=== PATIENT | female | born 1950 | race Caucasian/White ===

== ENCOUNTER 2017-01-21 12:33 | Emergency (ER) | payer MEDICARE, MEDICAID ==
[~2017-01-21] VITALS: Ht 142.2 cm; Wt 59.0 kg
[~2017-01-21 12:33] MED LIST: ALPR.5T PO; ALPR0.5T7 PO; AMLO5TAB2 PO; AMPH15TA2 PO; ASPI-816 PO; BP MED; CEPH-507 PO; CEPH500C PO; CLON2TAB22 BU; DEXT15TA PO; DOXY100C2 PO; ENAL10TA PO; FLC150T PO; FURO20TA4 PO; HCTZ12.5T PO; HYDR-2890 PO; HYDR-3720 PO; HYDR12.5 PO; LOSA100T7 PO; MULT1TAB69 PO; NAPR-243 PO; OMEP20CA12 PO; OXYC-272; OXYC-465 PO; OXYC1TAB17 PO; PANT40TA PO; SCR1T1 PO; SUCR1TAB PO; SULF-222 PO; wheelchair
[2017-01-21] MEDS ORDERED: DEXT15TA (12:48)
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
[2017-01-21] MEDS ORDERED: PRD20T PO (14:31)
[2017-01-21 14:38] VITALS: BP 174/98
== END 2017-01-21 14:37 | disposition home or self-care (01) ==
LOC: EDUNIT# 12:33 → ER 12:37
DX: M47.812 Spondylosis without myelopathy or radiculopathy, cervical region (principal); G89.29 Other chronic pain; R51 Headache; I10 Essential (primary) hypertension; J44.9 Chronic obstructive pulmonary disease, unspecified; F17.210 Nicotine dependence, cigarettes, uncomplicated; Z79.899 Other long term (current) drug therapy
CPT/HCPCS: 70450; 72125; 99281

== ENCOUNTER 2017-01-29 22:05 | Emergency (ER) | payer MEDICARE, MEDICAID ==
[~2017-01-29] VITALS: Ht 142.2 cm; Wt 56.7 kg
[~2017-01-29 22:05] MED LIST changes: +DEXT15TA; +PRD20T PO
[2017-01-29] MEDS ORDERED: ACYC800T PO (22:26)
--- NOTE | 2017-01-29 22:26 | ED General ---
General Chief Complaint: Bite-Animal/Human/Insect Stated Complaint: BITES ON NECK/FACE Source of Information: Patient Exam Limitations: No Limitations History of Present Illness Time Seen by Provider: 22:22 Initial Comments To ER with a nonspecific rash that itches and is burning to the left side of her neck for 4 days. Timing/Duration: 1-2 Days Severity: Moderate Allergies and Home Medications Allergies Coded Allergies: No Known Drug Allergies (Unverified , 05/15/09) Home Medications Clonazepam 2 Mg Tab.rapdis, 2 MG BU Q8H, (Reported) Dextroamphetamine/Amphetamine 15 Mg Tablet, #60 (Reported) Furosemide 20 Mg Tablet, 20 MG PO DAILY, (Reported) Hydrochlorothiazide 12.5 Mg Capsule, 12.5 MG PO DAILY@1700, (Reported) Multivitamin 1 Each Tablet, 1 TAB PO DAILY, (Reported) Oxycodone HCl/Acetaminophen 1 Each Tablet, 1 TAB PO Q6H PRN for PAIN, (Reported) Prednisone 20 Mg Tab, 40 MG PO DAILY, #12 Ref 0 Prescribed by: WIL WINTER on 01/21/17 1431 Constitutional: see HPI EENTM: see HPI Respiratory: no symptoms reported Cardiovascular: no symptoms reported Genitourinary: no symptoms reported Musculoskeletal: no symptoms reported Skin: no symptoms reported Psychiatric/Neurological: No Symptoms Reported Past [id number]-[id number]-[id number] Hx Patient Social History Type Used: Cigarettes Recent Foreign Travel: No Contact w/Someone Who Travel: No Recent Hopitalizations: No Immunizations Up To Date Tetanus Booster (TDap): Unknown Date of Pneumonia Vaccine: Aug 31, 2004 Seasonal Allergies Seasonal Allergies: No Surgeries HX Surgeries: Yes (RIGHT KNEE, BLADDER SUSPENSION X2, ANKLE FX) Surgeries: Bladder Surgery, Cardiac, Orthopedic Respiratory Hx Respiratory Disorders: Yes Respiratory Disorders: COPD Cardiovascular Hx Cardiac Disorders: Yes Cardiac Disorders: Hypertension Neurological Hx Neurological Disorders: No 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 System Hx 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 Disorders: No Sexually Transmitted Disease: 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 Genitourinary Hx Genitourinary Disorders: No Gastrointestinal Hx Gastrointestinal Disorders: Yes Gastrointestinal Disorders: Gastroesophageal Reflux, Hiatal Hernia, Ulcer Musculoskeletal Hx Musculoskeletal Disorders: Yes (RIGHT KNEE--TORN MENISCUS, CARPAL TUNNEL) Musculoskeletal Disorders: Osteoporosis, Arthritis, Fibromyalgia, Rheumatoid Arthritis, Chronic Back Pain, Fractures Endocrine Hx Endocrine Disorders: No HEENT HX ENT Disorders: No Cancer Hx Cancer: No Psychosocial Hx Psychiatric Problems: Yes Behavioral Health Disorders: Anxiety Integumentary HX Skin/Integumentary Disorder: No Blood Transfusions Hx Blood Disorders: No Family Medical History Significant Family History: Heart Disease Family Medial History: Cancer of mouth 20 MOTHER (CANCER OF STOMACH) GRANDMOTHER (CANCER OF STOMACH) Physical Exam Vital Signs Capillary Refill : Less Than 3 Seconds General Appearance: No Apparent Distress, WD/WN Eyes: Bilateral Eye EOMI, Bilateral Eye Normal Inspection, Bilateral Eye PERRL HEENT: PERRL/EOMI, TMs Normal Neck: Full Range of Motion, Normal Inspection Respiratory: No Accessory Muscle Use, No Respiratory Distress Gastrointestinal: Normal Bowel Sounds, Non Tender, Soft Extremity: Normal Capillary Refill, Normal Inspection Neurologic/Psychiatric: Alert, Oriented x3, No Motor/Sensory Deficits Skin: Normal Color, Warm/Dry, Other (erythematous linear rash of papules and what appears to be crusted ruptured vesicles. ) Departure Communication Progress Notes 2224- no cellulitis we will treat for a potential herpes zoster rash. Impression Impression: Primary Impression: Rash and nonspecific skin eruption Disposition: 01 HOME, SELF-CARE Condition: Stable Departure-Patient Inst. Decision time for Depature: 22:23 Referrals: PAUL HERNANDEZ MD (PCP/Family) Primary Care Physician Patient Instructions: NO INSTRUCTIONS GIVEN Add. Discharge Instructions: 1. Medication as directed 2. See your doctor tomorrow for recheck 3. Return to ER for any worsening All discharge instructions reviewed with patient and/or family. Voiced understanding. Scripts Acyclovir (Acyclovir) 800 Mg Tablet 800 MG PO 5XD, #35 TAB Prov: MESERET LANTIGUA APRN 01/29/17 MESERET LANTIGUA APRN Jan 29, 2017 22:26
[2017-01-29] MEDS ORDERED: HYDROCORTISONE 1% CREAM 30 GM TUBE ONE (22:38)
[2017-01-29] MEDS: HYDROCORTISONE 1% CREAM 30 GM TUBE TOP SCH (22:46)
[2017-01-29] MEDS: ACYCLOVIR 400 MG TABLET (ZOVIRAX) PO SCH (22:47)
[2017-01-29 22:48] VITALS: BP 140/101
== END 2017-01-29 22:48 | disposition home or self-care (01) ==
LOC: EDUNIT# 22:05 → ER 22:10
DX: R21 Rash and other nonspecific skin eruption (principal); I10 Essential (primary) hypertension; J44.9 Chronic obstructive pulmonary disease, unspecified; Z79.899 Other long term (current) drug therapy

== ENCOUNTER 2017-03-11 14:26 | Emergency (ER) | payer MEDICARE, MEDICAID ==
[~2017-03-11] VITALS: Ht 157.5 cm; Wt 51.3 kg
[~2017-03-11 14:26] MED LIST changes: +ACYC800T PO
[2017-03-11] MEDS ORDERED: NALOXONE 0.4 MG/ML 1 ML (NARCAN) VIAL ONE (14:34)
[2017-03-11] MEDS ORDERED: NALOXONE 2 MG/2 ML (NARCAN) SYR ONE (14:34)
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
[2017-03-11 14:53] LABS: BASOPHILS % (AUTO) 0 % (0-10); EOSINOPHILS # (AUTO) 0.5 10^3/uL (0.0-0.3); EOSINOPHILS % (AUTO) 5 % (0-10); LYMPHOCYTES # (AUTO) 3.2 X 10^3 (1.0-4.0); LYMPHOCYTES % (AUTO) 35 % (12-44); MEAN CORPUSCULAR HEMOGLOBIN 31 PG (25-34); MEAN CORPUSCULAR HGB CONC 33 G/DL (32-36); MEAN CORPUSCULAR VOLUME 93 FL (80-99); MEAN PLATELET VOLUME 9.5 FL (7.4-10.4); MONOCYTES # (AUTO) 0.6 X 10^3 (0.0-1.0); MONOCYTES % (AUTO) 7 % (0-12); NEUTROPHILS # (AUTO) 4.9 X 10^3 (1.8-7.8); NEUTROPHILS % (AUTO) 54 % (42-75); PLATELET COUNT 219 10^3/uL (130-400); RED BLOOD COUNT 4.31 10^6/uL (4.35-5.85); RED CELL DISTRIBUTION WIDTH 13.8 % (10.0-14.5); WHITE BLOOD COUNT 9.1 10^3/uL (4.3-11.0)
[2017-03-11] MEDS ORDERED: NALOXONE 0.4 MG/ML 1 ML (NARCAN) VIAL IV ONE (15:00)
[2017-03-11 15:09] LABS: ACETAMINOPHEN 15 UG/ML (10-30); ALANINE AMINOTRANSFERASE 10 U/L (0-55); ALBUMIN 3.6 GM/DL (3.2-4.5); ALCOHOL < 10 MG/DL (<10); ANION GAP 7 MMOL/L (5-14); ASPARTATE AMINO TRANSFERASE 16 U/L (5-34); BILIRUBIN,TOTAL 0.6 MG/DL (0.1-1.0); BLOOD UREA NITROGEN 12 MG/DL (7-18); BUN/CREATININE RATIO 16; CARBON DIOXIDE 27 MMOL/L (21-32); CHLORIDE 102 MMOL/L (98-107); CREATININE SERUM 0.75 MG/DL (0.60-1.30); GFR ESTIMATED > 60; GLUCOSE 89 MG/DL (70-105); POTASSIUM 4.1 MMOL/L (3.6-5.0); SALICYLATE < 5.0 MG/DL (5.0-20.0); SODIUM 136 MMOL/L (135-145); TOTAL PROTEIN 6.5 GM/DL (6.4-8.2)
--- NOTE | 2017-03-11 15:24 | Diagnostic Imaging Report ---
PROCEDURE: CT head without contrast. TECHNIQUE: Multiple contiguous axial images were obtained through the brain without the use of intravenous contrast. INDICATION: Altered mental status. FINDINGS: There are periventricular and deep white matter hypodensities compatible with chronic microvascular ischemic changes. No intracranial hemorrhage, edema or mass effect. The lateral ventricles are not enlarged. No extra-axial fluid collection is seen. The calvarium, the orbits and paranasal sinuses appear grossly unremarkable. IMPRESSION: 1. No intracranial hemorrhage. 2. Prominent white matter findings are likely secondary to chronic microvascular ischemic changes. Dictated by: Dictated on workstation # [id number]
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
[2017-03-11] MEDS ORDERED: NS IV 1000 ML 1,000 ML IV ONE ×2 (15:50→17:54)
[2017-03-11 17:28] LABS: BILIRUBIN,URINE NEGATIVE (NEGATIVE); KETONES,URINE NEGATIVE (NEGATIVE); LEUKOCYTE ESTERASE ,URINE 3+ (NEGATIVE); NITRITE,URINE NEGATIVE (NEGATIVE); PH,URINE 7 (5-9); PROTEIN,URINE NEGATIVE (NEGATIVE); UROBILINOGEN,URINE NORMAL (NORMAL)
[2017-03-11 17:37] LABS: WBC,URINE 50-100 /HPF
[2017-03-11] MEDS ORDERED: CIPROFLOXACIN 500 MG (CIPRO) TABLET PO ONE (17:45)
[2017-03-11] MEDS ORDERED: CIPR-225 PO (18:10)
[2017-03-11 20:02] VITALS: BP 113/88
== END 2017-03-11 19:59 | disposition home or self-care (01) ==
LOC: EDUNIT# 14:26 → ER 14:30
DX: F44.89 Other dissociative and conversion disorders (principal); F17.210 Nicotine dependence, cigarettes, uncomplicated
CPT/HCPCS: 36415; 70450; 80053; 80306; 80320; 80329; 81000; 84443; 85025; 87077; 87088; 87186; 93005; 93041; 96361; 96374

== ENCOUNTER 2017-10-19 17:15 | Emergency (ER) | payer MEDICARE, MEDICAID ==
[~2017-10-19] VITALS: Ht 157.5 cm; Wt 51.3 kg
[~2017-10-19 17:15] MED LIST changes: +CIPR-225 PO
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
--- NOTE | 2017-10-19 18:57 | Diagnostic Imaging Report ---
PROCEDURE: CT abdomen and pelvis without contrast. TECHNIQUE: Multiple contiguous axial images were obtained through the abdomen and pelvis without the use of intravenous contrast. INDICATION: Abdominal pain Comparison is made to study of 07/17/2016. Unenhanced images of the liver and spleen reveal no focal abnormality. There is no evidence of gallbladder or pancreatic lesion. Adrenal glands and kidneys are also stable and unremarkable in appearance. No free fluid is seen within the abdomen. There is a disc like metallic object which appears to be within the dependent portion of the stomach. This may represent an ingested foreign object such as coin. There are marked compression fracture deformities in the upper lumbar spine with associated sclerosis indicating probable chronic nature without evidence of associated hematoma. Within the pelvis, there is no significant free fluid. The bladder is distended. There is no evidence of acute osseous abnormality. IMPRESSION: Metallic object appears to be within the lumen of the stomach and may represent ingested object such as coin. Clinical correlation is recommended. There is marked degenerative change in the upper lumbar spine without other acute abnormality seen. There is extensive urinary bladder distention. Dictated by: Dictated on workstation # [id number]
[2017-10-19] MEDS ORDERED: ORPHENADRINE 60 MG/2 ML (NORFLEX) AMP IM ONE (19:15)
[2017-10-19] MEDS ORDERED: KETOROLAC 60 MG/2 ML VIAL IM ONE (19:15)
[2017-10-19 19:33] LABS: BILIRUBIN,URINE NEGATIVE (NEGATIVE); CLARITY,URINE CLEAR; COLOR,URINE YELLOW; GLUCOSE, URINE (UA) NEGATIVE (NEGATIVE); KETONES,URINE NEGATIVE (NEGATIVE); LEUKOCYTE ESTERASE ,URINE 3+ (NEGATIVE); NITRITE,URINE NEGATIVE (NEGATIVE); PH,URINE 7 (5-9); PROTEIN,URINE NEGATIVE (NEGATIVE); UROBILINOGEN,URINE NORMAL (NORMAL)
[2017-10-19 19:41] LABS: BACTERIA,URINE LARGE /HPF
[2017-10-19 19:42] VITALS: BP 144/90
[2017-10-19] MEDS ORDERED: SULF1TAB35 PO (19:49)
[2017-10-19] MEDS ORDERED: NAPR-1071 PO (19:49)
[2017-10-19 19:55] VITALS: BP 136/78
[2017-10-19 20:22] LABS: AMPHETAMINE SCREEN, URINE NEGATIVE (NEGATIVE); BARBITURATE SCREEN URINE NEGATIVE (NEGATIVE); BENZODIAZEPINES SCREEN URINE NEGATIVE (NEGATIVE); CANNABINOID SCREEN, URINE NEGATIVE (NEGATIVE); COCAINE SCREEN URINE NEGATIVE (NEGATIVE); METHADONE STAT NEGATIVE (NEGATIVE); METHAMPHETAMINE SCREEN URINE S NEGATIVE (NEGATIVE); OPIATE SCREEN URINE NEGATIVE (NEGATIVE); OXYCODONE STAT NEGATIVE (NEGATIVE); PROPOXYPHENE STAT NEGATIVE (NEGATIVE); TRICYCLIC ANTIDEPRESSANTS SCRE NEGATIVE (NEGATIVE)
== END 2017-10-19 19:53 | disposition home or self-care (01) ==
LOC: EDUNIT# 17:15 → ER 17:16
DX: N39.0 Urinary tract infection, site not specified (principal); J44.9 Chronic obstructive pulmonary disease, unspecified; I10 Essential (primary) hypertension; K21.9 Gastro-esophageal reflux disease without esophagitis; M81.0 Age-related osteoporosis without current pathological fracture; F41.9 Anxiety disorder, unspecified; Z80.0 Family history of malignant neoplasm of digestive organs; Z82.49 Family history of ischemic heart disease and other diseases of the circulatory system; Z87.19 Personal history of other diseases of the digestive system; Z90.710 Acquired absence of both cervix and uterus; Z77.22 Contact with and (suspected) exposure to environmental tobacco smoke (acute) (chronic)
CPT/HCPCS: 74176; 80306; 81000; 87077; 87088; 87186

== ENCOUNTER 2017-10-26 13:03 | Emergency (ER) | payer MEDICARE, MEDICAID ==
[~2017-10-26] VITALS: Ht 157.5 cm; Wt 59.0 kg
[~2017-10-26 13:03] MED LIST changes: +NAPR-1071 PO; +SULF1TAB35 PO
[2017-10-26 14:00] VITALS: BP 113/76
== END 2017-10-26 15:34 | disposition left against medical advice (07) ==
LOC: EDUNIT# 13:03 → ER 13:07
DX: R39.89 Other symptoms and signs involving the genitourinary system (principal)
CPT/HCPCS: 99282

== ENCOUNTER 2018-03-16 18:40 | Emergency (ER) | payer MEDICARE, MEDICAID ==
[~2018-03-16] VITALS: Ht 144.8 cm; Wt 56.7 kg
[~2018-03-16 18:40] MED LIST changes: +MUPI22OI2 TP
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
[2018-03-16] MEDS ORDERED: HYDROcodone/APAP 5 MG/325 MG (LORTAB) TAB PO ONE (19:15)
--- NOTE | 2018-03-16 20:13 | Diagnostic Imaging Report ---
CLINICAL INDICATION: Patient status post fall, right rib pain, cough and congestion. EXAM: X-ray right ribs, 3 views. COMPARISON: Chest x-ray dated 02/11/2015. Chest x-ray dated 03/16/2018. FINDINGS AND IMPRESSION: 1: There is interval development of minimally displaced fractures involving the anterolateral aspect of the right T6, T7, T8, and T9 ribs. There is no pneumothorax. 2: There is dextroscoliosis of the thoracolumbar region with compression deformities noted which is better described on the prior chest x-ray dated 03/16/2018. Dictated by: Dictated on workstation # [id number]
--- NOTE | 2018-03-16 20:16 | Diagnostic Imaging Report ---
Clinical indication: Patient is status post fall, right rib pain with coughing. Congestion. Exam: Chest x-ray, PA and lateral views. Comparison: Portable chest x-ray, upright view, dated 02/11/2015. CT scan of the chest, abdomen, and pelvis with contrast dated 07/17/2016. Findings: There is kyphosis of the thoracolumbar region with compression deformities of at least 2 vertebral bodies. The patient was noted to have compression fractures in this general region on a comparison chest CT scan dated 07/17/2016. These findings may be chronic, but should be correlated with back pain. Right ribs are obscured by chest anatomical structures. This would be better evaluated with x-ray rib series. There is mild bibasilar atelectasis versus scarring. There is no definite lung infiltrate. There is no pleural effusion or pneumothorax. Pulmonary vasculature and cardiac silhouette is within normal limits. There is dextroscoliosis of the thoracolumbar spine region which has progressed compared to the prior CT. Impression: 1: There is progression of kyphosis with thoracolumbar compression deformities which most, if not all, are suspected to be chronic. Clinical correlation for back pain would better evaluate. If there is concern for fracture, then CT scan would better evaluate. 2: Mild bibasilar atelectasis versus scarring. Dictated by: Dictated on workstation # [id number]
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
[2018-03-16] MEDS ORDERED: oxyCODONE/APAP 5/325MG (PERCOCET 5) TABLET PO ONE (21:00)
[2018-03-16 21:34] LABS: BILIRUBIN,URINE NEGATIVE (NEGATIVE); CLARITY,URINE CLEAR; COLOR,URINE YELLOW; GLUCOSE, URINE (UA) NEGATIVE (NEGATIVE); KETONES,URINE NEGATIVE (NEGATIVE); LEUKOCYTE ESTERASE ,URINE 1+ (NEGATIVE); NITRITE,URINE NEGATIVE (NEGATIVE); PH,URINE 7 (5-9); PROTEIN,URINE NEGATIVE (NEGATIVE); UROBILINOGEN,URINE NORMAL (NORMAL)
[2018-03-16 21:40] LABS: BACTERIA,URINE FEW /HPF; RBC,URINE 0-2 /HPF; SQUAMOUS EPITHELIAL CELL,UR 0-2 /HPF
[2018-03-16] MEDS ORDERED: OXYC-197 PO (21:58)
[2018-03-16] MEDS ORDERED: RX-OXYCODONE/APAP 5-325 MG #4 TAB PK PO PRN (22:00)
[2018-03-16] MEDS ORDERED: AMLO5TAB2 PO (22:08)
[2018-03-16] MEDS ORDERED: amLODIPine 5 MG (NORVASC) TAB PO ONE (22:15)
[2018-03-16 22:16] VITALS: BP 195/96
== END 2018-03-16 22:16 | disposition home or self-care (01) ==
LOC: EDUNIT# 18:40 → ER 18:42
DX: S22.41XA Multiple fractures of ribs, right side, initial encounter for closed fracture (principal); I10 Essential (primary) hypertension; J44.9 Chronic obstructive pulmonary disease, unspecified; Z90.710 Acquired absence of both cervix and uterus; K21.9 Gastro-esophageal reflux disease without esophagitis; F17.210 Nicotine dependence, cigarettes, uncomplicated; M81.0 Age-related osteoporosis without current pathological fracture; M06.9 Rheumatoid arthritis, unspecified; F41.9 Anxiety disorder, unspecified; Z87.19 Personal history of other diseases of the digestive system; W18.30XA Fall on same level, unspecified, initial encounter; Y92.002 Bathroom of unspecified non-institutional (private) residence as the place of occurrence of the external cause
CPT/HCPCS: 71046; 71100; 81000; 94664

== ENCOUNTER 2018-06-21 12:07 | Inpatient (IN) | payer MEDICARE, MEDICAID ==
[~2018-06-21] VITALS: Ht 144.8 cm; Wt 56.7 kg
[~2018-06-21 12:07] MED LIST changes: +AMLO5TAB7 PO; -DEXT15TA; +OXYC1TAB87 PO
[2018-06-21] MEDS ORDERED: fentaNYL INJECTION 100 MCG/2 ML AMP IVP STA (12:22)
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
--- NOTE | 2018-06-21 13:18 | Diagnostic Imaging Report ---
INDICATION: Right knee pain, fall yesterday. TIME OF EXAM: 1:16 PM 3 views of the right knee were obtained. FINDINGS: Alignment is normal. Joint spaces are fairly well-maintained apart from medial compartmental narrowing. There is marginal osteophyte formation. No fracture, dislocation or effusion is seen. IMPRESSION: Degenerative changes. No acute bony abnormality is detected. Dictated by: Dictated on workstation # [id number]
--- NOTE | 2018-06-21 13:19 | Diagnostic Imaging Report ---
Indication: Right hip pain. AP view pelvis and 2 views of right hip were obtained. There is some cortical irregularity in the intertrochanteric region of the right hip suspicious for nondisplaced fracture. Impression: Suspected nondisplaced intertrochanteric fracture of the right hip. Called to Dr. House at 1:18 p.m. by cvb. Critical finding. Dictated by: Dictated on workstation # [id number]
[2018-06-21] MEDS ORDERED: HYDROmorphone 2 MG/ML VIAL (DILAUDID) IV STA (13:34)
[2018-06-21 13:42] LABS: BASOPHILS % (AUTO) 0 % (0-10); EOSINOPHILS # (AUTO) 0.1 10^3/uL (0.0-0.3); EOSINOPHILS % (AUTO) 1 % (0-10); HEMATOCRIT 43 % (35-52); LYMPHOCYTES # (AUTO) 2.3 X 10^3 (1.0-4.0); LYMPHOCYTES % (AUTO) 24 % (12-44); MEAN CORPUSCULAR HEMOGLOBIN 30 PG (25-34); MEAN CORPUSCULAR HGB CONC 33 G/DL (32-36); MEAN CORPUSCULAR VOLUME 92 FL (80-99); MONOCYTES # (AUTO) 0.7 X 10^3 (0.0-1.0); MONOCYTES % (AUTO) 8 % (0-12); NEUTROPHILS # (AUTO) 6.5 X 10^3 (1.8-7.8); NEUTROPHILS % (AUTO) 67 % (42-75); PLATELET COUNT 345 10^3/uL (130-400); RED BLOOD COUNT 4.63 10^6/uL (4.35-5.85); RED CELL DISTRIBUTION WIDTH 14.9 % (10.0-14.5); WHITE BLOOD COUNT 9.7 10^3/uL (4.3-11.0)
[2018-06-21 13:48] LABS: PROTHROMBIN TIME PATIENT 13.6 SEC (12.2-14.7)
[2018-06-21 13:56] LABS: ALANINE AMINOTRANSFERASE 15 U/L (0-55); ALBUMIN 4.4 GM/DL (3.2-4.5); ALKALINE PHOSPHATASE 95 U/L (40-136); BUN/CREATININE RATIO 13; CALCIUM 9.6 MG/DL (8.5-10.1); CARBON DIOXIDE 22 MMOL/L (21-32); CHLORIDE 104 MMOL/L (98-107); CREATININE SERUM 0.75 MG/DL (0.60-1.30); GFR ESTIMATED > 60; GLUCOSE 110 MG/DL (70-105); POTASSIUM 3.4 MMOL/L (3.6-5.0); SODIUM 140 MMOL/L (135-145); TOTAL PROTEIN 8.3 GM/DL (6.4-8.2)
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
--- OUTSIDE RECORDS SUMMARY | 2018-06-21 14:12 | XMS REPORT ---
Author Author RIKA NGUYEN Organization [facility] Address [address] [place] [address] Care Team Providers Care Die Maker Name Role Phone RIKA NGUYEN Unavailable PROBLEMS Type Condition ICD9-CM Code PFD24-GF Code Onset Dates Condition Status SNOMED Code Problem Attention deficit hyperactivity disorder (ADHD), predominantly inattentive type F90.0 Active 92140164 Problem Closed fracture of multiple ribs of right side with routine healing, subsequent encounter S22.41XD Active 64790521 Problem Neuropathy G62.9 Active 085958123 Problem GERD with esophagitis K21.0 Active 151925286 ALLERGIES No Information ENCOUNTERS Encounter Location Date Diagnosis [place] [id number] [place] [address]46- [address] 12 May, 2018 [place] [id number] [place] [address] 72[address]- [address] Mar, Fall in bathtub, subsequent encounter W18.2XXD [place] [id number] [place] [address] 18296- 5710 Mar, [place] [id number] [place] [address] 63770- 4984 Mar, [place] [id number] [place] [address] 70309- 2965 Feb, [facility] [id number] [place] [address] 8[address]12- [address] Feb, Closed fracture of multiple ribs of right side with routine healing, subsequent encounter S22.41XD ; Fall in bathtub, subsequent encounter W18.2XXD and Attention deficit hyperactivity disorder (ADHD), predominantly inattentive type F90.0 [place] [id number] [place] [address]33- [address] Feb, [facility] [address] [facility] [id number] [place] [address] Feb, Fatigue R53.83 [facility] [address] [facility] [id number] [place] [address] Feb, GERD with esophagitis K21.0 ; Neuropathy G62.9 and Rash R21 IMMUNIZATIONS No Known Immunizations SOCIAL HISTORY Never Assessed REASON FOR VISIT Requests return call/ PLAN OF CARE VITAL SIGNS MEDICATIONS Unknown [...]
--- OUTSIDE RECORDS SUMMARY | 2018-06-21 14:12 | XMS REPORT ---
Author Author RIKA NGUYEN Organization [facility] Address [address] [place] [address] Care Team Providers Care Back Shoe Operator Name Role Phone RIKA NGUYEN Unavailable PROBLEMS Type Condition ICD9-CM Code JKK21-LJ Code Onset Dates Condition Status SNOMED Code Problem Attention deficit hyperactivity disorder (ADHD), predominantly inattentive type F90.0 Active 38404921 Problem Closed fracture of multiple ribs of right side with routine healing, subsequent encounter S22.41XD Active 30198714 Problem Neuropathy G62.9 Active 629872785 Problem GERD with esophagitis K21.0 Active 552357972 ALLERGIES No Information ENCOUNTERS Encounter Location Date Diagnosis [place] [id number] [place] [address] 16162- [address] 12 May, 2018 [place] [id number] [place] [address] 46335- [address] Mar, Fall in bathtub, subsequent encounter W18.2XXD [place] [id number] [place] [address] 18642- 6482 Mar, [place] [id number] [place] [address] 80754- 3[address] Mar, [place] [id number] [place] [address] 20784- 9158 Feb, [facility] [id number] [place] [address] 27695- 6489 Feb, Closed fracture of multiple ribs of right side with routine healing, subsequent encounter S22.41XD ; Fall in bathtub, subsequent encounter W18.2XXD and Attention deficit hyperactivity disorder (ADHD), predominantly inattentive type F90.0 [place] [id number] [place] [address] 76863- [address]391 Feb, [facility] [address] [facility] [id number] [place] [address] Feb, Fatigue R53.83 [facility] [address] [facility] [id number] [place] [address] Feb, GERD with esophagitis K21.0 ; Neuropathy G62.9 and Rash R21 IMMUNIZATIONS No Known Immunizations SOCIAL HISTORY Never Assessed REASON FOR VISIT Labs PLAN OF CARE VITAL SIGNS MEDICATIONS Unknown [...]
--- OUTSIDE RECORDS SUMMARY | 2018-06-21 14:12 | XMS REPORT ---
Author Author RIKA NGUYEN Organization [facility] Address [address] [place] [address] Care Team Providers Care Farmworker Turkey Farm Name Role Phone RIKA NGUYEN Unavailable PROBLEMS Type Condition ICD9-CM Code RXZ15-AJ Code Onset Dates Condition Status SNOMED Code Problem Attention deficit hyperactivity disorder (ADHD), predominantly inattentive type F90.0 Active 36427612 Problem Closed fracture of multiple ribs of right side with routine healing, subsequent encounter S22.41XD Active 04987515 Problem Neuropathy G62.9 Active 921501763 Problem GERD with esophagitis K21.0 Active 664047516 ALLERGIES No Information ENCOUNTERS Encounter Location Date Diagnosis [place] [id number] [place] [address]61- [address]15 May, [place] [id number] [place] [address] 78455- 6144 May, [place] [address] [address] Mar, Fall in bathtub, subsequent encounter W18.2XXD [place] [id number] [place] [address] 87641- 9272 Mar, [place] [id number] [place] [address] 67435- [address]297 Mar, [facility] [address] [address] Feb, [facility] [address] [address]- [address] Feb, Closed fracture of multiple ribs of right side with routine healing, subsequent encounter S22.41XD ; Fall in bathtub, subsequent encounter W18.2XXD and Attention deficit hyperactivity disorder (ADHD), predominantly inattentive type F90.0 [facility] [address] [facility] [id number] [place] [address] Feb, [facility] [address] [facility] [id number] [address] Feb, [address] [facility] [address] [facility] [id number] [address] Feb, GERD with esophagitis K21.0 ; Neuropathy G62.9 and Rash R21 IMMUNIZATIONS No Known Immunizations SOCIAL HISTORY Never Assessed REASON FOR VISIT Refill request PLAN OF CARE VITAL SIGNS MEDICATIONS Unknown [...]
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
--- NOTE | 2018-06-21 14:38 | Diagnostic Imaging Report ---
INDICATION: Preop for hip surgery. TIME OF EXAM: 1:58 p.m. COMPARISON: Comparison is made with prior chest from 03/16/2018. FINDINGS: The heart size is stable. There are some interstitial changes throughout both lungs, which are likely chronic. No parenchymal consolidation, effusion, or pneumothorax is seen. IMPRESSION: No acute cardiopulmonary process is detected. Dictated by: Dictated on workstation # [id number]
[2018-06-21] MEDS ORDERED: LORazepam INJ 2 MG/ML (ATIVAN) VIAL IVP PRN (14:45)
[2018-06-21] MEDS ORDERED: ONDANSETRON 4 MG/2 ML (SDV) Z0FRAN IV PRN (15:15)
[2018-06-21] MEDS ORDERED: NS IV 1000 ML 1,000 ML IV SCH (15:15)
[2018-06-21] MEDS ORDERED: CLON2TAB12 PO (15:46)
[2018-06-21] MEDS ORDERED: OXYC-471 PO (15:46)
[2018-06-21] MEDS ORDERED: SUCR1TAB PO (15:48)
[2018-06-21] MEDS ORDERED: GABA-488 PO (15:48)
[2018-06-21] MEDS ORDERED: ASPI-789 PO (15:57)
[2018-06-21] MEDS ORDERED: [UNRECOGNIZED DRUG - CODE] PO (15:59)
[2018-06-21 16:00] VITALS: BP 173/80
[2018-06-21] MEDS ORDERED: RT-ALBUTEROL/IPRATROPIUM 3 ML (DUONEB) VIAL INH PRN (16:00)
[2018-06-21 16:02] VITALS: BP 178/108
[2018-06-21] MEDS ORDERED: FLU QUADRIvalent (5+ YOA) 2018-2019 (AFLURIA) 0.5 ML IM ONE (17:00)
[2018-06-21] MEDS: fentaNYL INJECTION 100 MCG/2 ML AMP IV PRN (17:29)
[2018-06-21 19:30] VITALS: BP 172/77
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
[2018-06-21] MEDS ORDERED: BISACODYL 5 MG (DULCOLAX) TABLET PO PRN (20:15)
[2018-06-21] MEDS ORDERED: ACETAMINOPHEN 325 MG TABLET PO PRN (20:15)
--- NOTE | 2018-06-21 20:20 | Progress Note-Pre Operative ---
Pre-Operative Progress Note H&P Reviewed The H&P was reviewed, patient examined and no changes noted. Time Seen by Provider: 20:20 Date H&P Reviewed: Jun 21, 2018 Time H&P Reviewed: 20:19 Pre-Operative Diagnosis: Right Closed Base Femoral Neck/Intertroch Fracture PAMELA INTERIANO MD Jun 21, 2018 8:20 pm
[2018-06-21] MEDS ORDERED: proPOfol 200 MG/20 ML (DIPRIVAN) VIAL IV ONE (20:49)
[2018-06-21] MEDS ORDERED: LIDOCAINE PF 2% 5 ML (XYLOCAINE) VIAL ONE (20:49)
[2018-06-21] MEDS ORDERED: fentaNYL INJECTION 100 MCG/2 ML AMP ONE (20:49)
[2018-06-21] MEDS ORDERED: ONDANSETRON 4 MG/2 ML (SDV) Z0FRAN ONE (20:49)
[2018-06-21] MEDS ORDERED: ROCURONIUM 10 MG/ML 5 ML SYRINGE IV ONE (20:49)
[2018-06-21] MEDS ORDERED: SUCCINYLCHOLINE INJ 100 MG/5 ML SYR ONE (20:49)
[2018-06-21] MEDS ORDERED: MIDAZOLAM 2 MG/2 ML (VERSED) VIAL ONE (20:50)
[2018-06-21] MEDS ORDERED: ceFAZolin 1,000 MG/10 ML (ANCEF) VIAL ONE (21:06)
[2018-06-21] MEDS: RT-ALBUTEROL/IPRATROPIUM 3 ML (DUONEB) VIAL INH SCH (21:13)
[2018-06-21] MEDS ORDERED: ceFAZolin 2 GM IV Premixed 50 ML IV ONE (21:30)
[2018-06-21] MEDS ORDERED: SEVOFLURANE (ULTANE) 15 ML INHAL SOLN ONE ×2 (21:38→21:40)
[2018-06-21] MEDS ORDERED: NEOSTIGMINE 1 MG/ML 5 ML SYRINGE ONE (21:40)
[2018-06-21] MEDS ORDERED: GLYCOPYRROLATE 0.2 MG/ML (ROBINUL) 2 ML VIAL ONE (21:40)
--- NOTE | 2018-06-21 21:40 | Progress Note-Post Operative ---
Post-Operative Progess Note Surgeon (s)/Rental Salesperson (s) Surgeon PAMELA INTERIANO MD Rental Salesperson: SANGITA Lee Pre-Operative Diagnosis Right Closed Base Femoral Neck/Intertroch Fracture Post-Operative Diagnosis Same Procedure & Operative Findings Date of Procedure 06/21/18 Procedure Performed/Findings Right Hip IM Nailing Anesthesia Type GETA Estimated Blood Loss Estimated blood loss (mL): 200 Specimens/Packing Specimens Removed none PAMELA INTERIANO MD Jun 21, 2018 9:40 pm
[2018-06-21] MEDS ORDERED: morphine INJ 10 MG/ML 1ML (SYR OR VIAL) ONE (21:56)
[2018-06-21] MEDS ORDERED: PROMETHAZINE INJ 25 MG/ML (PHENERGAN) AMP IVP ONE (22:15)
[2018-06-21] MEDS ORDERED: HYDROmorphone 2 MG/ML VIAL (DILAUDID) IV ONE (22:15)
[2018-06-21] MEDS ORDERED: MEPERIDINE (DEMEROL) INJ 50 MG/ML IVP ONE (22:15)
[2018-06-21] MEDS ORDERED: ONDANSETRON 4 MG/2 ML (SDV) Z0FRAN IVP PRN (22:15)
[2018-06-21] MEDS ORDERED: morphine INJ 10 MG/ML 1ML (SYR OR VIAL) IVP ONE (22:15)
--- NOTE | 2018-06-21 22:34 | Diagnostic Imaging Report ---
INDICATION: Hip fracture, undergoing fixation. TECHNIQUE: 2 intraprocedural images right femur CORRELATION STUDY: None FINDINGS: Internal fixation hardware transfixes a proximal femur fracture. Alignment appearing to be anatomic as visualized on the intraoperative views. Fluoroscopy time: One minute 7 seconds IMPRESSION: 1. Internal fixation has been performed of the proximal right femur fracture. Dictated by: Dictated on workstation # [id number]
[2018-06-21 23:10] VITALS: BP 151/75
[2018-06-21] MEDS: HYDROcodone/APAP 5 MG/325 MG (LORTAB) TAB PO PRN (23:32)
[2018-06-21] MEDS: SENNOSIDES 8.6 MG (SENOKOT) TAB PO SCH (23:33)
[2018-06-21] MEDS: NS IV 1000 ML 1,000 ML IV SCH (23:33)
[2018-06-21] MEDS: ceFAZolin 2 GM IV Premixed 50 ML IV SCH (23:33)
[2018-06-22] MEDS: fentaNYL INJECTION 100 MCG/2 ML AMP IV PRN ×3 (00:13→20:30)
[2018-06-22] MEDS: RT-ALBUTEROL/IPRATROPIUM 3 ML (DUONEB) VIAL INH SCH ×4 (02:37→20:19)
[2018-06-22 03:45] VITALS: BP 134/67
--- NOTE | 2018-06-22 04:45 | OPERATIVE REPORT ---
DATE OF SERVICE: 06/21/2018 PREOPERATIVE DIAGNOSIS: Right closed basal femoral neck intertrochanteric hip fracture. POSTOPERATIVE DIAGNOSIS: Right closed basal femoral neck intertrochanteric hip fracture. PROCEDURE PERFORMED: Right hip intramedullary nailing. DATE AND TIME OF SURGERY: Please see anesthesia record. IMPLANTS USED: A DePuy Synthes size 11, 130 degree short TFN with a 95 mm helical blade and a 34 mm distal locking screw. SURGEON: Pamela Meier MD EXTRUDER OPERATOR HORIZONTAL: COOPER Lee. ROLE OF MANAGER PEST: Aid in retraction of the procedure, aid in implantation, instrumentation and wound closure. ANESTHESIA: General endotracheal. ESTIMATED BLOOD LOSS: 200 mL. INTRAVENOUS FLUIDS: Please see anesthesia record. ANTIBIOTICS: Ancef. COMPLICATIONS: None. INDICATIONS FOR PROCEDURE: The patient is a 67-year-old female who fell and broke her hip and desires operative treatment. Risks, benefits and alternatives were discussed and she elected to proceed with operative treatment. DESCRIPTION OF PROCEDURE: The patient was taken to the preoperative holding area and brought back to the operative suite. After adequate induction of general anesthetic, placed on the fracture table. Sterile prep and drape to the right leg. Fluoroscopy was brought in. A small incision made at the tip of the trochanter. Guidewire was placed. Reaming drill was utilized then TFN(Nail) was placed into a satisfactory position. Guidewire and anti-rotation pin were placed. A 95 mm helical blade was measured. Lateral broaching drill was then used and the helical blade was impacted in satisfactory position in the central position of the head; checked on imaging, it was locked in place. Distal locking screw was then drilled and placed. Final imagings were obtained. Wounds were irrigated, closed in layers. The patient was transferred to recovery room and subsequent to ICU for continued recovery. Job ID: [id number] DocumentID: [id number] Dictated Date: 06/21/2018 21:39:28 Safety Risk Lead Date: 06/22/2018 04:44:05 Dictated By: PAMELA MEIER MD [facility]
[2018-06-22] MEDS: ceFAZolin 2 GM IV Premixed 50 ML IV SCH ×2 (05:30→13:27)
[2018-06-22 05:40] LABS: BASOPHILS % (AUTO) 0 % (0-10); EOSINOPHILS # (AUTO) 0.2 10^3/uL (0.0-0.3); EOSINOPHILS % (AUTO) 2 % (0-10); HEMATOCRIT 36 % (35-52); HEMOGLOBIN 11.5 G/DL (11.5-16.0); LYMPHOCYTES # (AUTO) 2.4 X 10^3 (1.0-4.0); LYMPHOCYTES % (AUTO) 29 % (12-44); MEAN CORPUSCULAR HEMOGLOBIN 30 PG (25-34); MEAN CORPUSCULAR HGB CONC 32 G/DL (32-36); MEAN CORPUSCULAR VOLUME 94 FL (80-99); MEAN PLATELET VOLUME 9.6 FL (7.4-10.4); MONOCYTES # (AUTO) 0.8 X 10^3 (0.0-1.0); MONOCYTES % (AUTO) 10 % (0-12); NEUTROPHILS # (AUTO) 4.9 X 10^3 (1.8-7.8); NEUTROPHILS % (AUTO) 59 % (42-75); PLATELET COUNT 243 10^3/uL (130-400); RED CELL DISTRIBUTION WIDTH 14.3 % (10.0-14.5); WHITE BLOOD COUNT 8.3 10^3/uL (4.3-11.0)
[2018-06-22 06:12] LABS: ALANINE AMINOTRANSFERASE 11 U/L (0-55); ALBUMIN 3.3 GM/DL (3.2-4.5); ALKALINE PHOSPHATASE 78 U/L (40-136); BILIRUBIN,TOTAL 0.8 MG/DL (0.1-1.0); BUN/CREATININE RATIO 14; CALCIUM 8.4 MG/DL (8.5-10.1); CARBON DIOXIDE 21 MMOL/L (21-32); CHLORIDE 106 MMOL/L (98-107); CREATININE SERUM 0.69 MG/DL (0.60-1.30); GFR ESTIMATED > 60; GLUCOSE 132 MG/DL (70-105); POTASSIUM 3.7 MMOL/L (3.6-5.0); SODIUM 139 MMOL/L (135-145); TOTAL PROTEIN 6.1 GM/DL (6.4-8.2)
--- NOTE | 2018-06-22 07:30 | Anesthesia-General Post-Op ---
General Patient Condition Mental Status/LOC: Same as Preop Cardiovascular: Satisfactory Nausea/Vomiting: Absent Respiratory: Satisfactory Pain: Controlled Complications: Absent Post Op Complications Complications None Follow Up Care/Instructions Patient Instructions None needed. Anesthesia/Patient Condition Patient Condition Patient is doing well, no complaints, stable vital signs, no apparent adverse anesthesia problems. No complications reported per nursing. DOLORES COCHRAN CRNA Jun 22, 2018 07:30
[2018-06-22 08:17] VITALS: BP 137/68
[2018-06-22] MEDS: ENOXAPARIN 30 MG/0.3 ML (LOVENOX) SYR SC SCH ×2 (08:53→20:29)
[2018-06-22] MEDS: SENNOSIDES 8.6 MG (SENOKOT) TAB PO SCH ×2 (08:53→20:29)
[2018-06-22] MEDS: HYDROcodone/APAP 5 MG/325 MG (LORTAB) TAB PO PRN ×3 (08:53→18:38)
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
[2018-06-22] MEDS ORDERED: CALCIUM CARB + VIT D 600 MG (CALCARB + D) TAB PO NR (11:15)
[2018-06-22 12:00] VITALS: BP 138/79
--- NOTE | 2018-06-22 14:00 | Physical Therapy Evaluation ---
PT Evaluation-General Medical Diagnosis Admission Date Jun 21, 2018 at 14:08 Medical Diagnosis: Right Hip IM Nailing Onset Date: Jun 21, 2018 Therapy Diagnosis Therapy Diagnosis: Right Hip IM Nailing Height/Weight Height (Feet): 4 Height (Inches): 9.00 Weight (Pounds): 125 Weight (Ounces): 0.0 Precautions Precautions/Isolations: Fall Prevention, Standard Precautions Weight Bear Status Right Lower Extremity: Right Weight Bearing/Tolerated Left Lower Extremity: Left Full Weight Bearing Referral Reason for Referral: Evaluation/Treatment Medical History Pertinent Medical History: Alcoholism, COPD, HTN, Rheumatoid Arthritis Social History Home: Single Level Current Living Status: Children Entry Into Home: Stairs With Railing PT Steps Into Home: 2 Prior/Core FIM Prior Level of Function Functional [place] Measure 0=Not Assessed/NA 4=Minimal Assistance 1=Total Assistance 5=Supervision or Setup 2=Maximal Assistance 6=Modified [place] 3=Moderate Assistance 7=Complete IndependenceIRFPAI Quality Coding Scale 6 Independent with activity with or without an assistive device 5 Patient requires set up or clean up by helper. Patient completes activity by themselves 4 Supervision or touching assist (CGA). [place] provide cues , steadying assist 3 The helper provides less than half the effort to complete the activity 2 The helper provides more than half the effort to complete the activity 1 Dependent. The helper does all the effort to complete an activity 7 Patient refused to complete or attempt activity 9 The patient did not perform the activity before the current illness or injury 88 Not attempted due to Medical conditions or safety concerns Bed Mobility: 6 Transfers (B,C,W/C) (FIM): 6 Gait: 6 Stairs: 6 Wheelchair Mobility: 6 PT Evaluation-Current Subjective Patient was awake and bed and agreed to PT. Pain Numeric Pain Scale: 10-Worst Possible Pain Location: Right Location Body Site: Hip Objective Patient Orientation: Normal For Age Problem Solving: Fair Attachments: IV ROM/Strength ROM Lower Extremities WFL (right slightly limited due to pain) Strength Lower Extremities 4/5 grossly bilaterally Integumentary/Posture Integumentary refer to nursing notes Bowel Incontinence: No Bladder Incontinence: No Posture scoliosis Neuromuscular (Tone, Coordination, Reflexes) grossly intact Sensory Vision: Functional Hearing: Functional Sensation Right Upper Extremit: Intact Sensation Left Upper Extremity: Intact Sensation Right Lower Extremit: Intact Sensation Left Lower Extremity: Intact Transfers Functional [place] Measure 0=Not Assessed/NA 4=Minimal Assistance 1=Total Assistance 5=Supervision or Setup 2=Maximal Assistance 6=Modified [place] 3=Moderate Assistance 7=Complete [place] Transfers (B, C, W/C) (FIM): 4 Scootin Rollin Supine to/from Sit: 4 Sit to/from Stand: 4 assist with right LE Gait Mode of Locomotion: Walk Anticipated Mode of Locomotion: Walk Gait (FIM): 2 Distance (FIM): 1=645-23 ft Distance: 80' Gait Level of Assist: 4 Gait Persons Needed: 1 Gait Assistive Device: FWW Comments/Gait Description antalgic, step to gait sequence/minimal weight bearing through right LE due to pain Balance Sitting Static: Normal Sitting Dynamic: Normal Standing Static: Fair Standing Dynamic: Fair Assessment/Needs Patient required cueing when ambulating to keep FWW close to her body. Patient was able to ambulate for 80' ft but slowed after time due to pain. Patient will continue with therapy to increase overall function for ambulation. Rehab Potential: Fair PT Shoder Filler Goals Snf Goals PT Snf Goals Time Frame: Jun 29, 2018 Transfers (B,C,W/C) (FIM): 6 Gait (FIM): 6 Gait distance (FIM): 3=150 ft Distance: 200' Gait Level of Assist: 6 Gait Assistive Device: FWW Stairs (FIM): 2 # of Steps: 4 Stairs Level Of Assist: 5 PT Plan Problem List Problem List: Activity Tolerance, Functional Strength, Balance, Gait, Transfer Treatment/Plan Treatment Plan: Continue Plan of Care Treatment Plan: Bed Mobility, Education, Functional Strength, Gait, Safety, Therapeutic Exercise, Transfers Treatment Duration: Jun 29, 2018 Frequency: 11 times per week Estimated Hrs Per Day: .5 hour per day Patient and/or Family Agrees t: Yes Safety Risks/Education Patient Education: Gait Training, Safety Issues Teaching Recipient: Patient Teaching Methods: Discussion Response to Teaching: Verbalize Understanding Discharge Recommendations Therapy D/C Recommendations: Home w/ Family Support Time/GCodes Time In: 100 Time Out: 125 Total Billed Treatment Time: 25 Total Billed Treatment 1 visit EVmodC- 25 mins HEAVEN PINA PT Jun 22, 2018 14:00
[2018-06-22] MEDS: NS IV 1000 ML 1,000 ML IV SCH (14:54)
[2018-06-22 16:27] VITALS: BP 144/81
--- NOTE | 2018-06-22 16:37 | Occupational Therapy Eval ---
OT Evaluation-General/PLF Medical Diagnosis Admission Date Jun 21, 2018 at 14:08 Medical Diagnosis: Right Hip IM Nailing Onset Date: Jun 21, 2018 Therapy Diagnosis Therapy Diagnosis: Weakness Height/Weight Height (Feet): 4 Height (Inches): 9.00 Weight (Pounds): 125 Weight (Ounces): 0.0 Precautions Precautions/Isolations: Fall Prevention, Standard Precautions Safety Interventions: None Weight Bear Status Weight Bearing Restriction: Weight Bearing/Tolerated Referral Physician: Dr. Meier Referral Reason: Activity Tolerance, Self Care, Evaluation/Treatment, Strengthening/ROM Medical History Pertinent Medical History: Alcoholism, COPD, GERD, HTN, Rheumatoid Arthritis Additional Medical History Bladder suspension Current History Pt. states that she was walking across the road and fell. Reviewed History: Yes Social History Home: Single Level Current Living Status: Children Entry Into Home: Stairs With Railing Steps Into Home: 2 ADL-Prior Level of Function Functional [place] Measure 0=Not Assessed/NA 4=Minimal Assistance 1=Total Assistance 5=Supervision or Setup 2=Maximal Assistance 6=Modified [place] 3=Moderate Assistance 7=Complete [place] ADL PLOF Comments Pt. reports that she is fully independent with daily tasks. Self Care Self Care: (Code the patient's need for assistance with bathing, dressing, using the toilet, or eating prior to the current illness, exacerbation, or injury.) Functional Cognition Functional Cognition: (Code the patient's need for assistance with planning regular tasks, such as shopping or remembering to take medicaiton prior to the current illness, exacerbation, or injury.) DME/Equipment: Tub/Shower Occupation: Recently retired Drive Self: Yes OT Current Status Subjective Pt. does not report pain level at this time. Appearance Pt. up in chair. Requires cues to stay on task. Mental Status/Objective Patient Orientation: Person Attachments: IV Current Glasses/Contacts: Yes Dentures/Partials: Yes Hand Dominance: Right Upper Extremity ROM WFL ADL-Treatment Functional [place] Measure 0=Not Assessed/NA 4=Minimal Assistance 1=Total Assistance 5=Supervision or Setup 2=Maximal Assistance 6=Modified [place] 3=Moderate Assistance 7=Complete IndependenceIRFPAI Quality Coding Scale 6 Independent with activity with or without an assistive device 5 Patient requires set up or clean up by helper. Patient completes activity by themselves 4 Supervision or touching assist (CGA). [place] provide cues , steadying assist 3 The helper provides less than half the effort to complete the activity 2 The helper provides more than half the effort to complete the activity 1 Dependent. The helper does all the effort to complete an activity 7 Patient refused to complete or attempt activity 9 The patient did not perform the activity before the current illness or injury 88 Not attempted due to Medical conditions or safety concerns Eating (FIM): 5 Lower Body Dressing (FIM): 2 (Pt. unable to reach feet to doff/don socks.) Transfers (B, C, W/C) (FIM): 4 (Min assist sit-stand) Other Treatments Pt. requires cues to stay on task. Requires frequent re-direction. Pt. not on oxygen when OT entered room. Respiratory therapy came in to check pt, as they had taken oxygen off to monitor. Pt. in 80s and put back on oxygen. Please see RT note. All needs met in room. Education OT Patient Education: Correct positioning, Modified ADL techniques, Progress toward Goal/Update tx plan, Purpose of tx/functional activities, Reviewed precautions, Rehab process, Transfer techniques Teaching Recipient: Patient Teaching Methods: Demonstration, Discussion Response to Teaching: Verbalize Understanding, Return Demonstration OT Short Term Goals Short Term Goals Time Frame: Jun 29, 2018 Eating(FIM): 5 Grooming(FIM): 5 Bathing(FIM): 4 Upper Body Dressing(FIM): 5 Lower Body Dressing(FIM): 4 Toileting(FIM): 4 Transfers (B,C,W/C) (FIM): 5 Toilet/Commode Transfer(FIM): 5 Additional Short Term Goals: 1-Demonstrate ADL Tasks, 2-Verbalize Understanding , 3-ImproveStrength/Abdiel 1=Demonstrate adherence to instructed precautions during ADL tasks. 2=Patient will verbalize/demonstrate understanding of assistive devices/ modifications for ADL. 3=Patient will improve strength/tolerance for activity to enable patient to perform ADL's. OT Hematology Nurse Goals Hematology Nurse Goals Time Frame: Jul 06, 2018 Eating (FIM): 6 Grooming(FIM): 6 Bathing(FIM): 5 Upper Body Dressing(FIM): 6 Lower Body Dressing(FIM): 6 Toileting(FIM): 6 Transfers (B,C,W/C) (FIM): 6 Toilet/Commode Transfer(FIM): 6 Shower Transfer(FIM): 5 Additional Goals: 1-Demonstrate ADL Tasks, 2-Verbalize Understanding, 3- ImproveStrength/Abdiel 1=Demonstrate adherence to instructed precautions during ADL tasks. 2=Patient will verbalize/demonstrate understanding of assistive devices/ modifications for ADL. 3=Patient will improve strength/tolerance for activity to enable patient to perform ADL's. OT Education/Plan Problem List/Assessment Assessment: Decreased Activ Tolerance, Dependent Transfers, Impaired I ADL's, Impaired Self-Care Skills Discharge Recommendations Plan/Recommendations: Continue POC Therapy D/C Recommendations: Acute Rehab Equpiment Recommendations-D/C: Extended Bath Bench, Hip Kit Target Placement Pt. may benefit from acute rehab for short stay to increase overall independence. Treatment Plan/Plan of Care Treatment,Training & Education: Yes Patient would benefit from OT for education, treatment and training to promote independence in ADL's, mobility, safety and/or upper extremity function for ADL' s. Plan of Care: ADL Retraining, Functional Mobility, UE Funct Exercise/Act Treatment Duration: Jul 06, 2018 Frequency: 5 times per week Estimated Hrs Per Day: .25 hour per day Agreement: Yes Rehab Potential: Fair Time/GCodes Start Time: 14:15 Stop Time: 14:30 Total Time Billed (hr/min): 15 Billed Treatment Time 1, ABEAB BURROWS OT Jun 22, 2018 16:37
--- NOTE | 2018-06-22 17:08 | Progress Note (SOAP) ---
Subjective Date Seen by a Provider: Jun 22, 2018 Time Seen by a Provider: 17:06 Subjective/Events-last exam pod 1 s/p IM nailing right hip. She is doing well and up in bed eating. No complaints. Objective Exam Vital Signs Date Time Temp Pulse Resp B/P (MAP) Pulse Ox O2 Delivery O2 Flow Rate FiO2 06/22/18 16:27 95.6 105 20 144/81 (102) 96 Nasal Cannula 2.00 06/22/18 14:31 86 Room Air 06/22/18 12:00 100.4 101 16 138/79 (98) 93 Room Air 06/22/18 09:04 99 Nasal Cannula 3.00 06/22/18 08:17 97.8 96 16 137/68 (91) 92 Nasal Cannula 3.00 06/22/18 08:00 Nasal Cannula 3.00 06/22/18 03:45 99.1 94 18 134/67 (89) 96 Nasal Cannula 3.00 06/22/18 02:37 94 Nasal Cannula 3.00 06/21/18 23:10 98.2 89 18 151/75 (100) 93 Nasal Cannula 2.00 06/21/18 20:00 Room Air 06/21/18 19:30 98.0 103 20 172/77 (108) 94 Room Air I & O 06/22/18 07:00 Intake Total 740 ml Output Total 5 ml Balance 735 ml Capillary Refill : Less Than 3 SecondsLess Than 3 Seconds General Appearance: No Apparent Distress Peripheral Pulses: 2+ Dorsalis Pedis (R) Extremity: Normal Capillary Refill, Normal Inspection, No Calf Tenderness, No Pedal Edema Neurologic/Psychiatric: Alert, Oriented x3, No Motor/Sensory Deficits Skin: Normal Color, Warm/Dry (dressing right hip CDI) Results Lab Laboratory Tests 06/22/18 05:20: White Blood Count 8.3, Red Blood Count 3.80L, Hemoglobin 11.5, Hematocrit 36, Mean Corpuscular Volume 94, Mean Corpuscular Hemoglobin 30, Mean Corpuscular Hemoglobin Concent 32, Red Cell Distribution Width 14.3, Platelet Count 243, Mean Platelet Volume 9.6, Neutrophils (%) (Auto) 59, Lymphocytes (%) (Auto) 29, Monocytes (%) (Auto) 10, Eosinophils (%) (Auto) 2, Basophils (%) (Auto) 0, Neutrophils # (Auto) 4.9, Lymphocytes # (Auto) 2.4, Monocytes # (Auto) 0.8, Eosinophils # (Auto) 0.2, Basophils # (Auto) 0.0, Sodium Level 139, Potassium Level 3.7, Chloride Level 106, Carbon Dioxide Level 21, Anion Gap 12, Blood Urea Nitrogen 10, Creatinine 0.69, Estimat Glomerular Filtration Rate > 60, BUN/ Creatinine Ratio 14, Glucose Level 132H, Calcium Level 8.4L, Corrected Calcium 9.0, Total Bilirubin 0.8, Aspartate Amino Transf (AST/SGOT) 15, Alanine Aminotransferase (ALT/SGPT) 11, Alkaline Phosphatase 78, Total Protein 6.1L, Albumin 3.3 Assessment/Plan Assessment/Plan Assess & Plan/Chief Complaint A: s/p IM nailing of right intertrochanteric hip fracture P: continue current treatment. Clinical Quality Measures DVT/VTE Risk/Contraindication: Risk Factor Score Per Nursin RFS Level Per Nursing on Admit: 4+=Very High LION RODRIGUEZ APRN Jun 22, 2018 5:08 pm
[2018-06-22 19:35] VITALS: BP 168/78
[2018-06-23] VITALS: BP 139/68
[2018-06-23] MEDS: fentaNYL INJECTION 100 MCG/2 ML AMP IV PRN ×2 (00:50→05:05)
[2018-06-23] MEDS: HYDROcodone/APAP 5 MG/325 MG (LORTAB) TAB PO PRN ×2 (00:50→05:05)
[2018-06-23] MEDS: RT-ALBUTEROL/IPRATROPIUM 3 ML (DUONEB) VIAL INH SCH ×2 (02:38→09:48)
[2018-06-23 04:00] VITALS: BP 131/70
[2018-06-23] MEDS: NS IV 1000 ML 1,000 ML IV SCH (05:26)
[2018-06-23] MEDS ORDERED: CALCIUM CARB + VIT D 600 MG (CALCARB + D) TAB PO SCH (07:00)
--- NOTE | 2018-06-23 07:41 | Progress Note (SOAP) ---
Subjective Date Seen by a Provider: Jun 23, 2018 Time Seen by a Provider: 07:37 Subjective/Events-last exam patient is doing well this morning. She reports pain is controlled, She is transferring with assistance. Eating and drinking well. POD 2 s/p IM nailing of right hip Objective Exam Vital Signs Date Time Temp Pulse Resp B/P (MAP) Pulse Ox O2 Delivery O2 Flow Rate FiO2 06/23/18 04:00 98.2 111 16 131/70 (90) 94 Nasal Cannula 2.00 06/23/18 02:39 93 Nasal Cannula 2.00 06/23/18 00:00 99.1 99 20 139/68 (91) 94 Nasal Cannula 2.00 06/22/18 20:20 96 Nasal Cannula 2.00 06/22/18 20:00 Nasal Cannula 3.00 06/22/18 19:35 97.9 94 24 168/78 (108) 98 Nasal Cannula 2.00 06/22/18 16:27 95.6 105 20 144/81 (102) 96 Nasal Cannula 2.00 06/22/18 14:31 86 Room Air 06/22/18 12:00 100.4 101 16 138/79 (98) 93 Room Air 06/22/18 09:04 99 Nasal Cannula 3.00 06/22/18 08:17 97.8 96 16 137/68 (91) 92 Nasal Cannula 3.00 06/22/18 08:00 Nasal Cannula 3.00 I & O 06/23/18 07:00 Intake Total 2530 ml Output Total 1000 ml Balance 1530 ml Capillary Refill : Less Than 3 SecondsLess Than 3 Seconds General Appearance: No Apparent Distress Peripheral Pulses: 2+ Dorsalis Pedis (R) Extremity: Normal Inspection, No Calf Tenderness, No Pedal Edema Neurologic/Psychiatric: Alert, Oriented x3, No Motor/Sensory Deficits, Normal Mood/Affect Skin: Normal Color, Warm/Dry (dressing right hip CDI) Assessment/Plan Assessment/Plan Assess & Plan/Chief Complaint A: s/p IM nailing of right intertrochanteric hip fracture P: Ortho signing off at this point and transferring care to Dr. aVsquez. She will need follow up with Dr. Meier in 3 weeks for xrays. She is to be touch toe weight bearing only on RLE with walker for assist. If discharged to home she will need home healthcare to remove re in 7 days and apply steri strips. She likely would be better with a [facility] unit. Clinical Quality Measures DVT/VTE Risk/Contraindication: Risk Factor Score Per Nursin RFS Level Per Nursing on Admit: 4+=Very High LION RODRIGUEZ APRN Jun 23, 2018 7:41 am
[2018-06-23 08:00] VITALS: BP 141/67
--- NOTE | 2018-06-23 09:10 | Physical Therapy Daily Note ---
PT Daily Note-Current Subjective Pt. in bed initially, loves to talk, shared with this SENIOR SUPPORT ANALYST nearly her entire life medicl Hx. Pt. smiles and laughs but c/o pain in right hip at 8/10. Agrees to Rx. Pt. talks near non stop and has to be interrupted to give her instruction and safety cues. Pt. with O2 on on wall and canula in her bed but refuses to wear it, never appears SOB. Dr Mcbride in room gives ok to be off O2 Pain Numeric Pain Scale: 8 Location: Right Location Body Site: Hip Pain Description: Stabbing Mental Status Patient Orientation: Person, Place, Time, Situation Attachments: IV Transfers Functional [place] Measure 0=Not Assessed/NA 4=Minimal Assistance 1=Total Assistance 5=Supervision or Setup 2=Maximal Assistance 6=Modified [place] 3=Moderate Assistance 7=Complete IndependenceIRFPAI Quality Coding Scale 6 Independent with activity with or without an assistive device 5 Patient requires set up or clean up by helper. Patient completes activity by themselves 4 Supervision or touching assist (CGA). [place] provide cues , steadying assist 3 The helper provides less than half the effort to complete the activity 2 The helper provides more than half the effort to complete the activity 1 Dependent. The helper does all the effort to complete an activity 7 Patient refused to complete or attempt activity 9 The patient did not perform the activity before the current illness or injury 88 Not attempted due to Medical conditions or safety concerns Transfers (B, C, W/C) (FIM): 4 Scootin needs instruction and encouragement and CGA for sup to sit, CGA for sit to stand and instruction for use of hands Weight Bearing Right Lower Extremity: Right Weight Bearing/Tolerated Left Lower Extremity: Left Full Weight Bearing Gait Training Gait Assistive Device: FWW 65 ft , 25 ft CGA to min assist and assist for IV, needs instruction for safety and position in FWW, again has to be interrupted for instruction. Exercises Supine Ex: Ankle pumps, Quad Set, Rolling, Glut sets, Heel Slides, Scooting, Hip abd/add Supine Reps: 15 Seated Therapy Exercises: Sit to stand, Long arc quads Seated Reps: 10 Treatments toileted with mod assist and assist for clean up. Assessment Current Status: Good Progress pleasant and making progress. PT Short Term Goals Short Term Goals Transfers (B,C,W/C) (FIM): 5 PT Group Home Goals Group Home Goals PT Group Home Goals Time Frame: Jun 29, 2018 Transfers (B,C,W/C) (FIM): 6 Gait (FIM): 6 Gait distance (FIM): 3=150 ft Distance: 200' Gait Level of Assist: 6 Gait Assistive Device: FWW Stairs (FIM): 2 # of Steps: 4 Stairs Level Of Assist: 5 PT Plan Treatment/Plan Treatment Plan: Continue Plan of Care Treatment Plan: Bed Mobility, Education, Functional Strength, Gait, Safety, Therapeutic Exercise, Transfers Treatment Duration: Jun 29, 2018 Frequency: 11 times per week Estimated Hrs Per Day: .5 hour per day Patient and/or Family Agrees t: Yes Safety Risks/Education Patient Education: Gait Training, Transfer Techniques, Correct Positioning, Disease Process, Safety Issues Teaching Recipient: Patient Teaching Methods: Demonstration, Discussion Response to Teaching: Verbalize Understanding, Return Demonstration, Reinforcement Needed Time/GCodes Time In: 820 Time Out: 900 Total Billed Treatment Time: 40 Total Billed Treatment 1,EX15m,GT15m,FA10m G Codes Necessary: JULIA Tee SENIOR SUPPORT ANALYST Jun 23, 2018 09:10
[2018-06-23] MEDS ORDERED: oxyCODONE/APAP 5/325MG (PERCOCET 5) TABLET PO PRN (09:15)
[2018-06-23] MEDS ORDERED: clonazePAM 1 MG (KlonoPIN) TAB PO SCH (09:15)
[2018-06-23] MEDS: SENNOSIDES 8.6 MG (SENOKOT) TAB PO SCH (09:20)
[2018-06-23] MEDS: ENOXAPARIN 30 MG/0.3 ML (LOVENOX) SYR SC SCH (09:20)
--- NOTE | 2018-06-23 09:38 | Discharge Summary-Hospitalist ---
Diagnosis/Chief Complaint Date of Admission Jun 21, 2018 at 2:08 pm Date of Discharge Discharge Date: Jun 23, 2018 Discharge Diagnosis (1) Closed right hip fracture Status: Acute Assessment & Plan: POD #1 Continue pain management- due for pain meds, will escalate if still not controlled PT/OT consulted SW consulted management per primary (2) Osteoporosis Status: Chronic Assessment & Plan: History of vertebral, ankle, and now hip fracture Will likely need treatment with her PCP Calcium/Vitamin D supplementation (3) Anxiety Assessment & Plan: Ativan ordered prn Discharge Summary Procedures/Consulations Ortho- Dr Meier Discharge Physical Exam Allergies: Coded Allergies: No Known Drug Allergies (Unverified , 05/15/09) Vitals & I&Os Vital Signs Date Time Temp Pulse Resp B/P (MAP) Pulse Ox O2 Delivery O2 Flow Rate FiO2 06/23/18 12:19 98 18 141/67 88 Room Air 06/23/18 08:00 98.0 06/23/18 04:00 2.00 General Appearance: No Apparent Distress, WD/WN Respiratory: Lungs Clear Cardiovascular: Regular Rate, Rhythm Hospital Course Pt was admitted for hip fracture and underwent orthopedic repair. She did well postoperatively and began working with PT/OT immediately. She wad evaluated by IRU and accepted to their intensive rehab program. She was discharged there in stable condition to continue therapy. Labs (last 24 hrs) Patient resulted labs reviewed. Imaging: Reviewed Imaging Report Discussion & Recommendations Discharge Planning: >30 minutes discharge planning Discharge Home Medications: Active Scripts Active Reported Sinus & Allergy PE Tablet (Phenylephrine/Chlorpheniramine) 1 Each Tablet 2 Tab PO DAILY PRN Excedrin Migraine Caplet (Aspirin/Acetaminophen/Caffeine) 1 Each Tablet 1 Tab PO BID PRN Gabapentin 300 Mg Capsule 300 Mg PO TID LAST FILLED #90 05-14-18 Sucralfate 1 Gm Tablet 1 Gm PO ACHS LAST FILLED #120 05-14-18 Clonazepam 2 Mg Tablet 2 Mg PO BID Oxycodone-Acetaminophen 5-325 (Oxycodone HCl/Acetaminophen) 1 Each Tablet 1 Tab PO Q6H PRN Amphetamine Salts 15 mg Tablet (Dextroamphetamine/Amphetamine) 15 Mg Tablet 15 Mg PO DAILY LAST FILLED #28 05-14-18 Instructions to patient/family Please see electronic discharge instructions given to patient. Clinical Quality Measures DVT/VTE Risk/Contraindication: Risk Factor Score Per Nursin RFS Level Per Nursing on Admit: 4+=Very High Problem Qualifiers (1) Closed right hip fracture: Encounter type: initial encounter Qualified Codes: S72.001A - Fracture of unspecified part of neck of right femur, initial encounter for closed fracture (2) Osteoporosis: Osteoporosis type: unspecified Presence of current pathological fracture: unspecified Qualified Codes: M81.0 - Age-related osteoporosis without current pathological fracture INGRID VINSON MD Jun 23, 2018 09:38
[2018-06-23] MEDS ORDERED: FLU QUADRIvalent (5+ YOA) 2018-2019 (AFLURIA) 0.5 ML IM ONE (10:40)
[2018-06-23] MEDS ORDERED: SUCRALFATE 1 GM (CARAFATE) TAB PO SCH (11:00)
[2018-06-23 12:19] VITALS: BP 141/67
[2018-06-23] MEDS ORDERED: GABAPENTIN 300 MG (NEURONTIN) CAP PO SCH (13:00)
== END 2018-06-23 10:55 | DRG 482 ==
LOC: EDUNIT# 12:07 → ER 12:10 → 4TH 14:08
PROVIDERS: ADMIT Orthopaedic Surgery Orthopaedic Surgery of the Spine; ATTEND Orthopaedic Surgery Orthopaedic Surgery of the Spine
PROC: 0QH636Z Insertion of Intramedullary Internal Fixation Device into Right Upper Femur, Percutaneous Approach (ICD-10-PCS; principal; 2018-06-21 20:53)
DX: S72.144A Nondisplaced intertrochanteric fracture of right femur, initial encounter for closed fracture (principal); S80.211A Abrasion, right knee, initial encounter; M81.0 Age-related osteoporosis without current pathological fracture; I10 Essential (primary) hypertension; J44.9 Chronic obstructive pulmonary disease, unspecified; F17.210 Nicotine dependence, cigarettes, uncomplicated; K21.9 Gastro-esophageal reflux disease without esophagitis; M19.91 Primary osteoarthritis, unspecified site; M79.7 Fibromyalgia; M06.9 Rheumatoid arthritis, unspecified; M54.9 Dorsalgia, unspecified; F41.9 Anxiety disorder, unspecified; K44.9 Diaphragmatic hernia without obstruction or gangrene; Z87.11 Personal history of peptic ulcer disease; W19.XXXA Unspecified fall, initial encounter; Y92.410 Unspecified street and highway as the place of occurrence of the external cause; Z23 Encounter for immunization
CPT/HCPCS: 36415; 71045; 73562; 80053; 85025; 85027; 85610; 85730; 90471; 90686; 93005; 94640; 94664; 94760; 96374; 96375

== ENCOUNTER 2018-06-23 10:21 | Inpatient (IN) | payer MEDICARE, MEDICAID ==
[~2018-06-23] VITALS: Ht 149.9 cm; Wt 60.8 kg
[~2018-06-23 10:21] MED LIST changes: +ASPI-789 PO; +CLON2TAB12 PO; +GABA-488 PO; +OXYC-471 PO; +[UNRECOGNIZED DRUG - CODE] PO
[2018-06-23 11:00] VITALS: BP 149/74
--- NOTE | 2018-06-23 11:55 | Physical Therapy Evaluation ---
PT Evaluation-General Medical Diagnosis Admission Date Jun 23, 2018 at 11:20 Medical Diagnosis: right hip IM nailing Onset Date: Jun 21, 2018 Therapy Diagnosis Therapy Diagnosis: impaired mobility, strength, endurance Height/Weight Height (Feet): 4 Height (Inches): 9.00 Weight (Pounds): 125 Weight (Ounces): 0.0 Precautions Precautions/Isolations: Fall Prevention Weight Bear Status Right Lower Extremity: Right Full Weight Bearing Left Lower Extremity: Left Full Weight Bearing Referral Physician: Deandre Reason for Referral: Evaluation/Treatment Medical History Pertinent Medical History: Alcoholism, COPD, GERD, HTN, Rheumatoid Arthritis Current History Pt is a 67 y/o female recovering from a R hip surgery. Patient must be able to navigate two steps to enter home with a the use of a hand rail. Patient has daughter at home to assist her with her rehab. Social History Home: Single Level Current Living Status: Children Entry Into Home: Stairs With Railing PT Steps Into Home: 2 PT Steps Inside Home: 0 Prior/Core FIM Prior Level of Function Functional [place] Measure 0=Not Assessed/NA 4=Minimal Assistance 1=Total Assistance 5=Supervision or Setup 2=Maximal Assistance 6=Modified [place] 3=Moderate Assistance 7=Complete IndependenceIRFPAI Quality Coding Scale 6 Independent with activity with or without an assistive device 5 Patient requires set up or clean up by helper. Patient completes activity by themselves 4 Supervision or touching assist (CGA). [place] provide cues , steadying assist 3 The helper provides less than half the effort to complete the activity 2 The helper provides more than half the effort to complete the activity 1 Dependent. The helper does all the effort to complete an activity 7 Patient refused to complete or attempt activity 9 The patient did not perform the activity before the current illness or injury 88 Not attempted due to Medical conditions or safety concerns Bed Mobility: 6 Transfers (B,C,W/C) (FIM): 6 Gait: 6 PT Evaluation-Current Subjective Pt was sitting in chair watching tv when PT entered room. Pt agreed to be taken down to the rehab unit to continue therapy. Pain Numeric Pain Scale: 8 Location: Right Location Body Site: Hip Objective Patient Orientation: Person, Confused, Place, Situation, Mumbles Problem Solving: Fair ROM/Strength ROM Upper Extremities WNL ROM Lower Extremities WNL LLE Strength Upper Extremities WNL Strenght Lower Extremities LLE 4/5 gross, RLE NT Neuromuscular (Tone, Coordination, Reflexes) NT Sensory Vision: Unable to Assess Hearing: Functional Sensation Right Upper Extremit: Intact Sensation Left Upper Extremity: Intact Sensation Right Lower Extremit: Intact Sensation Left Lower Extremity: Intact Transfers Functional [place] Measure 0=Not Assessed/NA 4=Minimal Assistance 1=Total Assistance 5=Supervision or Setup 2=Maximal Assistance 6=Modified [place] 3=Moderate Assistance 7=Complete IndependenceIRFPAI Quality Coding Scale 6 Independent with activity with or without an assistive device 5 Patient requires set up or clean up by helper. Patient completes activity by themselves 4 Supervision or touching assist (CGA). [place] provide cues , steadying assist 3 The helper provides less than half the effort to complete the activity 2 The helper provides more than half the effort to complete the activity 1 Dependent. The helper does all the effort to complete an activity 7 Patient refused to complete or attempt activity 9 The patient did not perform the activity before the current illness or injury 88 Not attempted due to Medical conditions or safety concerns Transfers (B, C, W/C) (FIM): 4 Scootin Rollin Roll Left to Right (QC): 4 Supine to/from Sit: 5 Sit to/from Stand: 4 bed t/f WC(FIM only if WC use): 4 Sit to Lying (QC): 4 Lying to Sitting/Side of Bed(Q: 4 Sit to Stand (QC): 4 Chair/Qjn-zl-Ocarh Xfer(QC): 4 Car Transfer (QC): 4 Patient performs bed mobility with SBA, sit to stand and transfers with CGA, car transfer with CGA. Patient needs cues for safety and hand placement. Gait Does the Patient Walk?: Yes Mode of Locomotion: Walk Anticipated Mode of Locomotion: Walk Gait (FIM): 5 Distance (FIM): 3=150 ft Walk 10 feet (QC): 4 Walk 50 ft with 2 Turns(QC): 4 Walk 150 ft (QC): 4 Walking 10ft/uneven surface-QC: 4 Distance: 150' Gait Level of Assist: 4 Gait Persons Needed: 1 Gait Assistive Device: FWW Comments/Gait Description Patient can ambulate 150' with a rolling walker with CGA (including 50' with at least 2 turns of 90 degrees and 10' over an uneven surface). Patient has antalgic gait, decreased stance time on the right and poor heel strike. Wheelchair Training Does the Pt Use a Wheelchair?: No Stairs Stairs (FIM): 1 #of Steps: 1 Level of Assist: 4 1 Step (curb) (QC): 4 Assistive Device: Walker Patient can go up and down 1 step using a rolling walker with CGA. Cues for safety and foot placement. Balance Sitting Static: Normal Sitting Dynamic: Normal Standing Static: Fair Standing Dynamic: Fair Assessment/Needs Patient has impaired mobility, strength, endurance post right hip fracture and IM nailing. She has antalgic gait and needs CGA for transfers. Rehab Potential: Fair PT Short Term Goals Short Term Goals Time Frame: Jun 30, 2018 Transfers (B,C,W/C) (FIM): 5 Gait (FIM): 5 Gait Distance Comment: 200' Gait Level of Assist: 5 Gait Assistive Device: FWW PT Expert Medical Writer Goals Skilled Nursing Goals PT Expert Medical Writer Goals Time Frame: Jul 14, 2018 Transfers (B,C,W/C) (FIM): 6 Sit to Lying (QC): 6 Lying-Sitting on Side/Bed(QC): 6 Sit to Stand (QC): 6 Rollin Roll Left to Right (QC): 6 Chair/Itk-wz-Lrsaq Xfer(QC): 6 Car Transfer (QC): 6 Gait (FIM): 6 Distance: 250' Walk 10 feet (QC): 6 Walk 10ft-Uneven Surface(QC): 6 Walk 50ft with 2 Turns (QC): 6 Walk 150 ft (QC): 6 Gait Level of Assist: 6 Gait Assistive Device: FWW Stairs (FIM): 2 # of Steps: 8 1 Step (curb) (QC): 4 4 Steps (QC): 4 Stairs Level Of Assist: 5 PT Plan Problem List Problem List: Activity Tolerance, Functional Strength, Safety, Balance, Gait, Transfer, Bed Mobility, ROM Treatment/Plan Treatment Plan: Continue Plan of Care Treatment Plan: Bed Mobility, Education, Functional Activity Abdiel, Functional Strength, Group Therapy, Gait, Safety, Therapeutic Exercise, Transfers Treatment Duration: Jul 14, 2018 Frequency: At least 5 of 7 days/Wk (IRF) Estimated Hrs Per Day: 1.5 hours per day Patient and/or Family Agrees t: Yes Safety Risks/Education Patient Education: Gait Training, Transfer Techniques, Steps, Correct Positioning, Safety Issues Teaching Recipient: Patient Teaching Methods: Demonstration, Discussion Response to Teaching: Reinforcement Needed Discharge Recommendations Plan Patient will perform bed mobility and transfer training, balance and endurance training, stair training, functional strengthening, gait training, and education , to improve functional mobility and independence at home. Therapy D/C Recommendations: Home w/ Family Support Time/GCodes Time In: 1100 Time Out: 1145 Total Billed Treatment Time: 45 Total Billed Treatment 1 visit LAURELM 15' GT 15' FA 15' VERONICA KUHN PT Jun 23, 2018 11:54
[2018-06-23] MEDS ORDERED: oxyCODONE/APAP 5/325MG (PERCOCET 5) TABLET PO PRN (13:00)
[2018-06-23] MEDS ORDERED: BISACODYL 5 MG (DULCOLAX) TABLET PO PRN (15:30)
[2018-06-23] MEDS ORDERED: ACETAMINOPHEN 325 MG TABLET PO PRN (15:30)
--- NOTE | 2018-06-23 15:32 | ST Cognitive Linguistic Eval ---
Speech Evaluation-General Medical Diagnosis right hip IM nailing Onset Date: Jun 21, 2018 Therapy Diagnosis Therapy Diagnosis: Cognition Precautions Precautions/Isolations: Fall Prevention Referral Referring Physician: Dr. Carrera Reason for Referral: Evaluation/Treatment Medical History Pertinent Medical History: Alcoholism, COPD, GERD, HTN, Rheumatoid Arthritis Current History see above Reviewed History: Yes Social History Current Living Status: Children Speech PLF-Current Status Prior Level of Function Pt lives with dtr Subjective Pt very pleasant. Very talkative. Pain Numeric Pain Scale: 0-No Pain Language Eval: Auditory Comprehends Simple Yes/No Ques: Functional Follows 1-Step Commands: Functional Follows General Conversations: Functional Language Eval: Verbal Language Completes Spontaneous Greeting: Functional Produces Auto, Serial Info: Functional Word Finding: Functional Requests Basic Needs: Functional States Basic Personal Info: Functional Expresses Complex Ideas: Functional Pt is very talkative. Language Evaluation: Reading NT Objective Cognitive Domain Attention: Mild Memory: Moderate Problem Solving: Severe, Moderate Objective Results [facility] Cognitive/Communication Assessment was administered to assess cognitive -linguistic functioning. Results are as follows: Orientation - Pt oriented x 3. Memory - 3 word recall for immediate was 3/3 correct. For delayed it was 1/3 correct and for remote delay it was 1/3 correct. Problem Solving - Simple was 4/4 correct; Abstract/complex was 1/2 correct. Speech/language - WNL Oral Motor/Speech Production WNL Impression Moderate memory deficits. Pragmatic deficits. Pt is extremely verbose. She has difficulty staying on task and wants to relay stories that are not really related to the topic. Speech Short Term Goals Short Term Goals Short Term Goals Pt will complete various auditory/visual memory activities with at least 80% accuracy and min assist. Pt will require less than 4 re-directions back to task in a 30 minute session. Pt will decrease verbosity with min cues. Time Frame-ST week Speech Jet Aircraft Servicer Goals Jet Aircraft Servicer Goals Pt will demonstrate functional cognitive-linguistic skills for safety and maximum independence for the home setting. Speech-Plan Patient/Family Goals Patient/Family Goals: to return home Treatment Plan Speech Therapy Treatment Plan: Modify Plan, See Comments (Skilled ST inicated to address deficits.) skilled ST to address deficts Treatment Duration: Jun 24, 2018 Frequency: 5 times per week Estimated Hrs Per Day: .5 hour per day Rehab Potential: Fair Pt/Family Agrees to Plan: Yes Safety Risks/Education Teaching Recipient: Patient Teaching Methods: Discussion Response to Teaching: Verbalize Understanding Time Speech Therapy Time In: 14:40 Speech Therapy Time Out: 15:20 Total Billed Time: 40 Billed Treatment Time 1, TIA Goldman Jun 23, 2018 15:32
--- NOTE | 2018-06-23 15:42 | PM&R Post Admission Assessment ---
Post Admission Physician Asses Date seen by provider: Jun 23, 2018 Time seen by provider: 15:00 The preadmission screen agrees with the post admission assessment that the patient is a good candidate for inpatient rehabilitation. The patient will have a comprehensive program of inpatient rehabilitation with a goal of maximizing level of functional independence prior to discharge home with family. The patient will have PT/OT ninety minutes per day, each discipline, five days a week for 2 weeks for gait, strengthening, conditioning, balance, ADLs, any patient/family/caregiver training as necessary. Speech therapy to do cognitive assessment and treat as indicated. Rehabilitation nursing to assist with bowel, bladder, skin, wound care, medication administration, pain management. Environmental Manager to assist with discharge planning, community reentry. SCD's for DVT prophylaxis. She appears to be well motivated to participate in three hours of therapy a day. She should be able to tolerate three hours of therapy a day from a medical and surgical standpoint. She should benefit from the three hours of therapy a day. She has a reasonable discharge plan, reasonable discharge rehabilitation goals and a supportive family. She has various comorbidities that need to be closely monitored with medications and treatments adjusted on a daily basis as needed. These include: Chronic back pain Anxiety GERD [facility] code 08.11 Etiologic DX Rt closed basilar fem neck fracture intertrochanteric hip fracture Barriers to discharge for this patient who had been independent prior to this are for her to be modified independent to supervision for ADLs and mobility skills prior to discharge home with family, so as to lessen the burden of the caregivers. Risks for this patient include: 1. Fall 2. Fracture 3. DVT 4. Pulmonary embolism 5. Wound infection 6. Skin breakdown 7. Contractures 8. Poorly controlled pain 9. Urinary retention 10. UTI 11. Respiratory infection 12. Aspiration 13. Worsening back pain 14. Worsening anxiety Estimated Length of Stay: 14 days Prognosis: Rehab prognosis appears good for goal of discharge home with family modified independent to supervision for ADLs and mobility skills. Date Identified: Jun 23, 2018 Time Identified: 15:00 Action Plan to Resolve CSMI: Transfer meds reviewed General: Alert, Oriented X3, Cooperative, No Acute Distress HEENT: Atraumatic, PERRLA, EOMI, Mucous Memb Moist/[place] Neck: Supple, No JVD Lungs: Clear to Auscultation Heart: Regular Rate Abdomen: Normal Bowel Sounds, Soft, No Tenderness Extremities: Other (trace edema rt ankle) Neuro: Other (Sensation intact to touch strength decreased BLES RT > left) WALT CHATTERJEE MD Jun 23, 2018 15:42
--- NOTE | 2018-06-23 15:51 | Occupational Therapy Eval ---
OT Evaluation-General/PLF Medical Diagnosis Admission Date Jun 23, 2018 at 11:20 Medical Diagnosis: right hip IM nailing Onset Date: Jun 21, 2018 Therapy Diagnosis Therapy Diagnosis: Weakness Height/Weight Height (Feet): 4 Height (Inches): 11.00 Weight (Pounds): 125 Weight (Ounces): 0.8 Precautions Precautions/Isolations: Fall Prevention Weight Bear Status Weight Bearing Restriction: Weight Bearing/Tolerated Referral Physician: Deandre Referral Reason: Activity Tolerance, Self Care, Evaluation/Treatment, Strengthening/ROM Medical History Pertinent Medical History: Alcoholism, COPD, GERD, HTN, Rheumatoid Arthritis Current History Pt. fell and broke right hip. Had IM nail. WBAT. Reviewed History: Yes Social History Home: Single Level Current Living Status: Children Entry Into Home: Stairs With Railing Steps Into Home: 2 Steps Inside Home: 0 ADL-Prior Level of Function Functional [place] Measure 0=Not Assessed/NA 4=Minimal Assistance 1=Total Assistance 5=Supervision or Setup 2=Maximal Assistance 6=Modified [place] 3=Moderate Assistance 7=Complete [place] Self Care Self Care: (Code the patient's need for assistance with bathing, dressing, using the toilet, or eating prior to the current illness, exacerbation, or injury.) Functional Cognition Functional Cognition: (Code the patient's need for assistance with planning regular tasks, such as shopping or remembering to take medicaiton prior to the current illness, exacerbation, or injury.) Occupation: Pt. states that she is recently retired. Drive Self: Yes OT Current Status Subjective No pain reported. Pt. states, "I'm moving slow." Appearance Pt. is on mat. Agrees to work with OT. Mental Status/Objective Patient Orientation: Person, Place Current Glasses/Contacts: Yes Dentures/Partials: Yes Hand Dominance: Right Upper Extremity ROM WFL Upper Extremity Strength 3+/5 bilateral UE strength. ADL-Treatment Functional [place] Measure 0=Not Assessed/NA 4=Minimal Assistance 1=Total Assistance 5=Supervision or Setup 2=Maximal Assistance 6=Modified [place] 3=Moderate Assistance 7=Complete IndependenceIRFPAI Quality Coding Scale 6 Independent with activity with or without an assistive device 5 Patient requires set up or clean up by helper. Patient completes activity by themselves 4 Supervision or touching assist (CGA). Forgan provide cues , steadying assist 3 The helper provides less than half the effort to complete the activity 2 The helper provides more than half the effort to complete the activity 1 Dependent. The helper does all the effort to complete an activity 7 Patient refused to complete or attempt activity 9 The patient did not perform the activity before the current illness or injury 88 Not attempted due to Medical conditions or safety concerns Lower Body Dressing (FIM): 2 (Pt. unable to reach her feet.) Lower Body Dressing (QC): 2 Transfers (B, C, W/C) (FIM): 4 (SBA supine-sit. CGA sit-stand. CGA ambulation 100 feet. At times, pt. would require min assist as she would start to "buckle." SBA sit-supine.) Other Treatments Pt. requires cues to stay on track. Will begin to speak and loses focus of what she is doing. Will stop ambulating in sanchez to talk and will be unaware that people are behind her. Pt. ambulated back to room from therapy gym with increased time needed to complete this task. All needs met. Education OT Patient Education: Correct positioning, Modified ADL techniques, Progress toward Goal/Update tx plan, Purpose of tx/functional activities, Reviewed precautions, Rehab process, Transfer techniques Teaching Recipient: Patient Teaching Methods: Demonstration, Discussion Response to Teaching: Verbalize Understanding, Return Demonstration OT Short Term Goals Short Term Goals Time Frame: Jun 30, 2018 Eating(FIM): 5 Grooming(FIM): 5 Bathing(FIM): 4 Upper Body Dressing(FIM): 5 Lower Body Dressing(FIM): 4 Toileting(FIM): 5 Transfers (B,C,W/C) (FIM): 5 Toilet/Commode Transfer(FIM): 5 Shower Transfer(FIM): 4 Additional Short Term Goals: 1-Demonstrate ADL Tasks, 2-Verbalize Understanding , 3-ImproveStrength/Abdiel 1=Demonstrate adherence to instructed precautions during ADL tasks. 2=Patient will verbalize/demonstrate understanding of assistive devices/ modifications for ADL. 3=Patient will improve strength/tolerance for activity to enable patient to perform ADL's. OT Academic Services Coordinator Goals Academic Services Coordinator Goals Time Frame: Jul 07, 2018 Eating (FIM): 6 Eating (QC): 6 Groomin Oral Hygiene (QC): 6 Bathing(FIM): 6 Shower/Bathe Self (QC): 6 Upper Body Dressing(FIM): 6 Upper Body Dressing (QC): 6 Lower Body Dressing(FIM): 6 Lower Body Dressing (QC): 6 On/Off Footwear (QC): 6 Toileting(FIM): 6 Toileting Hygiene (QC): 6 Transfers (B,C,W/C) (FIM): 6 Toilet/Commode Transfer(FIM): 6 Toilet/Commode Transfer (QC): 6 Shower Transfer(FIM): 5 Additional Goals: 1-Demonstrate ADL Tasks, 2-Verbalize Understanding, 3- ImproveStrength/Abdiel 1=Demonstrate adherence to instructed precautions during ADL tasks. 2=Patient will verbalize/demonstrate understanding of assistive devices/ modifications for ADL. 3=Patient will improve strength/tolerance for activity to enable patient to perform ADL's. OT Education/Plan Problem List/Assessment Assessment: Decreased Activ Tolerance, Impaired I ADL's, Impaired Self-Care Skills Discharge Recommendations Plan/Recommendations: Continue POC Therapy D/C Recommendations: Home w/ Family Support, Occupational Therapy Home Care, Scheduled Assistance Equpiment Recommendations-D/C: Extended Bath Bench Treatment Plan/Plan of Care Treatment,Training & Education: Yes Patient would benefit from OT for education, treatment and training to promote independence in ADL's, mobility, safety and/or upper extremity function for ADL' s. Plan of Care: ADL Retraining, Functional Mobility, Group Exercise/Act as Ind, UE Funct Exercise/Act Treatment Duration: Jul 07, 2018 Frequency: At least 5 of 7 days/Wk (IRF) Estimated Hrs Per Day: 1.5 hours per day Agreement: Yes Rehab Potential: Fair Time/GCodes Start Time: 11:45 Stop Time: 12:20 Total Time Billed (hr/min): 35 Billed Treatment Time 1, EVM x 15minutes, FA x 20minutes ABEBA CORONADO OT Jun 23, 2018 15:51
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
--- NOTE | 2018-06-23 16:24 | Occupational Ther Daily Note ---
OT Current Status-Daily Note Subjective Pt agreeable to treatment, states she is tired this afternoon. Mental Status/Objective Functional [place] Measure 0=Not Assessed/NA 4=Minimal Assistance 1=Total Assistance 5=Supervision or Setup 2=Maximal Assistance 6=Modified [place] 3=Moderate Assistance 7=Complete [place] ADL-Treatment Sit to stand from EOB with CGA. Gait to restroom with FWW, slow pace. Transfer to toilet with minimal assistance, cues for safety. Pt able to complete toileting hygiene, but requires minimal assistance for clothing management. Stood at sink to wash hands with CGA for balance. Gait to chair with FWW and slow pace. Pt unable to doff/don socks without assistance. Education provided regarding use of adaptive equipment for LE dressing. Pt doffed socks with SBA and increased time using dressing stick. Donned socks with minimal assistance using sock aid. Skilled cues for use of adaptive equipment. Increased time for functional tasks.Pt sitting in chair with needs met after session. RN notified. Partial co-treat with PT secondary to pt fatigue and decreased activity tolerance. OT focusing on UE management and ADLs. PT focusing on transfers and mobility. Functional [place] Measure 0=Not Assessed/NA 4=Minimal Assistance 1=Total Assistance 5=Supervision or Setup 2=Maximal Assistance 6=Modified [place] 3=Moderate Assistance 7=Complete IndependenceIRFPAI Quality Coding Scale 6 Independent with activity with or without an assistive device 5 Patient requires set up or clean up by helper. Patient completes activity by themselves 4 Supervision or touching assist (CGA). [place] provide cues , steadying assist 3 The helper provides less than half the effort to complete the activity 2 The helper provides more than half the effort to complete the activity 1 Dependent. The helper does all the effort to complete an activity 7 Patient refused to complete or attempt activity 9 The patient did not perform the activity before the current illness or injury 88 Not attempted due to Medical conditions or safety concerns Toileting (FIM): 3 Toileting Hygiene (QC): 3 Toilet/Commode Transfer (FIM): 4 Toilet Transfer (QC): 4 Education OT Patient Education: Modified ADL techniques Teaching Recipient: Patient Teaching Methods: Discussion Response to Teaching: Verbalize Understanding OT Short Term Goals Short Term Goals Time Frame: Jun 30, 2018 Eating(FIM): 5 Grooming(FIM): 5 Bathing(FIM): 4 Upper Body Dressing(FIM): 5 Lower Body Dressing(FIM): 4 Toileting(FIM): 5 Transfers (B,C,W/C) (FIM): 5 Toilet/Commode Transfer(FIM): 5 Shower Transfer(FIM): 4 Additional Short Term Goals: 1-Demonstrate ADL Tasks, 2-Verbalize Understanding , 3-ImproveStrength/Abdiel 1=Demonstrate adherence to instructed precautions during ADL tasks. 2=Patient will verbalize/demonstrate understanding of assistive devices/ modifications for ADL. 3=Patient will improve strength/tolerance for activity to enable patient to perform ADL's. OT Group Home Goals Group Home Goals Time Frame: Jul 07, 2018 Eating (FIM): 6 Eating (QC): 6 Groomin Oral Hygiene (QC): 6 Bathing(FIM): 6 Shower/Bathe Self (QC): 6 Upper Body Dressing(FIM): 6 Upper Body Dressing (QC): 6 Lower Body Dressing(FIM): 6 Lower Body Dressing (QC): 6 On/Off Footwear (QC): 6 Toileting(FIM): 6 Toileting Hygiene (QC): 6 Transfers (B,C,W/C) (FIM): 6 Toilet/Commode Transfer(FIM): 6 Toilet/Commode Transfer (QC): 6 Shower Transfer(FIM): 5 Additional Goals: 1-Demonstrate ADL Tasks, 2-Verbalize Understanding, 3- ImproveStrength/Abdiel 1=Demonstrate adherence to instructed precautions during ADL tasks. 2=Patient will verbalize/demonstrate understanding of assistive devices/ modifications for ADL. 3=Patient will improve strength/tolerance for activity to enable patient to perform ADL's. OT Education/Plan Discharge Recommendations Plan/Recommendations: Continue POC Treatment Plan/Plan of Care Patient would benefit from OT for education, treatment and training to promote independence in ADL's, mobility, safety and/or upper extremity function for ADL' s. Plan of Care: ADL Retraining, Functional Mobility, Group Exercise/Act as Ind, UE Funct Exercise/Act Treatment Duration: Jul 07, 2018 Frequency: At least 5 of 7 days/Wk (IRF) Estimated Hrs Per Day: 1.5 hours per day Agreement: Yes Rehab Potential: Fair Time/GCodes Start Time: 15:45 Stop Time: 16:15 Total Time Billed (hr/min): 30 Billed Treatment Time 1 visit, ADLx2(30minutes) Co-treat with PT [id number] EMERSON GARZON OT Jun 23, 2018 16:24
[2018-06-23] MEDS: SUCRALFATE 1 GM (CARAFATE) TAB PO SCH ×2 (17:08→20:10)
[2018-06-23 18:55] VITALS: BP 168/88
[2018-06-23] MEDS: ENOXAPARIN 30 MG/0.3 ML (LOVENOX) SYR SC SCH (20:09)
[2018-06-23] MEDS: GABAPENTIN 300 MG (NEURONTIN) CAP PO SCH (20:09)
[2018-06-23] MEDS: SENNOSIDES 8.6 MG (SENOKOT) TAB PO SCH (20:09)
[2018-06-23] MEDS: clonazePAM 1 MG (KlonoPIN) TAB PO SCH (20:10)
[2018-06-23] MEDS: oxyCODONE/APAP 5/325MG (PERCOCET 5) TABLET PO PRN (20:10)
[2018-06-24] MEDS: oxyCODONE/APAP 5/325MG (PERCOCET 5) TABLET PO PRN ×5 (05:05→23:53)
[2018-06-24 05:52] VITALS: BP 130/83
[2018-06-24] MEDS: CALCIUM CARB + VIT D 600 MG (CALCARB + D) TAB PO SCH (06:25)
[2018-06-24] MEDS: SUCRALFATE 1 GM (CARAFATE) TAB PO SCH ×4 (06:25→20:31)
[2018-06-24] MEDS: GABAPENTIN 300 MG (NEURONTIN) CAP PO SCH ×3 (08:22→20:31)
[2018-06-24] MEDS: SENNOSIDES 8.6 MG (SENOKOT) TAB PO SCH ×2 (08:22→20:33)
[2018-06-24] MEDS: ENOXAPARIN 30 MG/0.3 ML (LOVENOX) SYR SC SCH ×2 (08:22→20:31)
[2018-06-24] MEDS: clonazePAM 1 MG (KlonoPIN) TAB PO SCH ×2 (08:22→20:31)
--- NOTE | 2018-06-24 08:35 | PM & R (SOAP) Progress Note ---
Subjective This was a face to face visit with the patient. Date Seen by Provider: Jun 24, 2018 Time Seen by Provider: 07:50 Subjective/Events-last exam Patient was seen in her room this AM Patient Min assist for transfers Adjusting well to unit Patient c/o some axillary pain on rt most likely Musculoskeletal with mild tenderness noted on palpation Review of Systems Musculoskeletal: other (as per above), leg pain Objective Physician Exam Last Set of Vital Signs Vital Signs Date Time Temp Pulse Resp B/P (MAP) Pulse Ox O2 Delivery O2 Flow Rate FiO2 06/24/18 05:52 98.3 99 16 130/83 (99) 92 Room Air Capillary Refill : Less Than 3 Seconds I&O Intake and Output 06/24/18 00:00 Intake Total 780 ml Balance 780 ml Intake Oral 780 ml # Voids 2 Daily Weight Change Yes, 24-33 lbs General: Alert, Oriented X3, Cooperative, No Acute Distress HEENT: Atraumatic, PERRLA, EOMI, Mucous Memb Moist/[place] Neck: Supple, No JVD Lungs: Clear to Auscultation Heart: Regular Rate Abdomen: Normal Bowel Sounds, Soft, No Tenderness Extremities: Other (trace edema rt ankle) Neuro: Other (Sensation intact to touch strength decreased BLES RT > left) Assessment/Plan Assessment and Plan RT Hip fracture s/p IM nailing ortho WBAT HX of ethanol use Tobaccoism GERD Chronic back pain 'DVT prophylaxis on Lovenox subcut Plan Continue PT/OT/Pain management Co-Morbidities that are continuing to impact the rehab process: (include details ) WALT CHATTERJEE MD Jun 24, 2018 08:34
--- NOTE | 2018-06-24 12:14 | Physical Therapy Daily Note ---
PT Daily Note-Current Subjective Pt was on commode when PT arrived and stated that PT will have to wait till she is finished. Pt refused PT till she was cleaned up and had her pain pill. Pain Numeric Pain Scale: 5-Moderate Pain Location: Right Location Body Site: Hip Transfers Functional [place] Measure 0=Not Assessed/NA 4=Minimal Assistance 1=Total Assistance 5=Supervision or Setup 2=Maximal Assistance 6=Modified [place] 3=Moderate Assistance 7=Complete IndependenceIRFPAI Quality Coding Scale 6 Independent with activity with or without an assistive device 5 Patient requires set up or clean up by helper. Patient completes activity by themselves 4 Supervision or touching assist (CGA). [place] provide cues , steadying assist 3 The helper provides less than half the effort to complete the activity 2 The helper provides more than half the effort to complete the activity 1 Dependent. The helper does all the effort to complete an activity 7 Patient refused to complete or attempt activity 9 The patient did not perform the activity before the current illness or injury 88 Not attempted due to Medical conditions or safety concerns Transfers (B, C, W/C) (FIM): 4 Sit to/from Stand: 4 Weight Bearing Right Lower Extremity: Right Weight Bearing/Tolerated Left Lower Extremity: Left Full Weight Bearing Gait Training Gait (FIM): 2 Distance (FIM): 1=460-08 ft Distance: 100' Gait Level of Assist: 4 Gait Persons Needed: 1 Gait Assistive Device: FWW Exercises Seated Therapy Exercises: Long arc quads Assessment Patient disregarded PT instruction on how to properly use FWW for safe body placement in FWW. Patient was reminded 3 times before she sat down to rest. Patient ambulated 100ft with CGA with faulty mechanics with AD. PT Short Term Goals Short Term Goals Time Frame: Jun 30, 2018 Transfers (B,C,W/C) (FIM): 5 Gait (FIM): 5 Gait Distance Comment: 200' Gait Level of Assist: 5 Gait Assistive Device: FWW PT [facility] Goals Mmi Teacher Goals PT Mmi Teacher Goals Time Frame: Jul 14, 2018 Transfers (B,C,W/C) (FIM): 6 Sit to Lying (QC): 6 Lying-Sitting on Side/Bed(QC): 6 Sit to Stand (QC): 6 Rollin Roll Left to Right (QC): 6 Chair/Ijb-hm-Hsvod Xfer(QC): 6 Car Transfer (QC): 6 Gait (FIM): 6 Distance: 250' Walk 10 feet (QC): 6 Walk 10ft-Uneven Surface(QC): 6 Walk 50ft with 2 Turns (QC): 6 Walk 150 ft (QC): 6 Gait Level of Assist: 6 Gait Assistive Device: FWW Stairs (FIM): 2 # of Steps: 8 1 Step (curb) (QC): 4 4 Steps (QC): 4 Stairs Level Of Assist: 5 PT Plan Treatment/Plan Treatment Plan: Continue Plan of Care Treatment Plan: Bed Mobility, Education, Functional Activity Abdiel, Functional Strength, Group Therapy, Gait, Safety, Therapeutic Exercise, Transfers Treatment Duration: Jul 14, 2018 Frequency: At least 5 of 7 days/Wk (IRF) Estimated Hrs Per Day: 1.5 hours per day Patient and/or Family Agrees t: Yes Safety Risks/Education Patient Education: Safety Issues Teaching Recipient: Patient Teaching Methods: Demonstration, Discussion Response to Teaching: Reinforcement Needed Time/GCodes Time In: 1115 Time Out: 1130 Total Billed Treatment Time: 15 Total Billed Treatment 1 visit GT - 15 mins HEAVEN PINA PT Jun 24, 2018 12:14
--- NOTE | 2018-06-24 12:42 | Physical Therapy Daily Note ---
PT Daily Note-Current Subjective PT is finishing with pt and MRI CT TECH continues tx at this time. Pt is ambulating through Therapy [facility] area. Pt agrees to continued PT. Pain Numeric Pain Scale: 8 Location: Incisional Location Body Site: Hip Pain Description: Ache, Pressure Mental Status Patient Orientation: Person, Place Transfers Functional [place] Measure 0=Not Assessed/NA 4=Minimal Assistance 1=Total Assistance 5=Supervision or Setup 2=Maximal Assistance 6=Modified [place] 3=Moderate Assistance 7=Complete IndependenceIRFPAI Quality Coding Scale 6 Independent with activity with or without an assistive device 5 Patient requires set up or clean up by helper. Patient completes activity by themselves 4 Supervision or touching assist ([facility]). [place] provide cues , steadying assist 3 The helper provides less than half the effort to complete the activity 2 The helper provides more than half the effort to complete the activity 1 Dependent. The helper does all the effort to complete an activity 7 Patient refused to complete or attempt activity 9 The patient did not perform the activity before the current illness or injury 88 Not attempted due to Medical conditions or safety concerns Sit to/from Stand: 4 Sit to Stand (QC): 4 Weight Bearing Right Lower Extremity: Right Weight Bearing/Tolerated Left Lower Extremity: Left Full Weight Bearing Gait Training Does the Patient Walk?: Yes Distance (FIM): 3=150 ft Distance: 150' Walk 10 feet (QC): 4 Walk 50 ft with 2 Turns(QC): 4 Walk 150 ft (QC): 4 Gait Level of Assist: 4 Gait Assistive Device: FWW Pt's nikkie is extremely slow and needs consistent VC to stay on task. Pt fatigues easily and reports pain during ambulation and movement. Wheelchair Training Wheelchair Distance: 4=358-69 ft Distance: 100' Wheelchair Level of Assist: 5 Wheel 50 ft with 2 turns (QC): 5 Type of Wheelchair: Manual Exercises NuStep Minutes: 10 Treatments Pt ambulates in [facility] using FWW at [facility]. Pt completes 10m on NuStep at 2. Pt propels WCH back to room to rest and eat lunch at end of tx. Pt transfers to recliner at [facility] with VC for sequencing and hand placement. Pt has all needs met at end of tx. Assessment Current Status: Fair Progress Pt takes extended times to complete tasks. Pt needs VC to stay on task while talking. PT Short Term Goals Short Term Goals Time Frame: Jun 30, 2018 Transfers (B,C,W/C) (FIM): 5 Gait (FIM): 5 Gait Distance Comment: 200' Gait Level of Assist: 5 Gait Assistive Device: FWW PT Truck Driver Instructor Goals Truck Driver Instructor Goals PT Truck Driver Instructor Goals Time Frame: Jul 14, 2018 Transfers (B,C,W/C) (FIM): 6 Sit to Lying (QC): 6 Lying-Sitting on Side/Bed(QC): 6 Sit to Stand (QC): 6 Rollin Roll Left to Right (QC): 6 Chair/Mei-fg-Egsao Xfer(QC): 6 Car Transfer (QC): 6 Gait (FIM): 6 Distance: 250' Walk 10 feet (QC): 6 Walk 10ft-Uneven Surface(QC): 6 Walk 50ft with 2 Turns (QC): 6 Walk 150 ft (QC): 6 Gait Level of Assist: 6 Gait Assistive Device: FWW Stairs (FIM): 2 # of Steps: 8 1 Step (curb) (QC): 4 4 Steps (QC): 4 Stairs Level Of Assist: 5 PT Plan Problem List Problem List: Activity Tolerance, Functional Strength, Safety, Balance, Gait, Transfer Treatment/Plan Treatment Plan: Continue Plan of Care Treatment Plan: Bed Mobility, Education, Functional Activity Abdiel, Functional Strength, Group Therapy, Gait, Safety, Therapeutic Exercise, Transfers Treatment Duration: Jul 14, 2018 Frequency: At least 5 of 7 days/Wk (IRF) Estimated Hrs Per Day: 1.5 hours per day Patient and/or Family Agrees t: Yes Safety Risks/Education Patient Education: Gait Training, Transfer Techniques, Correct Positioning, Safety Issues Teaching Methods: Discussion Response to Teaching: Reinforcement Needed Time/GCodes Time In: 1130 Time Out: 1215 Total Billed Treatment Time: 45 Total Billed Treatment 1, GT x2 (30m) & EX (15m) G Codes Necessary: PRASAD Gudino MRI CT TECH Jun 24, 2018 12:42
--- NOTE | 2018-06-24 14:54 | Therapy Group Daily Note ---
Therapy Daily Group Note Patient Education Topic Home Safety Exercises LE Seated Exercise, UE Exercise Other/Notes Pt propelled to PT/OT Group in [facility]. Group consisted of Introduction (Name, Where you are from & What is your favorite season?), Socialization, ARU Explanation/Description, UE/LE EX as well Home Safety. Pt actively participated with Group by completing EX and giving personal examples of Home Safety items and improvements that could be made within pt's home. Pt at times talked over and interrupted other pts. At times would talk off subject. Pt is given VC to correct. Group ended with something that Inspires or Motivates you to complete Therapy and get better to discharge home. Pt returns to room at end of tx to rest with all needs met. Start Time: 13:00 Stop Time: 14:15 Total Billed Treatment 1, GRP (75m) PRASAD [employer]OE [employer] Jun 24, 2018 14:54
--- NOTE | 2018-06-24 15:31 | Speech Therapy Daily Note ---
Speech Daily Progress Note Subjective Date Seen by Provider: Jun 24, 2018 Time Seen by Provider: 09:00 Pt in bed. Pleasant. Pain Numeric Pain Scale: 10-Worst Possible Pain Location: Right Location Body Site: Side Objective Memory - Picture recall after 20 minutes. Instructed pt to verbalize out loud what she saw in picture to aid in recall later. She was 80% accurate. Convergent naming task in which pt was provided with 3 clues and she had to determine what object was being described. Pt required re-direction back to task 7 times. Assessment Assessment Current Status: Fair Progress Treatment Plan Continue Plan of Care Speech Short Term Goals Short Term Goals Short Term Goals Pt will complete various auditory/visual memory activities with at least 80% accuracy and min assist. Pt will require less than 4 re-directions back to task in a 30 minute session. Pt will decrease verbosity with min cues. Time Frame-ST week Speech Staff Antisubmarine Officer Goals Staff Antisubmarine Officer Goals Pt will demonstrate functional cognitive-linguistic skills for safety and maximum independence for the home setting. Speech-Plan Patient/Family Goals Patient/Family Goals: to return home Treatment Plan Speech Therapy Treatment Plan: Continue Plan of Care Pt very verbose, requires lots of re-direction to task. Frequency: 5 times per week Estimated Hrs Per Day: .5 hour per day Rehab Potential: Fair Pt/Family Agrees to Plan: Yes Safety Risks/Education Teaching Recipient: Patient Teaching Methods: Discussion Response to Teaching: Verbalize Understanding Time Speech Therapy Time In: 09:00 Speech Therapy Time Out: 09:30 Total Billed Time: 10 Billed Treatment Time 1, SLTIA Dorantes Jun 24, 2018 15:31
--- NOTE | 2018-06-24 15:39 | Occupational Ther Daily Note ---
OT Current Status-Daily Note Subjective Pt. does not report pain level. Appearance Pt. in bed. Asleep. Requires cues and prompting to wake up. Mental Status/Objective Patient Orientation: Person Functional [place] Measure 0=Not Assessed/NA 4=Minimal Assistance 1=Total Assistance 5=Supervision or Setup 2=Maximal Assistance 6=Modified [place] 3=Moderate Assistance 7=Complete [place] ADL-Treatment Functional [place] Measure 0=Not Assessed/NA 4=Minimal Assistance 1=Total Assistance 5=Supervision or Setup 2=Maximal Assistance 6=Modified [place] 3=Moderate Assistance 7=Complete IndependenceIRFPAI Quality Coding Scale 6 Independent with activity with or without an assistive device 5 Patient requires set up or clean up by helper. Patient completes activity by themselves 4 Supervision or touching assist (CGA). [place] provide cues , steadying assist 3 The helper provides less than half the effort to complete the activity 2 The helper provides more than half the effort to complete the activity 1 Dependent. The helper does all the effort to complete an activity 7 Patient refused to complete or attempt activity 9 The patient did not perform the activity before the current illness or injury 88 Not attempted due to Medical conditions or safety concerns Bathing (FIM): 3 (Pt. is able to wash UE, chest, and judy area in stance. Pt. washes LE with LH sponge but requires assistance to wash more thoroughly.) Shower/Bathe Self (QC): 3 Upper Body (FIM): 5 Upper Body Dressing (QC): 5 Lower Body Dressing (FIM): 3 Lower Body Dressing (QC): 3 (Pt. requires mod assist overall to don pants, underwear, and socks with AE. ) On/Off Footwear (QC): 3 Toileting (FIM): 4 Toileting Hygiene (QC): 4 Transfers (B, C, W/C) (FIM): 4 (Min assist supine-sit and sit-stand.) Toilet/Commode Transfer (FIM): 4 Toilet Transfer (QC): 4 Other Treatment Pt. requires max cues to stay on task. Pt. will begin to talk about a subject but gets off topic. Forgets what she is doing. Pt. has difficulty following cues to don socks with sock aide. Pt. requests to sit on BSC after ADL task. Pt. is left with call light and all needs met. Nursing notified that pt. up. Education OT Patient Education: Correct positioning, Modified ADL techniques, Progress toward Goal/Update tx plan, Purpose of tx/functional activities, Reviewed precautions, Rehab process, Transfer techniques Teaching Recipient: Patient Teaching Methods: Demonstration, Discussion Response to Teaching: Verbalize Understanding, Return Demonstration OT Short Term Goals Short Term Goals Time Frame: Jun 30, 2018 Eating(FIM): 5 Grooming(FIM): 5 Bathing(FIM): 4 Upper Body Dressing(FIM): 5 Lower Body Dressing(FIM): 4 Toileting(FIM): 5 Transfers (B,C,W/C) (FIM): 5 Toilet/Commode Transfer(FIM): 5 Shower Transfer(FIM): 4 Additional Short Term Goals: 1-Demonstrate ADL Tasks, 2-Verbalize Understanding , 3-ImproveStrength/Abdiel 1=Demonstrate adherence to instructed precautions during ADL tasks. 2=Patient will verbalize/demonstrate understanding of assistive devices/ modifications for ADL. 3=Patient will improve strength/tolerance for activity to enable patient to perform ADL's. OT Fdc Goals Fdc Goals Time Frame: Jul 07, 2018 Eating (FIM): 6 Eating (QC): 6 Groomin Oral Hygiene (QC): 6 Bathing(FIM): 6 Shower/Bathe Self (QC): 6 Upper Body Dressing(FIM): 6 Upper Body Dressing (QC): 6 Lower Body Dressing(FIM): 6 Lower Body Dressing (QC): 6 On/Off Footwear (QC): 6 Toileting(FIM): 6 Toileting Hygiene (QC): 6 Transfers (B,C,W/C) (FIM): 6 Toilet/Commode Transfer(FIM): 6 Toilet/Commode Transfer (QC): 6 Shower Transfer(FIM): 5 Additional Goals: 1-Demonstrate ADL Tasks, 2-Verbalize Understanding, 3- ImproveStrength/Abdiel 1=Demonstrate adherence to instructed precautions during ADL tasks. 2=Patient will verbalize/demonstrate understanding of assistive devices/ modifications for ADL. 3=Patient will improve strength/tolerance for activity to enable patient to perform ADL's. OT Education/Plan Problem List/Assessment Assessment: Decreased Activ Tolerance, Decreased Safety Aware, Decreased UE Strength, Dependent Transfers, Impaired Bed Mobility, Impaired Cognition, Impaired Funct Balance, Impaired I ADL's, Impaired Self-Care Skills Discharge Recommendations Plan/Recommendations: Continue POC Therapy D/C Recommendations: Home w/ Family Support, Occupational Therapy Home Care Treatment Plan/Plan of Care Treatment,Training & Education: Yes Patient would benefit from OT for education, treatment and training to promote independence in ADL's, mobility, safety and/or upper extremity function for ADL' s. Plan of Care: ADL Retraining, Functional Mobility, Group Exercise/Act as Ind, UE Funct Exercise/Act Treatment Duration: Jul 07, 2018 Frequency: At least 5 of 7 days/Wk (IRF) Estimated Hrs Per Day: 1.5 hours per day Agreement: Yes Rehab Potential: Fair Time/GCodes Start Time: 10:00 Stop Time: 11:00 Total Time Billed (hr/min): 60 Billed Treatment Time 1, ADL x 4 ABEBA CORONADO OT Jun 24, 2018 15:39
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
[2018-06-24 17:43] VITALS: BP 145/77
[2018-06-25 06:30] VITALS: BP 116/70
[2018-06-25] MEDS: SUCRALFATE 1 GM (CARAFATE) TAB PO SCH ×4 (06:36→20:47)
[2018-06-25] MEDS: CALCIUM CARB + VIT D 600 MG (CALCARB + D) TAB PO SCH (06:36)
[2018-06-25] MEDS: oxyCODONE/APAP 5/325MG (PERCOCET 5) TABLET PO PRN ×4 (06:53→20:47)
[2018-06-25] MEDS: clonazePAM 1 MG (KlonoPIN) TAB PO SCH ×2 (08:18→20:48)
[2018-06-25] MEDS: SENNOSIDES 8.6 MG (SENOKOT) TAB PO SCH ×2 (08:18→20:48)
[2018-06-25] MEDS: GABAPENTIN 300 MG (NEURONTIN) CAP PO SCH ×3 (08:19→20:48)
[2018-06-25] MEDS: ENOXAPARIN 30 MG/0.3 ML (LOVENOX) SYR SC SCH ×2 (08:19→20:48)
--- NOTE | 2018-06-25 09:31 | PM & R (SOAP) Progress Note ---
Subjective This was a face to face visit with the patient. Date Seen by Provider: Jun 25, 2018 Time Seen by Provider: 08:00 Subjective/Events-last exam Patient was seen in her room this Am Patient min assist for transfers Requests reynold Jessica. Review of Systems Musculoskeletal: leg pain Objective Physician Exam Last Set of Vital Signs Vital Signs Date Time Temp Pulse Resp B/P (MAP) Pulse Ox O2 Delivery O2 Flow Rate FiO2 06/25/18 06:30 97.7 87 18 116/70 (85) 93 Room Air Capillary Refill : Less Than 3 Seconds I&O Intake and Output 06/25/18 00:00 Intake Total 1510 ml Balance 1510 ml Intake Oral 1510 ml # Voids 7 # Bowel Movements 1 General: Alert, Oriented X3, Cooperative, No Acute Distress HEENT: Atraumatic, PERRLA, EOMI, Mucous Memb Moist/[place] Neck: Supple, No JVD Lungs: Clear to Auscultation Heart: Regular Rate Abdomen: Normal Bowel Sounds, Soft, No Tenderness Extremities: Other (trace edema rt ankle) Neuro: Other (Sensation intact to touch strength decreased BLES RT > left) Assessment/Plan Assessment and Plan Rt hip fracture s/p IM nailing ortho WBAT HX of etoh abuse Tobaccoism GERD Chronic back pain DVT prophylaxis on lovenox subcut Plan Continue PT/OT Team Conference next week Goal return home with family with [facility] Co-Morbidities that are continuing to impact the rehab process: (include details ) WALT CHATTERJEE MD Jun 25, 2018 09:31
--- NOTE | 2018-06-25 11:10 | Physical Therapy Daily Note ---
PT Daily Note-Current Subjective Pt was awake in room eating breakfast when PT arrived. Patient initially refused therapy and asked for 10 mins to eat her food. Patient continued to eat food during PT and refused to participate till she was done eating. Pain Numeric Pain Scale: 5-Moderate Pain Location: Right Location Body Site: Hip Mental Status Attachments: IV Transfers Functional [place] Measure 0=Not Assessed/NA 4=Minimal Assistance 1=Total Assistance 5=Supervision or Setup 2=Maximal Assistance 6=Modified [place] 3=Moderate Assistance 7=Complete IndependenceIRFPAI Quality Coding Scale 6 Independent with activity with or without an assistive device 5 Patient requires set up or clean up by helper. Patient completes activity by themselves 4 Supervision or touching assist (CGA). [place] provide cues , steadying assist 3 The helper provides less than half the effort to complete the activity 2 The helper provides more than half the effort to complete the activity 1 Dependent. The helper does all the effort to complete an activity 7 Patient refused to complete or attempt activity 9 The patient did not perform the activity before the current illness or injury 88 Not attempted due to Medical conditions or safety concerns Transfers (B, C, W/C) (FIM): 4 Sit to/from Stand: 4 Weight Bearing Right Lower Extremity: Right Weight Bearing/Tolerated Left Lower Extremity: Left Full Weight Bearing Gait Training Gait (FIM): 2 Distance (FIM): 9=157-28 ft Distance: 75' Gait Level of Assist: 4 Gait Persons Needed: 1 Gait Assistive Device: FWW Exercises Seated Therapy Exercises: Ankle pumps, Long arc quads, Kicking activity, Hamstring Curls Seated Reps: 10 Nustep seat 6 Handles 6 Workload 4 12 mins NuStep Minutes: 12 NuStep Workload: 4 Assessment Patient continues to disregard PT instruction of proper use of FWW during ambulation. Patient was reminded 2 times and was instructed to increase stride length before she stated she needed a rest. Patient continued seated exercises as instructed before moving to therapy gym. She completed her time on the NuStep for 12 mins without showing signs of fatigue. PT Short Term Goals Short Term Goals Time Frame: Jun 30, 2018 Transfers (B,C,W/C) (FIM): 5 Gait (FIM): 5 Gait Distance Comment: 200' Gait Level of Assist: 5 Gait Assistive Device: FWW Wheelchair Distance: 100' PT Training Developer Goals Training Developer Goals PT [facility] Living Goals Time Frame: Jul 14, 2018 Transfers (B,C,W/C) (FIM): 6 Sit to Lying (QC): 6 Lying-Sitting on Side/Bed(QC): 6 Sit to Stand (QC): 6 Rollin Roll Left to Right (QC): 6 Chair/Ogd-it-Ujvuu Xfer(QC): 6 Car Transfer (QC): 6 Gait (FIM): 6 Distance: 250' Walk 10 feet (QC): 6 Walk 10ft-Uneven Surface(QC): 6 Walk 50ft with 2 Turns (QC): 6 Walk 150 ft (QC): 6 Gait Level of Assist: 6 Gait Assistive Device: FWW Stairs (FIM): 2 # of Steps: 8 1 Step (curb) (QC): 4 4 Steps (QC): 4 Stairs Level Of Assist: 5 PT Plan Problem List Problem List: Functional Strength, Gait Treatment/Plan Treatment Plan: Continue Plan of Care Treatment Plan: Bed Mobility, Education, Functional Activity Abdiel, Functional Strength, Group Therapy, Gait, Safety, Therapeutic Exercise, Transfers Treatment Duration: Jul 14, 2018 Frequency: At least 5 of 7 days/Wk (IRF) Estimated Hrs Per Day: 1.5 hours per day Patient and/or Family Agrees t: Yes Safety Risks/Education Patient Education: Gait Training Time/GCodes Time In: 958 Time Out: 1058 Total Billed Treatment Time: 60 Total Billed Treatment 1 Visit GT - 20 mins EX x 3- 40 mins HEAVEN PINA PT Jun 25, 2018 11:10
--- NOTE | 2018-06-25 12:46 | Occupational Ther Daily Note ---
OT Current Status-Daily Note Subjective Pt alert, sitting in recliner. Pt agrees to therapy. Pt c/o pain, did not rate , reported to nrsg. Mental Status/Objective Patient Orientation: Person, Place, Time, Situation Functional [place] Measure 0=Not Assessed/NA 4=Minimal Assistance 1=Total Assistance 5=Supervision or Setup 2=Maximal Assistance 6=Modified [place] 3=Moderate Assistance 7=Complete [place] Attachments: IV ADL-Treatment Pt ambulated to bathroom using FWW with FWW. Transferred to toilet, min A using grabbars and FWW, then was able to complete hygiene with CGA. Transferred into tub using shower bench, mod A lifting R LE in/out of tub. SBA for bathing using tub transfer bench, hand held shower, grabbars and long handle sponge. Pt needed reminders to use sponge due to pt continually reaching toward feet. Assist to thread LE's through pant legs then CGA in standing while pt hiked pants over hips. Max A to don/doff socks. Pt takes increased time to complete all tasks. After therapy, pt sitting in recliner eating lunch. Call light/phone in reach. All needs met in room. Functional [place] Measure 0=Not Assessed/NA 4=Minimal Assistance 1=Total Assistance 5=Supervision or Setup 2=Maximal Assistance 6=Modified [place] 3=Moderate Assistance 7=Complete IndependenceIRFPAI Quality Coding Scale 6 Independent with activity with or without an assistive device 5 Patient requires set up or clean up by helper. Patient completes activity by themselves 4 Supervision or touching assist (CGA). [place] provide cues , steadying assist 3 The helper provides less than half the effort to complete the activity 2 The helper provides more than half the effort to complete the activity 1 Dependent. The helper does all the effort to complete an activity 7 Patient refused to complete or attempt activity 9 The patient did not perform the activity before the current illness or injury 88 Not attempted due to Medical conditions or safety concerns Eating (FIM): 6 Eating (QC): 6 Grooming (FIM): 6 Bathing (FIM): 5 Bathing Location: L Arm, R Arm, L Upper Leg, R Upper Leg, L Lower Leg ( including foot), R Lower Leg (including foot), Chest, Abdomen, Buttocks, Perineal Area Shower/Bathe Self (QC): 4 Upper Body (FIM): 5 (After set up, pt able to complete.) Upper Body Dressing (QC): 5 Lower Body Dressing (FIM): 2 Lower Body Dressing (QC): 2 On/Off Footwear (QC): 2 Toileting (FIM): 5 Toileting Hygiene (QC): 4 Transfers (B, C, W/C) (FIM): 4 Toilet/Commode Transfer (FIM): 4 Toilet Transfer (QC): 4 Tub Transfer(FIM): 3 OT Short Term Goals Short Term Goals Time Frame: Jun 30, 2018 Eating(FIM): 5 Grooming(FIM): 5 Bathing(FIM): 4 Upper Body Dressing(FIM): 5 Lower Body Dressing(FIM): 4 Toileting(FIM): 5 Transfers (B,C,W/C) (FIM): 5 Toilet/Commode Transfer(FIM): 5 Shower Transfer(FIM): 4 Additional Short Term Goals: 1-Demonstrate ADL Tasks, 2-Verbalize Understanding , 3-ImproveStrength/Abdiel 1=Demonstrate adherence to instructed precautions during ADL tasks. 2=Patient will verbalize/demonstrate understanding of assistive devices/ modifications for ADL. 3=Patient will improve strength/tolerance for activity to enable patient to perform ADL's. OT Anesthesiology Resident Goals Anesthesiology Resident Goals Time Frame: Jul 07, 2018 Eating (FIM): 6 Eating (QC): 6 Groomin Oral Hygiene (QC): 6 Bathing(FIM): 6 Shower/Bathe Self (QC): 6 Upper Body Dressing(FIM): 6 Upper Body Dressing (QC): 6 Lower Body Dressing(FIM): 6 Lower Body Dressing (QC): 6 On/Off Footwear (QC): 6 Toileting(FIM): 6 Toileting Hygiene (QC): 6 Transfers (B,C,W/C) (FIM): 6 Toilet/Commode Transfer(FIM): 6 Toilet/Commode Transfer (QC): 6 Shower Transfer(FIM): 5 Additional Goals: 1-Demonstrate ADL Tasks, 2-Verbalize Understanding, 3- ImproveStrength/Abdiel 1=Demonstrate adherence to instructed precautions during ADL tasks. 2=Patient will verbalize/demonstrate understanding of assistive devices/ modifications for ADL. 3=Patient will improve strength/tolerance for activity to enable patient to perform ADL's. OT Education/Plan Discharge Recommendations Plan/Recommendations: Continue POC Treatment Plan/Plan of Care Patient would benefit from OT for education, treatment and training to promote independence in ADL's, mobility, safety and/or upper extremity function for ADL' s. Plan of Care: ADL Retraining, Functional Mobility, Group Exercise/Act as Ind, UE Funct Exercise/Act Treatment Duration: Jul 07, 2018 Frequency: At least 5 of 7 days/Wk (IRF) Estimated Hrs Per Day: 1.5 hours per day Agreement: Yes Rehab Potential: Fair Time/GCodes Start Time: 11:00 Stop Time: 12:20 Total Time Billed (hr/min): 80 Billed Treatment Time 1 visit-ADL 7 (80 min) ALY KIM Jun 25, 2018 12:46
--- NOTE | 2018-06-25 14:31 | Therapy Group Daily Note ---
Therapy Daily Group Note Patient Education Topic Other List Below (the 5 senses and aging, memory loss and strategies) Other/Notes Pt. participated in PT OT group this date. Pt. very social, introducing herself and sharing "what I would be famous for" . Pts. were educated on the affects of aging on the 5 senses , as well as memory and aging and strategies for managing memory loss. Pts. all participated in memory game by matching images etc. Pt. to from room by w/c with assist. In room after with barrera at hand Start Time: 13:00 Stop Time: 14:10 Total Billed Treatment Time: 70 Total Billed Treatment 1,GRP JULIA HERNANDEZ MACHINIST SET UP Jun 25, 2018 14:31
--- NOTE | 2018-06-25 14:44 | Speech Therapy Daily Note ---
Speech Daily Progress Note Subjective Date Seen by Provider: Jun 25, 2018 Time Seen by Provider: 09:00 Pt in bed. Pleasant, cooperative and talkative. Pain Numeric Pain Scale: 10-Worst Possible Pain Location: Right Location Body Site: Side Objective Pt had not eaten breakfast by her Speech time. Instructed pt to order her breakfast. CLAY TRANSPORTER wrote down what she wanted to order to determine how much she could recall. Pt needed 8 re-directions to look at menu to make her choices. She once again starts telling stories that are not relevant to her ordering her breakfast. Pt was only able to recall 10% of what she wanted for breakfast. Assessment Assessment Current Status: Fair Progress Treatment Plan Continue Plan of Care Speech Short Term Goals Short Term Goals Short Term Goals Pt will complete various auditory/visual memory activities with at least 80% accuracy and min assist. Pt will require less than 4 re-directions back to task in a 30 minute session. Pt will decrease verbosity with min cues. Time Frame-ST week Speech Entry Level Administrative Assistant Goals Entry Level Administrative Assistant Goals Pt will demonstrate functional cognitive-linguistic skills for safety and maximum independence for the home setting. Speech-Plan Patient/Family Goals Patient/Family Goals: to return home Treatment Plan Speech Therapy Treatment Plan: Continue Plan of Care pt participates in speech therapy Treatment Duration: Jun 24, 2018 Frequency: 5 times per week Estimated Hrs Per Day: .5 hour per day Rehab Potential: Fair Barriers to Learning: Verbose Pt/Family Agrees to Plan: Yes Safety Risks/Education Teaching Recipient: Patient Teaching Methods: Discussion Response to Teaching: Verbalize Understanding Time Speech Therapy Time In: 09:00 Speech Therapy Time Out: 09:30 Total Billed Time: 30 Billed Treatment Time 1, TIA AGUIRRE Jun 25, 2018 14:44
[2018-06-25 17:56] VITALS: BP 121/75
[2018-06-26] MEDS: oxyCODONE/APAP 5/325MG (PERCOCET 5) TABLET PO PRN ×5 (00:48→20:17)
[2018-06-26 05:01] VITALS: BP 144/77
[2018-06-26] MEDS: CALCIUM CARB + VIT D 600 MG (CALCARB + D) TAB PO SCH (06:47)
[2018-06-26] MEDS: SUCRALFATE 1 GM (CARAFATE) TAB PO SCH ×4 (06:47→20:16)
[2018-06-26] MEDS: GABAPENTIN 300 MG (NEURONTIN) CAP PO SCH ×3 (09:07→20:17)
[2018-06-26] MEDS: SENNOSIDES 8.6 MG (SENOKOT) TAB PO SCH ×2 (09:07→20:17)
[2018-06-26] MEDS: clonazePAM 1 MG (KlonoPIN) TAB PO SCH ×2 (09:07→20:16)
[2018-06-26] MEDS: ENOXAPARIN 30 MG/0.3 ML (LOVENOX) SYR SC SCH ×2 (09:08→20:16)
--- NOTE | 2018-06-26 09:15 | Physical Therapy Daily Note ---
PT Daily Note-Current Subjective Pt. in bed, agrees to Rx and wants to order breakfast. Pt. very slow, very talkative . Ordered a very large breakfast and ordered more to go with it soon after. c/o pain at 8/10 in right hip but is able to visit and move fairly well. Pain Numeric Pain Scale: 8 Location: Right Location Body Site: Hip Pain Description: Ache Mental Status Patient Orientation: Person, Place Transfers Functional [place] Measure 0=Not Assessed/NA 4=Minimal Assistance 1=Total Assistance 5=Supervision or Setup 2=Maximal Assistance 6=Modified [place] 3=Moderate Assistance 7=Complete IndependenceIRFPAI Quality Coding Scale 6 Independent with activity with or without an assistive device 5 Patient requires set up or clean up by helper. Patient completes activity by themselves 4 Supervision or touching assist (CGA). [place] provide cues , steadying assist 3 The helper provides less than half the effort to complete the activity 2 The helper provides more than half the effort to complete the activity 1 Dependent. The helper does all the effort to complete an activity 7 Patient refused to complete or attempt activity 9 The patient did not perform the activity before the current illness or injury 88 Not attempted due to Medical conditions or safety concerns Transfers (B, C, W/C) (FIM): 5 Scootin Rollin Supine to/from Sit: 5 Sit to/from Stand: 5 Weight Bearing Right Lower Extremity: Right Weight Bearing/Tolerated Left Lower Extremity: Left Full Weight Bearing Gait Training Does the Patient Walk?: Yes Gait (FIM): 2 Distance (FIM): 7=468-44 ft (100x2) Gait Level of Assist: 5 Gait Persons Needed: 1 Gait Assistive Device: FWW slow, needs directed, stating she doesnt see well Exercises Supine Ex: Ankle pumps, Quad Set, Rolling, Glut sets, Heel Slides, Short Arc Quads, Scooting, Straight leg raise (assist), Hip abd/add Supine Reps: 15 Seated Therapy Exercises: Ankle pumps, Sit to stand, Long arc quads Seated Reps: 10 Treatments toileted and changed panty and pad with mod assist, cleaned self indep Assessment Current Status: Good Progress slow, distracted, its necessary to interrupt pt. to be able to direct her through the rx PT Short Term Goals Short Term Goals Time Frame: Jun 30, 2018 Transfers (B,C,W/C) (FIM): 5 Gait (FIM): 5 Gait Distance Comment: 200' Gait Level of Assist: 5 Gait Assistive Device: FWW Wheelchair Distance: 100' PT [facility] Goals Ibm Websphere Commerce Developer Goals PT [facility] Goals Time Frame: Jul 14, 2018 Transfers (B,C,W/C) (FIM): 6 Sit to Lying (QC): 6 Lying-Sitting on Side/Bed(QC): 6 Sit to Stand (QC): 6 Rollin Roll Left to Right (QC): 6 Chair/Xmc-gk-Guanq Xfer(QC): 6 Car Transfer (QC): 6 Gait (FIM): 6 Distance: 250' Walk 10 feet (QC): 6 Walk 10ft-Uneven Surface(QC): 6 Walk 50ft with 2 Turns (QC): 6 Walk 150 ft (QC): 6 Gait Level of Assist: 6 Gait Assistive Device: FWW Stairs (FIM): 2 # of Steps: 8 1 Step (curb) (QC): 4 4 Steps (QC): 4 Stairs Level Of Assist: 5 PT Plan Treatment/Plan Treatment Plan: Continue Plan of Care Treatment Plan: Bed Mobility, Education, Functional Activity Abdiel, Functional Strength, Group Therapy, Gait, Safety, Therapeutic Exercise, Transfers Treatment Duration: Jul 14, 2018 Frequency: At least 5 of 7 days/Wk (IRF) Estimated Hrs Per Day: 1.5 hours per day Patient and/or Family Agrees t: Yes Safety Risks/Education Patient Education: Gait Training, Transfer Techniques, Correct Positioning, Disease Process, Safety Issues Teaching Recipient: Patient Teaching Methods: Demonstration, Discussion Response to Teaching: Verbalize Understanding, Return Demonstration, Reinforcement Needed Time/GCodes Time In: 815 Time Out: 855 Total Billed Treatment Time: 40 Total Billed Treatment 1,FA15m,GT10m,EX15m G Codes Necessary: JULIA Tee PARENT COACH Jun 26, 2018 09:15
[2018-06-26 17:13] VITALS: BP 130/83
[2018-06-27] MEDS: oxyCODONE/APAP 5/325MG (PERCOCET 5) TABLET PO PRN ×5 (00:17→20:35)
[2018-06-27 05:01] VITALS: BP 108/72
[2018-06-27] MEDS: CALCIUM CARB + VIT D 600 MG (CALCARB + D) TAB PO SCH (06:28)
[2018-06-27] MEDS: SUCRALFATE 1 GM (CARAFATE) TAB PO SCH ×4 (06:28→20:32)
[2018-06-27] MEDS: SENNOSIDES 8.6 MG (SENOKOT) TAB PO SCH ×2 (09:00→20:32)
[2018-06-27] MEDS: clonazePAM 1 MG (KlonoPIN) TAB PO SCH ×2 (09:00→20:32)
[2018-06-27] MEDS: GABAPENTIN 300 MG (NEURONTIN) CAP PO SCH ×3 (09:00→20:32)
[2018-06-27] MEDS: ENOXAPARIN 30 MG/0.3 ML (LOVENOX) SYR SC SCH ×2 (09:01→20:31)
[2018-06-27 17:20] VITALS: BP 138/78
--- NOTE | 2018-06-27 21:33 | PM & R (SOAP) Progress Note ---
Subjective This was a face to face visit with the patient. Date Seen by Provider: Jun 27, 2018 Time Seen by Provider: 21:25 Subjective/Events-last exam Patient was seen in her room this evening C/O pooor pain control.Pain meds adjusted Percocet generic orderd 1 to 2 tabs po q4 hours.Patient SBA for transfers Date Identified: Jun 27, 2018 Time Identified: 21:30 Medication Intervention: Pain mid adjusted Review of Systems Musculoskeletal: leg pain Objective Physician Exam Last Set of Vital Signs Vital Signs Date Time Temp Pulse Resp B/P (MAP) Pulse Ox O2 Delivery O2 Flow Rate FiO2 06/27/18 17:20 98.2 88 18 138/78 (98) 97 Room Air Capillary Refill : Less Than 3 Seconds I&O Intake and Output 06/27/18 00:00 Intake Total 1100 ml Balance 1100 ml Intake Oral 1100 ml # Voids 2 General: Alert, Oriented X3, Cooperative, No Acute Distress HEENT: Atraumatic, PERRLA, EOMI, Mucous Memb Moist/[place] Neck: Supple, No JVD Lungs: Clear to Auscultation Heart: Regular Rate Abdomen: Normal Bowel Sounds, Soft, No Tenderness Extremities: Other (trace edema rt ankle) Neuro: Other (Sensation intact to touch strength decreased BLES RT > left) Assessment/Plan Assessment and Plan RT hip fracture s/p fall with IM nailing WBAT ortho HX of etoh abuse Tobaccoism GERD Chronic back pain DVT Prophylaxis on Lovenox subcut Plan Continue PT/OT Pain management See orders Team Conference 06-30-18 Co-Morbidities that are continuing to impact the rehab process: (include details ) WALT CHATTERJEE MD Jun 27, 2018 21:32
[2018-06-28] MEDS: oxyCODONE/APAP 5/325MG (PERCOCET 5) TABLET PO PRN ×4 (00:43→20:18)
[2018-06-28 05:01] VITALS: BP 113/70
[2018-06-28] MEDS: SUCRALFATE 1 GM (CARAFATE) TAB PO SCH ×4 (06:36→20:12)
[2018-06-28] MEDS: CALCIUM CARB + VIT D 600 MG (CALCARB + D) TAB PO SCH (06:36)
--- NOTE | 2018-06-28 08:18 | PM & R (SOAP) Progress Note ---
Subjective This was a face to face visit with the patient. Date Seen by Provider: Jun 28, 2018 Time Seen by Provider: 07:50 Subjective/Events-last exam Patient was seen in her room this AM.Patient SBA for transfers.Pain med adjusted upward yesterday will monitor for improved pain control with therapies. Objective Physician Exam Last Set of Vital Signs Vital Signs Date Time Temp Pulse Resp B/P (MAP) Pulse Ox O2 Delivery O2 Flow Rate FiO2 06/28/18 05:01 99.0 85 18 113/70 (84) 97 Room Air Capillary Refill : Less Than 3 Seconds I&O Intake and Output 06/28/18 00:00 Intake Total 1195 ml Output Total 2900 ml Balance -1705 ml Intake Oral 1195 ml Output Urine Total 2900 ml # Voids 1 # Bowel Movements 1 General: Alert, Oriented X3, Cooperative, No Acute Distress HEENT: Atraumatic, PERRLA, EOMI, Mucous Memb Moist/[place] Neck: Supple, No JVD Lungs: Clear to Auscultation Heart: Regular Rate Abdomen: Normal Bowel Sounds, Soft, No Tenderness Extremities: Other (trace edema rt ankle) Neuro: Other (Sensation intact to touch strength decreased BLES RT > left) Assessment/Plan Assessment and Plan RT hip fracture s/p IM nailing ortho WBAT HX of etoh abuse Tobaccoism GERD Chronic back pain DVT Prophylaxis on Lovenox subcut Plan Continue PT/OT/Pain management Team Conference 06-30-18 Co-Morbidities that are continuing to impact the rehab process: (include details ) WALT CHATTERJEE MD Jun 28, 2018 08:18
[2018-06-28] MEDS: clonazePAM 1 MG (KlonoPIN) TAB PO SCH ×2 (08:37→20:12)
[2018-06-28] MEDS: GABAPENTIN 300 MG (NEURONTIN) CAP PO SCH ×3 (08:37→20:12)
[2018-06-28] MEDS: SENNOSIDES 8.6 MG (SENOKOT) TAB PO SCH ×2 (08:37→20:12)
[2018-06-28] MEDS: ENOXAPARIN 30 MG/0.3 ML (LOVENOX) SYR SC SCH ×2 (08:37→20:12)
--- NOTE | 2018-06-28 10:28 | Occupational Ther Daily Note ---
OT Current Status-Daily Note Subjective Pt seen in room, up in recliner, agreeable to OT. No pain mentioned. Appearance Alert, cooperative Mental Status/Objective Functional [place] Measure 0=Not Assessed/NA 4=Minimal Assistance 1=Total Assistance 5=Supervision or Setup 2=Maximal Assistance 6=Modified [place] 3=Moderate Assistance 7=Complete [place] ADL-Treatment Pt declined to bathe or dress but did need to toilet. Got up from recliner before she had her walker and walked very slowly with CGA to [facility] Managed clothing with CGA and hygiene with setup. Transfer CGA. Walked about 10 feet to w/c and was transported to gym. She completed 15 minutes bilat UE exercise on arm bike and also peg activity with 1# weight on each arm. All activities and ADLs took longer than usual Pt frequently needed to be redirected to task. To strengthen arms for ADLs and to increase activity tolerance. Pt transported back to room and transferred back into recliner with CGA, FWW. Pt left up in chair, legs elevated, all needs met. Functional [place] Measure 0=Not Assessed/NA 4=Minimal Assistance 1=Total Assistance 5=Supervision or Setup 2=Maximal Assistance 6=Modified [place] 3=Moderate Assistance 7=Complete IndependenceIRFPAI Quality Coding Scale 6 Independent with activity with or without an assistive device 5 Patient requires set up or clean up by helper. Patient completes activity by themselves 4 Supervision or touching assist (CGA). [place] provide cues , steadying assist 3 The helper provides less than half the effort to complete the activity 2 The helper provides more than half the effort to complete the activity 1 Dependent. The helper does all the effort to complete an activity 7 Patient refused to complete or attempt activity 9 The patient did not perform the activity before the current illness or injury 88 Not attempted due to Medical conditions or safety concerns Education OT Patient Education: Progress toward Goal/Update tx plan, Purpose of tx/ functional activities, Safety issues, Transfer techniques Teaching Recipient: Patient Teaching Methods: Demonstration, Discussion Response to Teaching: Verbalize Understanding, Return Demonstration, Reinforcement Needed OT Short Term Goals Short Term Goals Time Frame: Jun 30, 2018 Eating(FIM): 5 Grooming(FIM): 5 Bathing(FIM): 4 Upper Body Dressing(FIM): 5 Lower Body Dressing(FIM): 4 Toileting(FIM): 5 Transfers (B,C,W/C) (FIM): 5 Toilet/Commode Transfer(FIM): 5 Shower Transfer(FIM): 4 Additional Short Term Goals: 1-Demonstrate ADL Tasks, 2-Verbalize Understanding , 3-ImproveStrength/Abdiel 1=Demonstrate adherence to instructed precautions during ADL tasks. 2=Patient will verbalize/demonstrate understanding of assistive devices/ modifications for ADL. 3=Patient will improve strength/tolerance for activity to enable patient to perform ADL's. OT Lead Data Entry Operator Goals Lead Data Entry Operator Goals Time Frame: Jul 07, 2018 Eating (FIM): 6 Eating (QC): 6 Groomin Oral Hygiene (QC): 6 Bathing(FIM): 6 Shower/Bathe Self (QC): 6 Upper Body Dressing(FIM): 6 Upper Body Dressing (QC): 6 Lower Body Dressing(FIM): 6 Lower Body Dressing (QC): 6 On/Off Footwear (QC): 6 Toileting(FIM): 6 Toileting Hygiene (QC): 6 Transfers (B,C,W/C) (FIM): 6 Toilet/Commode Transfer(FIM): 6 Toilet/Commode Transfer (QC): 6 Shower Transfer(FIM): 5 Additional Goals: 1-Demonstrate ADL Tasks, 2-Verbalize Understanding, 3- ImproveStrength/Abdiel 1=Demonstrate adherence to instructed precautions during ADL tasks. 2=Patient will verbalize/demonstrate understanding of assistive devices/ modifications for ADL. 3=Patient will improve strength/tolerance for activity to enable patient to perform ADL's. OT Education/Plan Discharge Recommendations Plan/Recommendations: Continue POC Treatment Plan/Plan of Care Patient would benefit from OT for education, treatment and training to promote independence in ADL's, mobility, safety and/or upper extremity function for ADL' s. Plan of Care: ADL Retraining, Functional Mobility, Group Exercise/Act as Ind, UE Funct Exercise/Act Treatment Duration: Jul 07, 2018 Frequency: At least 5 of 7 days/Wk (IRF) Estimated Hrs Per Day: 1.5 hours per day Agreement: Yes Rehab Potential: Fair Time/GCodes Start Time: 09:00 Stop Time: 10:15 Total Time Billed (hr/min): 75 Billed Treatment Time visit, 35 minutes ADL, 40 minutes exercise JEAN-PIERRE GOMEZ OT Jun 28, 2018 10:28
--- NOTE | 2018-06-28 12:15 | Physical Therapy Daily Note ---
PT Daily Note-Current Subjective Pt. hesitant to comply with therapy, after encouraged pt is agreeable but very slow moving and needs constant redirection, talks near non stop and needs directed to continue working Pain Numeric Pain Scale: 7 Location: Right Location Body Site: Hip Pain Description: Ache Mental Status Patient Orientation: Person, Place Transfers Functional [place] Measure 0=Not Assessed/NA 4=Minimal Assistance 1=Total Assistance 5=Supervision or Setup 2=Maximal Assistance 6=Modified [place] 3=Moderate Assistance 7=Complete IndependenceIRFPAI Quality Coding Scale 6 Independent with activity with or without an assistive device 5 Patient requires set up or clean up by helper. Patient completes activity by themselves 4 Supervision or touching assist (CGA). [place] provide cues , steadying assist 3 The helper provides less than half the effort to complete the activity 2 The helper provides more than half the effort to complete the activity 1 Dependent. The helper does all the effort to complete an activity 7 Patient refused to complete or attempt activity 9 The patient did not perform the activity before the current illness or injury 88 Not attempted due to Medical conditions or safety concerns Transfers (B, C, W/C) (FIM): 4 Scootin Rollin Supine to/from Sit: 4 (assist right LE in to bed) Sit to/from Stand: 5 Bed to/from Chair: 4 Weight Bearing Right Lower Extremity: Right Weight Bearing/Tolerated Left Lower Extremity: Left Full Weight Bearing Gait Training Does the Patient Walk?: Yes Gait (FIM): 2 Distance (FIM): 9=250-47 ft (125,100 50,60) Gait Level of Assist: 4 Gait Persons Needed: 1 Gait Assistive Device: FWW direction to cont walking as well as for alignment and to broaden SHANNA Exercises Supine Ex: Ankle pumps, Rolling, Glut sets, Heel Slides (assist), Short Arc Quads, Scooting, Hip abd/add (assist) Supine Reps: 12 Seated Therapy Exercises: Ankle pumps, Sit to stand, Long arc quads, Hip abd/ add Seated Reps: 10 Treatments toileted for BM, min assist for cleaning, pt. nearly falling off toilet x 2 needed assist to stay on toilet Assessment Current Status: Fair Progress needs constant direction, appears groggy, off subject and unmotivated PT Short Term Goals Short Term Goals Time Frame: Jun 30, 2018 Transfers (B,C,W/C) (FIM): 5 Gait (FIM): 5 Gait Distance Comment: 200' Gait Level of Assist: 5 Gait Assistive Device: FWW Wheelchair Distance: 100' PT Tile Layer Drainage Goals Tile Layer Drainage Goals PT Group Home Goals Time Frame: Jul 14, 2018 Transfers (B,C,W/C) (FIM): 6 Sit to Lying (QC): 6 Lying-Sitting on Side/Bed(QC): 6 Sit to Stand (QC): 6 Rollin Roll Left to Right (QC): 6 Chair/Xyi-it-Hzeml Xfer(QC): 6 Car Transfer (QC): 6 Gait (FIM): 6 Distance: 250' Walk 10 feet (QC): 6 Walk 10ft-Uneven Surface(QC): 6 Walk 50ft with 2 Turns (QC): 6 Walk 150 ft (QC): 6 Gait Level of Assist: 6 Gait Assistive Device: FWW Stairs (FIM): 2 # of Steps: 8 1 Step (curb) (QC): 4 4 Steps (QC): 4 Stairs Level Of Assist: 5 PT Plan Treatment/Plan Treatment Plan: Continue Plan of Care Treatment Plan: Bed Mobility, Education, Functional Activity Abdiel, Functional Strength, Group Therapy, Gait, Safety, Therapeutic Exercise, Transfers Treatment Duration: Jul 14, 2018 Frequency: At least 5 of 7 days/Wk (IRF) Estimated Hrs Per Day: 1.5 hours per day Patient and/or Family Agrees t: Yes Safety Risks/Education Patient Education: Gait Training, Transfer Techniques, Correct Positioning, Disease Process, Safety Issues Teaching Recipient: Patient Teaching Methods: Demonstration, Discussion Response to Teaching: Verbalize Understanding, Return Demonstration, Reinforcement Needed Time/GCodes Time In: 1100 Time Out: 1210 Total Billed Treatment Time: 70 Total Billed Treatment 1,FA30,EX25,GT15 G Codes Necessary: JULIA Tee DIRECTOR [employer] Jun 28, 2018 12:15
--- NOTE | 2018-06-28 13:28 | Physical Therapy Daily Note ---
PT Daily Note-Current Subjective Pt. agrees to rx after some encouragement. Pt. wants lunch and wants to eat it in bed with her feet up. Cries this Rx speaking of her family and some heartache Pain Numeric Pain Scale: 0-No Pain Mental Status Patient Orientation: Person, Place, Time, Situation Transfers Functional [place] Measure 0=Not Assessed/NA 4=Minimal Assistance 1=Total Assistance 5=Supervision or Setup 2=Maximal Assistance 6=Modified [place] 3=Moderate Assistance 7=Complete IndependenceIRFPAI Quality Coding Scale 6 Independent with activity with or without an assistive device 5 Patient requires set up or clean up by helper. Patient completes activity by themselves 4 Supervision or touching assist (CGA). [place] provide cues , steadying assist 3 The helper provides less than half the effort to complete the activity 2 The helper provides more than half the effort to complete the activity 1 Dependent. The helper does all the effort to complete an activity 7 Patient refused to complete or attempt activity 9 The patient did not perform the activity before the current illness or injury 88 Not attempted due to Medical conditions or safety concerns sit to stand and sit to sup CGA Weight Bearing Right Lower Extremity: Right Weight Bearing/Tolerated Left Lower Extremity: Left Full Weight Bearing Gait Training Gait Assistive Device: FWW 20ft CGA, needs directed to goal Assessment Current Status: Good Progress moves very slow and stops to tell stories, needs redirected often to keep moving as she visits PT Short Term Goals Short Term Goals Time Frame: Jun 30, 2018 Transfers (B,C,W/C) (FIM): 5 Gait (FIM): 5 Gait Distance Comment: 200' Gait Level of Assist: 5 Gait Assistive Device: FWW Wheelchair Distance: 100' PT Associate Designer Goals Group Home Goals PT Associate Designer Goals Time Frame: Jul 14, 2018 Transfers (B,C,W/C) (FIM): 6 Sit to Lying (QC): 6 Lying-Sitting on Side/Bed(QC): 6 Sit to Stand (QC): 6 Rollin Roll Left to Right (QC): 6 Chair/Igy-sy-Rwibc Xfer(QC): 6 Car Transfer (QC): 6 Gait (FIM): 6 Distance: 250' Walk 10 feet (QC): 6 Walk 10ft-Uneven Surface(QC): 6 Walk 50ft with 2 Turns (QC): 6 Walk 150 ft (QC): 6 Gait Level of Assist: 6 Gait Assistive Device: FWW Stairs (FIM): 2 # of Steps: 8 1 Step (curb) (QC): 4 4 Steps (QC): 4 Stairs Level Of Assist: 5 PT Plan Treatment/Plan Treatment Plan: Continue Plan of Care Treatment Plan: Bed Mobility, Education, Functional Activity Abdiel, Functional Strength, Group Therapy, Gait, Safety, Therapeutic Exercise, Transfers Treatment Duration: Jul 14, 2018 Frequency: At least 5 of 7 days/Wk (IRF) Estimated Hrs Per Day: 1.5 hours per day Patient and/or Family Agrees t: Yes Safety Risks/Education Patient Education: Gait Training, Transfer Techniques Teaching Recipient: Patient Teaching Methods: Demonstration, Discussion Response to Teaching: Verbalize Understanding, Reinforcement Needed Time/GCodes Time In: 1300 Time Out: 1325 Total Billed Treatment Time: 25 Total Billed Treatment 1,FA25m G Codes Necessary: JULIA Tee TECHNICIAN [employer] Jun 28, 2018 13:28
--- NOTE | 2018-06-28 15:21 | Speech Therapy Daily Note ---
Speech Daily Progress Note Subjective Date Seen by Provider: Jun 28, 2018 Time Seen by Provider: 10:20 Pt in chair. Pleasant and cooperative. Appeared fatigued. Pain Numeric Pain Scale: 8 Location: Right Location Body Site: Side Pain Description: NONE Objective Memory - Picture recall. Pt verbalizes out loud what she sees in the picture to facilitate recall. Pt was 70% today. Naming words with specific features. Pt had to name 3 items after she heard the category. Pt had to be re-directed 4 times during this activity. Pt's responses were slower than usual today due to her fatigue. Assessment Assessment Current Status: Fair Progress Speech Short Term Goals Short Term Goals Short Term Goals Pt will complete various auditory/visual memory activities with at least 80% accuracy and min assist. Pt will require less than 4 re-directions back to task in a 30 minute session. Pt will decrease verbosity with min cues. Time Frame-ST week Speech Kaiako Kohanga Reo Goals Half-Way Goals Pt will demonstrate functional cognitive-linguistic skills for safety and maximum independence for the home setting. Speech-Plan Patient/Family Goals Patient/Family Goals: to return home Treatment Plan Speech Therapy Treatment Plan: Continue Plan of Care pt pleasant and cooperative. Treatment Duration: Jun 24, 2018 Frequency: 5 times per week Estimated Hrs Per Day: .5 hour per day Rehab Potential: Fair Pt/Family Agrees to Plan: Yes Safety Risks/Education Teaching Recipient: Patient Teaching Methods: Discussion Response to Teaching: Verbalize Understanding Time Speech Therapy Time In: 10:20 Speech Therapy Time Out: 11:00 Total Billed Time: 40 Billed Treatment Time 1, SLTIA Dorantes Jun 28, 2018 15:21
[2018-06-28 16:47] VITALS: BP 117/72
[2018-06-29 03:58] VITALS: BP 118/77
[2018-06-29] MEDS: SUCRALFATE 1 GM (CARAFATE) TAB PO SCH ×4 (06:27→21:00)
[2018-06-29] MEDS: CALCIUM CARB + VIT D 600 MG (CALCARB + D) TAB PO SCH (06:27)
[2018-06-29] MEDS: GABAPENTIN 300 MG (NEURONTIN) CAP PO SCH ×3 (08:15→21:00)
[2018-06-29] MEDS: clonazePAM 1 MG (KlonoPIN) TAB PO SCH ×2 (08:15→21:00)
[2018-06-29] MEDS: oxyCODONE/APAP 5/325MG (PERCOCET 5) TABLET PO PRN ×4 (08:15→21:01)
[2018-06-29] MEDS: ENOXAPARIN 30 MG/0.3 ML (LOVENOX) SYR SC SCH ×2 (08:15→21:01)
[2018-06-29] MEDS: SENNOSIDES 8.6 MG (SENOKOT) TAB PO SCH ×2 (08:15→21:03)
--- NOTE | 2018-06-29 09:33 | Occupational Ther Daily Note ---
OT Current Status-Daily Note Subjective Pt was in chair stated she didn't sleep due to insomnia. Pt stated her hip was hurting her that it felt like there was a burning sensation. Nursing notified. Appearance Pt in chair, was sleeping when OT entered room. Pt was groggy and didn't want to work with OT but reluctantly agreed to take a sponge bath. Mental Status/Objective Patient Orientation: Person, Place, Time, Situation Functional [place] Measure 0=Not Assessed/NA 4=Minimal Assistance 1=Total Assistance 5=Supervision or Setup 2=Maximal Assistance 6=Modified [place] 3=Moderate Assistance 7=Complete [place] ADL-Treatment Functional [place] Measure 0=Not Assessed/NA 4=Minimal Assistance 1=Total Assistance 5=Supervision or Setup 2=Maximal Assistance 6=Modified [place] 3=Moderate Assistance 7=Complete IndependenceIRFPAI Quality Coding Scale 6 Independent with activity with or without an assistive device 5 Patient requires set up or clean up by helper. Patient completes activity by themselves 4 Supervision or touching assist (CGA). [place] provide cues , steadying assist 3 The helper provides less than half the effort to complete the activity 2 The helper provides more than half the effort to complete the activity 1 Dependent. The helper does all the effort to complete an activity 7 Patient refused to complete or attempt activity 9 The patient did not perform the activity before the current illness or injury 88 Not attempted due to Medical conditions or safety concerns Grooming (FIM): 4 (Pt used walker to stand at sink. Pt able to brush hair and clean dentures with CGA. ) Oral Hygiene (QC): 4 Bathing (FIM): 5 (Pt requires setup with bathing materials. Pt requires verbal cues to focus on task. Pt able to wash all body parts. SBA in standing to cleanse judy area/buttocks. Pt struggled washing R foot, refused the use of a long handled sponge. ) Bathing Location: L Arm, R Arm, L Upper Leg, R Upper Leg, L Lower Leg ( including foot), R Lower Leg (including foot), Chest, Abdomen, Buttocks, Perineal Area Shower/Bathe Self (QC): 4 Upper Body (FIM): 5 (Pt able to don and doff shirt. Pt requires setup. Pt requires extra time to perfom task. ) Upper Body Dressing (QC): 5 Lower Body Dressing (FIM): 4 (Pt requires setup. Pt requires extended time to don and doff lower body pants and under garments. OT assisted in donning undergarments on R leg. Pt refused to use dressing stick. Pt did use sock aid for application of socks. Assist to place socks on sock aide, verbal directions on use of sock aide.) Lower Body Dressing (QC): 3 On/Off Footwear (QC): 3 Toileting (FIM): 3 (Pt able to reach judy area/buttocks for cleaning. Pt inefficient in cleaning self after BM, OT assisted for thorough cleansing. SBA in standing to hike pants over hips.) Toileting Hygiene (QC): 3 Transfers (B, C, W/C) (FIM): 4 (Min A for sit to stand. Pt had difficulty with pushing self to stand and needed verbal cues for hand placement.) Toilet/Commode Transfer (FIM): 3 (Using FWW and grabbars to sit onto toilet with SBA. Mod A for sit to stand. Pt had difficulty with pushing self to stand and needed verbal cues for hand placement. ) Toilet Transfer (QC): 3 Other Treatment Pt participated in a sponge bath in her recliner. Pt required several initiation cues to start task. Pt stated that she didn't want to bathe that she has just previously had taken a shower. Multiple verbal cues to focus on task. Pt required extra time to complete bathing of each area. Pt required CGA for ambulation. Pt required several cues to continue task of ambulation to recliner. Pt apologized for her attitude at beginning of treatment. After therapy, pt sat recliner with call light/phone in reach. All needs met. Education OT Patient Education: Modified ADL techniques, Progress toward Goal/Update tx plan, Purpose of tx/functional activities, Safety issues, Transfer techniques, Use of adapted equipment Teaching Recipient: Patient Teaching Methods: Demonstration, Discussion Response to Teaching: Verbalize Understanding, Return Demonstration, Reinforcement Needed OT Short Term Goals Short Term Goals Time Frame: Jun 30, 2018 Eating(FIM): 5 Grooming(FIM): 5 Bathing(FIM): 4 Upper Body Dressing(FIM): 5 Lower Body Dressing(FIM): 4 Toileting(FIM): 5 Transfers (B,C,W/C) (FIM): 5 Toilet/Commode Transfer(FIM): 5 Shower Transfer(FIM): 4 Additional Short Term Goals: 1-Demonstrate ADL Tasks, 2-Verbalize Understanding , 3-ImproveStrength/Abdiel 1=Demonstrate adherence to instructed precautions during ADL tasks. 2=Patient will verbalize/demonstrate understanding of assistive devices/ modifications for ADL. 3=Patient will improve strength/tolerance for activity to enable patient to perform ADL's. OT Pretzel Twister Goals Pretzel Twister Goals Time Frame: Jul 07, 2018 Eating (FIM): 6 Eating (QC): 6 Groomin Oral Hygiene (QC): 6 Bathing(FIM): 6 Shower/Bathe Self (QC): 6 Upper Body Dressing(FIM): 6 Upper Body Dressing (QC): 6 Lower Body Dressing(FIM): 6 Lower Body Dressing (QC): 6 On/Off Footwear (QC): 6 Toileting(FIM): 6 Toileting Hygiene (QC): 6 Transfers (B,C,W/C) (FIM): 6 Toilet/Commode Transfer(FIM): 6 Toilet/Commode Transfer (QC): 6 Shower Transfer(FIM): 5 Additional Goals: 1-Demonstrate ADL Tasks, 2-Verbalize Understanding, 3- ImproveStrength/Abdiel 1=Demonstrate adherence to instructed precautions during ADL tasks. 2=Patient will verbalize/demonstrate understanding of assistive devices/ modifications for ADL. 3=Patient will improve strength/tolerance for activity to enable patient to perform ADL's. OT Education/Plan Problem List/Assessment Assessment: Decreased Safety Aware, Decreased UE Strength, Impaired I ADL's, Impaired Self-Care Skills Discharge Recommendations Plan/Recommendations: Continue POC Treatment Plan/Plan of Care Treatment,Training & Education: Yes Patient would benefit from OT for education, treatment and training to promote independence in ADL's, mobility, safety and/or upper extremity function for ADL' s. Plan of Care: ADL Retraining, Functional Mobility, Group Exercise/Act as Ind, UE Funct Exercise/Act Treatment Duration: Jul 07, 2018 Frequency: At least 5 of 7 days/Wk (IRF) Estimated Hrs Per Day: 1.5 hours per day Agreement: Yes Rehab Potential: Fair Time/GCodes Start Time: 08:00 Stop Time: 09:30 Total Time Billed (hr/min): 90 Billed Treatment Time 1, ADL x 6 KUNCE,ALY [place] Jun 29, 2018 09:33
--- NOTE | 2018-06-29 11:30 | Physical Therapy Daily Note ---
PT Daily Note-Current Subjective Pt sitting in recliner upon arrival. Pt agrees to PT after putting dentures in. Pt preoccupied with putting dentures in and with pain she had before leaving for tx. Pain Numeric Pain Scale: 8 Location: Right Location Body Site: Knee Pain Description: Ache Comment: Pt reports hip and knee pain, rated based on facial grimace. Mental Status Patient Orientation: Person, Place, Situation Transfers Functional [place] Measure 0=Not Assessed/NA 4=Minimal Assistance 1=Total Assistance 5=Supervision or Setup 2=Maximal Assistance 6=Modified [place] 3=Moderate Assistance 7=Complete IndependenceIRFPAI Quality Coding Scale 6 Independent with activity with or without an assistive device 5 Patient requires set up or clean up by helper. Patient completes activity by themselves 4 Supervision or touching assist (CGA). [place] provide cues , steadying assist 3 The helper provides less than half the effort to complete the activity 2 The helper provides more than half the effort to complete the activity 1 Dependent. The helper does all the effort to complete an activity 7 Patient refused to complete or attempt activity 9 The patient did not perform the activity before the current illness or injury 88 Not attempted due to Medical conditions or safety concerns Scootin Sit to/from Stand: 4 Sit to Stand (QC): 4 Weight Bearing Right Lower Extremity: Right Weight Bearing/Tolerated Left Lower Extremity: Left Full Weight Bearing Gait Training Does the Patient Walk?: Yes Distance (FIM): 1=up to 49 ft Distance: 45' Walk 10 feet (QC): 4 Gait Level of Assist: 4 Gait Persons Needed: 1 Gait Assistive Device: FWW Pt walks with slow nikkie, antalgic gait pattern and exhibits weakness in L DF during ambulation. Wheelchair Training Does the Pt Use a Wheelchair?: Yes Wheelchair Distance: 3=150 ft Distance: 150' Wheelchair Level of Assist: 5 Wheel 50 ft with 2 turns (QC): 5 Wheel 150 ft (QC): 5 Type of Wheelchair: Manual Exercises Seated Therapy Exercises: Ankle pumps, Long arc quads, Kicking activity Seated Reps: 15 Treatments Pt needs VC to keep on task while talking. Pt insists to put denture on before leaving room. Pt transfers from recliner to [facility] using FWW at [facility]. Pt ambulates short distance before needing to sit in [facility]. Pt propels [facility] in hallway, focusing on turns and activity tolerance. Pt completes Seated EX before returning to room at end of tx. Pt transfers back to recliner to rest with all needs met. Assessment Current Status: Fair Progress Pt needs VC to stay on task and reports increased pain with activity. PT Short Term Goals Short Term Goals Time Frame: Jun 30, 2018 Transfers (B,C,W/C) (FIM): 5 Gait (FIM): 5 Gait Distance Comment: 200' Gait Level of Assist: 5 Gait Assistive Device: FWW Wheelchair Distance: 100' PT Group Home Goals Phd Internship Goals PT Group Home Goals Time Frame: Jul 14, 2018 Transfers (B,C,W/C) (FIM): 6 Sit to Lying (QC): 6 Lying-Sitting on Side/Bed(QC): 6 Sit to Stand (QC): 6 Rollin Roll Left to Right (QC): 6 Chair/Ivn-ht-Yhuum Xfer(QC): 6 Car Transfer (QC): 6 Gait (FIM): 6 Distance: 250' Walk 10 feet (QC): 6 Walk 10ft-Uneven Surface(QC): 6 Walk 50ft with 2 Turns (QC): 6 Walk 150 ft (QC): 6 Gait Level of Assist: 6 Gait Assistive Device: FWW Stairs (FIM): 2 # of Steps: 8 1 Step (curb) (QC): 4 4 Steps (QC): 4 Stairs Level Of Assist: 5 PT Plan Problem List Problem List: Activity Tolerance, Functional Strength, Safety, Balance, Gait, Transfer Treatment/Plan Treatment Plan: Continue Plan of Care Treatment Plan: Bed Mobility, Education, Functional Activity Abdiel, Functional Strength, Group Therapy, Gait, Safety, Therapeutic Exercise, Transfers Treatment Duration: Jul 14, 2018 Frequency: At least 5 of 7 days/Wk (IRF) Estimated Hrs Per Day: 1.5 hours per day Patient and/or Family Agrees t: Yes Safety Risks/Education Patient Education: Gait Training, Transfer Techniques, Correct Positioning, Safety Issues Teaching Recipient: Patient Teaching Methods: Discussion Response to Teaching: Verbalize Understanding Time/GCodes Time In: 1030 Time Out: 1115 Total Billed Treatment Time: 45 Total Billed Treatment 1,WCH (20m), GT (10m) & EX (15m) G Codes Necessary: PRASAD Gudino OFFENSIVE COORDINATOR Jun 29, 2018 11:30
--- NOTE | 2018-06-29 15:18 | Physical Therapy Daily Note ---
PT Daily Note-Current Subjective Patient initially c/o hip pain, however, after patient redirected her, had no c/ o. Pain Numeric Pain Scale: 0-No Pain Location: No Pain Reported Mental Status Patient Orientation: Normal For Age Transfers Functional [place] Measure 0=Not Assessed/NA 4=Minimal Assistance 1=Total Assistance 5=Supervision or Setup 2=Maximal Assistance 6=Modified [place] 3=Moderate Assistance 7=Complete IndependenceIRFPAI Quality Coding Scale 6 Independent with activity with or without an assistive device 5 Patient requires set up or clean up by helper. Patient completes activity by themselves 4 Supervision or touching assist (CGA). [place] provide cues , steadying assist 3 The helper provides less than half the effort to complete the activity 2 The helper provides more than half the effort to complete the activity 1 Dependent. The helper does all the effort to complete an activity 7 Patient refused to complete or attempt activity 9 The patient did not perform the activity before the current illness or injury 88 Not attempted due to Medical conditions or safety concerns Transfers (B, C, W/C) (FIM): 5 Scootin Sit to/from Stand: 5 Sit to Stand (QC): 5 Weight Bearing Right Lower Extremity: Right Weight Bearing/Tolerated Left Lower Extremity: Left Full Weight Bearing Gait Training Does the Patient Walk?: Yes Gait (FIM): 5 Distance (FIM): 3=150 ft Distance: 175' x 2 Walk 10 feet (QC): 5 Walk 50 ft with 2 Turns(QC): 5 Walk 150 ft (QC): 5 Gait Level of Assist: 5 Gait Assistive Device: FWW very slow, steady/skilled verbal instruction for body placement in FWW Assessment Patient requires time to complete all functional tasks and requires redirection to complete. PT Short Term Goals Short Term Goals Time Frame: Jun 30, 2018 Transfers (B,C,W/C) (FIM): 5 Gait (FIM): 5 Gait Distance Comment: 200' Gait Level of Assist: 5 Gait Assistive Device: FWW Wheelchair Distance: 150' PT Director Communications Goals Retirement Goals PT Director Communications Goals Time Frame: Jul 14, 2018 Transfers (B,C,W/C) (FIM): 6 Sit to Lying (QC): 6 Lying-Sitting on Side/Bed(QC): 6 Sit to Stand (QC): 6 Rollin Roll Left to Right (QC): 6 Chair/Ztr-ur-Otnwf Xfer(QC): 6 Car Transfer (QC): 6 Gait (FIM): 6 Distance: 250' Walk 10 feet (QC): 6 Walk 10ft-Uneven Surface(QC): 6 Walk 50ft with 2 Turns (QC): 6 Walk 150 ft (QC): 6 Gait Level of Assist: 6 Gait Assistive Device: FWW Stairs (FIM): 2 # of Steps: 8 1 Step (curb) (QC): 4 4 Steps (QC): 4 Stairs Level Of Assist: 5 PT Plan Treatment/Plan Treatment Plan: Continue Plan of Care Treatment Plan: Bed Mobility, Education, Functional Activity Abdiel, Functional Strength, Group Therapy, Gait, Safety, Therapeutic Exercise, Transfers Treatment Duration: Jul 14, 2018 Frequency: At least 5 of 7 days/Wk (IRF) Estimated Hrs Per Day: 1.5 hours per day Patient and/or Family Agrees t: Yes Time/GCodes Time In: 1440 Time Out: 1510 Total Billed Treatment Time: 30 Total Billed Treatment 1 visit GT x 2 30 min HEAVEN PINA PT Jun 29, 2018 15:18
--- NOTE | 2018-06-29 15:26 | Speech Therapy Daily Note ---
Speech Daily Progress Note Subjective Date Seen by Provider: Jun 29, 2018 Time Seen by Provider: 10:00 Pt in chair. Appears very fatigued. Pt not wearing dentures and speech was difficult to understand. Pain Numeric Pain Scale: 10-Worst Possible Pain Location: Lower Location Body Site: Knee Pain Description: Sharp Objective Conversation with pt regarding what is going on with her today. Pt not as talkative today initially. Pt went off on tangents and required 3 re-directions to her situation. Was unable to get her dentures in her mouth. Assessment Assessment Current Status: Fair Progress Speech Short Term Goals Short Term Goals Short Term Goals Pt will complete various auditory/visual memory activities with at least 80% accuracy and min assist. Pt will require less than 4 re-directions back to task in a 30 minute session. Pt will decrease verbosity with min cues. Time Frame-ST week Speech Control Integration Engineer Goals Residential Goals Pt will demonstrate functional cognitive-linguistic skills for safety and maximum independence for the home setting. Speech-Plan Patient/Family Goals Patient/Family Goals: to go home Treatment Plan Speech Therapy Treatment Plan: Continue Plan of Care pt not as talkative recently. Has list of complaints as to why she is not feeling well. Treatment Duration: Jun 24, 2018 Frequency: 5 times per week Estimated Hrs Per Day: .5 hour per day Rehab Potential: Fair Pt/Family Agrees to Plan: Yes Safety Risks/Education Teaching Recipient: Patient Teaching Methods: Discussion Response to Teaching: Verbalize Understanding Time Speech Therapy Time In: 10:00 Speech Therapy Time Out: 10:40 Total Billed Time: 40 Billed Treatment Time 1 SLTS TIA Galvan Jun 29, 2018 15:26
[2018-06-29 17:10] VITALS: BP 143/85
--- NOTE | 2018-06-29 20:55 | PM & R (SOAP) Progress Note ---
Subjective This was a face to face visit with the patient. Date Seen by Provider: Jun 29, 2018 Time Seen by Provider: 20:45 Subjective/Events-last exam Patient was seen in her room this evening Patient SBA for transfers C/O insomnia Will rx Date Identified: Jun 29, 2018 Time Identified: 20:30 Medication Intervention: Melatonin for insomnia Review of Systems General: Other (insomnia) Objective Physician Exam Last Set of Vital Signs Vital Signs Date Time Temp Pulse Resp B/P (MAP) Pulse Ox O2 Delivery O2 Flow Rate FiO2 06/29/18 17:10 98.0 80 18 143/85 (104) 99 Room Air Capillary Refill : Less Than 3 Seconds I&O Intake and Output 06/29/18 00:00 Intake Total 1580 ml Balance 1580 ml Intake Oral 1580 ml # Voids 9 # Bowel Movements 1 General: Alert, Oriented X3, Cooperative, No Acute Distress HEENT: Atraumatic, PERRLA, EOMI, Mucous Memb Moist/[place] Neck: Supple, No JVD Lungs: Clear to Auscultation Heart: Regular Rate Abdomen: Normal Bowel Sounds, Soft, No Tenderness Extremities: Other (trace edema rt ankle) Neuro: Other (Sensation intact to touch strength decreased BLES RT > left) Assessment/Plan Assessment and Plan RT Hip fracture s/p IM nailing WBAT ortho Insomnia HX of etoh abuse Tobaccoism GERD Chronic back pain DVT prophylaxis on lovenox subcut Plan Continue PT/OT Team Conference tomorrow Trial of melatonin for insomnia see orders Co-Morbidities that are continuing to impact the rehab process: (include details ) WALT CHATTERJEE MD Jun 29, 2018 20:55
[2018-06-29] MEDS ORDERED: MELATONIN 3 MG TABLET ONE (21:01)
[2018-06-29] MEDS: MELATONIN 3 MG TABLET PO SCH (21:02)
[2018-06-30] MEDS: oxyCODONE/APAP 5/325MG (PERCOCET 5) TABLET PO PRN ×5 (02:14→20:45)
[2018-06-30 05:04] VITALS: BP 118/73
[2018-06-30] MEDS: SUCRALFATE 1 GM (CARAFATE) TAB PO SCH ×4 (06:27→20:45)
[2018-06-30] MEDS: CALCIUM CARB + VIT D 600 MG (CALCARB + D) TAB PO SCH (06:27)
--- NOTE | 2018-06-30 07:33 | Occupational Ther Daily Note ---
OT Current Status-Daily Note Subjective Pt sleeping in recliner. Pt needed encouragement and increased time to agree to therapy. Pt c/o pain in R knee stating that she was told by a doctor that she has no cartilage in that knee and can't do anything about it. She wants to talk to a surgeon about it. Mental Status/Objective Patient Orientation: Person, Place, Time, Situation Functional [place] Measure 0=Not Assessed/NA 4=Minimal Assistance 1=Total Assistance 5=Supervision or Setup 2=Maximal Assistance 6=Modified [place] 3=Moderate Assistance 7=Complete [place] ADL-Treatment Functional [place] Measure 0=Not Assessed/NA 4=Minimal Assistance 1=Total Assistance 5=Supervision or Setup 2=Maximal Assistance 6=Modified [place] 3=Moderate Assistance 7=Complete IndependenceIRFPAI Quality Coding Scale 6 Independent with activity with or without an assistive device 5 Patient requires set up or clean up by helper. Patient completes activity by themselves 4 Supervision or touching assist (CGA). [place] provide cues , steadying assist 3 The helper provides less than half the effort to complete the activity 2 The helper provides more than half the effort to complete the activity 1 Dependent. The helper does all the effort to complete an activity 7 Patient refused to complete or attempt activity 9 The patient did not perform the activity before the current illness or injury 88 Not attempted due to Medical conditions or safety concerns Eating (FIM): 6 (Dentures. Pt able to open packages and containers then uses regular utensils to feed self.) Eating (QC): 6 Grooming (FIM): 6 (Pt washed hands and face in shower. Declined putting in dentures to eat.) Bathing (FIM): 5 (Supervision. Using grabbars, hand held shower and shower bench pt able to complete bathing.) Bathing Location: L Arm, R Arm, L Upper Leg, R Upper Leg, L Lower Leg ( including foot), R Lower Leg (including foot), Chest, Abdomen, Buttocks, Perineal Area Shower/Bathe Self (QC): 4 Upper Body (FIM): 6 (Pt wanted to put clothes back on so draped them over FWW. Pt able to don/doff by self.) Upper Body Dressing (QC): 6 Lower Body Dressing (FIM): 5 (Supervision, assist to doff CAROLIN hose and verbal cues. Pt able to don/doff lower body clothing with supervision in standing. Cue to place R LE into clothing first.) Lower Body Dressing (QC): 4 On/Off Footwear (QC): 6 Toileting (FIM): 5 (Supervision in standing to hike pants over hips. Pt able to complete toileting by self.) Toileting Hygiene (QC): 4 Transfers (B, C, W/C) (FIM): 5 (Supervision using hand holds and FWW.) Toilet/Commode Transfer (FIM): 5 (Supervision using FWW and grabbars.) Toilet Transfer (QC): 4 Tub Transfer(FIM): 5 (Supervision using tub transfer bench, FWW and grabbar. Pt able to lift LE's over tub ledge.) Pt takes increased time to complete all tasks due to increase pain, slow movements and self limiting behavior. After therapy, pt sitting in recliner eating breakfast with call light/phone in reach. All needs met in room. OT Short Term Goals Short Term Goals Time Frame: Jun 30, 2018 Eating(FIM): 5 Grooming(FIM): 5 Bathing(FIM): 4 Upper Body Dressing(FIM): 5 Lower Body Dressing(FIM): 4 Toileting(FIM): 5 Transfers (B,C,W/C) (FIM): 5 Toilet/Commode Transfer(FIM): 5 Shower Transfer(FIM): 4 Additional Short Term Goals: 1-Demonstrate ADL Tasks, 2-Verbalize Understanding , 3-ImproveStrength/Abdiel 1=Demonstrate adherence to instructed precautions during ADL tasks. 2=Patient will verbalize/demonstrate understanding of assistive devices/ modifications for ADL. 3=Patient will improve strength/tolerance for activity to enable patient to perform ADL's. OT X Ray Consultant Goals Correction Goals Time Frame: Jul 07, 2018 Eating (FIM): 6 Eating (QC): 6 Groomin Oral Hygiene (QC): 6 Bathing(FIM): 6 Shower/Bathe Self (QC): 6 Upper Body Dressing(FIM): 6 Upper Body Dressing (QC): 6 Lower Body Dressing(FIM): 6 Lower Body Dressing (QC): 6 On/Off Footwear (QC): 6 Toileting(FIM): 6 Toileting Hygiene (QC): 6 Transfers (B,C,W/C) (FIM): 6 Toilet/Commode Transfer(FIM): 6 Toilet/Commode Transfer (QC): 6 Shower Transfer(FIM): 5 Additional Goals: 1-Demonstrate ADL Tasks, 2-Verbalize Understanding, 3- ImproveStrength/Abdiel 1=Demonstrate adherence to instructed precautions during ADL tasks. 2=Patient will verbalize/demonstrate understanding of assistive devices/ modifications for ADL. 3=Patient will improve strength/tolerance for activity to enable patient to perform ADL's. OT Education/Plan Discharge Recommendations Plan/Recommendations: Continue POC Treatment Plan/Plan of Care Patient would benefit from OT for education, treatment and training to promote independence in ADL's, mobility, safety and/or upper extremity function for ADL' s. Plan of Care: ADL Retraining, Functional Mobility, Group Exercise/Act as Ind, UE Funct Exercise/Act Treatment Duration: Jul 07, 2018 Frequency: At least 5 of 7 days/Wk (IRF) Estimated Hrs Per Day: 1.5 hours per day Agreement: Yes Rehab Potential: Fair Time/GCodes Start Time: 07:15 Stop Time: 08:45 Total Time Billed (hr/min): 90 Billed Treatment Time 1 visit-ADL 6 (90 min) ALY KIM Jun 30, 2018 07:33
[2018-06-30] MEDS: GABAPENTIN 300 MG (NEURONTIN) CAP PO SCH ×3 (08:56→20:45)
[2018-06-30] MEDS: clonazePAM 1 MG (KlonoPIN) TAB PO SCH ×2 (08:56→20:45)
[2018-06-30] MEDS: SENNOSIDES 8.6 MG (SENOKOT) TAB PO SCH ×2 (08:57→20:45)
[2018-06-30] MEDS: ENOXAPARIN 30 MG/0.3 ML (LOVENOX) SYR SC SCH ×2 (08:58→20:45)
--- NOTE | 2018-06-30 11:03 | Speech Therapy Daily Note ---
Speech Daily Progress Note Subjective Date Seen by Provider: Jun 30, 2018 Time Seen by Provider: 10:00 Pt in chair. Pain Numeric Pain Scale: 10-Worst Possible Pain Location: Right Location Body Site: Knee Objective Memory - Picture recall after 30 minutes was 80% with min assist. Topic Maintenance - Started a discussion with asking pt if she wanted me to relay any information about her rehab that I would share in the team meeting today. . She began verbalizing a story unrelated to INSURANCE AGENCY MANAGER's question. Attempted to re-direct pt back to topic but she continued to be tangential. Was unable to get pt to answer question. Assessment Assessment Current Status: Fair Progress Treatment Plan Continue Plan of Care Speech Short Term Goals Short Term Goals Short Term Goals Pt will complete various auditory/visual memory activities with at least 80% accuracy and min assist. Pt will require less than 4 re-directions back to task in a 30 minute session. Pt will decrease verbosity with min cues. Time Frame-ST week Speech Multi Site Leasing Consultant Goals Mcfp Goals Pt will demonstrate functional cognitive-linguistic skills for safety and maximum independence for the home setting. Speech-Plan Patient/Family Goals Patient/Family Goals: to return home Treatment Plan Speech Therapy Treatment Plan: Continue Plan of Care Pt no making much progress. She has appeared more fatigued this week. She cooperates but is difficult to keep her on task. Frequency: 5 times per week Estimated Hrs Per Day: .5 hour per day Rehab Potential: Poor Safety Risks/Education Teaching Recipient: Patient Teaching Methods: Discussion Response to Teaching: Verbalize Understanding Time Speech Therapy Time In: 10:00 Speech Therapy Time Out: 10:45 Total Billed Time: 45 Billed Treatment Time 1, TIA Argueta Jun 30, 2018 11:03
--- NOTE | 2018-06-30 11:27 | Physical Therapy Daily Note ---
PT Daily Note-Current Subjective Pt sitting in recliner upon arrival. Pt agrees to PT although continues to need encouragement to get started. Pain Numeric Pain Scale: 10-Worst Possible Pain Location: Right Location Body Site: Hip Pain Description: Ache Comment: Brings pt to tears, cannot have more pain med but offered Tylenol, declined Mental Status Patient Orientation: Person, Place Transfers Functional [place] Measure 0=Not Assessed/NA 4=Minimal Assistance 1=Total Assistance 5=Supervision or Setup 2=Maximal Assistance 6=Modified [place] 3=Moderate Assistance 7=Complete IndependenceIRFPAI Quality Coding Scale 6 Independent with activity with or without an assistive device 5 Patient requires set up or clean up by helper. Patient completes activity by themselves 4 Supervision or touching assist (CGA). [place] provide cues , steadying assist 3 The helper provides less than half the effort to complete the activity 2 The helper provides more than half the effort to complete the activity 1 Dependent. The helper does all the effort to complete an activity 7 Patient refused to complete or attempt activity 9 The patient did not perform the activity before the current illness or injury 88 Not attempted due to Medical conditions or safety concerns Scootin Sit to/from Stand: 4 Sit to Stand (QC): 4 Weight Bearing Right Lower Extremity: Right Weight Bearing/Tolerated Left Lower Extremity: Left Full Weight Bearing Gait Training Does the Patient Walk?: Yes Distance (FIM): 3=150 ft Distance: 150' Walk 10 feet (QC): 4 Walk 50 ft with 2 Turns(QC): 4 Walk 150 ft (QC): 4 Gait Level of Assist: 4 Gait Persons Needed: 1 Gait Assistive Device: FWW Pt walks with antalgic gait pattern. Pt's nikkie is very slow. Pt fatigues easily. Treatments Pt transfers from recliner to standing using FWW at [facility], after encouragement. Pt ambulates using FWW at [facility]. Pt takes rest breaks before returning to room due to fatigue and pain. Pt and RESEARCH PHYSIOLOGIST discuss pain management and trying to continue to work hard to avoid SNF placement. Pt seeing ST for tx at end of tx. Assessment Current Status: Fair Progress Pt needs repeated VC to stay on task, "keep talking & walking". Pt fatigues easily & continues to reports high levels of pain and "needs more pain meds". PT Short Term Goals Short Term Goals Time Frame: Jun 30, 2018 Transfers (B,C,W/C) (FIM): 5 Gait (FIM): 5 Gait Distance Comment: 200' Gait Level of Assist: 5 Gait Assistive Device: FWW Wheelchair Distance: 150' PT Prison Goals Spray Gun Striper Goals PT Prison Goals Time Frame: Jul 14, 2018 Transfers (B,C,W/C) (FIM): 6 Sit to Lying (QC): 6 Lying-Sitting on Side/Bed(QC): 6 Sit to Stand (QC): 6 Rollin Roll Left to Right (QC): 6 Chair/Ald-bk-Alqvu Xfer(QC): 6 Car Transfer (QC): 6 Gait (FIM): 6 Distance: 250' Walk 10 feet (QC): 6 Walk 10ft-Uneven Surface(QC): 6 Walk 50ft with 2 Turns (QC): 6 Walk 150 ft (QC): 6 Gait Level of Assist: 6 Gait Assistive Device: FWW Stairs (FIM): 2 # of Steps: 8 1 Step (curb) (QC): 4 4 Steps (QC): 4 Stairs Level Of Assist: 5 PT Plan Problem List Problem List: Activity Tolerance, Functional Strength, Safety, Balance, Gait, Transfer Treatment/Plan Treatment Plan: Continue Plan of Care Treatment Plan: Bed Mobility, Education, Functional Activity Abdiel, Functional Strength, Group Therapy, Gait, Safety, Therapeutic Exercise, Transfers Treatment Duration: Jul 14, 2018 Frequency: At least 5 of 7 days/Wk (IRF) Estimated Hrs Per Day: 1.5 hours per day Patient and/or Family Agrees t: Yes Safety Risks/Education Patient Education: Gait Training, Transfer Techniques, Correct Positioning, Safety Issues Teaching Recipient: Patient Teaching Methods: Discussion Response to Teaching: Verbalize Understanding Time/GCodes Time In: 915 Time Out: 1000 Total Billed Treatment Time: 45 Total Billed Treatment 1, GT x2 (30m) & FA (15m) G Codes Necessary: PRASAD Gudino RESEARCH PHYSIOLOGIST Jun 30, 2018 11:27
--- NOTE | 2018-06-30 14:50 | PM & R (SOAP) Progress Note ---
Subjective This was a face to face visit with the patient. Date Seen by Provider: Jun 30, 2018 Time Seen by Provider: 14:30 Subjective/Events-last exam Patient was seen in her room this afternoon Patient SBA for transfers.Patient states that she slept better with melatonin Objective Physician Exam Last Set of Vital Signs Vital Signs Date Time Temp Pulse Resp B/P (MAP) Pulse Ox O2 Delivery O2 Flow Rate FiO2 06/30/18 09:00 Room Air 06/30/18 05:04 97.9 72 18 118/73 (88) 95 Capillary Refill : Less Than 3 Seconds I&O Intake and Output 06/30/18 00:00 Intake Total 2320 ml Output Total 1800 ml Balance 520 ml Intake Oral 2320 ml Output Urine Total 1800 ml # Voids 4 # Bowel Movements 2 General: Alert, Oriented X3, Cooperative, No Acute Distress HEENT: Atraumatic, PERRLA, EOMI, Mucous Memb Moist/[place] Neck: Supple, No JVD Lungs: Clear to Auscultation Heart: Regular Rate Abdomen: Normal Bowel Sounds, Soft, No Tenderness Extremities: Other (trace edema rt ankle) Neuro: Other (Sensation intact to touch strength decreased BLES RT > left) Assessment/Plan Assessment and Plan RT hip fracture s/p IM nailing WBAT ortho Insomnia improved HX of etoh abuse Tobaccoism GERD Chronic back pain DVT prophylaxis on Lovenox subcccut Plan Continue PT/OT Team Conference held earlier today see report for full functional update and POC and ELOS Discharge set tentatively for Thursday07-05-18 to home with family Co-Morbidities that are continuing to impact the rehab process: (include details ) WALT CHATTERJEE MD Jun 30, 2018 14:50
--- NOTE | 2018-06-30 14:55 | PM & R (SOAP) Progress Note ---
Subjective This was a face to face visit with the patient. Date Seen by Provider: Jun 30, 2018 Time Seen by Provider: 11:50 Subjective/Events-last exam Patient was seen in her room this AM.Progressing well with therapies Patient modified Independent for transfers. Objective Physician Exam Last Set of Vital Signs Vital Signs Date Time Temp Pulse Resp B/P (MAP) Pulse Ox O2 Delivery O2 Flow Rate FiO2 06/30/18 09:00 Room Air 06/30/18 05:04 97.9 72 18 118/73 (88) 95 Capillary Refill : Less Than 3 Seconds I&O Intake and Output 06/30/18 00:00 Intake Total 2320 ml Output Total 1800 ml Balance 520 ml Intake Oral 2320 ml Output Urine Total 1800 ml # Voids 4 # Bowel Movements 2 General: Alert, Oriented X3, Cooperative, No Acute Distress HEENT: Atraumatic, PERRLA, EOMI, Mucous Memb Moist/[place] Neck: Supple, No JVD Lungs: Clear to Auscultation Heart: Regular Rate Abdomen: Normal Bowel Sounds, Soft, No Tenderness Extremities: Other (trace edema rt ankle) Neuro: Other (Sensation intact to touch strength decreased BLES RT > left) Assessment/Plan Assessment and Plan Left cerebellar stroke with mild left sided weakness and gait imbalance improving Nausea resolved Hyponatremia improved UTI improved with antibiotic [place] D controlled with med OA s/p Bilateral TKRS Plan Continue PT/OT Team Conference held earlier today-see report for full functional update and POC Discharge set tentatively for 07-02-18Thursday to home with family Co-Morbidities that are continuing to impact the rehab process: (include details ) WALT CHATTERJEE MD Jun 30, 2018 14:55
[2018-06-30 17:11] VITALS: BP 116/78
[2018-06-30] MEDS: MELATONIN 3 MG TABLET PO SCH (20:45)
[2018-07-01] MEDS: oxyCODONE/APAP 5/325MG (PERCOCET 5) TABLET PO PRN ×6 (01:38→22:14)
[2018-07-01 05:18] VITALS: BP 124/78
[2018-07-01] MEDS: CALCIUM CARB + VIT D 600 MG (CALCARB + D) TAB PO SCH (06:09)
[2018-07-01] MEDS: SUCRALFATE 1 GM (CARAFATE) TAB PO SCH ×4 (06:09→20:01)
[2018-07-01] MEDS: ENOXAPARIN 30 MG/0.3 ML (LOVENOX) SYR SC SCH ×2 (09:04→20:02)
[2018-07-01] MEDS: clonazePAM 1 MG (KlonoPIN) TAB PO SCH ×2 (09:04→20:01)
[2018-07-01] MEDS: GABAPENTIN 300 MG (NEURONTIN) CAP PO SCH ×3 (09:05→20:02)
[2018-07-01] MEDS: SENNOSIDES 8.6 MG (SENOKOT) TAB PO SCH ×2 (09:05→20:02)
--- NOTE | 2018-07-01 09:43 | Speech Therapy Daily Note ---
Speech Daily Progress Note Subjective Date Seen by Provider: Jul 01, 2018 Time Seen by Provider: 10:00 Pt up in chair. Pleasant and cooperative. Pain Numeric Pain Scale: 8 Location: Right Location Body Site: Jaw Pain Description: Ache Objective Topic Maintenance - provided a topic for discussion. Pt stay on topic the majority of the time. She required re-direction only 2 times today. She was able to return to the topic after the 2 cues. Assessment Assessment Current Status: Fair Progress Treatment Plan Continue Plan of Care Speech Short Term Goals Short Term Goals Short Term Goals Pt will complete various auditory/visual memory activities with at least 80% accuracy and min assist. Pt will require less than 4 re-directions back to task in a 30 minute session. Pt will decrease verbosity with min cues. Time Frame-ST week Comprehension: 6 Expression: 7 Social Interaction: 7 Problem Solvin Memory: 4 Speech Call Center Manager Goals Group Home Goals Pt will demonstrate functional cognitive-linguistic skills for safety and maximum independence for the home setting. Comprehension: 6 Expression: 7 Social Interaction: 7 Problem Solvin Memory: 5 Speech-Plan Patient/Family Goals Patient/Family Goals: return to ex 's home Treatment Plan Speech Therapy Treatment Plan: Continue Plan of Care pt cooperative. Frequency: 5 times per week Estimated Hrs Per Day: .5 hour per day Rehab Potential: Poor Barriers to Learning: Motivation Pt/Family Agrees to Plan: Yes Safety Risks/Education Teaching Recipient: Patient Teaching Methods: Discussion Response to Teaching: Verbalize Understanding Time Speech Therapy Time In: 10:00 Speech Therapy Time Out: 10:35 Total Billed Time: 35 Billed Treatment Time 1, SLTS TIA Galvan Jul 01, 2018 09:43
--- NOTE | 2018-07-01 09:50 | PM & R (SOAP) Progress Note ---
Subjective This was a face to face visit with the patient. Date Seen by Provider: Jul 01, 2018 Time Seen by Provider: 09:20 Subjective/Events-last exam Patient was seen in [place] with Therapy ambulating with Walker with min assist Review of Systems Musculoskeletal: leg pain Objective Physician Exam Last Set of Vital Signs Vital Signs Date Time Temp Pulse Resp B/P (MAP) Pulse Ox O2 Delivery O2 Flow Rate FiO2 07/01/18 08:47 Room Air 07/01/18 05:18 96.9 88 20 124/78 (93) 99 Capillary Refill : Less Than 3 Seconds I&O Intake and Output 07/01/18 00:00 Intake Total 1320 ml Output Total 800 ml Balance 520 ml Intake Oral 1320 ml Output Urine Total 800 ml # Voids 3 # Bowel Movements 1 General: Alert, Oriented X3, Cooperative, No Acute Distress HEENT: Atraumatic, PERRLA, EOMI, Mucous Memb Moist/[place] Neck: Supple, No JVD Lungs: Clear to Auscultation Heart: Regular Rate Abdomen: Normal Bowel Sounds, Soft, No Tenderness Extremities: Other (trace edema rt ankle) Neuro: Other (Sensation intact to touch strength decreased BLES RT > left) Assessment/Plan Assessment and Plan RT Hip fracture s/p im nailing WBAT ortho Insomnia improved HX of etoh abuse Tobaccoism GERD Chronic back pain DVT prophylaxis on Lovenox subcut Plan Continue Pt/OT Discharge remains set tentatively for 07-05-18 to home with family Co-Morbidities that are continuing to impact the rehab process: (include details ) WALT CHATTERJEE MD Jul 01, 2018 09:50
--- NOTE | 2018-07-01 11:27 | Physical Therapy Daily Note ---
PT Daily Note-Current Subjective Pt still eating breakfast upon arrival. Pt agrees to PT. Pain Numeric Pain Scale: 5-Moderate Pain Location: Right Location Body Site: Knee Pain Description: Ache Mental Status Patient Orientation: Person, Place Transfers Functional [place] Measure 0=Not Assessed/NA 4=Minimal Assistance 1=Total Assistance 5=Supervision or Setup 2=Maximal Assistance 6=Modified [place] 3=Moderate Assistance 7=Complete IndependenceIRFPAI Quality Coding Scale 6 Independent with activity with or without an assistive device 5 Patient requires set up or clean up by helper. Patient completes activity by themselves 4 Supervision or touching assist (CGA). [place] provide cues , steadying assist 3 The helper provides less than half the effort to complete the activity 2 The helper provides more than half the effort to complete the activity 1 Dependent. The helper does all the effort to complete an activity 7 Patient refused to complete or attempt activity 9 The patient did not perform the activity before the current illness or injury 88 Not attempted due to Medical conditions or safety concerns Scootin Sit to/from Stand: 5 Sit to Stand (QC): 5 Weight Bearing Right Lower Extremity: Right Weight Bearing/Tolerated Left Lower Extremity: Left Full Weight Bearing Gait Training Does the Patient Walk?: Yes Distance (FIM): 3=150 ft Distance: 150' Walk 10 feet (QC): 5 Walk 50 ft with 2 Turns(QC): 5 Walk 150 ft (QC): 5 Gait Level of Assist: 5 Gait Persons Needed: 1 Gait Assistive Device: FWW Pt encouraged to continue walking, tendency to stop and tell stories. Pt walks with antalgic gait pattern and increased extension on push off from LLE. Wheelchair Training Does the Pt Use a Wheelchair?: No Treatments Pt needs encouragement to start PT, after working on breakfast for a couple of hours. Pt transfers from recliner at SBA using FWW then ambulates using FWW at SBA. Pt takes rest break [facility] through walk. Pt returns to room to rest in recliner at end of tx with all needs met. Assessment Current Status: Fair Progress Pt takes extended time to complete tasks and needs VC to stay on task. Pt fatigues easily and reports pain. PT Short Term Goals Short Term Goals Time Frame: Jun 30, 2018 Transfers (B,C,W/C) (FIM): 5 Gait (FIM): 5 Gait Distance Comment: 200' Gait Level of Assist: 5 Gait Assistive Device: FWW Wheelchair Distance: 150' PT Nursing Home Goals Nursing Home Goals PT Nursing Home Goals Time Frame: Jul 14, 2018 Transfers (B,C,W/C) (FIM): 6 Sit to Lying (QC): 6 Lying-Sitting on Side/Bed(QC): 6 Sit to Stand (QC): 6 Rollin Roll Left to Right (QC): 6 Chair/Qmf-km-Abneu Xfer(QC): 6 Car Transfer (QC): 6 Gait (FIM): 6 Distance: 250' Walk 10 feet (QC): 6 Walk 10ft-Uneven Surface(QC): 6 Walk 50ft with 2 Turns (QC): 6 Walk 150 ft (QC): 6 Gait Level of Assist: 6 Gait Assistive Device: FWW Stairs (FIM): 2 # of Steps: 8 1 Step (curb) (QC): 4 4 Steps (QC): 4 Stairs Level Of Assist: 5 PT Plan Problem List Problem List: Activity Tolerance, Functional Strength, Safety, Balance, Gait Treatment/Plan Treatment Plan: Continue Plan of Care Treatment Plan: Bed Mobility, Education, Functional Activity Abdiel, Functional Strength, Group Therapy, Gait, Safety, Therapeutic Exercise, Transfers Treatment Duration: Jul 14, 2018 Frequency: At least 5 of 7 days/Wk (IRF) Estimated Hrs Per Day: 1.5 hours per day Patient and/or Family Agrees t: Yes Safety Risks/Education Patient Education: Gait Training, Correct Positioning, Safety Issues Teaching Recipient: Patient Teaching Methods: Discussion Response to Teaching: Verbalize Understanding Time/GCodes Time In: 900 Time Out: 945 Total Billed Treatment Time: 45 Total Billed Treatment 1, GT x2 (30m) & FA (15m) G Codes Necessary: PRASAD Gudino HARDWOOD FALLER Jul 01, 2018 11:27
--- NOTE | 2018-07-01 11:52 | Occupational Ther Daily Note ---
OT Current Status-Daily Note Subjective Pt sitting in recliner talking on phone. Pt would not get off phone to start therapy. Pt agrees to therapy. No c/o pain initially then c/o L hip and knee pain, reported to nrsg. Mental Status/Objective Patient Orientation: Person, Place, Time, Situation Functional [place] Measure 0=Not Assessed/NA 4=Minimal Assistance 1=Total Assistance 5=Supervision or Setup 2=Maximal Assistance 6=Modified [place] 3=Moderate Assistance 7=Complete [place] ADL-Treatment Pt takes increased time to complete all tasks due to self limiting behavior, decreased activity tolerance and reported pain. Pt declined ADLs today. Pt ambulated to [facility] to work on fine motor skills. LOB while ambulating with FWW while messing with eye glasses and taking a step, pt unable to catch self and had to be righted by JHAVERI. Sat in chair to get feet underneath pt, then pt c/o increased pain, reported to nrsg. Pt then ambulated to [facility] and back, took increased time to complete. After therapy, pt sitting in recliner with call light/phone in reach. All needs met in room. Functional [place] Measure 0=Not Assessed/NA 4=Minimal Assistance 1=Total Assistance 5=Supervision or Setup 2=Maximal Assistance 6=Modified [place] 3=Moderate Assistance 7=Complete IndependenceIRFPAI Quality Coding Scale 6 Independent with activity with or without an assistive device 5 Patient requires set up or clean up by helper. Patient completes activity by themselves 4 Supervision or touching assist (CGA). [place] provide cues , steadying assist 3 The helper provides less than half the effort to complete the activity 2 The helper provides more than half the effort to complete the activity 1 Dependent. The helper does all the effort to complete an activity 7 Patient refused to complete or attempt activity 9 The patient did not perform the activity before the current illness or injury 88 Not attempted due to Medical conditions or safety concerns OT Short Term Goals Short Term Goals Time Frame: Jun 30, 2018 Eating(FIM): 5 Grooming(FIM): 5 Bathing(FIM): 4 Upper Body Dressing(FIM): 5 Lower Body Dressing(FIM): 4 Toileting(FIM): 5 Transfers (B,C,W/C) (FIM): 5 Toilet/Commode Transfer(FIM): 5 Shower Transfer(FIM): 4 Additional Short Term Goals: 1-Demonstrate ADL Tasks, 2-Verbalize Understanding , 3-ImproveStrength/Abdiel 1=Demonstrate adherence to instructed precautions during ADL tasks. 2=Patient will verbalize/demonstrate understanding of assistive devices/ modifications for ADL. 3=Patient will improve strength/tolerance for activity to enable patient to perform ADL's. OT Artificial Breeding Technician Goals Artificial Breeding Technician Goals Time Frame: Jul 07, 2018 Eating (FIM): 6 Eating (QC): 6 Groomin Oral Hygiene (QC): 6 Bathing(FIM): 6 Shower/Bathe Self (QC): 6 Upper Body Dressing(FIM): 6 Upper Body Dressing (QC): 6 Lower Body Dressing(FIM): 6 Lower Body Dressing (QC): 6 On/Off Footwear (QC): 6 Toileting(FIM): 6 Toileting Hygiene (QC): 6 Transfers (B,C,W/C) (FIM): 6 Toilet/Commode Transfer(FIM): 6 Toilet/Commode Transfer (QC): 6 Shower Transfer(FIM): 5 Additional Goals: 1-Demonstrate ADL Tasks, 2-Verbalize Understanding, 3- ImproveStrength/Abdiel 1=Demonstrate adherence to instructed precautions during ADL tasks. 2=Patient will verbalize/demonstrate understanding of assistive devices/ modifications for ADL. 3=Patient will improve strength/tolerance for activity to enable patient to perform ADL's. OT Education/Plan Discharge Recommendations Plan/Recommendations: Continue POC Treatment Plan/Plan of Care Patient would benefit from OT for education, treatment and training to promote independence in ADL's, mobility, safety and/or upper extremity function for ADL' s. Plan of Care: ADL Retraining, Functional Mobility, Group Exercise/Act as Ind, UE Funct Exercise/Act Treatment Duration: Jul 07, 2018 Frequency: At least 5 of 7 days/Wk (IRF) Estimated Hrs Per Day: 1.5 hours per day Agreement: Yes Rehab Potential: Poor Time/GCodes Start Time: 11:00 Stop Time: 11:53 Total Time Billed (hr/min): 53 Billed Treatment Time 1 visit-FA 4 (53 min) ALY KIM Jul 01, 2018 11:51
--- NOTE | 2018-07-01 15:36 | Therapy Group Daily Note ---
Therapy Daily Group Note Patient Education Topic Other List Below (Transfer Training) Exercises LE Seated Exercise, UE Exercise Other/Notes Pt slowly ambulated to PT/OT Group using FWW at [facility]. Group consists of Introduction (Name, Where you are from & Secret [place] Ingredient), Socialize, UE / LE EX, Education and Demonstration of proper Transfer Techniques. Pt actively participated in group by performing Exercises and listening and giving feedback during transfer training. Pt interrupted other peers during Group discussion as well as talked off topic several times, needing VC to redirect. Pt returns to room at end of Group to rest. Start Time: 13:00 Stop Time: 14:15 Total Billed Treatment Time: 75 Total Billed Treatment 1, GRP PRASAD CHOE NEWS LIBRARIAN Jul 01, 2018 15:36
[2018-07-01 16:41] VITALS: BP 103/71
[2018-07-01] MEDS: MELATONIN 3 MG TABLET PO SCH (20:02)
[2018-07-02 06:26] VITALS: BP 115/71
[2018-07-02] MEDS: oxyCODONE/APAP 5/325MG (PERCOCET 5) TABLET PO PRN ×4 (06:28→20:19)
[2018-07-02] MEDS: SUCRALFATE 1 GM (CARAFATE) TAB PO SCH ×4 (06:28→21:53)
[2018-07-02] MEDS: CALCIUM CARB + VIT D 600 MG (CALCARB + D) TAB PO SCH (06:28)
--- NOTE | 2018-07-02 07:30 | Occupational Ther Daily Note ---
OT Current Status-Daily Note Subjective Pt alert, sitting in recliner. Pt agrees to therapy. Pt c/o pain in R knee and wants to talk to the surgeon that did her hip. Mental Status/Objective Patient Orientation: Person, Place, Time, Situation Functional [place] Measure 0=Not Assessed/NA 4=Minimal Assistance 1=Total Assistance 5=Supervision or Setup 2=Maximal Assistance 6=Modified [place] 3=Moderate Assistance 7=Complete [place] ADL-Treatment Pt declines shower, agrees to sponge bath. Pt stated that she had just put on new pants, pad and underwear. Pt completed upper body bathing and dressing after set up. Pt takes increased time to complete all tasks due to self limiting behaviors, pain and decreased activity tolerance. Pt wash hands and face then declined oral care. Dentures were left with pt so pt could put dentures in after breakfast was eaten. Pt stated that she likes the taste of food without dentures, with dentures the food tastes like plastic. Pt able to open packages/containers by self and use regular utensils to feed self. After therapy, pt sitting in recliner with call light/phone in reach. All needs met in room. Functional [place] Measure 0=Not Assessed/NA 4=Minimal Assistance 1=Total Assistance 5=Supervision or Setup 2=Maximal Assistance 6=Modified [place] 3=Moderate Assistance 7=Complete IndependenceIRFPAI Quality Coding Scale 6 Independent with activity with or without an assistive device 5 Patient requires set up or clean up by helper. Patient completes activity by themselves 4 Supervision or touching assist (CGA). [place] provide cues , steadying assist 3 The helper provides less than half the effort to complete the activity 2 The helper provides more than half the effort to complete the activity 1 Dependent. The helper does all the effort to complete an activity 7 Patient refused to complete or attempt activity 9 The patient did not perform the activity before the current illness or injury 88 Not attempted due to Medical conditions or safety concerns Eating (FIM): 6 Eating (QC): 6 Grooming (FIM): 5 Upper Body (FIM): 5 Upper Body Dressing (QC): 5 OT Short Term Goals Short Term Goals Time Frame: Jun 30, 2018 Eating(FIM): 5 Grooming(FIM): 5 Bathing(FIM): 4 Upper Body Dressing(FIM): 5 Lower Body Dressing(FIM): 4 Toileting(FIM): 5 Transfers (B,C,W/C) (FIM): 5 Toilet/Commode Transfer(FIM): 5 Shower Transfer(FIM): 4 Comprehension(FIM): 6 Expression(FIM): 7 Social Interaction(FIM): 7 Problem Solving(FIM): 4 Memory(FIM): 4 Additional Short Term Goals: 1-Demonstrate ADL Tasks, 2-Verbalize Understanding , 3-ImproveStrength/Abdiel 1=Demonstrate adherence to instructed precautions during ADL tasks. 2=Patient will verbalize/demonstrate understanding of assistive devices/ modifications for ADL. 3=Patient will improve strength/tolerance for activity to enable patient to perform ADL's. OT Sanitary Inspector Goals Sanitary Inspector Goals Time Frame: Jul 07, 2018 Eating (FIM): 6 Eating (QC): 6 Groomin Oral Hygiene (QC): 6 Bathing(FIM): 6 Shower/Bathe Self (QC): 6 Upper Body Dressing(FIM): 6 Upper Body Dressing (QC): 6 Lower Body Dressing(FIM): 6 Lower Body Dressing (QC): 6 On/Off Footwear (QC): 6 Toileting(FIM): 6 Toileting Hygiene (QC): 6 Transfers (B,C,W/C) (FIM): 6 Toilet/Commode Transfer(FIM): 6 Toilet/Commode Transfer (QC): 6 Shower Transfer(FIM): 5 Comprehension(FIM): 6 Expression (FIM): 7 Social Interaction(FIM): 7 Problem Solving(FIM): 5 Memory(FIM): 5 Additional Goals: 1-Demonstrate ADL Tasks, 2-Verbalize Understanding, 3- ImproveStrength/Abdiel 1=Demonstrate adherence to instructed precautions during ADL tasks. 2=Patient will verbalize/demonstrate understanding of assistive devices/ modifications for ADL. 3=Patient will improve strength/tolerance for activity to enable patient to perform ADL's. OT Education/Plan Discharge Recommendations Plan/Recommendations: Continue POC Treatment Plan/Plan of Care Patient would benefit from OT for education, treatment and training to promote independence in ADL's, mobility, safety and/or upper extremity function for ADL' s. Plan of Care: ADL Retraining, Functional Mobility, Group Exercise/Act as Ind, UE Funct Exercise/Act Treatment Duration: Jul 07, 2018 Frequency: At least 5 of 7 days/Wk (IRF) Estimated Hrs Per Day: 1.5 hours per day Agreement: Yes Rehab Potential: Poor Time/GCodes Start Time: 07:00 Stop Time: 08:15 Total Time Billed (hr/min): 75 Billed Treatment Time 1 visit-ADL 5 (75 min) ALY KIM Jul 02, 2018 07:30
[2018-07-02 08:33] VITALS: BP 125/82
[2018-07-02] MEDS: SENNOSIDES 8.6 MG (SENOKOT) TAB PO SCH ×2 (08:35→21:53)
[2018-07-02] MEDS: ENOXAPARIN 30 MG/0.3 ML (LOVENOX) SYR SC SCH ×2 (08:35→20:16)
[2018-07-02] MEDS: clonazePAM 1 MG (KlonoPIN) TAB PO SCH ×2 (08:35→21:53)
[2018-07-02] MEDS: GABAPENTIN 300 MG (NEURONTIN) CAP PO SCH ×3 (08:35→21:53)
--- NOTE | 2018-07-02 09:23 | PM & R (SOAP) Progress Note ---
Subjective This was a face to face visit with the patient. Date Seen by Provider: Jul 02, 2018 Time Seen by Provider: 08:45 Subjective/Events-last exam Patient was seen in her room this AM Patient SBA for transfers. Objective Physician Exam Last Set of Vital Signs Vital Signs Date Time Temp Pulse Resp B/P (MAP) Pulse Ox O2 Delivery O2 Flow Rate FiO2 07/02/18 08:33 97.6 90 20 125/82 (96) 98 Room Air Capillary Refill : Less Than 3 Seconds I&O Intake and Output 07/02/18 00:00 Intake Total 1430 ml Balance 1430 ml Intake Oral 1430 ml # Voids 7 General: Alert, Oriented X3, Cooperative, No Acute Distress HEENT: Atraumatic, PERRLA, EOMI, Mucous Memb Moist/[place] Neck: Supple, No JVD Lungs: Clear to Auscultation Heart: Regular Rate Abdomen: Normal Bowel Sounds, Soft, No Tenderness Extremities: Other (trace edema rt ankle) Neuro: Other (Sensation intact to touch strength decreased BLES RT > left) Assessment/Plan Assessment and Plan RT hip fracture s/p IM nailing WBAT ortho insomnia improved HX of etoh abuse Tobaccoism GERD Chronic back pain DVT Prophylaxis on lovenox subcut Plan Continue Pt/OT Discharge remains set tentatively for thursday07-05-18 to home with family Co-Morbidities that are continuing to impact the rehab process: (include details ) WALT CHATTERJEE MD Jul 02, 2018 09:23
[2018-07-02] MEDS ORDERED: OXYC-471 PO (09:27)
--- NOTE | 2018-07-02 09:43 | Speech Therapy Daily Note ---
Speech Daily Progress Note Subjective Date Seen by Provider: Jul 02, 2018 Speech Short Term Goals Short Term Goals Short Term Goals Pt will complete various auditory/visual memory activities with at least 80% accuracy and min assist. Pt will require less than 4 re-directions back to task in a 30 minute session. Pt will decrease verbosity with min cues. Time Frame-ST week Comprehension: 6 Expression: 7 Social Interaction: 7 Problem Solvin Memory: 4 Speech Chain Mortiser Operator Goals [facility] Goals Pt will demonstrate functional cognitive-linguistic skills for safety and maximum independence for the home setting. Comprehension: 6 Expression: 7 Social Interaction: 7 Problem Solvin Memory: 5 Speech-Plan Treatment Plan Frequency: 5 times per week Estimated Hrs Per Day: .5 hour per day Rehab Potential: Poor Time Speech Therapy Time In: 09:00 Speech Therapy Time Out: 09:40 Total Billed Time: 40 Billed Treatment Time 1, TIA AGUIRRE Jul 02, 2018 09:43
--- NOTE | 2018-07-02 10:57 | Speech Therapy Daily Note ---
Speech Daily Progress Note Subjective Date Seen by Provider: Jul 02, 2018 Time Seen by Provider: 09:00 Pt eating. Pleasant and cooperative. Pain Numeric Pain Scale: 0-No Pain Objective Topic Maintenance - Provided pt with a topic and had a discussion. Pt was able to stay on task today with only 1 re-direction. Instructed pt that this was her last speech session on the ARU and that additional speech tx was not indicated. Pt agreed with this FRACTIONATING STILL OPERATOR. Assessment Assessment Current Status: Fair Progress Treatment Plan Discontinue ST Communication Comprehension: 6 Expression: 7 Social Cognition Social Interaction: 7 Problem Solvin Memory: 4 Speech Short Term Goals Short Term Goals Short Term Goals Pt will complete various auditory/visual memory activities with at least 80% accuracy and min assist. MET 07/02/2018 Pt will require less than 4 re-directions back to task in a 30 minute session. MET 07/02/2018 Pt will decrease verbosity with min cues. NOT MET 07/02/2018 Time Frame-ST week Comprehension: 6 Expression: 7 Social Interaction: 7 Problem Solvin Memory: 4 Speech Legal Services Manager Goals [facility] Goals Pt will demonstrate functional cognitive-linguistic skills for safety and maximum independence for the home setting. GOALS PARTIALLY MET due to short ARU stay. Comprehension: 6 Expression: 7 Social Interaction: 7 Problem Solvin Memory: 5 Speech-Plan Patient/Family Goals Patient/Family Goals: to return to her ex-hsuband's home. Treatment Plan Speech Therapy Treatment Plan: Discontinue ST Pt to be discharged from [facility] ST. Frequency: 5 times per week Estimated Hrs Per Day: .5 hour per day Rehab Potential: Poor Pt/Family Agrees to Plan: Yes Safety Risks/Education Teaching Recipient: Patient Teaching Methods: Discussion Response to Teaching: Verbalize Understanding Time Speech Therapy Time In: 09:00 Speech Therapy Time Out: 09:40 Total Billed Time: 40 Billed Treatment Time 1, SLTS No TIA BOWMAN Jul 02, 2018 10:56
--- NOTE | 2018-07-02 11:55 | Physical Therapy Daily Note ---
PT Daily Note-Current Subjective Pt. agrees to Rx. C/o pain in right hip continues but does not rate it. States she is ready to plan going home Mon Mental Status Patient Orientation: Person, Place Transfers Functional [place] Measure 0=Not Assessed/NA 4=Minimal Assistance 1=Total Assistance 5=Supervision or Setup 2=Maximal Assistance 6=Modified [place] 3=Moderate Assistance 7=Complete IndependenceIRFPAI Quality Coding Scale 6 Independent with activity with or without an assistive device 5 Patient requires set up or clean up by helper. Patient completes activity by themselves 4 Supervision or touching assist (CGA). [place] provide cues , steadying assist 3 The helper provides less than half the effort to complete the activity 2 The helper provides more than half the effort to complete the activity 1 Dependent. The helper does all the effort to complete an activity 7 Patient refused to complete or attempt activity 9 The patient did not perform the activity before the current illness or injury 88 Not attempted due to Medical conditions or safety concerns Transfers (B, C, W/C) (FIM): 4 Scootin Rollin Supine to/from Sit: 4 Sit to/from Stand: 5 needs safety education and instruction for safe approach to bed as pt. abandoned FWW to the side and walked without AD 3-4 steps. needs cues to use UEs for safe up down Weight Bearing Right Lower Extremity: Right Weight Bearing/Tolerated Left Lower Extremity: Left Full Weight Bearing Gait Training Does the Patient Walk?: Yes Gait (FIM): 5 Distance (FIM): 3=150 ft (170x2) Gait Level of Assist: 5 Gait Persons Needed: 1 Gait Assistive Device: FWW slow, heavy weight bearing on UEs on FWW, needs alignment instructions for safety Exercises Supine Ex: Ankle pumps, Quad Set, Rolling, Glut sets, Heel Slides, Short Arc Quads, Scooting, Straight leg raise (assisted), Hip abd/add Supine Reps: 15 Seated Therapy Exercises: Ankle pumps, Sit to stand, Long arc quads Seated Reps: 12 Assessment Current Status: Good Progress moves very slowly, sidetracked by conversation she attempts to create which is unrelated and and difficult to make sense of PT Short Term Goals Short Term Goals Time Frame: Jun 30, 2018 Transfers (B,C,W/C) (FIM): 5 Gait (FIM): 5 Gait Distance Comment: 200' Gait Level of Assist: 5 Gait Assistive Device: FWW Wheelchair Distance: 150' PT Shelter Goals Shelter Goals PT Shelter Goals Time Frame: Jul 14, 2018 Transfers (B,C,W/C) (FIM): 6 Sit to Lying (QC): 6 Lying-Sitting on Side/Bed(QC): 6 Sit to Stand (QC): 6 Rollin Roll Left to Right (QC): 6 Chair/Iey-rs-Ijogd Xfer(QC): 6 Car Transfer (QC): 6 Gait (FIM): 6 Distance: 250' Walk 10 feet (QC): 6 Walk 10ft-Uneven Surface(QC): 6 Walk 50ft with 2 Turns (QC): 6 Walk 150 ft (QC): 6 Gait Level of Assist: 6 Gait Assistive Device: FWW Stairs (FIM): 2 # of Steps: 8 1 Step (curb) (QC): 4 4 Steps (QC): 4 Stairs Level Of Assist: 5 PT Plan Treatment/Plan Treatment Plan: Continue Plan of Care Treatment Plan: Bed Mobility, Education, Functional Activity Abdiel, Functional Strength, Group Therapy, Gait, Safety, Therapeutic Exercise, Transfers Treatment Duration: Jul 14, 2018 Frequency: At least 5 of 7 days/Wk (IRF) Estimated Hrs Per Day: 1.5 hours per day Patient and/or Family Agrees t: Yes Safety Risks/Education Patient Education: Gait Training, Transfer Techniques, Correct Positioning, Disease Process, Safety Issues Teaching Recipient: Patient Teaching Methods: Demonstration, Discussion Response to Teaching: Verbalize Understanding, Return Demonstration, Reinforcement Needed Time/GCodes Time In: 1105 Time Out: 1205 Total Billed Treatment Time: 60 Total Billed Treatment 1,GT30m,FA15m,EX15m G Codes Necessary: JULIA Tee RADAR ENGINEER Jul 02, 2018 11:55
--- NOTE | 2018-07-02 12:34 | Occupational Ther Daily Note ---
OT Current Status-Daily Note Subjective Pt alert, sitting in recliner. Pt agrees to therapy. C/o pain, nrsg in room to give medications. Mental Status/Objective Patient Orientation: Person, Place, Time, Situation Functional [place] Measure 0=Not Assessed/NA 4=Minimal Assistance 1=Total Assistance 5=Supervision or Setup 2=Maximal Assistance 6=Modified [place] 3=Moderate Assistance 7=Complete [place] ADL-Treatment Functional [place] Measure 0=Not Assessed/NA 4=Minimal Assistance 1=Total Assistance 5=Supervision or Setup 2=Maximal Assistance 6=Modified [place] 3=Moderate Assistance 7=Complete IndependenceIRFPAI Quality Coding Scale 6 Independent with activity with or without an assistive device 5 Patient requires set up or clean up by helper. Patient completes activity by themselves 4 Supervision or touching assist (CGA). [place] provide cues , steadying assist 3 The helper provides less than half the effort to complete the activity 2 The helper provides more than half the effort to complete the activity 1 Dependent. The helper does all the effort to complete an activity 7 Patient refused to complete or attempt activity 9 The patient did not perform the activity before the current illness or injury 88 Not attempted due to Medical conditions or safety concerns Grooming (FIM): 5 (After bringing pt denture supplies, pt able to open denture cream and apply to dentures and place in mouth. Pt cleaned dentures prior to placing in mouth.) Oral Hygiene (QC): 5 Pt takes increased time to complete all tasks. After therapy, pt sitting in recliner getting ready to order lunch. Call light/phone in reach, all needs met in room. OT Short Term Goals Short Term Goals Time Frame: Jun 30, 2018 Eating(FIM): 5 Grooming(FIM): 5 Bathing(FIM): 4 Upper Body Dressing(FIM): 5 Lower Body Dressing(FIM): 4 Toileting(FIM): 5 Transfers (B,C,W/C) (FIM): 5 Toilet/Commode Transfer(FIM): 5 Shower Transfer(FIM): 4 Comprehension(FIM): 6 Expression(FIM): 7 Social Interaction(FIM): 7 Problem Solving(FIM): 4 Memory(FIM): 4 Additional Short Term Goals: 1-Demonstrate ADL Tasks, 2-Verbalize Understanding , 3-ImproveStrength/Abdiel 1=Demonstrate adherence to instructed precautions during ADL tasks. 2=Patient will verbalize/demonstrate understanding of assistive devices/ modifications for ADL. 3=Patient will improve strength/tolerance for activity to enable patient to perform ADL's. OT Detention Goals Detention Goals Time Frame: Jul 07, 2018 Eating (FIM): 6 Eating (QC): 6 Groomin Oral Hygiene (QC): 6 Bathing(FIM): 6 Shower/Bathe Self (QC): 6 Upper Body Dressing(FIM): 6 Upper Body Dressing (QC): 6 Lower Body Dressing(FIM): 6 Lower Body Dressing (QC): 6 On/Off Footwear (QC): 6 Toileting(FIM): 6 Toileting Hygiene (QC): 6 Transfers (B,C,W/C) (FIM): 6 Toilet/Commode Transfer(FIM): 6 Toilet/Commode Transfer (QC): 6 Shower Transfer(FIM): 5 Comprehension(FIM): 6 Expression (FIM): 7 Social Interaction(FIM): 7 Problem Solving(FIM): 5 Memory(FIM): 5 Additional Goals: 1-Demonstrate ADL Tasks, 2-Verbalize Understanding, 3- ImproveStrength/Abdiel 1=Demonstrate adherence to instructed precautions during ADL tasks. 2=Patient will verbalize/demonstrate understanding of assistive devices/ modifications for ADL. 3=Patient will improve strength/tolerance for activity to enable patient to perform ADL's. OT Education/Plan Discharge Recommendations Plan/Recommendations: Continue POC Treatment Plan/Plan of Care Patient would benefit from OT for education, treatment and training to promote independence in ADL's, mobility, safety and/or upper extremity function for ADL' s. Plan of Care: ADL Retraining, Functional Mobility, Group Exercise/Act as Ind, UE Funct Exercise/Act Treatment Duration: Jul 07, 2018 Frequency: At least 5 of 7 days/Wk (IRF) Estimated Hrs Per Day: 1.5 hours per day Agreement: Yes Rehab Potential: Poor Time/GCodes Start Time: 12:20 Stop Time: 12:33 Total Time Billed (hr/min): 13 Billed Treatment Time 1 visit-ADL 1 (13 min) ALY KIM Jul 02, 2018 12:34
--- NOTE | 2018-07-02 14:45 | Physical Therapy Daily Note ---
PT Daily Note-Current Subjective Pt. agrees to seated LE exercises. Pt. emotional off and on during Rx Transfers Functional [place] Measure 0=Not Assessed/NA 4=Minimal Assistance 1=Total Assistance 5=Supervision or Setup 2=Maximal Assistance 6=Modified [place] 3=Moderate Assistance 7=Complete IndependenceIRFPAI Quality Coding Scale 6 Independent with activity with or without an assistive device 5 Patient requires set up or clean up by helper. Patient completes activity by themselves 4 Supervision or touching assist (CGA). [place] provide cues , steadying assist 3 The helper provides less than half the effort to complete the activity 2 The helper provides more than half the effort to complete the activity 1 Dependent. The helper does all the effort to complete an activity 7 Patient refused to complete or attempt activity 9 The patient did not perform the activity before the current illness or injury 88 Not attempted due to Medical conditions or safety concerns Weight Bearing Right Lower Extremity: Right Weight Bearing/Tolerated Left Lower Extremity: Left Full Weight Bearing Exercises Seated Therapy Exercises: Ankle pumps, Long arc quads, Hip flexion, Hip abd/add Seated Reps: 15 Assessment Current Status: Good Progress PT Short Term Goals Short Term Goals Time Frame: Jun 30, 2018 Transfers (B,C,W/C) (FIM): 5 Gait (FIM): 5 Gait Distance Comment: 200' Gait Level of Assist: 5 Gait Assistive Device: FWW Wheelchair Distance: 150' PT Dental Practitioner Goals Dental Practitioner Goals PT Long-Term Goals Time Frame: Jul 14, 2018 Transfers (B,C,W/C) (FIM): 6 Sit to Lying (QC): 6 Lying-Sitting on Side/Bed(QC): 6 Sit to Stand (QC): 6 Rollin Roll Left to Right (QC): 6 Chair/Axw-lq-L[place] Xfer(QC): 6 Car Transfer (QC): 6 Gait (FIM): 6 Distance: 250' Walk 10 feet (QC): 6 Walk 10ft-Uneven Surface(QC): 6 Walk 50ft with 2 Turns (QC): 6 Walk 150 ft (QC): 6 Gait Level of Assist: 6 Gait Assistive Device: FWW Stairs (FIM): 2 # of Steps: 8 1 Step (curb) (QC): 4 4 Steps (QC): 4 Stairs Level Of Assist: 5 PT Plan Treatment/Plan Treatment Plan: Continue Plan of Care Treatment Plan: Bed Mobility, Education, Functional Activity Abdiel, Functional Strength, Group Therapy, Gait, Safety, Therapeutic Exercise, Transfers Treatment Duration: Jul 14, 2018 Frequency: At least 5 of 7 days/Wk (IRF) Estimated Hrs Per Day: 1.5 hours per day Patient and/or Family Agrees t: Yes Time/GCodes Time In: 1430 Time Out: 1440 Total Billed Treatment Time: 10 Total Billed Treatment 1,EX10m G Codes Necessary: No JULIA HERNANDEZ RUNNING RIGGER Jul 02, 2018 14:45
[2018-07-02 16:31] VITALS: BP 127/74
[2018-07-02 18:00] VITALS: BP 127/74
[2018-07-02] MEDS: MELATONIN 3 MG TABLET PO SCH (21:53)
[2018-07-03] MEDS: oxyCODONE/APAP 5/325MG (PERCOCET 5) TABLET PO PRN ×4 (00:20→18:28)
[2018-07-03 06:00] VITALS: BP 113/77
[2018-07-03] MEDS: CALCIUM CARB + VIT D 600 MG (CALCARB + D) TAB PO SCH (06:36)
[2018-07-03] MEDS: SUCRALFATE 1 GM (CARAFATE) TAB PO SCH ×4 (06:37→20:05)
[2018-07-03] MEDS: clonazePAM 1 MG (KlonoPIN) TAB PO SCH ×2 (08:43→20:05)
[2018-07-03] MEDS: GABAPENTIN 300 MG (NEURONTIN) CAP PO SCH ×3 (08:44→20:05)
[2018-07-03] MEDS: ENOXAPARIN 30 MG/0.3 ML (LOVENOX) SYR SC SCH ×2 (08:47→20:05)
[2018-07-03] MEDS: SENNOSIDES 8.6 MG (SENOKOT) TAB PO SCH ×2 (08:47→20:05)
--- NOTE | 2018-07-03 10:21 | Physical Therapy Daily Note ---
PT Daily Note-Current Subjective Pt up in chair, agreeable. Difficult to keep on task, multiple VCS to continue activity. Mental Status Patient Orientation: Person, Confused, Place Transfers Functional [place] Measure 0=Not Assessed/NA 4=Minimal Assistance 1=Total Assistance 5=Supervision or Setup 2=Maximal Assistance 6=Modified [place] 3=Moderate Assistance 7=Complete IndependenceIRFPAI Quality Coding Scale 6 Independent with activity with or without an assistive device 5 Patient requires set up or clean up by helper. Patient completes activity by themselves 4 Supervision or touching assist (CGA). [place] provide cues , steadying assist 3 The helper provides less than half the effort to complete the activity 2 The helper provides more than half the effort to complete the activity 1 Dependent. The helper does all the effort to complete an activity 7 Patient refused to complete or attempt activity 9 The patient did not perform the activity before the current illness or injury 88 Not attempted due to Medical conditions or safety concerns Sit to/from Stand: 5 Sit to Stand (QC): 4 Weight Bearing Right Lower Extremity: Right Weight Bearing/Tolerated Left Lower Extremity: Left Full Weight Bearing Gait Training Does the Patient Walk?: Yes Gait (FIM): 4 Distance (FIM): 3=150 ft Distance: 150 Walk 10 feet (QC): 4 Walk 50 ft with 2 Turns(QC): 4 Walk 150 ft (QC): 4 Gait Level of Assist: 4 Gait Persons Needed: 1 Gait Assistive Device: FWW CGA x 1 with FWW. Very slow, step-to to step-through gait. Flexed posture, shuffling steps. VCS for safety as Pt frequently abandons walker for UE use. Treatments Sit<->stand: SBA x1, occasional skilled VCS to fully approach chair before sitting. Toilet TFR: SBA, CGA for balance while doffing/donning pants. Gait training with FWW. Pt returned to chair with all needs met. Assessment Current Status: Fair Progress Pt tolerated well. Very slow with all functional mobility. PT Short Term Goals Short Term Goals Time Frame: Jun 30, 2018 Transfers (B,C,W/C) (FIM): 5 Gait (FIM): 5 Gait Distance Comment: 200' Gait Level of Assist: 5 Gait Assistive Device: FWW Wheelchair Distance: 150' PT Skilled Nursing Goals Poultry Hatchery Supervisor Goals PT Poultry Hatchery Supervisor Goals Time Frame: Jul 14, 2018 Transfers (B,C,W/C) (FIM): 6 Sit to Lying (QC): 6 Lying-Sitting on Side/Bed(QC): 6 Sit to Stand (QC): 6 Rollin Roll Left to Right (QC): 6 Chair/Muh-if-Czzer Xfer(QC): 6 Car Transfer (QC): 6 Gait (FIM): 6 Distance: 250' Walk 10 feet (QC): 6 Walk 10ft-Uneven Surface(QC): 6 Walk 50ft with 2 Turns (QC): 6 Walk 150 ft (QC): 6 Gait Level of Assist: 6 Gait Assistive Device: FWW Stairs (FIM): 2 # of Steps: 8 1 Step (curb) (QC): 4 4 Steps (QC): 4 Stairs Level Of Assist: 5 PT Plan Problem List Problem List: Activity Tolerance, Functional Strength, Safety, Balance, Gait, Transfer, Bed Mobility Treatment/Plan Treatment Plan: Continue Plan of Care Treatment Plan: Bed Mobility, Education, Functional Activity Abdiel, Functional Strength, Group Therapy, Gait, Safety, Therapeutic Exercise, Transfers Treatment Duration: Jul 14, 2018 Frequency: At least 5 of 7 days/Wk (IRF) Estimated Hrs Per Day: 1.5 hours per day Patient and/or Family Agrees t: Yes Safety Risks/Education Patient Education: Gait Training, Safety Issues Teaching Recipient: Patient Teaching Methods: Discussion Response to Teaching: Reinforcement Needed Time/GCodes Time In: 0840 Time Out: 09 Total Billed Treatment Time: 39 Total Billed Treatment 1, FA x 23', GT x 16' G Codes Necessary: WALLACE Weaver DPT Jul 03, 2018 10:21
[2018-07-03 17:17] VITALS: BP 107/75
[2018-07-04] MEDS: oxyCODONE/APAP 5/325MG (PERCOCET 5) TABLET PO PRN ×4 (01:55→18:52)
[2018-07-04 05:14] VITALS: BP 130/79
[2018-07-04] MEDS: SUCRALFATE 1 GM (CARAFATE) TAB PO SCH ×4 (06:13→21:02)
[2018-07-04] MEDS: CALCIUM CARB + VIT D 600 MG (CALCARB + D) TAB PO SCH (06:13)
[2018-07-04] MEDS: clonazePAM 1 MG (KlonoPIN) TAB PO SCH ×2 (09:01→21:02)
[2018-07-04] MEDS: GABAPENTIN 300 MG (NEURONTIN) CAP PO SCH ×3 (09:01→21:02)
[2018-07-04] MEDS: ENOXAPARIN 30 MG/0.3 ML (LOVENOX) SYR SC SCH ×2 (09:02→21:02)
[2018-07-04] MEDS: SENNOSIDES 8.6 MG (SENOKOT) TAB PO SCH ×2 (09:13→21:02)
[2018-07-04 17:35] VITALS: BP 148/82
--- NOTE | 2018-07-04 20:56 | PM & R (SOAP) Progress Note ---
Subjective This was a face to face visit with the patient. Date Seen by Provider: Jul 04, 2018 Time Seen by Provider: 20:45 Subjective/Events-last exam Patient was seen in her room this evening Patient min assist for transfers Discharge remains set for tomorrow to home with spouse and HHC Date Identified: Jul 04, 2018 Time Identified: 20:30 Medication Intervention: Discharge meds reviewed Objective Physician Exam Last Set of Vital Signs Vital Signs Date Time Temp Pulse Resp B/P (MAP) Pulse Ox O2 Delivery O2 Flow Rate FiO2 07/04/18 17:35 98.3 101 18 148/82 (104) 98 Room Air Capillary Refill : Less Than 3 Seconds I&O Intake and Output 07/04/18 00:00 Intake Total 1500 ml Output Total 1000 ml Balance 500 ml Intake Oral 1500 ml Output Urine Total 1000 ml # Voids 4 General: Alert, Oriented X3, Cooperative, No Acute Distress HEENT: Atraumatic, PERRLA, EOMI, Mucous Memb Moist/[place] Neck: Supple, No JVD Lungs: Clear to Auscultation Heart: Regular Rate Abdomen: Normal Bowel Sounds, Soft, No Tenderness Extremities: Other (trace edema rt ankle) Neuro: Other (Sensation intact to touch strength decreased BLES RT > left) Assessment/Plan Assessment and Plan RT hip fracture s/p IM nail DR Meier Insomnia improved HX of etoh abuse Tobaccoism Chronic back pain DVT on Lovenox subcut Plan Discharge to home with family and HHC tomorrow see orders F/U with PCP and ortho on an outpatient basis Co-Morbidities that are continuing to impact the rehab process: (include details ) WALT CHATTERJEE MD Jul 04, 2018 20:56
[2018-07-05] MEDS: oxyCODONE/APAP 5/325MG (PERCOCET 5) TABLET PO PRN ×3 (00:47→14:07)
[2018-07-05 05:12] VITALS: BP 130/82
[2018-07-05] MEDS: CALCIUM CARB + VIT D 600 MG (CALCARB + D) TAB PO SCH (06:20)
[2018-07-05] MEDS: SUCRALFATE 1 GM (CARAFATE) TAB PO SCH ×2 (06:20→11:54)
[2018-07-05] MEDS: ENOXAPARIN 30 MG/0.3 ML (LOVENOX) SYR SC SCH (07:50)
[2018-07-05] MEDS: GABAPENTIN 300 MG (NEURONTIN) CAP PO SCH ×2 (08:53→13:55)
[2018-07-05] MEDS: clonazePAM 1 MG (KlonoPIN) TAB PO SCH (08:53)
[2018-07-05] MEDS: SENNOSIDES 8.6 MG (SENOKOT) TAB PO SCH (08:53)
--- NOTE | 2018-07-05 09:16 | D/C HH Face to Face Order ---
D/C Face to Face Orders Instructions for Patient Via [facility], Patient Instructions/FollowUp: Dr. Nicolette Meier Physician to follow Patient: Dr. Meier Discharge Diet for Home: Eat Small Frequent Meals Patient Data-Allergies,Ht & Wt Patient Allergies: Coded Allergies: No Known Drug Allergies (Unverified , 05/15/09) Height (Feet): 4 Height (Inches): 11.00 Weight (Pounds): 134 Weight (Ounces): 8.0 Home Health Need/Face to Face Date of Face to Face: Jul 05, 2018 Clinical Findings: Generalized weakness and fatigue, Muscle weakness, Unsteady gait I have seen Pt [id number]: Yes Discharged To: Home Diagnosis/Conditions: R hip fracture Patient is Homebound due to: CognItive deficits, Radha fall risk due to instabilty, Muscle weakness Homebound Status Due to the above stated illness, injury or surgical procedure (medical condition or diagnosis) and associated clinical findings, the patient is homebound because of his/her inability to leave home except with aid of a supportive device and/or person AND leaving the home requires a considerable and taxing effort or is medically contraindicated. Pt req the following assistanc: Walker Home Health Nursing Orders Home Health Services Order: Nursing Services, Cosmetics Counter Manager-Evaluate & Treat, Physical Therapy-Evaluate & Treat Therapy Orders Therapy Orders: OT (must have SN or PT order), Physical Therapy Therapy Specific Orders: Eval assistive deivces, Teach strategies/cognitive deficits, Teach enviro modifications/safety, Gait training, Increase strength/ endurance, Restore ROM Certify Stmt I certify that this patient is under my care and that I, a nurse practitioner or a physician; a recreational assistant working with me, had a face to face encounter that - meets the physician face to face encounter requirements with this patient as dated. I personally scribed for WALT CHATTERJEE MD ([facility]) on 07/05/18 at 09:16. Electronically submitted by Kell Daly ([id number]). WALT CHATTERJEE MD Jul 05, 2018 09:16
--- NOTE | 2018-07-05 09:51 | Occupational Ther Daily Note ---
OT Current Status-Daily Note Subjective Pt sleeping in bed with lower legs off of bed and pt's upper body at an angle. Breakfast beside bed. Pt woke to name, very groggy. Mental Status/Objective Patient Orientation: Person Functional [place] Measure 0=Not Assessed/NA 4=Minimal Assistance 1=Total Assistance 5=Supervision or Setup 2=Maximal Assistance 6=Modified [place] 3=Moderate Assistance 7=Complete [place] ADL-Treatment Pt takes increased time to complete all ADLs due to pain, cognition and self limiting behaviors. After therapy, pt sitting in recliner with breakfast. Pt chose not to put in dentures, pt stated "she needed to practice eating without them". Call light/phone in reach. All needs met in room. Functional [place] Measure 0=Not Assessed/NA 4=Minimal Assistance 1=Total Assistance 5=Supervision or Setup 2=Maximal Assistance 6=Modified [place] 3=Moderate Assistance 7=Complete IndependenceIRFPAI Quality Coding Scale 6 Independent with activity with or without an assistive device 5 Patient requires set up or clean up by helper. Patient completes activity by themselves 4 Supervision or touching assist (CGA). [place] provide cues , steadying assist 3 The helper provides less than half the effort to complete the activity 2 The helper provides more than half the effort to complete the activity 1 Dependent. The helper does all the effort to complete an activity 7 Patient refused to complete or attempt activity 9 The patient did not perform the activity before the current illness or injury 88 Not attempted due to Medical conditions or safety concerns Eating (FIM): 7 (Pt has dentures, but chooses not to use them while eating. Opens containers/packages then uses regular utensils.) Eating (QC): 6 Grooming (FIM): 5 (Standing at sink using FWW with SBA for safety. If pt sits at sink, mod I. Pt needed to be redirected to sit due to LE's becoming shaky.) Oral Hygiene (QC): 4 Bathing (FIM): 5 (Pt required assist to turn on shower and adjust water. Using long handle sponge, shower bench, tub shower bench and hand held shower pt able to complete. Pt takes increased time to complete all bathing and dryinng.) Bathing Location: L Arm, R Arm, L Upper Leg, R Upper Leg, L Lower Leg ( including foot), R Lower Leg (including foot), Chest, Abdomen, Buttocks, Perineal Area Shower/Bathe Self (QC): 5 Upper Body (FIM): 5 (After set up, pt able to complete.) Upper Body Dressing (QC): 5 Lower Body Dressing (FIM): 4 (Pt takes increased time to complete. Pt had difficulty with hiking underwear due to feminine pad and kept taking out and putting back in, assist needed to straighten pad and hike over buttocks. Pt then donned pants first time placed B LE's into one pant leg then donned backwards. Assist given to don correctly.) Lower Body Dressing (QC): 3 On/Off Footwear (QC): 5 (Set up. Pt took increased time to complete. Pt unable to stay on task, would pick at scabs on legs then would need to be redirected.) Toileting (FIM): 4 (Able to complete toileting using grabbars. Assist to hike pants up in back due to pad.) Toileting Hygiene (QC): 3 Transfers (B, C, W/C) (FIM): 5 (Verbal cues for hand placement.) Toilet/Commode Transfer (FIM): 5 (SBA for safety using grabbars and FWW. Verbal cues for hand placement.) Toilet Transfer (QC): 4 Tub Transfer(FIM): 5 (Supervision for safety. Pt attempted to step out of tub instead of using tub transfer bench. Verbal cues needed to remind pt to complete tub bench transfer out of tub. Pt able to use tub bench to get into tub with supervision.) OT Short Term Goals Short Term Goals Time Frame: Jun 30, 2018 Eating(FIM): 5 Grooming(FIM): 5 Bathing(FIM): 4 Upper Body Dressing(FIM): 5 Lower Body Dressing(FIM): 4 Toileting(FIM): 5 Transfers (B,C,W/C) (FIM): 5 Toilet/Commode Transfer(FIM): 5 Shower Transfer(FIM): 4 Comprehension(FIM): 6 Expression(FIM): 7 Social Interaction(FIM): 7 Problem Solving(FIM): 4 Memory(FIM): 4 Additional Short Term Goals: 1-Demonstrate ADL Tasks, 2-Verbalize Understanding , 3-ImproveStrength/Abdiel 1=Demonstrate adherence to instructed precautions during ADL tasks. 2=Patient will verbalize/demonstrate understanding of assistive devices/ modifications for ADL. 3=Patient will improve strength/tolerance for activity to enable patient to perform ADL's. OT Fdc Goals Web Manager Goals Time Frame: Jul 07, 2018 Eating (FIM): 6 (met) Eating (QC): 6 (me) Groomin (not me) Oral Hygiene (QC): 6 (not met) Bathing(FIM): 6 (not met) Shower/Bathe Self (QC): 6 (not met) Upper Body Dressing(FIM): 6 (not met) Upper Body Dressing (QC): 6 (not met) Lower Body Dressing(FIM): 6 (not met) Lower Body Dressing (QC): 6 (not met) On/Off Footwear (QC): 6 (not met) Toileting(FIM): 6 (not met) Toileting Hygiene (QC): 6 (not met) Transfers (B,C,W/C) (FIM): 6 (not met) Toilet/Commode Transfer(FIM): 6 (not met) Toilet/Commode Transfer (QC): 6 (not met) Shower Transfer(FIM): 5 (met) Comprehension(FIM): 6 Expression (FIM): 7 Social Interaction(FIM): 7 Problem Solving(FIM): 5 Memory(FIM): 5 Additional Goals: 1-Demonstrate ADL Tasks, 2-Verbalize Understanding, 3- ImproveStrength/Abdiel 1=Demonstrate adherence to instructed precautions during ADL tasks. 2=Patient will verbalize/demonstrate understanding of assistive devices/ modifications for ADL. 3=Patient will improve strength/tolerance for activity to enable patient to perform ADL's. OT Education/Plan Discharge Recommendations Plan/Recommendations: Continue POC Treatment Plan/Plan of Care Patient would benefit from OT for education, treatment and training to promote independence in ADL's, mobility, safety and/or upper extremity function for ADL' s. Plan of Care: ADL Retraining, Functional Mobility, Group Exercise/Act as Ind, UE Funct Exercise/Act Treatment Duration: Jul 07, 2018 Frequency: At least 5 of 7 days/Wk (IRF) Estimated Hrs Per Day: 1.5 hours per day Agreement: Yes Rehab Potential: Poor Time/GCodes Start Time: 06:50 Stop Time: 08:40 Total Time Billed (hr/min): 110 Billed Treatment Time 1 visit-ADL 7 (110 min) ALY KIM Jul 05, 2018 09:51
--- NOTE | 2018-07-05 11:48 | PM & R (SOAP) Progress Note ---
Subjective This was a face to face visit with the patient. Date Seen by Provider: Jul 05, 2018 Time Seen by Provider: 08:20 Subjective/Events-last exam Patient was seen in her room this AM Patient SBA for much of activities Discussed case with RN Patient states that she has a daughter and spouse who will assist her at home Patient may benefit from a decrease in Clonopin will leave to PCP to follow up as i believe that this has been a longstanding dose. Date Identified: Jul 05, 2018 Time Identified: 11:45 Medication Intervention: Discharge meds reviewed Objective Physician Exam Last Set of Vital Signs Vital Signs Date Time Temp Pulse Resp B/P (MAP) Pulse Ox O2 Delivery O2 Flow Rate FiO2 07/05/18 08:33 Room Air 07/05/18 05:12 97.2 89 20 130/82 (98) 100 Capillary Refill : Less Than 3 Seconds I&O Intake and Output 07/05/18 00:00 Intake Total 1770 ml Balance 1770 ml Intake Oral 1770 ml # Voids 6 # Bowel Movements 1 General: Alert, Oriented X3, Cooperative, No Acute Distress HEENT: Atraumatic, PERRLA, EOMI, Mucous Memb Moist/[place] Neck: Supple, No JVD Lungs: Clear to Auscultation Heart: Regular Rate Abdomen: Normal Bowel Sounds, Soft, No Tenderness Extremities: Other (trace edema rt ankle) Neuro: Other (Sensation intact to touch strength decreased BLES RT > left) Assessment/Plan Assessment and Plan Home today with family and HHC F/U with PCP and ortho see orders Consider tapering Pain med and Klonopin on an outpatient basis Co-Morbidities that are continuing to impact the rehab process: (include details ) WALT CHATTERJEE MD Jul 05, 2018 11:48
--- NOTE | 2018-07-05 12:12 | Physical Therapy Daily Note ---
PT Daily Note-Current Subjective Pt. slow and groggy as usual, hesitant to participate in therapy. Needs encouragement all the way. Emotional today stating she has had an argument with her on the phone this morning. Pain Numeric Pain Scale: 7 Location: Right Location Body Site: Hip Pain Description: Pressure Mental Status Patient Orientation: Person, Place Transfers Functional [place] Measure 0=Not Assessed/NA 4=Minimal Assistance 1=Total Assistance 5=Supervision or Setup 2=Maximal Assistance 6=Modified [place] 3=Moderate Assistance 7=Complete IndependenceIRFPAI Quality Coding Scale 6 Independent with activity with or without an assistive device 5 Patient requires set up or clean up by helper. Patient completes activity by themselves 4 Supervision or touching assist (CGA). [place] provide cues , steadying assist 3 The helper provides less than half the effort to complete the activity 2 The helper provides more than half the effort to complete the activity 1 Dependent. The helper does all the effort to complete an activity 7 Patient refused to complete or attempt activity 9 The patient did not perform the activity before the current illness or injury 88 Not attempted due to Medical conditions or safety concerns Transfers (B, C, W/C) (FIM): 6 Scootin Rollin Roll Left to Right (QC): 5 Supine to/from Sit: 6 Sit to/from Stand: 6 Sit to Lying (QC): 5 Sit to Stand (QC): 5 Chair/Nuj-im-Zpqeo Xfer(QC): 5 Bed to/from Chair: 6 Car Transfer (QC): 4 all TRFs very slow and needs instruction and guidance to complete, CGA in out car TRF Weight Bearing Right Lower Extremity: Right Weight Bearing/Tolerated Left Lower Extremity: Left Full Weight Bearing Gait Training Does the Patient Walk?: Yes Gait (FIM): 6 Distance (FIM): 3=150 ft (175,125) Walk 10 feet (QC): 5 Walk 50 ft with 2 Turns(QC): 5 Walk 150 ft (QC): 5 Walking 10ft/uneven surface-QC: 5 Gait Level of Assist: 6 Gait Persons Needed: 0 Gait Assistive Device: FWW pt. is very slow and very sidetracked and talks a lot and stops while talking. Needs instruction and coaxing for all Stair Training Stair Training: Handrails/: 2 handrails Stairs (FIM): 2 #of Steps: 4 1 Step (curb) (QC): 2 4 Steps (QC): 2 Stairs: Pattern: Step to Level of Assist: 4 needed CGA and instruction for sequence Exercises Supine Ex: Ankle pumps, Quad Set, Rolling, Glut sets, Heel Slides, Short Arc Quads, Scooting, Straight leg raise (assist), Hip abd/add (assist) Supine Reps: 12 Assessment Current Status: Good Progress very slow, self limiting behaviours, needs redirected , likely behaviours pt. has exhibited for quite some time PT Short Term Goals Short Term Goals Time Frame: Jun 30, 2018 Transfers (B,C,W/C) (FIM): 5 Gait (FIM): 5 Gait Distance Comment: 200' Gait Level of Assist: 5 Gait Assistive Device: FWW Wheelchair Distance: 150' PT Yoke Presser Goals Senior Living Goals PT Yoke Presser Goals Time Frame: Jul 14, 2018 Transfers (B,C,W/C) (FIM): 6 Sit to Lying (QC): 6 Lying-Sitting on Side/Bed(QC): 6 Sit to Stand (QC): 6 Rollin Roll Left to Right (QC): 6 Chair/Azm-zr-Ybtco Xfer(QC): 6 Car Transfer (QC): 6 Gait (FIM): 6 Distance: 250' Walk 10 feet (QC): 6 Walk 10ft-Uneven Surface(QC): 6 Walk 50ft with 2 Turns (QC): 6 Walk 150 ft (QC): 6 Gait Level of Assist: 6 Gait Assistive Device: FWW Stairs (FIM): 2 # of Steps: 8 1 Step (curb) (QC): 4 4 Steps (QC): 4 Stairs Level Of Assist: 5 PT Plan Treatment/Plan Treatment Plan: Continue Plan of Care Treatment Plan: Bed Mobility, Education, Functional Activity Abdiel, Functional Strength, Group Therapy, Gait, Safety, Therapeutic Exercise, Transfers Treatment Duration: Jul 14, 2018 Frequency: At least 5 of 7 days/Wk (IRF) Estimated Hrs Per Day: 1.5 hours per day Patient and/or Family Agrees t: Yes Safety Risks/Education Patient Education: Gait Training, Transfer Techniques, Steps, Correct Positioning, Disease Process, Safety Issues Teaching Recipient: Patient Teaching Methods: Demonstration, Discussion Response to Teaching: Verbalize Understanding, Return Demonstration, Reinforcement Needed Time/GCodes Time In: 1100 Time Out: 1210 Total Billed Treatment Time: 70 Total Billed Treatment 1,GT25m,FA25m,EX20m G Codes Necessary: JULIA Tee TIGHT BARREL INSPECTOR Jul 05, 2018 12:12
[2018-07-05 14:45] VITALS: BP 130/82
--- NOTE | 2018-07-05 14:49 | Therapy Team Discharge Summary ---
Therapy Discharge Summary Discharge Recommendations Date of Discharge Therapy D/C Recommendations: Home w/ Family Support, Occupational Therapy Home Care Occupational Therapy Decreased Safety Aware, Decreased UE Strength, Impaired I ADL's, Impaired Self- Care Skills Speech-Language Pathology Pt admitted to the ARU for right hip IM nailing Onset Date: Jun 21, 2018 Initial Speech/cognition eval revealed significant memory impairment along with higher level problem solving. Pt was instructed in various memory strategies and incorporating into her therapy activity. Pt would complete various auditory/ visual memory tasks with accuracies averaging around 75% and assist. For problem solving the pt completed various activities with around 75-80% accuracy. Pt was discharged today to the [facility] due to concerns about her mental status. Pt is dc'd from [facility]. PT Skating Rink Ice Maker Goals Skating Rink Ice Maker Goals PT Skating Rink Ice Maker Goals Time Frame: Jul 14, 2018 Transfers (B,C,W/C) (FIM): 6 Roll Left to Right (QC): 6 Sit to Lying (QC): 6 Lying-Sitting on Side/Bed(QC): 6 Sit to Stand (QC): 6 Chair/Zkq-eb-Salzr Xfer(QC): 6 Car Transfer (QC): 6 Gait (FIM): 6 Distance: 250' Walk 10 feet (QC): 6 Walk 10ft-Uneven Surface(QC): 6 Walk 50ft with 2 Turns (QC): 6 Walk 150 ft (QC): 6 Gait Level of Assist: 6 Gait Assistive Device: FWW Stairs (FIM): 2 # of Steps: 8 1 Step (curb) (QC): 4 4 Steps (QC): 4 Stairs Level Of Assist: 5 OT Retirement Goals Retirement Goals Time Frame: Jul 07, 2018 Eating (FIM): 6 (met) Eating (QC): 6 (me) Oral Hygiene (QC): 6 (not met) Grooming(FIM): 6 (not me) Bathing(FIM): 6 (not met) Shower/Bathe Self (QC): 6 (not met) Upper Body Dressing(FIM): 6 (not met) Upper Body Dressing (QC): 6 (not met) Lower Body Dressing(FIM): 6 (not met) Lower Body Dressing (QC): 6 (not met) On/Off Footwear (QC): 6 (not met) Toileting(FIM): 6 (not met) Toileting Hygiene (QC): 6 (not met) Transfers (B,C,W/C) (FIM): 6 (not met) Toilet/Commode Transfer(FIM): 6 (not met) Toilet/Commode Transfer (QC): 6 (not met) Shower Transfer(FIM): 5 (met) Comprehension(FIM): 6 Expression (FIM): 7 Social Interaction(FIM): 7 Problem Solving(FIM): 5 Memory(FIM): 5 Additional Goals: 1-Demonstrate ADL Tasks, 2-Verbalize Understanding, 3- ImproveStrength/Abdiel 1=Demonstrate adherence to instructed precautions during ADL tasks. 2=Patient will verbalize/demonstrate understanding of assistive devices/ modifications for ADL. 3=Patient will improve strength/tolerance for activity to enable patient to perform ADL's. Speech Retirement Goals Retirement Goals Pt will demonstrate functional cognitive-linguistic skills for safety and maximum independence for the home setting. GOALS PARTIALLY MET due to short ARU stay. Comprehension: 6 Expression: 7 Social Interaction: 7 Problem Solvin Memory: 5 TIA BOWMAN Jul 05, 2018 14:49
[2018-07-05] MEDS ORDERED: CLON1TAB13 PO (16:11)
--- NOTE | 2018-07-06 09:08 | Therapy Team Discharge Summary ---
Therapy Discharge Summary Discharge Recommendations Date of Discharge Jul 05, 2018 at 18:36 Therapy D/C Recommendations: 24 hr Supervision Occupational Therapy Pt. has been seen by occupational therapy to increase overall strength and independence in all areas. Pt. has made progress, but has not met all goals. Pt. does still require assistance for bathing, dressing, toileting. Pt. is discharging to [facility] for continued assistance to increase overall independence before discharge home. Pt. would benefit from continued skilled education for ADL safety. Decreased Safety Aware, Decreased UE Strength, Impaired Cognition, Impaired I ADL's, Impaired Self-Care Skills PT Fpc Goals Fpc Goals PT Garment Examiner Goals Time Frame: Jul 14, 2018 Transfers (B,C,W/C) (FIM): 6 Roll Left to Right (QC): 6 Sit to Lying (QC): 6 Lying-Sitting on Side/Bed(QC): 6 Sit to Stand (QC): 6 Chair/Vye-fy-Qcfdh Xfer(QC): 6 Car Transfer (QC): 6 Gait (FIM): 6 Distance: 250' Walk 10 feet (QC): 6 Walk 10ft-Uneven Surface(QC): 6 Walk 50ft with 2 Turns (QC): 6 Walk 150 ft (QC): 6 Gait Level of Assist: 6 Gait Assistive Device: FWW Stairs (FIM): 2 # of Steps: 8 1 Step (curb) (QC): 4 4 Steps (QC): 4 Stairs Level Of Assist: 5 OT Fpc Goals Garment Examiner Goals Time Frame: Jul 07, 2018 Eating (FIM): 6 (met) Eating (QC): 6 (me) Oral Hygiene (QC): 6 (not met) Grooming(FIM): 6 (not met) Bathing(FIM): 6 (not met) Shower/Bathe Self (QC): 6 (not met) Upper Body Dressing(FIM): 6 (not met) Upper Body Dressing (QC): 6 (not met) Lower Body Dressing(FIM): 6 (not met) Lower Body Dressing (QC): 6 (not met) On/Off Footwear (QC): 6 (not met) Toileting(FIM): 6 (not met) Toileting Hygiene (QC): 6 (not met) Transfers (B,C,W/C) (FIM): 6 (not met) Toilet/Commode Transfer(FIM): 6 (not met) Toilet/Commode Transfer (QC): 6 (not met) Shower Transfer(FIM): 5 (met) Comprehension(FIM): 6 Expression (FIM): 7 Social Interaction(FIM): 7 Problem Solving(FIM): 5 Memory(FIM): 5 Additional Goals: 1-Demonstrate ADL Tasks, 2-Verbalize Understanding, 3- ImproveStrength/Abdiel 1=Demonstrate adherence to instructed precautions during ADL tasks. 2=Patient will verbalize/demonstrate understanding of assistive devices/ modifications for ADL. 3=Patient will improve strength/tolerance for activity to enable patient to perform ADL's. Speech Fpc Goals Fpc Goals Pt will demonstrate functional cognitive-linguistic skills for safety and maximum independence for the home setting. GOALS PARTIALLY MET due to short ARU stay. Comprehension: 6 Expression: 7 Social Interaction: 7 Problem Solvin Memory: 5 ABEBA CORONADO OT Jul 06, 2018 09:08
== END 2018-07-05 18:36 | DRG 561 ==
PROVIDERS: ADMIT Physical Medicine & Rehabilitation; ATTEND Physical Medicine & Rehabilitation
DX: S72.144D Nondisplaced intertrochanteric fracture of right femur, subsequent encounter for closed fracture with routine healing (principal); F17.200 Nicotine dependence, unspecified, uncomplicated; K21.9 Gastro-esophageal reflux disease without esophagitis; M54.9 Dorsalgia, unspecified; G31.84 Mild cognitive impairment of uncertain or unknown etiology; Z79.01 Long term (current) use of anticoagulants; G47.00 Insomnia, unspecified

== ENCOUNTER 2018-10-21 04:18 | Inpatient (IN) | payer MEDICAID, MEDICARE ==
[~2018-10-21] VITALS: Ht 142.2 cm; Wt 57.4 kg
[~2018-10-21 04:18] MED LIST changes: -AMLO5TAB7 PO; +AMLO5TAB9 PO; +CLON1TAB13 PO
--- NOTE | 2018-10-21 04:20 | NUR ---
Blylucy Zamora [facility] arrived with EMS. pt signed release of information form for records to [facility].
--- OUTSIDE RECORDS SUMMARY | 2018-10-21 04:24 | XMS REPORT ---
Author Author ERENDIRA ZUNIGA Organization [facility] Address [address] [place] [address] Care Team Providers Care Decommissioning Well Site Manager Name Role Phone ERENDIRA ZUNIGA Unavailable PROBLEMS Type Condition ICD9-CM Code CRO42-YO Code Onset Dates Condition Status SNOMED Code Problem Other chronic pain G89.29 Active 23187031 Problem Anxiety F41.9 Active 80423235 Problem GERD with esophagitis K21.0 Active 640038996 Problem Neuropathy G62.9 Active 950151904 Problem Attention deficit hyperactivity disorder (ADHD), predominantly inattentive type F90.0 Active 57035517 Problem Closed fracture of multiple ribs of right side with routine healing, subsequent encounter S22.41XD Active 25285987 ALLERGIES No Information ENCOUNTERS Encounter Location Date Diagnosis [place] [id number] [place] [address] Jul, [place] [address] [address] Jul, [facility] [address] [place] [address] [place], [place] [id number] Jul, Closed fracture of right hip requiring operative repair with routine healing S72.001D ; Neuropathy G62.9 and GERD with esophagitis K21.0 [facility] [address] [place] [address] Jul, [place] [id number] [place] [address] Jul, Diarrhea R19.7 [facility] [id number] [place] [address] Jul, [place] [id number] [place] [address] Jul, Attention deficit hyperactivity disorder (ADHD), predominantly inattentive type F90.0 [facility] [address] [place], [place] [id number] Jul, Closed fracture of right hip requiring operative repair with routine healing S72.001D [facility] [address] [place] [address] Jul, Attention deficit hyperactivity disorder (ADHD), predominantly inattentive type F90.0 [facility] [id number] [place] [address] Jul, [facility] [id number] [place] [address] May, [facility] [id number] [place] [address] May, Attention deficit hyperactivity disorder (ADHD), predominantly inattentive type F90.0 ; Low back pain M54.5 ; Other chronic pain G89.29 and Anxiety F41.9 [facility] [address] [address] May, 2018 Fall in bathtub, subsequent encounter W18.2XXD [facility] [address] [place] [address] Mar, Fall in bathtub, subsequent encounter W18.2XXD [facility] [id number] [place] [address] Mar, [facility] [id number] [place] [address]- [address] Mar, [facility] [address] [place] [address]- [address] Feb, [facility] [id number] [place] [address]2268[address] Feb, Closed fracture of multiple ribs of right side with routine healing, subsequent encounter S22.41XD ; Fall in bathtub, subsequent encounter W18.2XXD and Attention deficit hyperactivity disorder (ADHD), predominantly inattentive type F90.0 [facility] [address] [facility] [id number] [place] [address] Feb, [facility] [address] [facility] [id number] [address] Feb, Fatigue R53.83 [facility] [address] [facility] [id number] [place] [address] Feb, GERD with esophagitis K21.0 ; Neuropathy G62.9 and Rash R21 IMMUNIZATIONS No Known Immunizations SOCIAL HISTORY Never Assessed REASON FOR VISIT long term f/u appt PLAN OF CARE VITAL SIGNS MEDICATIONS Unknown [...]
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
--- OUTSIDE RECORDS SUMMARY | 2018-10-21 04:25 | XMS REPORT ---
Author Author SOFÍA RUBIO Organization [facility] Address [address] [place] [address] Care Team Providers Care Pug Mill Operator Name Role Phone SOFÍA RUBIO Unavailable PROBLEMS Type Condition ICD9-CM Code OUM30-TX Code Onset Dates Condition Status SNOMED Code Problem Other chronic pain G89.29 Active 15426668 Problem Anxiety F41.9 Active 43735726 Problem GERD with esophagitis K21.0 Active 350693778 Problem Neuropathy G62.9 Active 914361139 Problem Attention deficit hyperactivity disorder (ADHD), predominantly inattentive type F90.0 Active 43801583 Problem Closed fracture of multiple ribs of right side with routine healing, subsequent encounter S22.41XD Active 77594918 ALLERGIES No Information ENCOUNTERS Encounter Location Date Diagnosis [place] [address] [place] [address] 35136- 4253 Jul, [facility] [address] [place] [id number] [place] [address] 02531- 9708 Jul, [facility] [address] [place] [address] 13855- 3044 Jul, Attention deficit hyperactivity disorder (ADHD), predominantly inattentive type F90.0 [facility] [address] [place] [id number] Jul, Closed fracture of right hip requiring operative repair with routine healing S72.001D [facility] [address] [place] [address] 79167- 8335 13 Jul, 2018 Attention deficit hyperactivity disorder (ADHD), predominantly inattentive type F90.0 [facility] [address] [place] [address] 99372- 4640 08 Jul, 2018 [facility] [address] [place] [id number] [place] [address] 95248- 0625 May, [facility] [address] [place] [id number] [place] [address] 22437- 1156 May, Attention deficit hyperactivity disorder (ADHD), predominantly inattentive type F90.0 ; Low back pain M54.5 ; Other chronic pain G89.29 and Anxiety F41.9 [place] [address] [place] [address] [place] [address] 72196- 6575 May, Fall in bathtub, subsequent encounter W18.2XXD [place] [address] [place] [address] [place] [address] 30320- 6297 Mar, Fall in bathtub, subsequent encounter W18.2XXD [place] [address] [place] [id number] [place] [address] 43151- 8801 Mar, [place] [address] [place] [id number] [place] [address] 81419- 8411 Mar, [place] [address] [place] [id number] [place] [address] 88409- 6024 Feb, [place] [address] [place] [id number] [place] [address] 92572- 0402 Feb, Closed fracture of multiple ribs of right side with routine healing, subsequent encounter S22.41XD ; Fall in bathtub, subsequent encounter W18.2XXD and Attention deficit hyperactivity disorder (ADHD), predominantly inattentive type F90.0 [place] [address] [place] [id number] [place] [address] 76919- 1448 Feb, [place] [address] [place] [id number] [place] [address] 50505- 2646 Feb, Fatigue R53.83 [place] [address] [place] [id number] [place] [address] 10844- 3209 Feb, GERD with esophagitis K21.0 ; Neuropathy G62.9 and Rash R21 IMMUNIZATIONS No Known Immunizations SOCIAL HISTORY Never Assessed REASON FOR VISIT Controlled Med Refill PLAN OF CARE VITAL SIGNS MEDICATIONS Unknown [...]
--- OUTSIDE RECORDS SUMMARY | 2018-10-21 04:25 | XMS REPORT ---
Author Author SOFÍA RUBIO Organization [facility] Address [address] [place] [address] Care Team Providers Care Bandoleer Straightener Stamper Name Role Phone SOFÍA RUBIO Unavailable PROBLEMS Type Condition ICD9-CM Code [id number] Code Onset Dates Condition Status SNOMED Code Problem Other chronic pain G89.29 Active 03766887 Problem Anxiety F41.9 Active 77219503 Problem GERD with esophagitis K21.0 Active 185434828 Problem Neuropathy G62.9 Active 493266430 Problem Attention deficit hyperactivity disorder (ADHD), predominantly inattentive type F90.0 Active 60725748 Problem Closed fracture of multiple ribs of right side with routine healing, subsequent encounter S22.41XD Active 81195413 ALLERGIES No Information ENCOUNTERS Encounter Location Date Diagnosis [facility] [address] [place] [address] [phone] Jul, [facility] [address] [place] [address] [phone]- [phone] Jul, Attention deficit hyperactivity disorder (ADHD), predominantly inattentive type F90.0 [facility] [address], [place] [id number] Jul, Closed fracture of right hip requiring operative repair with routine healing S72.001D [facility] [address] [place] [address] 84832- [phone] 13 Jul, 2018 Attention deficit hyperactivity disorder (ADHD), predominantly inattentive type F90.0 [facility] [address] [place] [address] [phone] 08 Jul, 2018 [facility] [address] [place] [address] [phone]- 0704 May, [facility] [id number] [place] [address] 26382- 5358 May, Attention deficit hyperactivity disorder (ADHD), predominantly inattentive type F90.0 ; Low back pain M54.5 ; Other chronic pain G89.29 and Anxiety F41.9 [place] [address] [place] [address] 06372- 9930 12 May, 2018 Fall in bathtub, subsequent encounter W18.2XXD [place] [id number] [place] [address] 89167- 1723 Mar, Fall in bathtub, subsequent encounter W18.2XXD [place] [id number] [place] [address] 04986- 3530 Mar, [place] [id number] [place] [address] 36591- 3751 Mar, [place] [id number] [place] [address] 38279- 1408 Feb, [place] [id number] [place] [address] 51238- 5121 Feb, Closed fracture of multiple ribs of right side with routine healing, subsequent encounter S22.41XD ; Fall in bathtub, subsequent encounter W18.2XXD and Attention deficit hyperactivity disorder (ADHD), predominantly inattentive type F90.0 [place] [address] [place] [address] 98766- 1395 Feb, [place] [id number] [place] [address] 81881- 4334 Feb, Fatigue R53.83 [place] [id number] [place] [address] [phone]- 0761 Feb, GERD with esophagitis K21.0 ; Neuropathy G62.9 and Rash R21 IMMUNIZATIONS No Known Immunizations SOCIAL HISTORY Never Assessed REASON FOR VISIT OR admission PLAN OF CARE VITAL SIGNS MEDICATIONS Unknown [...]
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
[2018-10-21 04:43] LABS: BASOPHILS # (AUTO) 0.1 10^3/uL (0.0-0.1); BASOPHILS % (AUTO) 1 % (0-10); EOSINOPHILS # (AUTO) 0.4 10^3/uL (0.0-0.3); EOSINOPHILS % (AUTO) 5 % (0-10); HEMATOCRIT 40 % (35-52); HEMOGLOBIN 13.2 G/DL (11.5-16.0); LYMPHOCYTES # (AUTO) 2.9 X 10^3 (1.0-4.0); LYMPHOCYTES % (AUTO) 37 % (12-44); MEAN CORPUSCULAR HEMOGLOBIN 29 PG (25-34); MEAN CORPUSCULAR HGB CONC 33 G/DL (32-36); MEAN CORPUSCULAR VOLUME 89 FL (80-99); MEAN PLATELET VOLUME 9.7 FL (7.4-10.4); MONOCYTES # (AUTO) 0.9 X 10^3 (0.0-1.0); MONOCYTES % (AUTO) 11 % (0-12); NEUTROPHILS # (AUTO) 3.7 X 10^3 (1.8-7.8); NEUTROPHILS % (AUTO) 47 % (42-75); PLATELET COUNT 320 10^3/uL (130-400); RED CELL DISTRIBUTION WIDTH 15.7 % (10.0-14.5); WHITE BLOOD COUNT 7.9 10^3/uL (4.3-11.0)
[2018-10-21 04:55] LABS: PROTHROMBIN TIME PATIENT 13.3 SEC (12.2-14.7)
[2018-10-21 05:04] LABS: ALANINE AMINOTRANSFERASE 12 U/L (0-55); ALKALINE PHOSPHATASE 107 U/L (40-136); AMYLASE 72 U/L (25-125); BILIRUBIN,TOTAL 0.4 MG/DL (0.1-1.0); BUN/CREATININE RATIO 23; CALCIUM 9.2 MG/DL (8.5-10.1); CARBON DIOXIDE 24 MMOL/L (21-32); CHLORIDE 104 MMOL/L (98-107); CREATININE SERUM 0.93 MG/DL (0.60-1.30); GFR ESTIMATED 60; GLUCOSE 111 MG/DL (70-105); LIPASE 19 U/L (8-78); MAGNESIUM 2.1 MG/DL (1.8-2.4); POTASSIUM 3.8 MMOL/L (3.6-5.0); SODIUM 139 MMOL/L (135-145); TOTAL PROTEIN 7.1 GM/DL (6.4-8.2)
[2018-10-21] MEDS ORDERED: fentaNYL INJECTION 100 MCG/2 ML AMP IVP STA (05:08)
[2018-10-21] MEDS ORDERED: LORazepam INJ 2 MG/ML (ATIVAN) VIAL IVP ONE (05:30)
[2018-10-21] MEDS ORDERED: morphine INJ 10 MG/ML 1ML (SYR OR VIAL) ONE (06:10)
[2018-10-21] MEDS ORDERED: morphine INJ 10 MG/ML 1ML (SYR OR VIAL) IVP STA ×2 (06:14→06:44)
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
[2018-10-21 06:23] LABS: AMPHETAMINE SCREEN, URINE NEGATIVE (NEGATIVE); BARBITURATE SCREEN URINE NEGATIVE (NEGATIVE); BENZODIAZEPINES SCREEN URINE NEGATIVE (NEGATIVE); CANNABINOID SCREEN, URINE NEGATIVE (NEGATIVE); COCAINE SCREEN URINE NEGATIVE (NEGATIVE); METHADONE STAT NEGATIVE (NEGATIVE); METHAMPHETAMINE SCREEN URINE S NEGATIVE (NEGATIVE); OPIATE SCREEN URINE NEGATIVE (NEGATIVE); OXYCODONE STAT NEGATIVE (NEGATIVE); PROPOXYPHENE STAT NEGATIVE (NEGATIVE); TRICYCLIC ANTIDEPRESSANTS SCRE NEGATIVE (NEGATIVE)
[2018-10-21 06:29] LABS: BILIRUBIN,URINE NEGATIVE (NEGATIVE); CLARITY,URINE CLEAR; COLOR,URINE YELLOW; GLUCOSE, URINE (UA) NEGATIVE (NEGATIVE); KETONES,URINE NEGATIVE (NEGATIVE); LEUKOCYTE ESTERASE ,URINE NEGATIVE (NEGATIVE); NITRITE,URINE NEGATIVE (NEGATIVE); PH,URINE 6 (5-9); PROTEIN,URINE NEGATIVE (NEGATIVE); UROBILINOGEN,URINE NORMAL (NORMAL)
[2018-10-21 06:30] LABS: BACTERIA,URINE TRACE /HPF; RBC,URINE 0-2 /HPF; SQUAMOUS EPITHELIAL CELL,UR RARE /HPF
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
[2018-10-21 07:50] VITALS: BP 135/99
--- NOTE | 2018-10-21 07:50 | NUR ---
LIZETTE FUNES admitted to room 415-1, with an admitting diagnosis of L HIP FX, on 10/21/18 from ER via [facility], accompanied by ER STAFF.LIZETTE FUNES introduced to surroundings, call light, bed controls, phone, TV, temperature control, lights, meal times, smoking policy, visitor policy, side rail policy, bathrooms and showers. Patient Rights given to patient in the handbook. LIZETTE FUNES verbalizes understanding that [facility] is not responsible for the loss or damage to any personal effects or valuables that are kept in the patients posession during their hospitalization. The following Patient Care Plans were discussed with the PT: Discharge Planning, PAIN, IMP MOBILITY, HIGH RISK INFECTION, AND HIGH RISK IMP SKIN INTERRETY. LIZETTE FUNES verbalizes understanding of Interdisciplinary Patient Education. Patient and/or family were informed about the Rapid Response Team and its purpose.
[2018-10-21] MEDS ORDERED: CATHETER FLUSH 10 ML SYR IV PRN (08:30)
[2018-10-21] MEDS ORDERED: OXYC-464 PO (08:36)
[2018-10-21] MEDS: D5 1/2 NS W/KCL 20 MEQ/L 1,000 ML IV SCH ×3 (08:44→21:43)
[2018-10-21] MEDS ORDERED: CLON1TAB13 PO (08:48)
--- NOTE | 2018-10-21 08:49 | NUR ---
SPOKE WITH THE PATIENT ABOUT HER MEDICATIONS. SHE LISTED WHAT SHE TAKES AND I COMPARED IT WITH THE EXT MED HX. SHE TAKES AN OTC ALLERGY PILL NEEDED AND EXCEDRIN NEEDED OTC.
[2018-10-21] MEDS ORDERED: FLU QUADRIvalent (5+ YOA) 2018-2019 (AFLURIA) 0.5 ML IM ONE ×2 (09:00→11:14)
[2018-10-21] MEDS: fentaNYL INJECTION 100 MCG/2 ML AMP IV PRN ×4 (11:00→22:02)
[2018-10-21 12:29] VITALS: BP 119/72
--- NOTE | 2018-10-21 13:03 | Diagnostic Imaging Report ---
EXAMINATION: Left hip at 09:33 a.m. INDICATION: Injury, hip pain. FINDINGS: A single cross-table lateral view of the hip was obtained. The pelvis exam performed earlier today at 04:50 a.m. noted a comminuted intertrochanteric fracture of the left femur. That injury is not well visualized on this study. I do believe that there is an intertrochanteric fracture of the left femur and that the fracture is only slightly displaced. If further imaging of the extent of the injury to the left femur is desired, then CT will be recommended. IMPRESSION: The intertrochanteric fracture of the left femur suggested on the pelvis exam performed earlier today is not well visualized on this study. Recommendations as above. Dictated by: Dictated on workstation # [id number]
--- NOTE | 2018-10-21 14:20 | NUR ---
Pastoral care visit, provided support and prayer.
[2018-10-21] MEDS: LORazepam INJ 2 MG/ML (ATIVAN) VIAL IV PRN ×2 (15:13→22:02)
[2018-10-21 15:36] VITALS: BP 145/72
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
[2018-10-21 20:00] VITALS: BP 185/96
[2018-10-22] MEDS: fentaNYL INJECTION 100 MCG/2 ML AMP IV PRN ×7 (00:31→14:48)
[2018-10-22 00:51] VITALS: BP 168/76
[2018-10-22] MEDS: LORazepam INJ 2 MG/ML (ATIVAN) VIAL IV PRN ×3 (02:50→09:54)
[2018-10-22 04:00] VITALS: BP 145/78
[2018-10-22] MEDS: D5 1/2 NS W/KCL 20 MEQ/L 1,000 ML IV SCH ×2 (04:56→12:58)
[2018-10-22 05:02] LABS: BASOPHILS % (AUTO) 0 % (0-10); EOSINOPHILS # (AUTO) 0.3 10^3/uL (0.0-0.3); EOSINOPHILS % (AUTO) 4 % (0-10); HEMATOCRIT 34 % (35-52); HEMOGLOBIN 11.3 G/DL (11.5-16.0); LYMPHOCYTES # (AUTO) 2.4 X 10^3 (1.0-4.0); LYMPHOCYTES % (AUTO) 33 % (12-44); MEAN CORPUSCULAR HEMOGLOBIN 30 PG (25-34); MEAN CORPUSCULAR HGB CONC 33 G/DL (32-36); MEAN CORPUSCULAR VOLUME 90 FL (80-99); MEAN PLATELET VOLUME 10.3 FL (7.4-10.4); MONOCYTES % (AUTO) 14 % (0-12); NEUTROPHILS # (AUTO) 3.6 X 10^3 (1.8-7.8); NEUTROPHILS % (AUTO) 49 % (42-75); PLATELET COUNT 214 10^3/uL (130-400); RED CELL DISTRIBUTION WIDTH 15.2 % (10.0-14.5); WHITE BLOOD COUNT 7.2 10^3/uL (4.3-11.0)
[2018-10-22 05:19] LABS: BUN/CREATININE RATIO 16; CALCIUM 8.5 MG/DL (8.5-10.1); CARBON DIOXIDE 22 MMOL/L (21-32); CHLORIDE 107 MMOL/L (98-107); CREATININE SERUM 0.63 MG/DL (0.60-1.30); GFR ESTIMATED > 60; GLUCOSE 117 MG/DL (70-105); SODIUM 136 MMOL/L (135-145)
[2018-10-22 08:00] VITALS: BP 136/78
--- NOTE | 2018-10-22 12:57 | Progress Note (SOAP) ---
Subjective Subjective/Events-last exam Patient frustrated because she is not sure when surgery has been schedule. Continues to be NPO. States that pain is well controlled. Review of Systems Date Seen by Provider: Oct 22, 2018 Time Seen by Provider: 11:45 Pulmonary: Cough Cardiovascular: No: Chest Pain, Palpitations Gastrointestinal: No: Nausea, Vomiting Musculoskeletal: leg pain Neurological: Weakness Objective Exam Last Set of Vital Signs Vital Signs Date Time Temp Pulse Resp B/P (MAP) Pulse Ox O2 Delivery O2 Flow Rate FiO2 10/22/18 08:00 97.5 85 18 136/78 (97) 92 Nasal Cannula 2.00 Capillary Refill : Less Than 3 Seconds I&O Intake and Output 10/22/18 00:00 Intake Total 2902 ml Output Total 1900 ml Balance 1002 ml Intake Oral 902 ml IV Total 2000 ml Output Urine Total 1900 ml Daily Weight Change No No General: Alert, Oriented X3, Cooperative, No Acute Distress Lungs: Other (crackles, normal work of breathing) Heart: Regular Rate, No Murmurs Abdomen: Normal Bowel Sounds, Soft, No Tenderness, No Masses Results/Procedures Lab Laboratory Tests 10/22/18 04:20: White Blood Count 7.2, Red Blood Count 3.83L, Hemoglobin 11.3L, Hematocrit 34L, Mean Corpuscular Volume 90, Mean Corpuscular Hemoglobin 30, Mean Corpuscular Hemoglobin Concent 33, Red Cell Distribution Width 15.2H, Platelet Count 214, Mean Platelet Volume 10.3, Neutrophils (%) (Auto) 49, Lymphocytes (%) (Auto) 33 , Monocytes (%) (Auto) 14H, Eosinophils (%) (Auto) 4, Basophils (%) (Auto) 0, Neutrophils # (Auto) 3.6, Lymphocytes # (Auto) 2.4, Monocytes # (Auto) 1.0, Eosinophils # (Auto) 0.3, Basophils # (Auto) 0.0, Sodium Level 136, Potassium Level 4.0, Chloride Level 107, Carbon Dioxide Level 22, Anion Gap 7, Blood Urea Nitrogen 10, Creatinine 0.63, Estimat Glomerular Filtration Rate > 60, BUN/ Creatinine Ratio 16, Glucose Level 117H, Calcium Level 8.5 Radiology of Exam: 10/21/18 CT CHEST/ABDOMEN/PELVIS WO PROCEDURE: CT chest, abdomen, and pelvis without contrast. TECHNIQUE: Multiple contiguous axial images were obtained through the chest, abdomen, and pelvis without the use of intravenous contrast. INDICATION: Trauma. COMPARISON: CT abdomen and pelvis without contrast 10/19/2017. CT chest with IV contrast 07/17/2016. FINDINGS: CHEST: Advanced centrilobular emphysematous changes in the lungs. Ill-defined groundglass opacities in the lateral left lower lobe. No dense consolidation. No pleural effusion or pneumothorax. No endobronchial lesions. Moderate atherosclerotic calcifications including coronary and aortic. Normal heart size. Pericardial effusion. No mediastinal, hilar or axillary lymphadenopathy. Subacute left anterior rib fractures. Chronic compression fractures of lower thoracic spine. No acute osseous findings. ABDOMEN AND PELVIS: The liver, gallbladder, pancreas, spleen, adrenals, and kidneys, collecting systems and bladder are negative on this noncontrast exam. Hysterectomy. No evidence of appendicitis. No free intraperitoneal air or fluid. No lymphadenopathy. No evidence of bowel obstruction. Comminuted left intertrochanteric hip fracture with mild varus angulation. Postoperative changes in the right hip. Chronic compression deformity of L1 on L2. IMPRESSION: 1. Comminuted left intertrochanteric hip fracture with mild varus angulation. No other acute fractures. 2. Subacute to chronic fractures involving the left ribs and thoracolumbar vertebral bodies. 3. Small nonspecific groundglass opacity in the left lower lobe laterally. Assessment/Plan Assessment/Plan (1) Closed left hip fracture Status: Acute Assessment & Plan: - Ortho Consulted and plan to take patient to surgery Qualifiers: Qualified Codes: S72.002A - Fracture of unspecified part of neck of left femur, initial encounter for closed fracture (2) Fall on same level from slipping, tripping or stumbling Status: Acute Qualifiers: Qualified Codes: W01.0XXA - Fall on same level from slipping, tripping and stumbling without subsequent striking against object, initial encounter (3) Osteoporosis Status: Chronic Assessment & Plan: - Will check Vit D level, Patient needs to be evaluated for treatment of osteoporosis Clinical Quality Measures DVT/VTE Risk/Contraindication: Risk Factor Score Per Nursin RFS Level Per Nursing on Admit: 4+=Very High JU PRASAD MD Oct 22, 2018 12:57
[2018-10-22] MEDS ORDERED: BUPIVACAINE 0.5% 30 ML (SENSORCAINE) VIAL ONE (13:34)
[2018-10-22] MEDS ORDERED: LIDOCAINE PF 2% 5 ML (XYLOCAINE) VIAL ONE (14:47)
[2018-10-22] MEDS ORDERED: fentaNYL INJECTION 100 MCG/2 ML AMP ONE (14:47)
[2018-10-22] MEDS ORDERED: ONDANSETRON 4 MG/2 ML (SDV) Z0FRAN ONE ×2 (14:47→15:38)
[2018-10-22] MEDS ORDERED: proPOfol 200 MG/20 ML (DIPRIVAN) VIAL IV ONE (14:47)
[2018-10-22] MEDS ORDERED: MIDAZOLAM 2 MG/2 ML (VERSED) VIAL ONE (14:48)
[2018-10-22] MEDS ORDERED: ceFAZolin INJECTION 1,000 MG ONE (15:06)
[2018-10-22] MEDS ORDERED: ROCURONIUM 10 MG/ML 5 ML SYRINGE IV ONE (15:23)
[2018-10-22] MEDS ORDERED: morphine INJ 10 MG/ML 1ML (SYR OR VIAL) ONE (15:38)
[2018-10-22] MEDS ORDERED: SEVOFLURANE (ULTANE) 15 ML INHAL SOLN ONE ×12 (15:38→17:10)
[2018-10-22] MEDS ORDERED: ceFAZolin INJECTION 1,000 MG VIAL IV ONE (16:30)
[2018-10-22] MEDS ORDERED: PHENYLEPHRINE 100 MCG/ML 10 ML (ANESTHESIA) SYR ONE (16:43)
[2018-10-22] MEDS ORDERED: NEOSTIGMINE 1 MG/ML 5 ML SYRINGE ONE (16:44)
[2018-10-22] MEDS ORDERED: GLYCOPYRROLATE 0.2 MG/ML (ROBINUL) 2 ML VIAL ONE (16:45)
[2018-10-22] MEDS ORDERED: BUPIVACAINE 0.25% 30 ML (SENSORCAINE) VIAL ONE (16:52)
[2018-10-22] MEDS ORDERED: BUPIVACAINE 0.5% 30 ML (SENSORCAINE) VIAL INJ ONE (17:00)
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
[2018-10-22] MEDS ORDERED: morphine INJ 4 MG/ML 1 ML (VIAL/SYRINGE) IV PRN (17:15)
[2018-10-22] MEDS ORDERED: morphine INJ 10 MG/ML 1ML (SYR OR VIAL) IVP ONE (17:30)
[2018-10-22] MEDS ORDERED: ONDANSETRON 4 MG/2 ML (SDV) Z0FRAN IVP PRN (17:30)
[2018-10-22] MEDS ORDERED: MEPERIDINE (DEMEROL) INJ 50 MG/ML IVP ONE (17:30)
--- NOTE | 2018-10-22 18:01 | Diagnostic Imaging Report ---
INDICATION: Left hip surgery. COMPARISON: 06/21/2018 FINDINGS: Two radiographic views of the left hip were obtained intraoperatively. Images provided show a short intramedullary sam within the proximal femoral shaft intersecting a screw which traverses the femoral head and neck. Please note, interpreting radiologist was not present during the procedure. Total fluoroscopy time is 70.2 seconds. IMPRESSION: 1. Fluoroscopic guidance provided during left hip surgery. Dictated by: Dictated on workstation # [id number]
[2018-10-22] MEDS: NS IV 1000 ML 1,000 ML IV SCH (18:57)
[2018-10-22 20:00] VITALS: BP 148/89
[2018-10-22] MEDS: ENOXAPARIN 30 MG/0.3 ML (LOVENOX) SYR SC SCH (21:14)
[2018-10-22] MEDS: CEFAZOLIN IV SCH (21:15)
[2018-10-22] MEDS: WATER IV SCH (21:15)
[2018-10-22] MEDS: HYDROcodone/APAP 5 MG/325 MG (LORTAB) TAB PO PRN (21:17)
[2018-10-22] MEDS ORDERED: ceFAZolin 2 GM IV Premixed 50 ML IV SCH (22:00)
[2018-10-23] VITALS: BP 152/75
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
[2018-10-23] MEDS: NS IV 1000 ML 1,000 ML IV SCH ×2 (03:09→08:34)
[2018-10-23] MEDS: HYDROcodone/APAP 5 MG/325 MG (LORTAB) TAB PO PRN ×5 (03:34→22:57)
[2018-10-23 04:00] VITALS: BP 156/80
[2018-10-23] MEDS: CEFAZOLIN IV SCH (04:34)
[2018-10-23] MEDS: WATER IV SCH (04:34)
[2018-10-23 05:50] LABS: BASOPHILS % (AUTO) 0 % (0-10); EOSINOPHILS # (AUTO) 0.3 10^3/uL (0.0-0.3); EOSINOPHILS % (AUTO) 4 % (0-10); HEMATOCRIT 31 % (35-52); HEMOGLOBIN 10.3 G/DL (11.5-16.0); LYMPHOCYTES # (AUTO) 1.5 X 10^3 (1.0-4.0); LYMPHOCYTES % (AUTO) 21 % (12-44); MEAN CORPUSCULAR HEMOGLOBIN 30 PG (25-34); MEAN CORPUSCULAR HGB CONC 33 G/DL (32-36); MEAN CORPUSCULAR VOLUME 90 FL (80-99); MEAN PLATELET VOLUME 9.8 FL (7.4-10.4); MONOCYTES # (AUTO) 0.8 X 10^3 (0.0-1.0); MONOCYTES % (AUTO) 12 % (0-12); NEUTROPHILS # (AUTO) 4.5 X 10^3 (1.8-7.8); NEUTROPHILS % (AUTO) 63 % (42-75); PLATELET COUNT 196 10^3/uL (130-400); RED CELL DISTRIBUTION WIDTH 15.1 % (10.0-14.5); WHITE BLOOD COUNT 7.1 10^3/uL (4.3-11.0)
[2018-10-23 06:07] LABS: ALANINE AMINOTRANSFERASE 9 U/L (0-55); ALKALINE PHOSPHATASE 68 U/L (40-136); BILIRUBIN,TOTAL 0.9 MG/DL (0.1-1.0); BUN/CREATININE RATIO 11; CALCIUM 8.2 MG/DL (8.5-10.1); CARBON DIOXIDE 23 MMOL/L (21-32); CHLORIDE 104 MMOL/L (98-107); CREATININE SERUM 0.65 MG/DL (0.60-1.30); GFR ESTIMATED > 60; GLUCOSE 101 MG/DL (70-105); POTASSIUM 4.1 MMOL/L (3.6-5.0); SODIUM 135 MMOL/L (135-145); TOTAL PROTEIN 5.5 GM/DL (6.4-8.2)
[2018-10-23 08:00] VITALS: BP 136/75
--- NOTE | 2018-10-23 08:23 | Progress Note (SOAP) ---
Subjective Subjective/Events-last exam Patient had left hip surgery yesterday. She does complain of some discomfort but she is receiving pain management. She denies any significant shortness of breath. Review of Systems Date Seen by Provider: Oct 23, 2018 Time Seen by Provider: 07:35 Objective Exam Last Set of Vital Signs Vital Signs Date Time Temp Pulse Resp B/P (MAP) Pulse Ox O2 Delivery O2 Flow Rate FiO2 10/23/18 04:00 100.3 98 18 156/80 (105) 94 Nasal Cannula 2.00 2.00 Capillary Refill : Less Than 3 Seconds I&O Intake and Output 10/23/18 00:00 Intake Total 1600 ml Output Total 2800 ml Balance -1200 ml Intake Oral 290 ml IV Total 1310 ml Output Urine Total 2800 ml # Voids 1 General: No Acute Distress Neck: Supple Lungs: Clear to Auscultation (Except she does have slight expiratory wheeze in the apical region) Abdomen: Normal Bowel Sounds Extremities: Other (Left hip dressing noted) Neuro: Normal Speech Psych/Mental Status: Mental Status NL, Mood NL Results/Procedures Lab Laboratory Tests 10/23/18 05:41: White Blood Count 7.1, Red Blood Count 3.45L, Hemoglobin 10.3L, Hematocrit 31L, Mean Corpuscular Volume 90, Mean Corpuscular Hemoglobin 30, Mean Corpuscular Hemoglobin Concent 33, Red Cell Distribution Width 15.1H, Platelet Count 196, Mean Platelet Volume 9.8, Neutrophils (%) (Auto) 63, Lymphocytes (%) (Auto) 21, Monocytes (%) (Auto) 12, Eosinophils (%) (Auto) 4, Basophils (%) (Auto) 0, Neutrophils # (Auto) 4.5, Lymphocytes # (Auto) 1.5, Monocytes # (Auto) 0.8, Eosinophils # (Auto) 0.3, Basophils # (Auto) 0.0, Sodium Level 135, Potassium Level 4.1, Chloride Level 104, Carbon Dioxide Level 23, Anion Gap 8, Blood Urea Nitrogen 7, Creatinine 0.65, Estimat Glomerular Filtration Rate > 60, BUN/ Creatinine Ratio 11, Glucose Level 101, Calcium Level 8.2L, Corrected Calcium 9.0, Total Bilirubin 0.9, Aspartate Amino Transf (AST/SGOT) 18, Alanine Aminotransferase (ALT/SGPT) 9, Alkaline Phosphatase 68, Total Protein 5.5L, Albumin 3.0L Radiology of Exam: 10/21/18 CT CHEST/ABDOMEN/PELVIS WO PROCEDURE: CT chest, abdomen, and pelvis without contrast. TECHNIQUE: Multiple contiguous axial images were obtained through the chest, abdomen, and pelvis without the use of intravenous contrast. INDICATION: Trauma. COMPARISON: CT abdomen and pelvis without contrast 10/19/2017. CT chest with IV contrast 07/17/2016. FINDINGS: CHEST: Advanced centrilobular emphysematous changes in the lungs. Ill-defined groundglass opacities in the lateral left lower lobe. No dense consolidation. No pleural effusion or pneumothorax. No endobronchial lesions. Moderate atherosclerotic calcifications including coronary and aortic. Normal heart size. Pericardial effusion. No mediastinal, hilar or axillary lymphadenopathy. Subacute left anterior rib fractures. Chronic compression fractures of lower thoracic spine. No acute osseous findings. ABDOMEN AND PELVIS: The liver, gallbladder, pancreas, spleen, adrenals, and kidneys, collecting systems and bladder are negative on this noncontrast exam. Hysterectomy. No evidence of appendicitis. No free intraperitoneal air or fluid. No lymphadenopathy. No evidence of bowel obstruction. Comminuted left intertrochanteric hip fracture with mild varus angulation. Postoperative changes in the right hip. Chronic compression deformity of L1 on L2. IMPRESSION: 1. Comminuted left intertrochanteric hip fracture with mild varus angulation. No other acute fractures. 2. Subacute to chronic fractures involving the left ribs and thoracolumbar vertebral bodies. 3. Small nonspecific groundglass opacity in the left lower lobe laterally. Assessment/Plan Assessment/Plan (1) Closed left hip fracture Status: Acute Assessment & Plan: - Ortho Consulted and plan to take patient to surgery 10/23: surgery completed yesterday febrile Qualifiers: Qualified Codes: S72.002A - Fracture of unspecified part of neck of left femur, initial encounter for closed fracture (2) Fall on same level from slipping, tripping or stumbling Status: Acute Qualifiers: Qualified Codes: W01.0XXA - Fall on same level from slipping, tripping and stumbling without subsequent striking against object, initial encounter (3) Osteoporosis Status: Chronic Assessment & Plan: - Will check Vit D level, Patient needs to be evaluated for treatment of osteoporosis Clinical Quality Measures DVT/VTE Risk/Contraindication: Risk Factor Score Per Nursin RFS Level Per Nursing on Admit: 4+=Very High JUSTIN ARAGON MD Oct 23, 2018 08:23
[2018-10-23] MEDS: ENOXAPARIN 30 MG/0.3 ML (LOVENOX) SYR SC SCH ×2 (08:25→21:13)
[2018-10-23] MEDS ORDERED: PANTOPRAZOLE 40 MG (PROTONIX) TAB PO ONE (08:45)
--- NOTE | 2018-10-23 10:33 | Physical Therapy Evaluation ---
PT Evaluation-General Medical Diagnosis Admission Date Oct 21, 2018 at 06:49 Medical Diagnosis: (L) hip fracture Onset Date: Oct 22, 2018 Therapy Diagnosis Therapy Diagnosis: (L) hip fracture Height/Weight Height (Feet): 4 Height (Inches): 8.00 Weight (Pounds): 126 Weight (Ounces): 9.0 Precautions Precautions/Isolations: Fall Prevention, Standard Precautions Weight Bear Status Right Lower Extremity: Right Full Weight Bearing Left Lower Extremity: Left Full Weight Bearing Referral Physician: Renaldo Reason for Referral: Evaluation/Treatment Medical History Pertinent Medical History: Alcoholism, COPD, GERD, HTN, Rheumatoid Arthritis Social History Home: Single Level Current Living Status: Significant Other Entry Into Home: Stairs With Railing PT Steps Into Home: 2 Prior/Core FIM Prior Level of Function Therapy Code Descriptions/Definitions Functional [place] Measure: 0=Not Assessed/NA 4=Minimal Assistance 1=Total Assistance 5=Supervision or Setup 2=Maximal Assistance 6=Modified [place] 3=Moderate Assistance 7=Complete [place] Therapy Quality Codes: 6 Independent with activity with or without an assistive device 5 Patient requires set up or clean up by helper. Patient completes activity by themselves 4 Supervision or touching assist (CGA). [place] provide cues , steadying assist 3 The helper provides less than half the effort to complete the activity 2 The helper provides more than half the effort to complete the activity 1 Dependent. The helper does all the effort to complete an activity 7 Patient refused to complete or attempt activity 9 The patient did not perform the activity before the current illness or injury 88 Not attempted due to Medical conditions or safety concerns Functional Abilities and Goals: Independent: Patient completed the activities by him/herself, with or without an assistive device, with no assistance from a helper. Needed Some Help: Patient needed partial assistance from another person to complete activities. Dependent: A helper completed the activities for the patient. Unknown: Not Applicable: Bed Mobility: 7 Transfers (B,C,W/C) (FIM): 7 Gait: 7 Stairs: 7 Stairs: Independent PT Evaluation-Current Subjective States that she is doing okay. Pain Numeric Pain Scale: 7 Location: Left Location Body Site: Hip Pain Description: Sharp Objective Patient Orientation: Person, Place, Time ROM/Strength ROM Lower Extremities 40 degrees hip flexion Transfers Therapy Code Descriptions/Definitions Functional [place] Measure: 0=Not Assessed/NA 4=Minimal Assistance 1=Total Assistance 5=Supervision or Setup 2=Maximal Assistance 6=Modified [place] 3=Moderate Assistance 7=Complete [place] Transfers (B, C, W/C) (FIM): 4 Scootin Rollin Supine to/from Sit: 4 Sit to/from Stand: 4 Gait Anticipated Mode of Locomotion: Walk Gait (FIM): 1 Distance (FIM): 1=up to 49 ft Distance: 10' Gait Level of Assist: 5 Gait Persons Needed: 1 Gait Assistive Device: FWW Balance Sitting Static: Good Sitting Dynamic: Fair Standing Static: Fair Standing Dynamic: Poor Assessment/Needs Patient s/p (L) hip fracture with repair. The patient has decreased ROM and strength as well as difficulty with transfers and gait. She should do well with skilled therapy. Rehab Potential: Good PT Short Term Goals Short Term Goals Time Frame: Oct 30, 2018 Transfers (B,C,W/C) (FIM): 5 Gait (FIM): 5 Distance (FIM): 3=150 ft Gait Distance Comment: 100' Gait Level of Assist: 5 Gait Assistive Device: FWW PT Photo Equipment Technician Goals Half-Way Goals PT Photo Equipment Technician Goals Time Frame: Nov 06, 2018 Transfers (B,C,W/C) (FIM): 7 Gait (FIM): 6 Gait distance (FIM): 3=150 ft Distance: 300' Gait Level of Assist: 6 Gait Assistive Device: FWW # of Steps: 2 Stairs Level Of Assist: 6 PT Plan Problem List Problem List: Activity Tolerance, Functional Strength, Safety, Balance, Gait, Transfer, Bed Mobility, ROM Treatment/Plan Treatment Plan: Continue Plan of Care Treatment Plan: Bed Mobility, Education, Functional Activity Abdiel, Functional Strength, Group Therapy, Gait, Safety, Therapeutic Exercise, Transfers Treatment Duration: Nov 06, 2018 Frequency: 7 times per week Estimated Hrs Per Day: 1 hour per day Patient and/or Family Agrees t: Yes Safety Risks/Education Patient Education: Gait Training, Transfer Techniques Time/GCodes Time In: 1005 Time Out: 1030 Total Billed Treatment Time: 25 Total Billed Treatment 1, LAUREL Linares Codes Necessary: ISAK Gautam PT Oct 23, 2018 10:33
[2018-10-23] MEDS: TRIAMCINOLONE 0.1% OINT (KENALOG) 15 GM TUBE TOP SCH ×2 (10:35→21:14)
--- NOTE | 2018-10-23 10:54 | Occupational Therapy Eval ---
OT Evaluation-General/PLF Medical Diagnosis Admission Date Oct 21, 2018 at 06:49 Medical Diagnosis: (L) hip fracture Onset Date: Oct 22, 2018 Therapy Diagnosis Therapy Diagnosis: decreased self care skills Height/Weight Height (Feet): 4 Height (Inches): 8.00 Weight (Pounds): 126 Weight (Ounces): 9.0 Precautions Precautions/Isolations: Fall Prevention, Standard Precautions Safety Interventions: None Referral Physician: Renaldo Medical History Pertinent Medical History: Alcoholism, COPD, GERD, HTN, Rheumatoid Arthritis Additional Medical History osteoporosis, right hip fracture, neuropathy, hiatal hernia, fibromyalgia, chronic back pain, polysubstance abuse, anxiety Current History pt admitted with left hip fracture now s/p repair. Social History Home: Single Level Current Living Status: Significant Other Entry Into Home: Stairs With Railing Steps Into Home: 2 ADL-Prior Level of Function Therapy Code Descriptions/Definitions Functional [place] Measure: 0=Not Assessed/NA 4=Minimal Assistance 1=Total Assistance 5=Supervision or Setup 2=Maximal Assistance 6=Modified [place] 3=Moderate Assistance 7=Complete [place] Therapy Quality Codes: 6 Independent with activity with or without an assistive device 5 Patient requires set up or clean up by helper. Patient completes activity by themselves 4 Supervision or touching assist (CGA). [place] provide cues , steadying assist 3 The helper provides less than half the effort to complete the activity 2 The helper provides more than half the effort to complete the activity 1 Dependent. The helper does all the effort to complete an activity 7 Patient refused to complete or attempt activity 9 The patient did not perform the activity before the current illness or injury 88 Not attempted due to Medical conditions or safety concerns Functional Abilities and Goals: Independent: Patient completed the activities by him/herself, with or without an assistive device, with no assistance from a helper. Needed Some Help: Patient needed partial assistance from another person to complete activities. Dependent: A helper completed the activities for the patient. Unknown: Not Applicable: ADL PLOF Comments Pt reports completing basic self care without assist. Has some help with wheelman. Uses cane for mobility Drive Self: Yes OT Current Status Subjective Pt sitting EOB after finishing with PT, agrees to therapy. Pt reports pain in left hip and back Mental Status/Objective Patient Orientation: Person, Place Current Glasses/Contacts: Yes (reading) Upper Extremity ROM mildly decreased shoulder ROM. remainder grossly WFL Upper Extremity Coordination intact ADL-Treatment ADL-Current Pt washed face with set up. Pt states she fed herself after set up this morning. Pt sit to stand with minimal assistance. Steps to HOB with min assist for safety. After going stand to sit, pt reports need to return to supine secondary to fatigue and pain. Sit to supine with assist for LE. Pt requires assist for repositioning in bed. Pt has decreased safety awareness and requires cues for safety during mobility. Education provided regarding role of therapy and plan of care. Pt states understanding and is in agreement with plan. Pt states she did not use adaptive equipment for LE dressing following her right hip repair. Will attempt to introduce in future sessions as needed. Pt resting in bed with needs met, talking on phone at end of session. Bed alarm set per RN request. Therapy Code Descriptions/Definitions Functional [place] Measure: 0=Not Assessed/NA 4=Minimal Assistance 1=Total Assistance 5=Supervision or Setup 2=Maximal Assistance 6=Modified [place] 3=Moderate Assistance 7=Complete [place] Therapy Quality Codes: 6 Independent with activity with or without an assistive device 5 Patient requires set up or clean up by helper. Patient completes activity by themselves 4 Supervision or touching assist (CGA). [place] provide cues , steadying assist 3 The helper provides less than half the effort to complete the activity 2 The helper provides more than half the effort to complete the activity 1 Dependent. The helper does all the effort to complete an activity 7 Patient refused to complete or attempt activity 9 The patient did not perform the activity before the current illness or injury 88 Not attempted due to Medical conditions or safety concerns Eating (FIM): 5 Grooming (FIM): 5 Education OT Patient Education: Rehab process Teaching Recipient: Patient Teaching Methods: Discussion Response to Teaching: Verbalize Understanding OT Short Term Goals Short Term Goals Transfers (B,C,W/C) (FIM): 5 1=Demonstrate adherence to instructed precautions during ADL tasks. 2=Patient will verbalize/demonstrate understanding of assistive devices/ modifications for ADL. 3=Patient will improve strength/tolerance for activity to enable patient to perform ADL's. OT Snf Goals Rig Hand Goals Time Frame: Nov 06, 2018 Eating (FIM): 6 Grooming(FIM): 6 Bathing(FIM): 5 Upper Body Dressing(FIM): 6 Lower Body Dressing(FIM): 5 Toileting(FIM): 5 Toilet/Commode Transfer(FIM): 5 Additional Goals: 1-Demonstrate ADL Tasks, 2-Verbalize Understanding, 3- ImproveStrength/Abdiel 1=Demonstrate adherence to instructed precautions during ADL tasks. 2=Patient will verbalize/demonstrate understanding of assistive devices/ modifications for ADL. 3=Patient will improve strength/tolerance for activity to enable patient to perform ADL's. OT Education/Plan Problem List/Assessment Assessment: Decreased Activ Tolerance, Decreased UE Strength, Dependent Transfers, Impaired Self-Care Skills Pt to benefit from skilled OT intervention for ADL training, transfers, strengthening, and safety education to increase level of independence and allow safe discharge plan. Discharge Recommendations Plan/Recommendations: Continue POC Treatment Plan/Plan of Care Treatment,Training & Education: Yes Patient would benefit from OT for education, treatment and training to promote independence in ADL's, mobility, safety and/or upper extremity function for ADL' s. Plan of Care: ADL Retraining, Functional Mobility, UE Funct Exercise/Act Treatment Duration: Nov 06, 2018 Frequency: 5 times per week Estimated Hrs Per Day: .25 hour per day Rehab Potential: Good Time/GCodes Start Time: 10:30 Stop Time: 10:50 Total Time Billed (hr/min): 20 Billed Treatment Time 1 visit, EVL(20minutes) EMERSON GARZON OT Oct 23, 2018 10:54
--- NOTE | 2018-10-23 15:21 | Anesthesia-General Post-Op ---
General Patient Condition Mental Status/LOC: Same as Preop Cardiovascular: Satisfactory Nausea/Vomiting: Absent Respiratory: Satisfactory Pain: Controlled Complications: Absent Post Op Complications Complications None Follow Up Care/Instructions Patient Instructions None needed. Anesthesia/Patient Condition Patient Condition Post operatively in the OR patient had a Fascia Iliaca Block place for post operative pain control at surgeons request. No post op complications from this procedure. Patient is doing well, no complaints, stable vital signs, no apparent adverse anesthesia problems. No complications reported per nursing. OCTAVIO BREWER CRNA Oct 23, 2018 15:21
[2018-10-23 16:04] VITALS: BP 122/67
[2018-10-24] VITALS: BP 130/72
[2018-10-24] MEDS: HYDROcodone/APAP 5 MG/325 MG (LORTAB) TAB PO PRN ×4 (03:00→17:55)
[2018-10-24 05:47] LABS: MEAN PLATELET VOLUME 10.3 FL (7.4-10.4); RED CELL DISTRIBUTION WIDTH 14.6 % (10.0-14.5); WHITE BLOOD COUNT 7.7 10^3/uL (4.3-11.0)
[2018-10-24 06:11] LABS: ALANINE AMINOTRANSFERASE 9 U/L (0-55); ALBUMIN 3.1 GM/DL (3.2-4.5); ALKALINE PHOSPHATASE 73 U/L (40-136); BILIRUBIN,TOTAL 0.7 MG/DL (0.1-1.0); BUN/CREATININE RATIO 10; CALCIUM 8.7 MG/DL (8.5-10.1); CARBON DIOXIDE 25 MMOL/L (21-32); CHLORIDE 102 MMOL/L (98-107); CREATININE SERUM 0.61 MG/DL (0.60-1.30); GFR ESTIMATED > 60; GLUCOSE 101 MG/DL (70-105); POTASSIUM 3.9 MMOL/L (3.6-5.0); SODIUM 135 MMOL/L (135-145); TOTAL PROTEIN 5.9 GM/DL (6.4-8.2)
[2018-10-24 08:00] VITALS: BP 135/74
--- NOTE | 2018-10-24 08:31 | Physical Therapy Daily Note ---
PT Daily Note-Current Subjective States that she has been up all day and doesn't want to do anything. Patient finally agrees to bed exercises. Transfers Therapy Code Descriptions/Definitions Functional [place] Measure: 0=Not Assessed/NA 4=Minimal Assistance 1=Total Assistance 5=Supervision or Setup 2=Maximal Assistance 6=Modified [place] 3=Moderate Assistance 7=Complete [place] Therapy Quality Codes: 6 Independent with activity with or without an assistive device 5 Patient requires set up or clean up by helper. Patient completes activity by themselves 4 Supervision or touching assist (CGA). [place] provide cues , steadying assist 3 The helper provides less than half the effort to complete the activity 2 The helper provides more than half the effort to complete the activity 1 Dependent. The helper does all the effort to complete an activity 7 Patient refused to complete or attempt activity 9 The patient did not perform the activity before the current illness or injury 88 Not attempted due to Medical conditions or safety concerns Weight Bearing Right Lower Extremity: Right Full Weight Bearing Left Lower Extremity: Left Full Weight Bearing Exercises Supine Ex: LE Protocol Supine Reps: 15 Assessment Current Status: Fair Progress Patient had considerable guarding with hip abduction and flexion AAROM. PT Short Term Goals Short Term Goals Time Frame: Oct 30, 2018 Transfers (B,C,W/C) (FIM): 5 Gait (FIM): 5 Distance (FIM): 3=150 ft Gait Distance Comment: 100' Gait Level of Assist: 5 Gait Assistive Device: FWW PT Pig Machine Operator Helper Goals [facility] Goals PT [facility] Goals Time Frame: Nov 06, 2018 Transfers (B,C,W/C) (FIM): 7 Gait (FIM): 6 Gait distance (FIM): 3=150 ft Distance: 300' Gait Level of Assist: 6 Gait Assistive Device: FWW # of Steps: 2 Stairs Level Of Assist: 6 PT Plan Treatment/Plan Treatment Plan: Continue Plan of Care Treatment Plan: Bed Mobility, Education, Functional Activity Abdiel, Functional Strength, Group Therapy, Gait, Safety, Therapeutic Exercise, Transfers Treatment Duration: Nov 06, 2018 Frequency: 7 times per week Estimated Hrs Per Day: 1 hour per day Patient and/or Family Agrees t: Yes Time/GCodes Time In: 0810 Time Out: 0830 Total Billed Treatment Time: 20 Total Billed Treatment 1, EX x 20' ISAK AVALOS PT Oct 24, 2018 08:31
[2018-10-24] MEDS: PANTOPRAZOLE 40 MG (PROTONIX) TAB PO SCH (08:41)
[2018-10-24] MEDS: ENOXAPARIN 30 MG/0.3 ML (LOVENOX) SYR SC SCH ×2 (08:42→20:38)
[2018-10-24] MEDS: TRIAMCINOLONE 0.1% OINT (KENALOG) 15 GM TUBE TOP SCH ×2 (08:45→20:38)
--- NOTE | 2018-10-24 08:50 | Progress Note (SOAP) ---
Subjective Subjective/Events-last exam Patient talkative this morning. She does report her left hip is still sore. She states she hasn't been taking her Carafate or Neurontin. Review of Systems Date Seen by Provider: Oct 24, 2018 Time Seen by Provider: 07:05 Objective Exam Last Set of Vital Signs Vital Signs Date Time Temp Pulse Resp B/P (MAP) Pulse Ox O2 Delivery O2 Flow Rate FiO2 10/24/18 00:00 98.1 101 18 130/72 (91) 92 Room Air 10/23/18 20:00 2.00 Capillary Refill : Less Than 3 Seconds I&O Intake and Output 10/24/18 00:00 Intake Total 2580 ml Output Total 1150 ml Balance 1430 ml Intake Oral 1570 ml IV Total 1010 ml Output Urine Total 1150 ml # Voids 3 General: Alert, Oriented X3, No Acute Distress Lungs: Clear to Auscultation Heart: Regular Rate Skin: No Rashes Neuro: Normal Speech Results/Procedures Lab Laboratory Tests 10/24/18 05:25: White Blood Count 7.7, Red Blood Count 3.42L, Hemoglobin 10.0L, Hematocrit 31L, Mean Corpuscular Volume 89, Mean Corpuscular Hemoglobin 29, Mean Corpuscular Hemoglobin Concent 33, Red Cell Distribution Width 14.6H, Platelet Count 204, Mean Platelet Volume 10.3 10/24/18 05:26: Sodium Level 135, Potassium Level 3.9, Chloride Level 102, Carbon Dioxide Level 25, Anion Gap 8, Blood Urea Nitrogen 6L, Creatinine 0.61, Estimat Glomerular Filtration Rate > 60, BUN/Creatinine Ratio 10, Glucose Level 101, Calcium Level 8.7, Corrected Calcium 9.4, Total Bilirubin 0.7, Aspartate Amino Transf (AST/ SGOT) 19, Alanine Aminotransferase (ALT/SGPT) 9, Alkaline Phosphatase 73, Total Protein 5.9L, Albumin 3.1L Radiology of Exam: 10/21/18 CT CHEST/ABDOMEN/PELVIS WO PROCEDURE: CT chest, abdomen, and pelvis without contrast. TECHNIQUE: Multiple contiguous axial images were obtained through the chest, abdomen, and pelvis without the use of intravenous contrast. INDICATION: Trauma. COMPARISON: CT abdomen and pelvis without contrast 10/19/2017. CT chest with IV contrast 07/17/2016. FINDINGS: CHEST: Advanced centrilobular emphysematous changes in the lungs. Ill-defined groundglass opacities in the lateral left lower lobe. No dense consolidation. No pleural effusion or pneumothorax. No endobronchial lesions. Moderate atherosclerotic calcifications including coronary and aortic. Normal heart size. Pericardial effusion. No mediastinal, hilar or axillary lymphadenopathy. Subacute left anterior rib fractures. Chronic compression fractures of lower thoracic spine. No acute osseous findings. ABDOMEN AND PELVIS: The liver, gallbladder, pancreas, spleen, adrenals, and kidneys, collecting systems and bladder are negative on this noncontrast exam. Hysterectomy. No evidence of appendicitis. No free intraperitoneal air or fluid. No lymphadenopathy. No evidence of bowel obstruction. Comminuted left intertrochanteric hip fracture with mild varus angulation. Postoperative changes in the right hip. Chronic compression deformity of L1 on L2. IMPRESSION: 1. Comminuted left intertrochanteric hip fracture with mild varus angulation. No other acute fractures. 2. Subacute to chronic fractures involving the left ribs and thoracolumbar vertebral bodies. 3. Small nonspecific groundglass opacity in the left lower lobe laterally. Assessment/Plan Assessment/Plan Assessment & Plan -. Her home medication Carafate and Neurontin was restarted. (1) Closed left hip fracture Status: Acute Assessment & Plan: - Ortho Consulted and plan to take patient to surgery 10/23: surgery completed yesterday Qualifiers: Qualified Codes: S72.002A - Fracture of unspecified part of neck of left femur, initial encounter for closed fracture (2) Fall on same level from slipping, tripping or stumbling Status: Acute Qualifiers: Qualified Codes: W01.0XXA - Fall on same level from slipping, tripping and stumbling without subsequent striking against object, initial encounter (3) Osteoporosis Status: Chronic Assessment & Plan: - Will check Vit D level, Patient needs to be evaluated for treatment of osteoporosis 10/24: Patient was made aware of her vitamin D level which was 7.7. She will be placed on vitamin D outpatient. Clinical Quality Measures DVT/VTE Risk/Contraindication: Risk Factor Score Per Nursin RFS Level Per Nursing on Admit: 4+=Very High JUSTIN ARAGON MD Oct 24, 2018 08:50
[2018-10-24] MEDS: GABAPENTIN 300 MG (NEURONTIN) CAP PO SCH ×3 (10:10→20:38)
[2018-10-24] MEDS: SUCRALFATE 1 GM (CARAFATE) TAB PO SCH ×3 (12:24→20:38)
[2018-10-24 15:46] VITALS: BP 113/62
[2018-10-24 23:20] VITALS: BP 129/68
[2018-10-25] MEDS: HYDROcodone/APAP 5 MG/325 MG (LORTAB) TAB PO PRN ×2 (02:39→07:28)
[2018-10-25] MEDS: SUCRALFATE 1 GM (CARAFATE) TAB PO SCH (05:48)
[2018-10-25 06:06] LABS: HEMOGLOBIN 9.3 G/DL (11.5-16.0); MEAN PLATELET VOLUME 10.4 FL (7.4-10.4)
[2018-10-25 06:33] LABS: ALANINE AMINOTRANSFERASE 9 U/L (0-55); ALBUMIN 3.1 GM/DL (3.2-4.5); ALKALINE PHOSPHATASE 89 U/L (40-136); BILIRUBIN,TOTAL 0.5 MG/DL (0.1-1.0); BUN/CREATININE RATIO 11; CALCIUM 8.7 MG/DL (8.5-10.1); CARBON DIOXIDE 25 MMOL/L (21-32); CHLORIDE 102 MMOL/L (98-107); CREATININE SERUM 0.71 MG/DL (0.60-1.30); GFR ESTIMATED > 60; GLUCOSE 121 MG/DL (70-105); POTASSIUM 3.6 MMOL/L (3.6-5.0); SODIUM 137 MMOL/L (135-145); TOTAL PROTEIN 6.2 GM/DL (6.4-8.2)
[2018-10-25] MEDS: PANTOPRAZOLE 40 MG (PROTONIX) TAB PO SCH (07:28)
[2018-10-25] MEDS: GABAPENTIN 300 MG (NEURONTIN) CAP PO SCH (07:28)
[2018-10-25] MEDS: ENOXAPARIN 30 MG/0.3 ML (LOVENOX) SYR SC SCH (07:28)
--- NOTE | 2018-10-25 07:28 | NUR ---
Pt request AM meds at this time with her pain meds.
[2018-10-25] MEDS: TRIAMCINOLONE 0.1% OINT (KENALOG) 15 GM TUBE TOP SCH (07:29)
[2018-10-25 08:00] VITALS: BP 126/69
[2018-10-25] MEDS ORDERED: VITAMIN D2 50,000 UNITS (1.25 MG) CAP PO SCH (09:00)
--- NOTE | 2018-10-25 09:30 | Physical Therapy Daily Note ---
PT Daily Note-Current Subjective Agrees to get up out of bed. Needs to toilet. Mental Status Patient Orientation: Person, Place, Time, Situation Transfers Therapy Code Descriptions/Definitions Functional [place] Measure: 0=Not Assessed/NA 4=Minimal Assistance 1=Total Assistance 5=Supervision or Setup 2=Maximal Assistance 6=Modified [place] 3=Moderate Assistance 7=Complete [place] Therapy Quality Codes: 6 Independent with activity with or without an assistive device 5 Patient requires set up or clean up by helper. Patient completes activity by themselves 4 Supervision or touching assist (CGA). Norris provide cues , steadying assist 3 The helper provides less than half the effort to complete the activity 2 The helper provides more than half the effort to complete the activity 1 Dependent. The helper does all the effort to complete an activity 7 Patient refused to complete or attempt activity 9 The patient did not perform the activity before the current illness or injury 88 Not attempted due to Medical conditions or safety concerns Transfers (B, C, W/C) (FIM): 4 (skilled verbal and tactile cues to move left LE and to get out of bed. ) Supine to/from Sit: 4 Sit to/from Stand: 4 Weight Bearing Right Lower Extremity: Right Full Weight Bearing Left Lower Extremity: Left Full Weight Bearing Gait Training Gait (FIM): 2 Distance (FIM): 1=up to 49 ft Distance: 12 ft Gait Level of Assist: 4 (min assist with skilled cues for posture and safety) Gait Assistive Device: FWW slow gait with forward flexion at hips; decreased step length and decreased foot clearanc.e Assessment Pt able to walk to the bathroom with assist; slow with mobiltiy and requires skilled cues to stay on task and for task completion PT Short Term Goals Short Term Goals Time Frame: Oct 30, 2018 Transfers (B,C,W/C) (FIM): 5 Gait (FIM): 5 Distance (FIM): 3=150 ft Gait Distance Comment: 100' Gait Level of Assist: 5 Gait Assistive Device: FWW PT Food Scientist Goals [facility] Goals PT Food Scientist Goals Time Frame: Nov 06, 2018 Transfers (B,C,W/C) (FIM): 7 Gait (FIM): 6 Gait distance (FIM): 3=150 ft Distance: 300' Gait Level of Assist: 6 Gait Assistive Device: FWW # of Steps: 2 Stairs Level Of Assist: 6 PT Plan Problem List Problem List: Activity Tolerance, Functional Strength, Safety Treatment/Plan Treatment Plan: Continue Plan of Care (vs dc to ARU) Treatment Plan: Bed Mobility, Education, Functional Activity Abdiel, Functional Strength, Group Therapy, Gait, Safety, Therapeutic Exercise, Transfers Treatment Duration: Nov 06, 2018 Frequency: 7 times per week Estimated Hrs Per Day: 1 hour per day Patient and/or Family Agrees t: Yes Safety Risks/Education Patient Education: Safety Issues Teaching Recipient: Patient Teaching Methods: Discussion Response to Teaching: Reinforcement Needed Time/GCodes Time In: 900 Time Out: 920 Total Billed Treatment Time: 20 Total Billed Treatment visit GT 20 ALY TAN PT Oct 25, 2018 09:30
--- NOTE | 2018-10-25 10:02 | Discharge Summary-Hospitalist ---
Diagnosis/Chief Complaint Date of Admission Oct 21, 2018 at 06:49 Date of Discharge Discharge Diagnosis (1) Fall on same level from slipping, tripping or stumbling Status: Acute (2) Hip fracture, left Status: Acute (3) Osteoporosis Status: Chronic (4) Anxiety Status: Acute Discharge Summary Discharge Physical Exam Allergies: Coded Allergies: No Known Drug Allergies (Unverified , 05/15/09) Vitals & I&Os Vital Signs Date Time Temp Pulse Resp B/P (MAP) Pulse Ox O2 Delivery O2 Flow Rate FiO2 10/25/18 08:00 98.8 86 20 126/69 (88) 97 Room Air 10/23/18 20:00 2.00 General Appearance: No Apparent Distress, WD/WN, Chronically ill, Other (PT CURSING, BELLIGERENT, YELLING, SCREAMING, MOANING LOUDLY. TALKS NON-STOP, VERY DIFFICULT TO KEEP ON SUBJECT--EASILY DISTRACTED AND MOANING/YELLING/SCREAMING STOPS WHILE SHE IS DISTRACTED. ) HEENT: PERRL/EOMI, Normal ENT Inspection, Other (EDENTULOUS) Respiratory: Chest Non Tender, Normal Breath Sounds, No Accessory Muscle Use, No Respiratory Distress Cardiovascular: Regular Rate, Rhythm, No Edema, No JVD, No Murmur, Normal Peripheral Pulses Gastrointestinal: Normal Bowel Sounds, No Organomegaly, No Pulsatile Mass, Non Tender, Soft Extremity: Normal Capillary Refill, Normal Inspection, Normal Range of Motion, Non Tender, No Calf Tenderness Skin: Normal Color, Warm/Dry Neurologic/Psychiatric: Alert, Oriented x3, No Motor/Sensory Deficits, technology administrator II- XII Norm as Tested Hospital Course Was the Problem List Reviewed?: Yes Hospital course: Pt had an uneventful hospital course, she was admitted with a left hip fracture, had an uncomplicated repair. Pt was maintained on supportive care, and pain was controlled. Bowels moved the day before she was discharged to inpatient rehab and considering her frail status and osteoporosis she will resume recovery at inpatient rehab today. Labs (last 24 hrs) Laboratory Tests 10/25/18 05:18: White Blood Count 6.0, Red Blood Count 3.20L, Hemoglobin 9.3L, Hematocrit 29L, Mean Corpuscular Volume 90, Mean Corpuscular Hemoglobin 29, Mean Corpuscular Hemoglobin Concent 32, Red Cell Distribution Width 15.0H, Platelet Count 238, Mean Platelet Volume 10.4, Sodium Level 137, Potassium Level 3.6, Chloride Level 102, Carbon Dioxide Level 25, Anion Gap 10, Blood Urea Nitrogen 8, Creatinine 0.71, Estimat Glomerular Filtration Rate > 60, BUN/Creatinine Ratio 11, Glucose Level 121H, Calcium Level 8.7, Corrected Calcium 9.4, Total Bilirubin 0.5, Aspartate Amino Transf (AST/SGOT) 18, Alanine Aminotransferase ( ALT/SGPT) 9, Alkaline Phosphatase 89, Total Protein 6.2L, Albumin 3.1L Patient resulted labs reviewed. Pending Labs Discussion & Recommendations Discharge Planning: <30 minutes discharge planning Discharge Home Medications: Active Scripts Active Reported Clonazepam 1 Mg Tablet 1 Mg PO DAILY Oxycodon-Acetaminophen 7.5-325 (Oxycodone HCl/Acetaminophen) 1 Each Tablet 1 Tab PO TID PRN Sinus & Allergy PE Tablet (Phenylephrine/Chlorpheniramine) 1 Each Tablet 2 Tab PO DAILY PRN Excedrin Migraine Caplet (Aspirin/Acetaminophen/Caffeine) 1 Each Tablet 1 Tab PO BID PRN Gabapentin 300 Mg Capsule 300 Mg PO TID Sucralfate 1 Gm Tablet 1 Gm PO ACHS Amphetamine Salts 15 mg Tablet (Dextroamphetamine/Amphetamine) 15 Mg Tablet 15 Mg PO DAILY Instructions to patient/family Please see electronic discharge instructions given to patient. Clinical Quality Measures DVT/VTE Risk/Contraindication: Risk Factor Score Per Nursin RFS Level Per Nursing on Admit: 4+=Very High Problem Qualifiers (1) Fall on same level from slipping, tripping or stumbling: Encounter type: initial encounter Qualified Codes: W01.0XXA - Fall on same level from slipping, tripping and stumbling without subsequent striking against object, initial encounter (2) Hip fracture, left: Encounter type: subsequent encounter Fracture type: closed Fracture healing : with routine healing Qualified Codes: S72.002D - Fracture of unspecified part of neck of left femur, subsequent encounter for closed fracture with routine healing (3) Osteoporosis: Osteoporosis type: unspecified Presence of current pathological fracture: unspecified Qualified Codes: M81.0 - Age-related osteoporosis without current pathological fracture MARSHA COSME DO Oct 25, 2018 10:02
--- NOTE | 2018-10-25 11:00 | NUR ---
Pt discharged to IRF at this time, report given to DIANE Mclain on ARU to assume care of pt at this time. Pt transferred to ARU via wheelchair with personal belongings by Physical Therapy Staff Risa. No s/s of distress noted upon leaving floor.
== END 2018-10-25 11:02 | DRG 482 ==
LOC: EDUNIT# 04:18 → ER 04:20 → 4TH 06:49
PROVIDERS: ADMIT Orthopaedic Surgery; ATTEND Orthopaedic Surgery
PROC: 0QH736Z Insertion of Intramedullary Internal Fixation Device into Left Upper Femur, Percutaneous Approach (ICD-10-PCS; principal; 2018-10-22 15:26)
DX: S72.142A Displaced intertrochanteric fracture of left femur, initial encounter for closed fracture (principal); S30.1XXA Contusion of abdominal wall, initial encounter; I10 Essential (primary) hypertension; M81.0 Age-related osteoporosis without current pathological fracture; M79.7 Fibromyalgia; M06.9 Rheumatoid arthritis, unspecified; F90.9 Attention-deficit hyperactivity disorder, unspecified type; F41.9 Anxiety disorder, unspecified; F17.210 Nicotine dependence, cigarettes, uncomplicated; Y04.0XXA Assault by unarmed brawl or fight, initial encounter; W01.0XXA Fall on same level from slipping, tripping and stumbling without subsequent striking against object, initial encounter
CPT/HCPCS: 36415; 51702; 71045; 71250; 73501; 74176; 80048; 80053; 80306; 80320; 81000; 82150; 82306; 83690; 83735; 85025; 85027; 85610; 85730; 90686; 93041; 94664; 96374; 96375

== ENCOUNTER 2018-10-25 10:02 | Inpatient (IN) | payer MEDICARE ==
[~2018-10-25] VITALS: Ht 142.2 cm; Wt 59.1 kg
[~2018-10-25 10:02] MED LIST changes: +OXYC-464 PO
[2018-10-25] MEDS ORDERED: ACETAMINOPHEN 500 MG TAB (TYLENOL) PO PRN (10:15)
[2018-10-25] MEDS ORDERED: CALCIUM CARBONATE 500 MG (TUMS) TAB.CHEW PO PRN (10:15)
[2018-10-25] MEDS ORDERED: diphenhydrAMINE 25 MG TAB (BENADRYL) PO PRN (10:15)
[2018-10-25] MEDS ORDERED: DOCUSATE SODIUM 100 MG (COLACE) CAP PO PRN (10:15)
[2018-10-25] MEDS ORDERED: ONDANSETRON 4 MG (ZOFRAN) ORAL DISSOLVE TAB PO PRN (10:15)
[2018-10-25] MEDS ORDERED: HYDROcodone/APAP 5 MG/325 MG (LORTAB) TAB PO PRN (10:15)
[2018-10-25] MEDS ORDERED: ONDANSETRON 4 MG/2 ML (SDV) Z0FRAN IVP PRN (10:15)
[2018-10-25] MEDS ORDERED: MELATONIN 3 MG TABLET PO PRN (10:15)
--- NOTE | 2018-10-25 11:10 | NUR ---
LIZETTE FUNES admitted to room 228, with an admitting diagnosis of LEFT HIP FX, on 10/25/18 from FOURTH FLOOR via WHEELCHAIR, accompanied by THERAPY. LIZETTE FUNES introduced to surroundings, call light, bed controls, phone, TV, temperature control, lights, meal times, smoking policy, visitor policy, side rail policy, bathrooms and showers. Patient Rights given to patient in the handbook. LIZETTE FUNES verbalizes understanding that [facility] is not responsible for the loss or damage to any personal effects or valuables that are kept in the patient's possession during their hospitalization. The following Patient Care Plans were discussed with the PATIENT: Discharge Planning, PAIN, IMPAIRED MOBILITY, HIGH RISK: IMPAIRED SKIN INTEGRITY, and KNOWLEDGE DEFICIT. LIZETTE FUNES verbalizes understanding of Interdisciplinary Patient Education. Patient received Patient Rights Booklet, which includes Privacy Act Statement and Data Collection Information Summary.
--- NOTE | 2018-10-25 11:15 | NUR ---
REVIEWED MED REC IT WAS REPORTED UPON ADMISSION TO 4TH FLOOR.
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
[2018-10-25 12:08] VITALS: BP 160/80
[2018-10-25] MEDS ORDERED: CATHETER FLUSH 10 ML SYR IV PRN (12:45)
[2018-10-25] MEDS ORDERED: morphine INJ 4 MG/ML 1 ML (VIAL/SYRINGE) IV PRN (12:45)
[2018-10-25] MEDS ORDERED: LORazepam INJ 2 MG/ML (ATIVAN) VIAL IV PRN (12:45)
[2018-10-25] MEDS: GABAPENTIN 300 MG (NEURONTIN) CAP PO SCH ×2 (13:13→20:04)
[2018-10-25] MEDS: HYDROcodone/APAP 5 MG/325 MG (LORTAB) TAB PO PRN ×3 (13:14→22:48)
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
--- NOTE | 2018-10-25 14:42 | Occupational Ther Daily Note ---
OT Current Status-Daily Note Subjective Pt alert, sitting in recliner. Pt talking on phone, only got off phone when nrsg came in with pain pills. Pt agrees to therapy. Mental Status/Objective Patient Orientation: Person, Place, Time, Situation Therapy Code Descriptions/Definitions Functional [place] Measure: 0=Not Assessed/NA 4=Minimal Assistance 1=Total Assistance 5=Supervision or Setup 2=Maximal Assistance 6=Modified [place] 3=Moderate Assistance 7=Complete [place] Attachments: IV ADL-Treatment Therapy Code Descriptions/Definitions Functional [place] Measure: 0=Not Assessed/NA 4=Minimal Assistance 1=Total Assistance 5=Supervision or Setup 2=Maximal Assistance 6=Modified [place] 3=Moderate Assistance 7=Complete [place] Therapy Quality Codes: 6 Independent with activity with or without an assistive device 5 Patient requires set up or clean up by helper. Patient completes activity by themselves 4 Supervision or touching assist (CGA). [place] provide cues , steadying assist 3 The helper provides less than half the effort to complete the activity 2 The helper provides more than half the effort to complete the activity 1 Dependent. The helper does all the effort to complete an activity 7 Patient refused to complete or attempt activity 9 The patient did not perform the activity before the current illness or injury 88 Not attempted due to Medical conditions or safety concerns Grooming (FIM): 5 (Pt leaning on sink in standing to complete grooming, supervision.) Oral Hygiene (QC): 4 Bathing (FIM): 4 (Using grabbar, hand held shower and shower bench pt bath most areas. Due to hip precautions pt unable to reach lower legs/feet. SBA in standing while pt cleanses buttocks/judy area. Long handle sponge given.) Bathing Location: L Arm, R Arm, L Upper Leg, R Upper Leg, Chest, Abdomen, Buttocks, Perineal Area Shower/Bathe Self (QC): 3 Upper Body (FIM): 5 (After set up, pt able to complete by self.) Upper Body Dressing (QC): 5 Lower Body Dressing (FIM): 3 (Due to hip precautions pt required assist to don/ doff clothing over feet. Pt then was able to pull up legs and hike over hips. Assist to don/doff socks.) Lower Body Dressing (QC): 3 On/Off Footwear (QC): 2 Toileting (FIM): 5 (Close SBA in standing to manipulate clothing. Pt cleansed self sitting on toilet. Used grabbars and FWW.) Toileting Hygiene (QC): 4 Transfers (B, C, W/C) (FIM): 4 (Min A for sit to stand. Using FWW, CGA for transfer.) Toilet/Commode Transfer (FIM): 4 (Using FWW and grabbars pt requires min A for sit to stand and CGA for all other parts of transfer.) Toilet Transfer (QC): 3 Shower Transfer(FIM): 4 (Min A using grabbars, FWW and shower bench.) Pt states that she know that she has hip precautions though will spontaneously breaks them. Pt takes increased time to complete tasks due to excessive communication. After therapy, pt sitting in recliner with call light/phone in reach. All needs met in room. OT Short Term Goals Short Term Goals Time Frame: Nov 08, 2018 Additional Short Term Goals: 1-Demonstrate ADL Tasks, 2-Verbalize Understanding , 3-ImproveStrength/Abdiel 1=Demonstrate adherence to instructed precautions during ADL tasks. 2=Patient will verbalize/demonstrate understanding of assistive devices/ modifications for ADL. 3=Patient will improve strength/tolerance for activity to enable patient to perform ADL's. 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 2=Patient will verbalize/demonstrate understanding of assistive devices/ modifications for ADL. 3=Patient will improve strength/tolerance for activity to enable patient to perform ADL's. OT Education/Plan Discharge Recommendations Plan/Recommendations: Continue POC Treatment Plan/Plan of Care Patient would benefit from OT for education, treatment and training to promote independence in ADL's, mobility, safety and/or upper extremity function for ADL' s. Plan of Care: ADL Retraining, Concurrent Therapy, Functional Mobility, Group Exercise/Act as Ind Treatment Duration: Nov 08, 2018 Frequency: At least 5 of 7 days/Wk (IRF) Estimated Hrs Per Day: 1.5 hours per day Agreement: Yes Rehab Potential: Good Time/GCodes Start Time: 13:00 Stop Time: 14:15 Total Time Billed (hr/min): 75 Billed Treatment Time 1 visit-ADL 5 (75 min) ALY KIM Oct 25, 2018 14:42
--- NOTE | 2018-10-25 14:46 | Physical Therapy Daily Note ---
PT Daily Note-Current Subjective Pt. sitting up in recliner. Loves to talk but switches from one subject to another without finishing the prior subject. Pt. laughs then cries etc regarding her family situation etc. Pt. agrees to ther ex Pain Location: No Pain Reported Mental Status Patient Orientation: Person, Place, Time, Situation Transfers Therapy Code Descriptions/Definitions Functional [place] Measure: 0=Not Assessed/NA 4=Minimal Assistance 1=Total Assistance 5=Supervision or Setup 2=Maximal Assistance 6=Modified [place] 3=Moderate Assistance 7=Complete [place] Therapy Quality Codes: 6 Independent with activity with or without an assistive device 5 Patient requires set up or clean up by helper. Patient completes activity by themselves 4 Supervision or touching assist (CGA). [place] provide cues , steadying assist 3 The helper provides less than half the effort to complete the activity 2 The helper provides more than half the effort to complete the activity 1 Dependent. The helper does all the effort to complete an activity 7 Patient refused to complete or attempt activity 9 The patient did not perform the activity before the current illness or injury 88 Not attempted due to Medical conditions or safety concerns sit to stand x 3 min to SBA. Stood with FWW no LOB Weight Bearing Right Lower Extremity: Right Full Weight Bearing Left Lower Extremity: Left Full Weight Bearing Exercises Seated Therapy Exercises: Ankle pumps, Sit to stand, Long arc quads, Hip abd/ add Seated Reps: 20 Standing: Marching, Sit to Stand Standing Reps: 10 Assessment Current Status: Good Progress PT Plan Treatment/Plan Treatment Plan: Continue Plan of Care Treatment Plan: Bed Mobility, Education, Functional Activity Abdiel, Functional Strength, Group Therapy, Gait, Safety, Therapeutic Exercise, Transfers Treatment Duration: Nov 08, 2018 Frequency: At least 5 of 7 days/Wk (IRF) Estimated Hrs Per Day: 1.5 hours per day Patient and/or Family Agrees t: Yes Safety Risks/Education Patient Education: Correct Positioning, Disease Process, Safety Issues Teaching Recipient: Patient Teaching Methods: Demonstration, Discussion Response to Teaching: Verbalize Understanding, Return Demonstration, Reinforcement Needed Time/GCodes Time In: 1415 Time Out: 1435 Total Billed Treatment Time: 20 Total Billed Treatment 1,EX20m G Codes Necessary: No JULIA HERNANDEZ [facility] Oct 25, 2018 14:46
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
[2018-10-25] MEDS: SUCRALFATE 1 GM (CARAFATE) TAB PO SCH ×2 (16:23→20:04)
[2018-10-25 16:44] VITALS: BP 131/78
[2018-10-25] MEDS: ENOXAPARIN 30 MG/0.3 ML (LOVENOX) SYR SC SCH (20:04)
[2018-10-25] MEDS: POLYETHYLENE GLYCOL 17 GM (MIRALAX) PACK PO SCH (20:05)
[2018-10-25] MEDS: TRIAMCINOLONE 0.1% OINT (KENALOG) 15 GM TUBE TOP SCH (20:08)
[2018-10-26] MEDS: HYDROcodone/APAP 5 MG/325 MG (LORTAB) TAB PO PRN ×5 (02:36→22:45)
[2018-10-26 05:08] VITALS: BP 168/91
[2018-10-26] MEDS: PANTOPRAZOLE 40 MG (PROTONIX) TAB PO SCH (05:57)
[2018-10-26] MEDS: SUCRALFATE 1 GM (CARAFATE) TAB PO SCH ×4 (05:57→20:00)
[2018-10-26 06:05] LABS: BASOPHILS % (AUTO) 1 % (0-10); EOSINOPHILS # (AUTO) 0.4 10^3/uL (0.0-0.3); EOSINOPHILS % (AUTO) 6 % (0-10); HEMATOCRIT 31 % (35-52); HEMOGLOBIN 10.3 G/DL (11.5-16.0); LYMPHOCYTES # (AUTO) 2.5 X 10^3 (1.0-4.0); LYMPHOCYTES % (AUTO) 42 % (12-44); MEAN CORPUSCULAR HEMOGLOBIN 30 PG (25-34); MEAN CORPUSCULAR HGB CONC 33 G/DL (32-36); MEAN CORPUSCULAR VOLUME 90 FL (80-99); MEAN PLATELET VOLUME 9.7 FL (7.4-10.4); MONOCYTES # (AUTO) 0.6 X 10^3 (0.0-1.0); MONOCYTES % (AUTO) 11 % (0-12); NEUTROPHILS # (AUTO) 2.5 X 10^3 (1.8-7.8); NEUTROPHILS % (AUTO) 41 % (42-75); PLATELET COUNT 279 10^3/uL (130-400); RED CELL DISTRIBUTION WIDTH 14.9 % (10.0-14.5); WHITE BLOOD COUNT 6.1 10^3/uL (4.3-11.0)
[2018-10-26 06:30] LABS: ALANINE AMINOTRANSFERASE 12 U/L (0-55); ALBUMIN 3.5 GM/DL (3.2-4.5); ALKALINE PHOSPHATASE 89 U/L (40-136); BILIRUBIN,TOTAL 0.7 MG/DL (0.1-1.0); BUN/CREATININE RATIO 15; CALCIUM 9.3 MG/DL (8.5-10.1); CARBON DIOXIDE 28 MMOL/L (21-32); CHLORIDE 101 MMOL/L (98-107); CREATININE SERUM 0.65 MG/DL (0.60-1.30); GFR ESTIMATED > 60; GLUCOSE 99 MG/DL (70-105); POTASSIUM 3.4 MMOL/L (3.6-5.0); SODIUM 138 MMOL/L (135-145); TOTAL PROTEIN 6.9 GM/DL (6.4-8.2)
[2018-10-26] MEDS: ENOXAPARIN 30 MG/0.3 ML (LOVENOX) SYR SC SCH ×2 (07:52→20:00)
[2018-10-26] MEDS: TRIAMCINOLONE 0.1% OINT (KENALOG) 15 GM TUBE TOP SCH ×2 (07:54→20:00)
[2018-10-26] MEDS: POLYETHYLENE GLYCOL 17 GM (MIRALAX) PACK PO SCH ×2 (07:54→20:00)
[2018-10-26] MEDS: GABAPENTIN 300 MG (NEURONTIN) CAP PO SCH ×3 (07:54→20:00)
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
[2018-10-26] MEDS ORDERED: KCL 10 MEQ TAB (MICRO K) PO NR (10:00)
--- NOTE | 2018-10-26 10:01 | Occupational Ther Daily Note ---
OT Current Status-Daily Note Subjective Pt in bed resting. Alert, cooperative & oriented. . Pt states that," My back is hurting , its burning sensation like a shingals." Pain Numeric Pain Scale: 8 Location: Soft Tissue Location Body Site: Back Pain Description: Sharp Mental Status/Objective Patient Orientation: Person, Place, Time, Situation, Normal For Age Therapy Code Descriptions/Definitions Functional [place] Measure: 0=Not Assessed/NA 4=Minimal Assistance 1=Total Assistance 5=Supervision or Setup 2=Maximal Assistance 6=Modified [place] 3=Moderate Assistance 7=Complete [place] Attachments: Saline Lock ADL-Treatment Pt participated in self care tasks, & strengthening ex to BUE , post hip surgical precautions, demonstrated how to use long handled Toddler Lead Teacher, bath sponge , socks aid to prevent leaning forward .& got return demonstration from patient.Pt needs min A in supine to sit & to reach to EOB . c/o pain in Lf. hip 6/10 while bringing Lf. leg down the bed. SBA in sit to stand with fww. Pt wipes UB, arms, neck, face, & brush hairs. She declined to wipe LE & BACK due to pain & sensative skin..Notified to the charge nurse & Physician checked pt' s back & said there is No Shingals . Pt completed 30 reps x 2 sets x 1 lb wt with BUE, 30 reps with red theraband in all planes of motion & 30 reps using hand gripper to strengthen both hand train braker to participate in all self care tasks & to push up from EOB with FWW . Therapy Code Descriptions/Definitions Functional [place] Measure: 0=Not Assessed/NA 4=Minimal Assistance 1=Total Assistance 5=Supervision or Setup 2=Maximal Assistance 6=Modified [place] 3=Moderate Assistance 7=Complete [place] Therapy Quality Codes: 6 Independent with activity with or without an assistive device 5 Patient requires set up or clean up by helper. Patient completes activity by themselves 4 Supervision or touching assist (CGA). [place] provide cues , steadying assist 3 The helper provides less than half the effort to complete the activity 2 The helper provides more than half the effort to complete the activity 1 Dependent. The helper does all the effort to complete an activity 7 Patient refused to complete or attempt activity 9 The patient did not perform the activity before the current illness or injury 88 Not attempted due to Medical conditions or safety concerns Eating (FIM): 6 Eating (QC): 5 Grooming (FIM): 6 Oral Hygiene (QC): 5 Bathing Location: L Arm, R Arm, Chest, Abdomen Shower/Bathe Self (QC): 4 Upper Body (FIM): 5 Upper Body Dressing (QC): 5 Lower Body Dressing (FIM): 3 Lower Body Dressing (QC): 3 On/Off Footwear (QC): 2 Toileting (FIM): 5 Toileting Hygiene (QC): 5 Transfers (B, C, W/C) (FIM): 5 Toilet/Commode Transfer (FIM): 5 Toilet Transfer (QC): 5 Tub Transfer(FIM): 0 Shower Transfer(FIM): 5 Education OT Patient Education: Correct positioning, Safety issues, Transfer techniques, Use of adapted equipment Teaching Recipient: Patient Teaching Methods: Demonstration Response to Teaching: Verbalize Understanding OT Short Term Goals Short Term Goals Time Frame: Nov 08, 2018 Transfers (B,C,W/C) (FIM): 4 Additional Short Term Goals: 1-Demonstrate ADL Tasks, 2-Verbalize Understanding , 3-ImproveStrength/Abdiel 1=Demonstrate adherence to instructed precautions during ADL tasks. 2=Patient will verbalize/demonstrate understanding of assistive devices/ modifications for ADL. 3=Patient will improve strength/tolerance for activity to enable patient to perform ADL's. OT Blow Pit Operator Goals Blow Pit Operator Goals Time Frame: Nov 22, 2018 Eating (FIM): 7 Eating (QC): 6 Groomin Oral Hygiene (QC): 6 Bathing(FIM): 7 Bathing Location: L Arm, R Arm, L Upper Leg, R Upper Leg, L Lower Leg ( including foot), R Lower Leg (including foot), Chest, Abdomen, Buttocks, Perineal Area Toileting(FIM): 6 Additional Goals: 1-Demonstrate ADL Tasks, 2-Verbalize Understanding, 3- ImproveStrength/Abdiel 1=Demonstrate adherence to instructed precautions during ADL tasks. 2=Patient will verbalize/demonstrate understanding of assistive devices/ modifications for ADL. 3=Patient will improve strength/tolerance for activity to enable patient to perform ADL's. OT Education/Plan Problem List/Assessment Assessment: Decreased Activ Tolerance, Decreased Safety Aware, Decreased UE Strength, Dependent Transfers, Impaired Bed Mobility, Impaired Funct Balance, Impaired Self-Care Skills Discharge Recommendations Plan/Recommendations: Continue POC Therapy D/C Recommendations: Home w/ Family Support Equpiment Recommendations-D/C: Extended Bath Bench, Extended Shower Sprayer, Toddler Lead Teacher, Hip Kit, Sock Aide, Long Shoe Horn, Toilet Riser Treatment Plan/Plan of Care Treatment,Training & Education: Yes Patient would benefit from OT for education, treatment and training to promote independence in ADL's, mobility, safety and/or upper extremity function for ADL' s. Plan of Care: ADL Retraining, Concurrent Therapy, Functional Mobility, Group Exercise/Act as Ind Treatment Duration: Nov 22, 2018 Frequency: At least 5 of 7 days/Wk (IRF) Estimated Hrs Per Day: 1.5 hours per day Agreement: Yes Rehab Potential: Good Time/GCodes Start Time: 08:00 (8:00 AM TO 9:00 AM Total 60 minutes ) Stop Time: 11:30 (11:00 am to 11:30 am Total 30 min ) Total Time Billed (hr/min): 90 Billed Treatment Time 1, ADL 60 min, FA 15 min , Ex 15 min. Total 90 minutes. SOL ROE OT Oct 26, 2018 10:01
--- NOTE | 2018-10-26 12:45 | Physical Therapy Daily Note ---
PT Daily Note-Current Subjective Pt sitting in recliner upon arrival. Pt was very teary when FUSE CUP EXPANDER asked to start PT tx. Pt reported very sad due to recent loss of [id number]. Pt agrees to PT. Mental Status Patient Orientation: Person, Place, Situation Transfers Therapy Code Descriptions/Definitions Functional [place] Measure: 0=Not Assessed/NA 4=Minimal Assistance 1=Total Assistance 5=Supervision or Setup 2=Maximal Assistance 6=Modified [place] 3=Moderate Assistance 7=Complete [place] Therapy Quality Codes: 6 Independent with activity with or without an assistive device 5 Patient requires set up or clean up by helper. Patient completes activity by themselves 4 Supervision or touching assist (CGA). [place] provide cues , steadying assist 3 The helper provides less than half the effort to complete the activity 2 The helper provides more than half the effort to complete the activity 1 Dependent. The helper does all the effort to complete an activity 7 Patient refused to complete or attempt activity 9 The patient did not perform the activity before the current illness or injury 88 Not attempted due to Medical conditions or safety concerns Weight Bearing Right Lower Extremity: Right Full Weight Bearing Left Lower Extremity: Left Full Weight Bearing Exercises Seated Therapy Exercises: Ankle pumps, Long arc quads, Hip flexion, Kicking activity Seated Reps: 15 Treatments FUSE CUP EXPANDER encourages pt to participate and assists with trying to redirect away from loss of family member. FUSE CUP EXPANDER gives pt ed over benefit of Therapy & improving ability/decrease time of healing. Pt completes Seated Ex in recliner and FUSE CUP EXPANDER assists pt with ordering lunch and getting repositioned and fresh water. Pt declines needing to use restroom. Pt is resting at end of tx. Assessment Current Status: Fair Progress Pt is very talkative and needs redirection to be kept on task. PT Short Term Goals Short Term Goals Time Frame: Nov 01, 2018 Transfers (B,C,W/C) (FIM): 4 Gait (FIM): 4 Distance (FIM): 3=150 ft PT Snf Goals Snf Goals PT Childhood Development Teacher Goals Time Frame: Nov 15, 2018 Transfers (B,C,W/C) (FIM): 7 Sit to Lying (QC): 6 Lying-Sitting on Side/Bed(QC): 6 Sit to Stand (QC): 6 Rollin Roll Left to Right (QC): 6 Chair/[id number]-[id number] Xfer(QC): 6 Car Transfer (QC): 6 Does the Patient Walk: Yes Gait (FIM): 6 Gait distance (FIM): 3=150 ft Distance: 200 ft Walk 10 feet (QC): 6 Walk 10ft-Uneven Surface(QC): 6 Walk 50ft with 2 Turns (QC): 6 Walk 150 ft (QC): 6 Gait Assistive Device: FWW Does the Pt use WC or Scooter?: No Stairs (FIM): 5 (household) # of Steps: 4 1 Step (curb) (QC): 6 4 Steps (QC): 6 12 Steps (QC): 88 Picking up an Object (QC): 4 (angle shear operator) PT Plan Problem List Problem List: Activity Tolerance, Functional Strength, Safety, Balance, Gait, Transfer Treatment/Plan Treatment Plan: Continue Plan of Care Treatment Plan: Bed Mobility, Education, Functional Activity Abdiel, Functional Strength, Group Therapy, Gait, Safety, Therapeutic Exercise, Transfers Treatment Duration: Nov 08, 2018 Frequency: At least 5 of 7 days/Wk (IRF) Estimated Hrs Per Day: 1.5 hours per day Patient and/or Family Agrees t: Yes Safety Risks/Education Patient Education: Transfer Techniques, Correct Positioning, Safety Issues Teaching Recipient: Patient Teaching Methods: Discussion Response to Teaching: Verbalize Understanding Time/GCodes Time In: 1130 Time Out: 1215 Total Billed Treatment Time: 45 Total Billed Treatment 1, FA x3 (45m) G Codes Necessary: PRASAD Gudino FUSE CUP EXPANDER Oct 26, 2018 12:45
--- NOTE | 2018-10-26 13:26 | Individualized Plan of Care ---
Individualized Plan of Care Rehab Nursing IPOC Order Admission Date Oct 25, 2018 at 11:09 Current Orders Orders Admission Order(Inpt,Obs,Sdc) (10/25/18 10:10) Vital Signs: Routine (Order) 08,16,00 (10/25/18 10:10) Cartridge Assembling Machine Adjuster-Inpt Rehab Con (10/25/18 10:10) Rehab Nursing Orders-Ipoc (10/25/18 10:10) Physical Therapy Rehab Orders (10/25/18 10:10) Occupational Therapy Rehab Ord (10/25/18 10:10) General/Regular (10/25/18 Lunch) Intake & Output 06,14,22 (10/25/18 10:10) Precautions (Aru) (10/25/18 10:10) Weekly Weight (Lbs) WEEK (10/25/18 10:10) Rehab-Intensity Of Therapy (10/25/18 10:10) Code/Resuscitation (10/25/18 10:10) Initiate Admission Nursing Pro .admission (10/25/18 10:10) Acetaminophen Tablet (Tylenol Tablet) (10/25/18 10:15) Alprazolam Tablet (Xanax Tablet) (10/25/18 10:15) Calcium Carbonate Chew Tablet (Antacid C (10/25/18 10:15) Diphenhydramine Tablet (Benadryl Tablet) (10/25/18 10:15) Docusate Sodium Capsule (Colace Capsule) (10/25/18 10:15) Hydrocodone/Apap 5/325 Tablet (Lortab 5 (10/25/18 10:15) Loperamide Capsule (Imodium Capsule) (10/25/18 10:15) Melatonin Tablet (Melatonin Tablet) (10/25/18 10:15) Polyethylene Glycol Powder Pkt (Miralax (10/25/18 21:00) Ondansetron Injection (Zofran Injectio (10/25/18 10:15) Ondansetron Oral Dissolve Tab (Zofran (10/25/18 10:15) Admission Arrival Bed Request (10/25/18 11:09) Ambulate 08,12,20 (10/25/18 12:20) Sequential Compression Device 08,20 (10/25/18 12:20) Dvt/Vte Risk - Notifiy Physici 08 (10/25/18 12:20) Code/Resuscitation (10/25/18 12:36) Activity (10/25/18 12:36) Ambulate TID (10/25/18 12:36) Ice: Apply To Affected Area (10/25/18 12:36) Incentive Spirometry (Nursing) Q2H (10/25/18 12:36) Sequential Compression Device 08,20 (10/25/18 12:36) [place] Hose 09,21 (10/25/18 12:36) Vital Signs: Routine (Order) 08,16,00 (10/25/18 12:36) General/Regular (10/25/18 Dinner) Ergocalciferol Capsule (Vitamin D2 Capsu (11/01/18 09:00) Gabapentin Capsule/Tablet (Neurontin Cap (10/25/18 13:00) Lorazepam Injection (Ativan Injection) (10/25/18 12:45) Hydrocodone/Apap 5/325 Tablet (Lortab 5 (10/25/18 12:45) Enoxaparin Injection (Lovenox Injection) (10/25/18 20:00) Pantoprazole Tablet (Protonix Tablet) (10/26/18 07:00) Sodium Chloride Flush (Catheter Flush Sy (10/25/18 12:45) Sucralfate Tablet (Carafate Tablet) (10/25/18 16:00) Triamcinolone 0.1% Ointment (Kenalog 0.1 (10/25/18 21:00) Tramadol Tablet (Ultram Tablet) (10/25/18 12:45) Morphine Injection (Morphine Injection (10/25/18 12:45) Oxygen Delivery Set Up (10/25/18 12:36) Rt Request For Service (10/25/18 12:36) Oxygen-Administer , (10/25/18 12:36) Cbc With Automated Diff (10/26/18 06:00) Comprehensive Metabolic Panel (10/26/18 06:00) Patient Visit (10/25/18 ) Pt Eval Moderate Complexity (10/25/18 ) Functional Activities, Ea 15 (10/25/18 ) Patient Visit (10/25/18 ) Speech Sound Lang Comp (10/25/18 ) Potassium Chloride (Tablet) (Klor Con Ta (10/26/18 10:00) Potassium Chloride (Tablet) (Klor Con Ta (10/27/18 07:00) Rehab Nursing Orders: Ongoing Assess. of Cognitive Status, Ongoing Assess. of Function Status, Bowel Management, Disease Management & Educaiton, DVT Prophylaxis, Fall Prevention, Fluid/Electrolyte/Nutrition Mgmt, Medication Management & Education, Management of Skin Intergrity, Nutrition Management, Pain Management Intensity of Therapy to be met Patient to be seen: Min.3h per day/5 of 7d PT IPOC Problem List: Activity Tolerance, Functional Strength, Safety, Balance, Gait, Transfer Treatment Plan: Continue Plan of Care Bed Mobility, Education, Functional Activity Abdiel, Functional Strength, Group Therapy, Gait, Safety, Therapeutic Exercise, Transfers Treatment Duration: Nov 08, 2018 Frequency: At least 5 of 7 days/Wk (IRF) Estimated Hrs Per Day: 1.5 hours per day OT IPOC Problems: Decreased Activ Tolerance, Decreased Safety Aware, Decreased UE Strength, Dependent Transfers, Impaired Bed Mobility, Impaired Funct Balance, Impaired Self-Care Skills OT Treatment, Training and Edu: Yes Plan of Care: ADL Retraining, Concurrent Therapy, Functional Mobility, Group Exercise/Act as Ind Treatment Duration: Nov 22, 2018 Frequency: At least 5 of 7 days/Wk (IRF) Estimated Hrs Per Day: 1.[address] IPOC Speech Therapy Treatment Plan: Discontinue ST Treatment Duration: Oct 25, 2018 Frequency: 1 time per week Estimated Hrs Per Day: .25 hour per day Cartridge Assembling Machine Adjuster/Case Mgmt Cartridge Assembling Machine Adjuster/Case Managemen: Discharge Planning Dietitian/Continuous Absorption Process Operator Dietitian/Continuous Absorption Process Operator to monitor nutritional status and make changes and/or recommendations as needed and work with speech pathology on dietary upgrades as the occur. Physician IPOC Medical Issues being managed closely and that require the 24 hour availability of a physician: Current smoker with hypoxia monitoring Pain management due to chronic pain syndrome High risk for narcotic bowel Medical Issues: Bowel/Bladder Function, DVT Prophylaxis, Falls Precautions, Fluid/Electrolyte/Nutrition Balance, Infection Protection, Pain Management Brief Synthesis of Preadmission Screen, Post-Admission Evaluation, and Therapy Evaluations: PT will focus on gait training and pain management while ambulating OT will work on ADL's and showering and toileting Medical Prognosis: Good Anticipated Length of Stay: 7 days MARSHA COSME DO Oct 26, 2018 13:26
[2018-10-26] MEDS: ALPRAZolam 0.25 MG (XANAX) TAB PO PRN (13:34)
--- NOTE | 2018-10-26 15:32 | Physical Therapy Daily Note ---
PT Daily Note-Current Subjective Pt sitting in recliner upon arrival. Pt agrees to PT. Pain Numeric Pain Scale: 7 Location: Left Location Body Site: Hip Pain Description: Ache, Tightness Mental Status Patient Orientation: Person, Place, Situation Transfers Therapy Code Descriptions/Definitions Functional [place] Measure: 0=Not Assessed/NA 4=Minimal Assistance 1=Total Assistance 5=Supervision or Setup 2=Maximal Assistance 6=Modified [place] 3=Moderate Assistance 7=Complete [place] Therapy Quality Codes: 6 Independent with activity with or without an assistive device 5 Patient requires set up or clean up by helper. Patient completes activity by themselves 4 Supervision or touching assist (CGA). [place] provide cues , steadying assist 3 The helper provides less than half the effort to complete the activity 2 The helper provides more than half the effort to complete the activity 1 Dependent. The helper does all the effort to complete an activity 7 Patient refused to complete or attempt activity 9 The patient did not perform the activity before the current illness or injury 88 Not attempted due to Medical conditions or safety concerns Scootin Sit to/from Stand: 5 Sit to Stand (QC): 5 Weight Bearing Right Lower Extremity: Right Full Weight Bearing Left Lower Extremity: Left Full Weight Bearing Gait Training Does the Patient Walk?: Yes Distance (FIM): 1=up to 49 ft Distance: 20' Walk 10 feet (QC): 5 Gait Level of Assist: 5 Gait Persons Needed: 1 Gait Assistive Device: FWW Pt walks with an antalgic gait pattern. Pt limits self. Exercises Seated Therapy Exercises: Ankle pumps, Long arc quads, Hip flexion, Kicking activity Seated Reps: 20 Treatments Pt again needs encouragement to participate. Pt completes Seated Ex in recliner and walks to restroom for possible BM. Pt attempts toileting but after an extended wait, pt is unsuccessful. Pt returns to bed to rest at end of tx. Pt has all needs met. Assessment Current Status: Fair Progress Pt is very talkative and needs redirection to stay on task. Pt continues to dwell on past family conflicts during tx. PT Short Term Goals Short Term Goals Time Frame: Nov 01, 2018 Transfers (B,C,W/C) (FIM): 4 Gait (FIM): 4 Distance (FIM): 3=150 ft PT Usp Goals Casino Banker Goals PT Usp Goals Time Frame: Nov 15, 2018 Transfers (B,C,W/C) (FIM): 7 Sit to Lying (QC): 6 Lying-Sitting on Side/Bed(QC): 6 Sit to Stand (QC): 6 Rollin Roll Left to Right (QC): 6 Chair/Hux-zw-Ygtsi Xfer(QC): 6 Car Transfer (QC): 6 Does the Patient Walk: Yes Gait (FIM): 6 Gait distance (FIM): 3=150 ft Distance: 200 ft Walk 10 feet (QC): 6 Walk 10ft-Uneven Surface(QC): 6 Walk 50ft with 2 Turns (QC): 6 Walk 150 ft (QC): 6 Gait Assistive Device: FWW Does the Pt use WC or Scooter?: No Stairs (FIM): 5 (household) # of Steps: 4 1 Step (curb) (QC): 6 4 Steps (QC): 6 12 Steps (QC): 88 Picking up an Object (QC): 4 (tractor expert) PT Plan Problem List Problem List: Activity Tolerance, Functional Strength, Safety, Balance, Gait, Transfer Treatment/Plan Treatment Plan: Continue Plan of Care Treatment Plan: Bed Mobility, Education, Functional Activity Abdiel, Functional Strength, Group Therapy, Gait, Safety, Therapeutic Exercise, Transfers Treatment Duration: Nov 08, 2018 Frequency: At least 5 of 7 days/Wk (IRF) Estimated Hrs Per Day: 1.5 hours per day Patient and/or Family Agrees t: Yes Safety Risks/Education Patient Education: Gait Training, Transfer Techniques, Correct Positioning, Safety Issues Teaching Recipient: Patient Teaching Methods: Discussion Response to Teaching: Verbalize Understanding Time/GCodes Time In: 1315 Time Out: 1400 Total Billed Treatment Time: 45 Total Billed Treatment 1, GT (10m) & FA x2 (35m) G Codes Necessary: PRASAD Gudino WOOD BUCKER Oct 26, 2018 15:32
[2018-10-26 16:19] VITALS: BP 133/73
[2018-10-27] MEDS: HYDROcodone/APAP 5 MG/325 MG (LORTAB) TAB PO PRN ×5 (04:57→22:39)
[2018-10-27 05:20] VITALS: BP 132/75
[2018-10-27] MEDS: KCL 10 MEQ TAB (MICRO K) PO SCH (06:41)
[2018-10-27] MEDS: PANTOPRAZOLE 40 MG (PROTONIX) TAB PO SCH (06:41)
[2018-10-27] MEDS: SUCRALFATE 1 GM (CARAFATE) TAB PO SCH ×4 (06:41→20:06)
[2018-10-27] MEDS: GABAPENTIN 300 MG (NEURONTIN) CAP PO SCH ×3 (08:32→20:06)
[2018-10-27] MEDS: ENOXAPARIN 30 MG/0.3 ML (LOVENOX) SYR SC SCH ×2 (08:33→20:06)
--- NOTE | 2018-10-27 08:36 | PM&R Progress Note ---
Subjective HPI/CC On Admission Date Seen by Provider: Oct 27, 2018 Time Seen by Provider: 08:45 CC: Debility following an uncomplicated left hip fracture repair sustained in a fall HPI: This is a 67yoWF clinic patient of [facility] who presented to the ER after sustaining left hip fracture following a fall and was repaired in an uncomplicated manner and now in need of rehab in order to return to independent living at home. She continues to smoke and cessation was discussed. Osteoporosis was discussed with the patient and she was started on Vit D 50,000 units weekly. She has a long history of Rx drug abuse and she is maintained on a pain regiment for the left hip pain. Bowels are moving. Today she thinks she has shingles again on her back and I did not identify anything that resembles shingles and I reassured her. Subjective/Events-last exam Patient does not sleep well on a chronic basis Dependent on narcotics on a chronic basis BM+ Participating well No increased pain Using IS Checked meds and labs Review of Systems General: Fatigue Musculoskeletal: leg pain Objective Exam Vital Signs Vital Signs Date Time Temp Pulse Resp B/P (MAP) Pulse Ox O2 Delivery O2 Flow Rate FiO2 10/27/18 05:20 97.4 92 16 132/75 (94) 99 Room Air Capillary Refill : Less Than 3 Seconds General Appearance: No Apparent Distress, WD/WN, Chronically ill, Thin HEENT: PERRL/EOMI, Normal ENT Inspection, Pharynx Normal, Moist Mucous Membranes Neck: Full Range of Motion, Normal Inspection, Non Tender, Supple Respiratory: Chest Non Tender, Lungs Clear, Normal Breath Sounds, No Accessory Muscle Use, No Respiratory Distress, Decreased Breath Sounds Cardiovascular: Regular Rate, Rhythm, No Edema, No Gallop, No JVD, No Murmur Gastrointestinal: Normal Bowel Sounds, No Organomegaly, No Pulsatile Mass, Non Tender, Soft Rectal: Normal Exam, Normal Rectal Tone Genital/Rectal: Normal Genital Exam, Normal Rectal Exam, Normal Rectal Tone, Normal Vaginal Exam Back: Normal Inspection, No CVA Tenderness, No Vertebral Tenderness Extremity: Normal Capillary Refill, Normal Inspection, Normal Range of Motion ( except left leg from hip fracture repair), Non Tender, No Calf Tenderness, No Pedal Edema Neurologic/Psychiatric: Alert, Oriented x3, No Motor/Sensory Deficits, Normal Mood/Affect Skin: Normal Color, Warm/Dry Lymphatic: No Adenopathy Results/Procedures Lab Patient resulted labs reviewed. Assessment/Plan Assessment and Plan Assess & Plan/Chief Complaint Assessment: Left hip fracture Debility Smoker OP Vit D deficiency Frail status Falls Chronic pain history Plan: Intensive therapies to prepare for DC home Pain management Bowel regimen Smoking cessation Vit D supplement (1) Hip fracture, left (2) Fall on same level from slipping, tripping or stumbling (3) Vitamin D deficiency (4) Anxiety (5) Osteoporosis (6) Fracture of hip, right, closed (7) Smoker Clinical Quality Measures DVT/VTE Risk/Contraindication: Risk Factor Score Per Nursin RFS Level Per Nursing on Admit: 4+=Very High MARSHA COSME DO Oct 27, 2018 08:36
[2018-10-27] MEDS: POLYETHYLENE GLYCOL 17 GM (MIRALAX) PACK PO SCH ×2 (08:38→20:09)
[2018-10-27] MEDS: TRIAMCINOLONE 0.1% OINT (KENALOG) 15 GM TUBE TOP SCH ×2 (08:39→20:06)
--- NOTE | 2018-10-27 10:41 | Occupational Ther Daily Note ---
OT Current Status-Daily Note Subjective Pt in recliner , alert, Oriented with high anxiety . Pt agree for Therapy . Pt states that, " My Left knee & Hip is hurting, I need pain pills." Therapist notified to the Charge nurse. Pain Numeric Pain Scale: 7 Location: Left Location Body Site: Hip Pain Description: Throbbing, Sharp Comment: Pain in Left Hip and Knee. Mental Status/Objective Patient Orientation: Person, Place, Time, Eyes Open, Situation, Normal For Age Therapy Code Descriptions/Definitions Functional [place] Measure: 0=Not Assessed/NA 4=Minimal Assistance 1=Total Assistance 5=Supervision or Setup 2=Maximal Assistance 6=Modified [place] 3=Moderate Assistance 7=Complete [place] Attachments: Saline Lock ADL-Treatment Pt does'nt want a proper shower. She agree for Sponge bath with Warm Wipes. Pt needs Min A in wiping LB, back . Independent in wiping both arms, face , chest, abdomen . Pt SBA in supine to sit & sit to stand with FWW. Pt ambulate with WBAT on Lf LE to the toilet. Pt completed toilet activity , Toilet hygiene Independently , washed her hands, Comb her hairs at sink. Completed 20 reps x 2 sets x 2 lb wt, 30 reps with red theraband with BUE, & 30 reps with hand gripper with both hands to strengthen both Hand home health occupational therapist to participate in all self care tasks & to push up from recliner to stand with FWW. Therapy Code Descriptions/Definitions Functional [place] Measure: 0=Not Assessed/NA 4=Minimal Assistance 1=Total Assistance 5=Supervision or Setup 2=Maximal Assistance 6=Modified [place] 3=Moderate Assistance 7=Complete [place] Therapy Quality Codes: 6 Independent with activity with or without an assistive device 5 Patient requires set up or clean up by helper. Patient completes activity by themselves 4 Supervision or touching assist (CGA). [place] provide cues , steadying assist 3 The helper provides less than half the effort to complete the activity 2 The helper provides more than half the effort to complete the activity 1 Dependent. The helper does all the effort to complete an activity 7 Patient refused to complete or attempt activity 9 The patient did not perform the activity before the current illness or injury 88 Not attempted due to Medical conditions or safety concerns Eating (FIM): 7 Eating (QC): 6 Grooming (FIM): 6 Oral Hygiene (QC): 5 Bathing (FIM): 5 (Pt sponge bath using Warm Wipes. Needs min A to wipe back.) Bathing Location: L Arm, R Arm, L Upper Leg, R Upper Leg, Chest, Abdomen, Buttocks, Perineal Area Shower/Bathe Self (QC): 4 (Pt sponge bath using Warm Wipes. Needs min A to wipe back.) Upper Body (FIM): 7 Upper Body Dressing (QC): 6 Lower Body Dressing (FIM): 3 Lower Body Dressing (QC): 3 On/Off Footwear (QC): 3 Toileting (FIM): 7 Toileting Hygiene (QC): 6 Transfers (B, C, W/C) (FIM): 5 Toilet/Commode Transfer (FIM): 5 Toilet Transfer (QC): 5 Tub Transfer(FIM): 0 Shower Transfer(FIM): 0 Education OT Patient Education: Correct positioning, Safety issues Teaching Recipient: Patient Teaching Methods: Demonstration Response to Teaching: Verbalize Understanding OT Short Term Goals Short Term Goals Time Frame: Nov 08, 2018 Transfers (B,C,W/C) (FIM): 4 Additional Short Term Goals: 1-Demonstrate ADL Tasks, 2-Verbalize Understanding , 3-ImproveStrength/Abdiel 1=Demonstrate adherence to instructed precautions during ADL tasks. 2=Patient will verbalize/demonstrate understanding of assistive devices/ modifications for ADL. 3=Patient will improve strength/tolerance for activity to enable patient to perform ADL's. OT Nitroglycerin Supervisor Goals Nitroglycerin Supervisor Goals Time Frame: Nov 22, 2018 Eating (FIM): 7 Eating (QC): 6 Groomin Oral Hygiene (QC): 6 Bathing(FIM): 7 Bathing Location: L Arm, R Arm, L Upper Leg, R Upper Leg, L Lower Leg ( including foot), R Lower Leg (including foot), Chest, Abdomen, Buttocks, Perineal Area Toileting(FIM): 6 Additional Goals: 1-Demonstrate ADL Tasks, 2-Verbalize Understanding, 3- ImproveStrength/Abdiel 1=Demonstrate adherence to instructed precautions during ADL tasks. 2=Patient will verbalize/demonstrate understanding of assistive devices/ modifications for ADL. 3=Patient will improve strength/tolerance for activity to enable patient to perform ADL's. OT Education/Plan Problem List/Assessment Assessment: Decreased Activ Tolerance, Decreased Safety Aware, Decreased UE Strength, Dependent Transfers, Impaired Bed Mobility, Impaired Funct Balance, Impaired Self-Care Skills Discharge Recommendations Plan/Recommendations: Continue POC Therapy D/C Recommendations: Home w/ Family Support, Occupational Therapy Home Care Equpiment Recommendations-D/C: Extended Bath Bench, Extended Shower Sprayer, Senior Mortgage Underwriter, Hip Kit Patient/Family Goals To return home Independently with AD. Treatment Plan/Plan of Care Treatment,Training & Education: Yes Patient would benefit from OT for education, treatment and training to promote independence in ADL's, mobility, safety and/or upper extremity function for ADL' s. Plan of Care: ADL Retraining, Concurrent Therapy, Functional Mobility, Group Exercise/Act as Ind Treatment Duration: Nov 22, 2018 Frequency: At least 5 of 7 days/Wk (IRF) Estimated Hrs Per Day: 1.5 hours per day Agreement: Yes Rehab Potential: Good Time/GCodes Start Time: 09:00 Stop Time: 10:00 Total Time Billed (hr/min): 60 Billed Treatment Time 1, ADLs 45 min, Ex 15 min. Total 60 minutes. SOL ROE OT Oct 27, 2018 10:41
--- NOTE | 2018-10-27 12:01 | Physical Therapy Daily Note ---
PT Daily Note-Current Subjective Pt sitting in recliner upon arrival. Pt agrees to PT. Pain Numeric Pain Scale: 5-Moderate Pain Location: Left Location Body Site: Hip Pain Description: Ache Mental Status Patient Orientation: Person, Place, Situation Transfers Therapy Code Descriptions/Definitions Functional [place] Measure: 0=Not Assessed/NA 4=Minimal Assistance 1=Total Assistance 5=Supervision or Setup 2=Maximal Assistance 6=Modified [place] 3=Moderate Assistance 7=Complete [place] Therapy Quality Codes: 6 Independent with activity with or without an assistive device 5 Patient requires set up or clean up by helper. Patient completes activity by themselves 4 Supervision or touching assist (CGA). [place] provide cues , steadying assist 3 The helper provides less than half the effort to complete the activity 2 The helper provides more than half the effort to complete the activity 1 Dependent. The helper does all the effort to complete an activity 7 Patient refused to complete or attempt activity 9 The patient did not perform the activity before the current illness or injury 88 Not attempted due to Medical conditions or safety concerns Scootin Sit to/from Stand: 4 Sit to Stand (QC): 4 Weight Bearing Right Lower Extremity: Right Full Weight Bearing Left Lower Extremity: Left Full Weight Bearing Gait Training Does the Patient Walk?: Yes Distance (FIM): 3=150 ft Distance: 150' Walk 10 feet (QC): 5 Walk 50 ft with 2 Turns(QC): 5 Walk 150 ft (QC): 5 Gait Level of Assist: 5 Gait Persons Needed: 1 Gait Assistive Device: FWW Pt has slow antalgic gait pattern. Pt will stop to talk if not kept on task. Exercises NuStep Minutes: 7 NuStep Workload: 1 Treatments Pt reports needing to toilet. Pt uses restroom then stands to complete pericare. Pt ambulates in hallway using FWW at close SBA. Pt uses NuStep after being repositioned to comfort. Pt ambulates back to room at end of tx to order lunch and rest in recliner. Pt has all needs met. Assessment Current Status: Fair Progress Pt has difficulty staying on task and needs redirection. Pt is very talkative and will stop in the middle of tx to talk if not kept on task. Pt does demonstrate pain but also self limits during tx. PT Short Term Goals Short Term Goals Time Frame: Nov 01, 2018 Transfers (B,C,W/C) (FIM): 4 Gait (FIM): 4 Distance (FIM): 3=150 ft PT Assistant In Nursing Goals Fpc Goals PT Fpc Goals Time Frame: Nov 15, 2018 Transfers (B,C,W/C) (FIM): 7 Sit to Lying (QC): 6 Lying-Sitting on Side/Bed(QC): 6 Sit to Stand (QC): 6 Rollin Roll Left to Right (QC): 6 Chair/Bfv-lm-Enpzl Xfer(QC): 6 Car Transfer (QC): 6 Does the Patient Walk: Yes Gait (FIM): 6 Gait distance (FIM): 3=150 ft Distance: 200 ft Walk 10 feet (QC): 6 Walk 10ft-Uneven Surface(QC): 6 Walk 50ft with 2 Turns (QC): 6 Walk 150 ft (QC): 6 Gait Assistive Device: FWW Does the Pt use WC or Scooter?: No Stairs (FIM): 5 (household) # of Steps: 4 1 Step (curb) (QC): 6 4 Steps (QC): 6 12 Steps (QC): 88 Picking up an Object (QC): 4 (practice architect) PT Plan Problem List Problem List: Activity Tolerance, Functional Strength, Gait, Transfer Treatment/Plan Treatment Plan: Continue Plan of Care Treatment Plan: Bed Mobility, Education, Functional Activity Abdiel, Functional Strength, Group Therapy, Gait, Safety, Therapeutic Exercise, Transfers Treatment Duration: Nov 08, 2018 Frequency: At least 5 of 7 days/Wk (IRF) Estimated Hrs Per Day: 1.5 hours per day Patient and/or Family Agrees t: Yes Safety Risks/Education Patient Education: Gait Training, Transfer Techniques, Correct Positioning, Safety Issues Teaching Recipient: Patient Teaching Methods: Discussion Response to Teaching: Reinforcement Needed Time/GCodes Time In: 1100 Time Out: 1200 Total Billed Treatment Time: 60 Total Billed Treatment 1, FA x2 (25m), GT (20m) & EX (15m) G Codes Necessary: PRASAD Gudino TELEPHONE MESSENGER Oct 27, 2018 12:01
--- NOTE | 2018-10-27 13:37 | Physician Query Clarification ---
PQ-Further Specificity Admission/Discharge Admission Date: Oct 25, 2018 at 11:09 Discharge Date: The medical record reflects the following clinical scenario: History/Risk Factors: LT Hip fracture, Osteoporosis, Rheumatoid arthritis, HTN, Nicotine dependence Clinical Findings: 10/21 hip fracture (acute IP stay) impression - Comminuted intertrochanteric left hip fracture Treatment: ORIF lt kp Question: Can you further specify the LT. hip fracture per the clinical indicators above? Please document below. 1. Comminuted intertrochanteric left hip fracture 2. Lt. hip fracture not further specified 3. Other, with explanation of the clinical findings. 4. Clinically undetermined, no explanation for the clinical findings. PHYSICIAN RESPONSE Can you specify per above: 1 In responding to this query, please exercise your independent professional judgment. The purpose of this communication is to more accurately reflect the complexity of your patients condition. The fact that a question is asked does not imply that any particular answer is desired or expected. Thank you for your timely response to this clarification. Requestors name: Lindsey THIS PHYSICIAN QUERY FORM IS A PERMANENT PART OF THE MEDICAL RECORD LINDSEY MCNAMARA Oct 27, 2018 13:37 MARSHA COSME DO Oct 27, 2018 17:12
--- NOTE | 2018-10-27 13:42 | Physician Query Clarification ---
PQ-Link Manifestation-Etiology Admission/Discharge Admission Date: Oct 25, 2018 at 11:09 Discharge Date: The medical record reflects the following clinical scenario: History/Risk Factors: Lt. hip fracture, Osteoporosis, HTN, Rheumatoid arthritis, nicotine dependence Clinical Findings: 11/18 x-ray Comminuted intertrochanteric left hip fracture Treatment: ORIF lt hip fx, Vitamin D Question: Can you specify if the lt hip fracture is due to/associated with osteoporosis? Please document a response below PHYSICIAN RESPONSE Manifestation due to/assoic: Clinically undetermined In responding to this query, please exercise your independent professional judgment. The purpose of this communication is to more accurately reflect the complexity of your patients condition. The fact that a question is asked does not imply that any particular answer is desired or expected. Thank you for your timely response to this clarification. Requestors name: Lindsey THIS PHYSICIAN QUERY FORM IS A PERMANENT PART OF THE MEDICAL RECORD LINDSEY MCNAMARA Oct 27, 2018 13:42 MARSHA COSME DO Oct 27, 2018 17:13
--- NOTE | 2018-10-27 14:31 | Therapy Group Daily Note ---
Therapy Daily Group Note Patient Education Topic Home Safety, Fall Prevention, Incontinence, Other List Below Exercises Other (Kegels, glut isometrics, seated mini ab crunches) Other/Notes Pt. participated in PT group this date. Pt. came and went via w/c and required assist in out w/c and bed. Pt. was very social introducing herself and sharing that her greatest pride in life is her family. Objectives of group this date were: 1) understanding what bladder incontinence is 2) how pelvic musculature ( Kegels) may improve incontinence 3) the risk of dehydration when drinking less to combat incontinence. 4) the increased risk for falling while dealing with incontinence. 5) Balance components of vision, ROM, strength, and vestibular system. Pt. met the goals as she shared that she now uses assistance of a brief and hep to toilet as she had previously fallen while rushing to the bathroom and had a fall, fracturing a hip. Pts. all participated in Kegels, glut isometrics, and seated mini crunches. The importance of hydration was a focus of education as well. Pt. benefitted from group via socialization and education as well as exercise benefits. Pt. to room after group with barrera at hand, needs met Start Time: 13:00 Stop Time: 14:05 Total Billed Treatment Time: 65 Total Billed Treatment 1,GRP JULIA HERNANDEZ HADOOP ADMIN Oct 27, 2018 14:31
[2018-10-27 17:48] VITALS: BP 151/79
[2018-10-28] MEDS: HYDROcodone/APAP 5 MG/325 MG (LORTAB) TAB PO PRN ×5 (03:55→20:19)
[2018-10-28 05:10] VITALS: BP 159/84
[2018-10-28] MEDS: KCL 10 MEQ TAB (MICRO K) PO SCH (07:10)
[2018-10-28] MEDS: SUCRALFATE 1 GM (CARAFATE) TAB PO SCH ×4 (07:10→20:19)
[2018-10-28] MEDS: PANTOPRAZOLE 40 MG (PROTONIX) TAB PO SCH (07:10)
[2018-10-28] MEDS: ENOXAPARIN 30 MG/0.3 ML (LOVENOX) SYR SC SCH ×2 (08:12→20:19)
[2018-10-28] MEDS: GABAPENTIN 300 MG (NEURONTIN) CAP PO SCH ×3 (08:12→20:19)
[2018-10-28] MEDS: TRIAMCINOLONE 0.1% OINT (KENALOG) 15 GM TUBE TOP SCH ×2 (08:13→20:21)
[2018-10-28] MEDS: POLYETHYLENE GLYCOL 17 GM (MIRALAX) PACK PO SCH ×2 (08:14→20:12)
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
--- NOTE | 2018-10-28 11:10 | NUR ---
Pastoral care visit. provided support and prayer.
--- NOTE | 2018-10-28 11:15 | Occupational Ther Daily Note ---
OT Current Status-Daily Note Subjective Pt in bed , having breakfast , alert, oriented & cooperative. Agree for therapy & shower today. Pain Numeric Pain Scale: 5-Moderate Pain Location: Left Location Body Site: Hip Pain Description: Ache, Sharp Mental Status/Objective Patient Orientation: Person, Place, Time, Situation Therapy Code Descriptions/Definitions Functional [place] Measure: 0=Not Assessed/NA 4=Minimal Assistance 1=Total Assistance 5=Supervision or Setup 2=Maximal Assistance 6=Modified [place] 3=Moderate Assistance 7=Complete [place] Attachments: Saline Lock, SCD's ADL-Treatment Pt participated in bed mobility, func transfers with FWW, toilet transfers, toileting , toilet hygiene , groomin activity & shower activity, dressing / undressing & strengthening ex to BUE .Pt needs CGA in supine to sit in bed, & sit to stand with FWW. Pt Independent in grooming, toilet hygiene undressing UB garments. Needs Mod-min A in undressing LB garments due to Lf Hip Pain & due to Hip Replacement.& to follow hip precautions. Pt needs min A in shower to wash her feet & lower part of legs & her back . Mod A to dress LB garments , Independent in UB garment , combing hairs & func transfers from bath bench with grab bar & FWW. Pt used Long handled sponge bath to wash both feet . Therapy Code Descriptions/Definitions Functional [place] Measure: 0=Not Assessed/NA 4=Minimal Assistance 1=Total Assistance 5=Supervision or Setup 2=Maximal Assistance 6=Modified [place] 3=Moderate Assistance 7=Complete [place] Therapy Quality Codes: 6 Independent with activity with or without an assistive device 5 Patient requires set up or clean up by helper. Patient completes activity by themselves 4 Supervision or touching assist (CGA). [place] provide cues , steadying assist 3 The helper provides less than half the effort to complete the activity 2 The helper provides more than half the effort to complete the activity 1 Dependent. The helper does all the effort to complete an activity 7 Patient refused to complete or attempt activity 9 The patient did not perform the activity before the current illness or injury 88 Not attempted due to Medical conditions or safety concerns Eating (FIM): 7 Eating (QC): 6 Grooming (FIM): 7 Oral Hygiene (QC): 6 Bathing (FIM): 4 Bathing Location: L Arm, R Arm, L Upper Leg, R Upper Leg, L Lower Leg ( including foot), Chest, Abdomen, Buttocks, Perineal Area Shower/Bathe Self (QC): 4 Upper Body (FIM): 7 Upper Body Dressing (QC): 6 Lower Body Dressing (FIM): 4 Lower Body Dressing (QC): 4 On/Off Footwear (QC): 4 Toileting (FIM): 7 Toileting Hygiene (QC): 6 Transfers (B, C, W/C) (FIM): 6 Toilet/Commode Transfer (FIM): 6 Toilet Transfer (QC): 6 Tub Transfer(FIM): 0 Shower Transfer(FIM): 6 Education OT Patient Education: Correct positioning, Safety issues Teaching Recipient: Patient Teaching Methods: Demonstration Response to Teaching: Verbalize Understanding OT Short Term Goals Short Term Goals Time Frame: Nov 08, 2018 Transfers (B,C,W/C) (FIM): 4 Additional Short Term Goals: 1-Demonstrate ADL Tasks, 2-Verbalize Understanding , 3-ImproveStrength/Abdiel 1=Demonstrate adherence to instructed precautions during ADL tasks. 2=Patient will verbalize/demonstrate understanding of assistive devices/ modifications for ADL. 3=Patient will improve strength/tolerance for activity to enable patient to perform ADL's. OT Melter Supervisor Electric Arc Furnace Goals Melter Supervisor Electric Arc Furnace Goals Time Frame: Nov 22, 2018 Eating (FIM): 7 Eating (QC): 6 Groomin Oral Hygiene (QC): 6 Bathing(FIM): 7 Bathing Location: L Arm, R Arm, L Upper Leg, R Upper Leg, L Lower Leg ( including foot), R Lower Leg (including foot), Chest, Abdomen, Buttocks, Perineal Area Toileting(FIM): 6 Additional Goals: 1-Demonstrate ADL Tasks, 2-Verbalize Understanding, 3- ImproveStrength/Abdiel 1=Demonstrate adherence to instructed precautions during ADL tasks. 2=Patient will verbalize/demonstrate understanding of assistive devices/ modifications for ADL. 3=Patient will improve strength/tolerance for activity to enable patient to perform ADL's. OT Education/Plan Problem List/Assessment Assessment: Decreased Activ Tolerance, Decreased Safety Aware, Decreased UE Strength, Dependent Transfers, Impaired Bed Mobility, Impaired Funct Balance, Impaired Self-Care Skills Discharge Recommendations Plan/Recommendations: Continue POC Therapy D/C Recommendations: Home w/ Family Support Equpiment Recommendations-D/C: Extended Bath Bench, Toilet Riser with Rails, Interior Paneler, Hip Kit, Long Shoe Horn Treatment Plan/Plan of Care Treatment,Training & Education: Yes Patient would benefit from OT for education, treatment and training to promote independence in ADL's, mobility, safety and/or upper extremity function for ADL' s. Plan of Care: ADL Retraining, Concurrent Therapy, Functional Mobility, Group Exercise/Act as Ind Treatment Duration: Nov 22, 2018 Frequency: At least 5 of 7 days/Wk (IRF) Estimated Hrs Per Day: 1.5 hours per day Agreement: Yes Rehab Potential: Good Time/GCodes Start Time: 09:00 Stop Time: 10:00 Total Time Billed (hr/min): 60 Billed Treatment Time 1, ADL 60 minutes , SOL ROE OT Oct 28, 2018 11:15
--- NOTE | 2018-10-28 13:45 | Occupational Ther Daily Note ---
OT Current Status-Daily Note Subjective Pt alert, eating lunch in recliner. Pt agrees to therapy. Pt c/o pain in hip, stating that the surgeon cut or hit a nerve during her surgery. Pt was unhappy with nrsg about pain meds. Mental Status/Objective Patient Orientation: Person, Place, Time, Situation Therapy Code Descriptions/Definitions Functional [place] Measure: 0=Not Assessed/NA 4=Minimal Assistance 1=Total Assistance 5=Supervision or Setup 2=Maximal Assistance 6=Modified [place] 3=Moderate Assistance 7=Complete [place] ADL-Treatment Therapy Code Descriptions/Definitions Functional [place] Measure: 0=Not Assessed/NA 4=Minimal Assistance 1=Total Assistance 5=Supervision or Setup 2=Maximal Assistance 6=Modified [place] 3=Moderate Assistance 7=Complete [place] Therapy Quality Codes: 6 Independent with activity with or without an assistive device 5 Patient requires set up or clean up by helper. Patient completes activity by themselves 4 Supervision or touching assist (CGA). [place] provide cues , steadying assist 3 The helper provides less than half the effort to complete the activity 2 The helper provides more than half the effort to complete the activity 1 Dependent. The helper does all the effort to complete an activity 7 Patient refused to complete or attempt activity 9 The patient did not perform the activity before the current illness or injury 88 Not attempted due to Medical conditions or safety concerns Other Treatment Pt took increased time to complete functional activities UE exercises. Pt was voicing aggravation about pain meds and crying. Unable to refocus on completing therapy due to this. Pt able to use regular utensils and cut food by self to eat. Light resistance theraband given, pt demonstrated understanding of exercises. Given medium resistance therapy foam to increase cement tester assistant and pinch strength for daily functional tasks. After therapy, pt still eating lunch sitting in recliner. Call light/phone in reach. All needs met in room. Education OT Patient Education: Exercise program Teaching Recipient: Patient Teaching Methods: Demonstration, Discussion Response to Teaching: Return Demonstration OT Short Term Goals Short Term Goals Time Frame: Nov 08, 2018 Transfers (B,C,W/C) (FIM): 4 Additional Short Term Goals: 1-Demonstrate ADL Tasks, 2-Verbalize Understanding , 3-ImproveStrength/Abdiel 1=Demonstrate adherence to instructed precautions during ADL tasks. 2=Patient will verbalize/demonstrate understanding of assistive devices/ modifications for ADL. 3=Patient will improve strength/tolerance for activity to enable patient to perform ADL's. OT Outreach Specialist Goals Senior Living Goals Time Frame: Nov 22, 2018 Eating (FIM): 7 Eating (QC): 6 Groomin Oral Hygiene (QC): 6 Bathing(FIM): 7 Bathing Location: L Arm, R Arm, L Upper Leg, R Upper Leg, L Lower Leg ( including foot), R Lower Leg (including foot), Chest, Abdomen, Buttocks, Perineal Area Toileting(FIM): 6 Additional Goals: 1-Demonstrate ADL Tasks, 2-Verbalize Understanding, 3- ImproveStrength/Abdiel 1=Demonstrate adherence to instructed precautions during ADL tasks. 2=Patient will verbalize/demonstrate understanding of assistive devices/ modifications for ADL. 3=Patient will improve strength/tolerance for activity to enable patient to perform ADL's. OT Education/Plan Problem List/Assessment Assessment: Decreased Activ Tolerance, Decreased UE Strength, Impaired Coordination, Impaired Self-Care Skills, Restricted Funct UE ROM Discharge Recommendations Plan/Recommendations: Continue POC Treatment Plan/Plan of Care Patient would benefit from OT for education, treatment and training to promote independence in ADL's, mobility, safety and/or upper extremity function for ADL' s. Plan of Care: ADL Retraining, Concurrent Therapy, Functional Mobility, Group Exercise/Act as Ind Treatment Duration: Nov 22, 2018 Frequency: At least 5 of 7 days/Wk (IRF) Estimated Hrs Per Day: 1.5 hours per day Agreement: Yes Rehab Potential: Good Time/GCodes Start Time: 13:00 Stop Time: 13:30 Total Time Billed (hr/min): 30 Billed Treatment Time 1 visit-FA 2 (30 min) ALY KIM Oct 28, 2018 13:45
--- NOTE | 2018-10-28 14:11 | Physical Therapy Daily Note ---
PT Daily Note-Current Subjective Pt sitting in recliner upon arrival. Pt is very distracted, preoccupied with pain at this time. Pt agrees to PT. Pain Numeric Pain Scale: 8 Location: Left Location Body Site: Hip Pain Description: Sharp Mental Status Patient Orientation: Person, Place, Situation Transfers Therapy Code Descriptions/Definitions Functional [place] Measure: 0=Not Assessed/NA 4=Minimal Assistance 1=Total Assistance 5=Supervision or Setup 2=Maximal Assistance 6=Modified [place] 3=Moderate Assistance 7=Complete [place] Therapy Quality Codes: 6 Independent with activity with or without an assistive device 5 Patient requires set up or clean up by helper. Patient completes activity by themselves 4 Supervision or touching assist (CGA). [place] provide cues , steadying assist 3 The helper provides less than half the effort to complete the activity 2 The helper provides more than half the effort to complete the activity 1 Dependent. The helper does all the effort to complete an activity 7 Patient refused to complete or attempt activity 9 The patient did not perform the activity before the current illness or injury 88 Not attempted due to Medical conditions or safety concerns Scootin Sit to/from Stand: 4 Sit to Stand (QC): 4 Weight Bearing Right Lower Extremity: Right Full Weight Bearing Left Lower Extremity: Left Full Weight Bearing Gait Training Does the Patient Walk?: Yes Distance (FIM): 3=150 ft Distance: 150' Walk 10 feet (QC): 5 Walk 50 ft with 2 Turns(QC): 5 Walk 150 ft (QC): 5 Gait Level of Assist: 5 Gait Assistive Device: FWW UPHOLSTERY BUNDLER has to encourage pt to continue to keep walking and not stop to talk. Exercises Seated Therapy Exercises: Ankle pumps, Long arc quads, Hip flexion, Kicking activity Seated Reps: 15 Treatments Pt ambulates in hallway using FWW at A, taking a standing rest break as needed. Pt completes Seated Ex in chair. Pt toilet and returns to room to rest in recliner with all needs met. Assessment Current Status: Fair Progress Pt is limited by pain and needs encouragement to continue to work during tx, not stop and talk. PT Short Term Goals Short Term Goals Time Frame: Nov 01, 2018 Transfers (B,C,W/C) (FIM): 4 Gait (FIM): 4 Distance (FIM): 3=150 ft PT Restaurant Operations Manager Goals Restaurant Operations Manager Goals PT Restaurant Operations Manager Goals Time Frame: Nov 15, 2018 Transfers (B,C,W/C) (FIM): 7 Sit to Lying (QC): 6 Lying-Sitting on Side/Bed(QC): 6 Sit to Stand (QC): 6 Rollin Roll Left to Right (QC): 6 Chair/Rjv-bu-Jodqb Xfer(QC): 6 Car Transfer (QC): 6 Does the Patient Walk: Yes Gait (FIM): 6 Gait distance (FIM): 3=150 ft Distance: 200 ft Walk 10 feet (QC): 6 Walk 10ft-Uneven Surface(QC): 6 Walk 50ft with 2 Turns (QC): 6 Walk 150 ft (QC): 6 Gait Assistive Device: FWW Does the Pt use WC or Scooter?: No Stairs (FIM): 5 (household) # of Steps: 4 1 Step (curb) (QC): 6 4 Steps (QC): 6 12 Steps (QC): 88 Picking up an Object (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) PT Plan Problem List Problem List: Activity Tolerance, Functional Strength, Safety, Balance, Gait, Transfer Treatment/Plan Treatment Plan: Continue Plan of Care Treatment Plan: Bed Mobility, Education, Functional Activity Abdiel, Functional Strength, Group Therapy, Gait, Safety, Therapeutic Exercise, Transfers Treatment Duration: Nov 08, 2018 Frequency: At least 5 of 7 days/Wk (IRF) Estimated Hrs Per Day: 1.5 hours per day Patient and/or Family Agrees t: Yes Safety Risks/Education Patient Education: Gait Training, Transfer Techniques, Correct Positioning, Safety Issues Teaching Recipient: Patient Teaching Methods: Discussion Response to Teaching: Reinforcement Needed Time/GCodes Time In: 1000 Time Out: 1100 Total Billed Treatment Time: 60 Total Billed Treatment 1, GT x2 (25m), EX (20m), FA (15m) G Codes Necessary: PRASAD Gudino UPHOLSTERY BUNDLER Oct 28, 2018 14:11
--- NOTE | 2018-10-28 14:53 | Physical Therapy Daily Note ---
PT Daily Note-Current Subjective Pt sitting in recliner after just finishing with OT upon arrival. Pt agrees to PT. Pt voices frustration with situation with Nurse this morning after tx. Pt very preoccupied with this situation and difficult to keep pt focused on tx. Pain Numeric Pain Scale: 8 Location: Left Location Body Site: Hip Pain Description: Ache Mental Status Patient Orientation: Person, Place, Situation Transfers Therapy Code Descriptions/Definitions Functional [place] Measure: 0=Not Assessed/NA 4=Minimal Assistance 1=Total Assistance 5=Supervision or Setup 2=Maximal Assistance 6=Modified [place] 3=Moderate Assistance 7=Complete [place] Therapy Quality Codes: 6 Independent with activity with or without an assistive device 5 Patient requires set up or clean up by helper. Patient completes activity by themselves 4 Supervision or touching assist (CGA). [place] provide cues , steadying assist 3 The helper provides less than half the effort to complete the activity 2 The helper provides more than half the effort to complete the activity 1 Dependent. The helper does all the effort to complete an activity 7 Patient refused to complete or attempt activity 9 The patient did not perform the activity before the current illness or injury 88 Not attempted due to Medical conditions or safety concerns Weight Bearing Right Lower Extremity: Right Full Weight Bearing Left Lower Extremity: Left Full Weight Bearing Exercises Seated Therapy Exercises: Ankle pumps, Long arc quads, Hip flexion, Kicking activity Seated Reps: 20 Treatments Pt receives redirection during tx to complete Seated Ex. Pt resting at end of tx. with all needs met. Assessment Current Status: Fair Progress Pt needs redirection to stay on task. Pt is vocally frustrated over lack of pain meds and feeling as though Nurse is not attending to that fact. PT Short Term Goals Short Term Goals Time Frame: Nov 01, 2018 Transfers (B,C,W/C) (FIM): 4 Gait (FIM): 4 Distance (FIM): 3=150 ft PT Food Safety Officer Goals Assisted Goals PT Assisted Goals Time Frame: Nov 15, 2018 Transfers (B,C,W/C) (FIM): 7 Sit to Lying (QC): 6 Lying-Sitting on Side/Bed(QC): 6 Sit to Stand (QC): 6 Rollin Roll Left to Right (QC): 6 Chair/Req-ct-Exnyg Xfer(QC): 6 Car Transfer (QC): 6 Does the Patient Walk: Yes Gait (FIM): 6 Gait distance (FIM): 3=150 ft Distance: 200 ft Walk 10 feet (QC): 6 Walk 10ft-Uneven Surface(QC): 6 Walk 50ft with 2 Turns (QC): 6 Walk 150 ft (QC): 6 Gait Assistive Device: FWW Does the Pt use WC or Scooter?: No Stairs (FIM): 5 (household) # of Steps: 4 1 Step (curb) (QC): 6 4 Steps (QC): 6 12 Steps (QC): 88 Picking up an 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) PT Plan Problem List Problem List: Activity Tolerance, Functional Strength, Safety, Balance, Gait, Transfer Treatment/Plan Treatment Plan: Continue Plan of Care Treatment Plan: Bed Mobility, Education, Functional Activity Abdiel, Functional Strength, Group Therapy, Gait, Safety, Therapeutic Exercise, Transfers Treatment Duration: Nov 08, 2018 Frequency: At least 5 of 7 days/Wk (IRF) Estimated Hrs Per Day: 1.5 hours per day Patient and/or Family Agrees t: Yes Safety Risks/Education Patient Education: Correct Positioning, Safety Issues Teaching Recipient: Patient Teaching Methods: Discussion Response to Teaching: Reinforcement Needed Time/GCodes Time In: 1330 Time Out: 1400 Total Billed Treatment 1, FA x2 (30m) G Codes Necessary: PRASAD Gudino COAL HAULER OPERATOR Oct 28, 2018 14:53
[2018-10-28] MEDS: LOPERAMIDE 2 MG (IMODIUM) CAP PO PRN (15:44)
[2018-10-28 18:02] VITALS: BP 161/83
[2018-10-29] MEDS: HYDROcodone/APAP 5 MG/325 MG (LORTAB) TAB PO PRN ×5 (03:15→21:13)
[2018-10-29] MEDS: LOPERAMIDE 2 MG (IMODIUM) CAP PO PRN ×2 (03:16→11:56)
[2018-10-29 05:05] VITALS: BP 163/91
[2018-10-29] MEDS: PANTOPRAZOLE 40 MG (PROTONIX) TAB PO SCH (06:00)
[2018-10-29] MEDS: KCL 10 MEQ TAB (MICRO K) PO SCH (06:00)
[2018-10-29] MEDS: SUCRALFATE 1 GM (CARAFATE) TAB PO SCH ×4 (06:00→20:27)
[2018-10-29] MEDS: ENOXAPARIN 30 MG/0.3 ML (LOVENOX) SYR SC SCH ×2 (07:41→20:28)
[2018-10-29] MEDS: GABAPENTIN 300 MG (NEURONTIN) CAP PO SCH ×3 (07:42→20:27)
[2018-10-29] MEDS: POLYETHYLENE GLYCOL 17 GM (MIRALAX) PACK PO SCH ×2 (07:42→20:30)
[2018-10-29] MEDS: TRIAMCINOLONE 0.1% OINT (KENALOG) 15 GM TUBE TOP SCH ×2 (07:43→20:34)
--- NOTE | 2018-10-29 08:38 | PM&R Progress Note ---
Subjective HPI/CC On Admission Date Seen by Provider: Oct 29, 2018 Time Seen by Provider: 08:45 CC: Debility following an uncomplicated left hip fracture repair sustained in a fall HPI: This is a 67yoWF clinic patient of [facility] who presented to the ER after sustaining left hip fracture following a fall and was repaired in an uncomplicated manner and now in need of rehab in order to return to independent living at home. She continues to smoke and cessation was discussed. Osteoporosis was discussed with the patient and she was started on Vit D 50,000 units weekly. She has a long history of Rx drug abuse and she is maintained on a pain regiment for the left hip pain. Bowels are moving. Today she thinks she has shingles again on her back and I did not identify anything that resembles shingles and I reassured her. Subjective/Events-last exam Constantly talking about pain medication. Having bowel movements. Using IS. Participating in therapies. Review of Systems General: Fatigue Musculoskeletal: leg pain Objective Exam Vital Signs Vital Signs Date Time Temp Pulse Resp B/P (MAP) Pulse Ox O2 Delivery O2 Flow Rate FiO2 10/29/18 15:42 99.1 97 16 132/78 (96) 96 Room Air Capillary Refill : Less Than 3 Seconds General Appearance: No Apparent Distress, WD/WN, Chronically ill, Thin HEENT: PERRL/EOMI, Normal ENT Inspection, Pharynx Normal, Moist Mucous Membranes Neck: Full Range of Motion, Normal Inspection, Non Tender, Supple Respiratory: Chest Non Tender, Lungs Clear, Normal Breath Sounds, No Accessory Muscle Use, No Respiratory Distress, Decreased Breath Sounds Cardiovascular: Regular Rate, Rhythm, No Edema, No Gallop, No JVD, No Murmur Gastrointestinal: Normal Bowel Sounds, No Organomegaly, No Pulsatile Mass, Non Tender, Soft Rectal: Normal Exam, Normal Rectal Tone Genital/Rectal: Normal Genital Exam, Normal Rectal Exam, Normal Rectal Tone, Normal Vaginal Exam Back: Normal Inspection, No CVA Tenderness, No Vertebral Tenderness Extremity: Normal Capillary Refill, Normal Inspection, Normal Range of Motion ( except left leg from hip fracture repair), Non Tender, No Calf Tenderness, No Pedal Edema Neurologic/Psychiatric: Alert, Oriented x3, No Motor/Sensory Deficits, Normal Mood/Affect Skin: Normal Color, Warm/Dry Lymphatic: No Adenopathy Results/Procedures Lab Patient resulted labs reviewed. Assessment/Plan Assessment and Plan Assess & Plan/Chief Complaint Assessment: Left hip fracture Debility Smoker OP Vit D deficiency Frail status Falls Chronic pain history Plan: Intensive therapies to prepare for DC home Pain management Bowel regimen Smoking cessation Vit D supplement (1) Hip fracture, left (2) Fall on same level from slipping, tripping or stumbling (3) Vitamin D deficiency (4) Anxiety (5) Osteoporosis (6) Fracture of hip, right, closed (7) Smoker Clinical Quality Measures DVT/VTE Risk/Contraindication: Risk Factor Score Per Nursin RFS Level Per Nursing on Admit: 4+=Very High MARSHA COSME DO Oct 29, 2018 08:38
--- NOTE | 2018-10-29 08:57 | Physical Therapy Daily Note ---
PT Daily Note-Current Subjective Patient in recliner pre tx, agrees to PT, has pain of 6-7/10 in left hip. Appearance Patient in recliner post tx with nurse call, phone, tray, all needs met. Mental Status Patient Orientation: Person, Place, Situation Transfers Therapy Code Descriptions/Definitions Functional [place] Measure: 0=Not Assessed/NA 4=Minimal Assistance 1=Total Assistance 5=Supervision or Setup 2=Maximal Assistance 6=Modified [place] 3=Moderate Assistance 7=Complete [place] Therapy Quality Codes: 6 Independent with activity with or without an assistive device 5 Patient requires set up or clean up by helper. Patient completes activity by themselves 4 Supervision or touching assist (CGA). [place] provide cues , steadying assist 3 The helper provides less than half the effort to complete the activity 2 The helper provides more than half the effort to complete the activity 1 Dependent. The helper does all the effort to complete an activity 7 Patient refused to complete or attempt activity 9 The patient did not perform the activity before the current illness or injury 88 Not attempted due to Medical conditions or safety concerns Transfers (B, C, W/C) (FIM): 5 Sit to/from Stand: 5 Bed to/from Chair: 5 occasional cues for safety Weight Bearing Right Lower Extremity: Right Full Weight Bearing Left Lower Extremity: Left Full Weight Bearing Gait Training Gait (FIM): 5 Distance: 150'x2 Gait Level of Assist: 5 Gait Persons Needed: 1 Gait Assistive Device: FWW Very slow, antalgic ambulation, poor step through on the right side Exercises LAQ alternating for 5 min NuStep Minutes: 15 NuStep Workload: 4 Treatments transfers, ambulation, functional strengthening Assessment Current Status: Fair Progress Patient needs constant cues to stay on task, she talks and gets distracted very easily, needs extra time for all activities. PT Short Term Goals Short Term Goals Time Frame: Nov 01, 2018 Transfers (B,C,W/C) (FIM): 4 Gait (FIM): 4 Distance (FIM): 3=150 ft PT Driveway Sealer Goals Driveway Sealer Goals PT Detention Goals Time Frame: Nov 15, 2018 Transfers (B,C,W/C) (FIM): 7 Sit to Lying (QC): 6 Lying-Sitting on Side/Bed(QC): 6 Sit to Stand (QC): 6 Rollin Roll Left to Right (QC): 6 Chair/Zmq-rj-Dpxjw Xfer(QC): 6 Car Transfer (QC): 6 Does the Patient Walk: Yes Gait (FIM): 6 Gait distance (FIM): 3=150 ft Distance: 200 ft Walk 10 feet (QC): 6 Walk 10ft-Uneven Surface(QC): 6 Walk 50ft with 2 Turns (QC): 6 Walk 150 ft (QC): 6 Gait Assistive Device: FWW Does the Pt use WC or Scooter?: No Stairs (FIM): 5 (household) # of Steps: 4 1 Step (curb) (QC): 6 4 Steps (QC): 6 12 Steps (QC): 88 Picking up an Object (QC): 4 (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) PT Plan Problem List Problem List: Activity Tolerance, Functional Strength, Safety, Balance, Gait, Transfer, Bed Mobility, ROM Treatment/Plan Treatment Plan: Continue Plan of Care Treatment Plan: Bed Mobility, Education, Functional Activity Abdiel, Functional Strength, Group Therapy, Gait, Safety, Therapeutic Exercise, Transfers Treatment Duration: Nov 08, 2018 Frequency: At least 5 of 7 days/Wk (IRF) Estimated Hrs Per Day: 1.5 hours per day Patient and/or Family Agrees t: Yes Safety Risks/Education Patient Education: Gait Training, Transfer Techniques, Correct Positioning, Safety Issues Teaching Recipient: Patient Teaching Methods: Demonstration, Discussion Response to Teaching: Reinforcement Needed Time/GCodes Time In: 0800 Time Out: 0900 Total Billed Treatment Time: 60 Total Billed Treatment 1 visit GT 30' EX 20' FA 10' VERONICA KUHN PT Oct 29, 2018 08:57
--- NOTE | 2018-10-29 11:13 | Occupational Ther Daily Note ---
OT Current Status-Daily Note Subjective Pt in recliner, alert, cheerful, oriented, & cooperative. . Pt states that, " I am doing good except pain in Left Hip. " Pain Numeric Pain Scale: 5-Moderate Pain Location: Left Location Body Site: Hip Pain Description: Sharp Mental Status/Objective Patient Orientation: Person, Place, Time, Situation, Normal For Age Therapy Code Descriptions/Definitions Functional [place] Measure: 0=Not Assessed/NA 4=Minimal Assistance 1=Total Assistance 5=Supervision or Setup 2=Maximal Assistance 6=Modified [place] 3=Moderate Assistance 7=Complete [place] Attachments: Saline Lock ADL-Treatment Pt participated in sponge-bath , groomin activity at the sink , dressing UB & LB garments, toileting, toilet hygiene, func transfers & func ambulation with fww & theraex BUE. to strengthen BUE to participate in all self care tasks & to push up from rcliner & bed to stand up with walker. Pt need SBA Michael wipes UB with SBA . Pt wipes both arms , neck, around the neck, arm-pits, chest, abdomen , face , Needs min A to wipes both LE as pt not suppose to bend forward.. Pt gudelia gown Independently , [place] upper teeth ( Pt has lower dentures too. ) & later brush her hairs at sink. Pt Independent in toileting & toilet hygiene . Therapy Code Descriptions/Definitions Functional [place] Measure: 0=Not Assessed/NA 4=Minimal Assistance 1=Total Assistance 5=Supervision or Setup 2=Maximal Assistance 6=Modified [place] 3=Moderate Assistance 7=Complete [place] Therapy Quality Codes: 6 Independent with activity with or without an assistive device 5 Patient requires set up or clean up by helper. Patient completes activity by themselves 4 Supervision or touching assist (CGA). [place] provide cues , steadying assist 3 The helper provides less than half the effort to complete the activity 2 The helper provides more than half the effort to complete the activity 1 Dependent. The helper does all the effort to complete an activity 7 Patient refused to complete or attempt activity 9 The patient did not perform the activity before the current illness or injury 88 Not attempted due to Medical conditions or safety concerns Eating (FIM): 7 Eating (QC): 6 Grooming (FIM): 6 Oral Hygiene (QC): 6 Bathing (FIM): 5 (sponge bath. ) Bathing Location: L Arm, R Arm, L Upper Leg, R Upper Leg, Chest, Abdomen Shower/Bathe Self (QC): 0 Upper Body (FIM): 7 Upper Body Dressing (QC): 6 Lower Body Dressing (FIM): 4 Lower Body Dressing (QC): 4 On/Off Footwear (QC): 5 Toileting (FIM): 7 Toileting Hygiene (QC): 6 Transfers (B, C, W/C) (FIM): 7 Toilet/Commode Transfer (FIM): 7 Toilet Transfer (QC): 7 Tub Transfer(FIM): 0 Shower Transfer(FIM): 7 Education OT Patient Education: Correct positioning, Safety issues Teaching Recipient: Patient Teaching Methods: Demonstration Response to Teaching: Verbalize Understanding OT Short Term Goals Short Term Goals Time Frame: Nov 08, 2018 Transfers (B,C,W/C) (FIM): 4 Additional Short Term Goals: 1-Demonstrate ADL Tasks, 2-Verbalize Understanding , 3-ImproveStrength/Abdiel 1=Demonstrate adherence to instructed precautions during ADL tasks. 2=Patient will verbalize/demonstrate understanding of assistive devices/ modifications for ADL. 3=Patient will improve strength/tolerance for activity to enable patient to perform ADL's. OT Per Diem Clerk Goals Alf Goals Time Frame: Nov 22, 2018 Eating (FIM): 7 Eating (QC): 6 Groomin Oral Hygiene (QC): 6 Bathing(FIM): 7 Bathing Location: L Arm, R Arm, L Upper Leg, R Upper Leg, L Lower Leg ( including foot), R Lower Leg (including foot), Chest, Abdomen, Buttocks, Perineal Area Toileting(FIM): 6 Additional Goals: 1-Demonstrate ADL Tasks, 2-Verbalize Understanding, 3- ImproveStrength/Abdiel 1=Demonstrate adherence to instructed precautions during ADL tasks. 2=Patient will verbalize/demonstrate understanding of assistive devices/ modifications for ADL. 3=Patient will improve strength/tolerance for activity to enable patient to perform ADL's. OT Education/Plan Problem List/Assessment Assessment: Decreased Activ Tolerance, Decreased Safety Aware, Decreased UE Strength, Dependent Transfers, Impaired Bed Mobility, Impaired Funct Balance, Impaired Self-Care Skills Discharge Recommendations Plan/Recommendations: Continue POC Therapy D/C Recommendations: Home w/ Family Support Equpiment Recommendations-D/C: Extended Bath Bench, Toilet Riser with Rails, Extended Shower Sprayer, Cosmetic Sales, Hip Kit, Long [place] Treatment Plan/Plan of Care Treatment,Training & Education: Yes Patient would benefit from OT for education, treatment and training to promote independence in ADL's, mobility, safety and/or upper extremity function for ADL' s. Plan of Care: ADL Retraining, Concurrent Therapy, Functional Mobility, Group Exercise/Act as Ind Treatment Duration: Nov 22, 2018 Frequency: At least 5 of 7 days/Wk (IRF) Estimated Hrs Per Day: 1.5 hours per day Agreement: Yes Rehab Potential: Good Time/GCodes Start Time: 09:00 (9:00-10:00am = 60 minute) Stop Time: 13:30 ([id number] = 30 minutes) Total Time Billed (hr/min): 90 Billed Treatment Time 1, ADL 60 minutes, FA 15 min, Ex 15 min total 90 minutes SOL ROE OT Oct 29, 2018 11:12
--- NOTE | 2018-10-29 14:04 | Physical Therapy Daily Note ---
PT Daily Note-Current Subjective Patient in therapy gym pre tx, agrees to PT, has 8/10 pain, states the nurse is aware of her pain. Appearance Patient in recliner post tx with nurse call, phone, tray, all needs met. Mental Status Patient Orientation: Person, Place, Situation Transfers Therapy Code Descriptions/Definitions Functional [place] Measure: 0=Not Assessed/NA 4=Minimal Assistance 1=Total Assistance 5=Supervision or Setup 2=Maximal Assistance 6=Modified [place] 3=Moderate Assistance 7=Complete [place] Therapy Quality Codes: 6 Independent with activity with or without an assistive device 5 Patient requires set up or clean up by helper. Patient completes activity by themselves 4 Supervision or touching assist (CGA). [place] provide cues , steadying assist 3 The helper provides less than half the effort to complete the activity 2 The helper provides more than half the effort to complete the activity 1 Dependent. The helper does all the effort to complete an activity 7 Patient refused to complete or attempt activity 9 The patient did not perform the activity before the current illness or injury 88 Not attempted due to Medical conditions or safety concerns Transfers (B, C, W/C) (FIM): 5 Sit to/from Stand: 5 Bed to/from Chair: 5 Weight Bearing Right Lower Extremity: Right Full Weight Bearing Left Lower Extremity: Left Full Weight Bearing Gait Training Gait (FIM): 5 Distance: 150', 200' Gait Level of Assist: 5 Gait Persons Needed: 1 Gait Assistive Device: FWW Patient ambulates very slowly, antalgic, needs cues to stay on task, gets distracted easily Treatments ambulation, transfers Assessment Current Status: Fair Progress improving endurance PT Short Term Goals Short Term Goals Time Frame: Nov 01, 2018 Transfers (B,C,W/C) (FIM): 4 Gait (FIM): 4 Distance (FIM): 3=150 ft PT Restaurant Assistant Manager Goals [facility]iary Goals PT Restaurant Assistant Manager Goals Time Frame: Nov 15, 2018 Transfers (B,C,W/C) (FIM): 7 Sit to Lying (QC): 6 Lying-Sitting on Side/Bed(QC): 6 Sit to Stand (QC): 6 Rollin Roll Left to Right (QC): 6 Chair/Sxq-sv-Dcggh Xfer(QC): 6 Car Transfer (QC): 6 Does the Patient Walk: Yes Gait (FIM): 6 Gait distance (FIM): 3=150 ft Distance: 200 ft Walk 10 feet (QC): 6 Walk 10ft-Uneven Surface(QC): 6 Walk 50ft with 2 Turns (QC): 6 Walk 150 ft (QC): 6 Gait Assistive Device: FWW Does the Pt use WC or Scooter?: No Stairs (FIM): 5 (household) # of Steps: 4 1 Step (curb) (QC): 6 4 Steps (QC): 6 12 Steps (QC): 88 Picking up an Object (QC): 4 (engineer first assistant) PT Plan Problem List Problem List: Activity Tolerance, Functional Strength, Safety, Balance, Gait, Transfer, Bed Mobility, ROM Treatment/Plan Treatment Plan: Continue Plan of Care Treatment Plan: Bed Mobility, Education, Functional Activity Abdiel, Functional Strength, Group Therapy, Gait, Safety, Therapeutic Exercise, Transfers Treatment Duration: Nov 08, 2018 Frequency: At least 5 of 7 days/Wk (IRF) Estimated Hrs Per Day: 1.5 hours per day Patient and/or Family Agrees t: Yes Safety Risks/Education Patient Education: Gait Training, Transfer Techniques, Correct Positioning, Safety Issues Teaching Recipient: Patient Teaching Methods: Demonstration, Discussion Response to Teaching: Reinforcement Needed Time/GCodes Time In: 1330 Time Out: 1400 Total Billed Treatment Time: 30 Total Billed Treatment 1 visit GT 30' VERONICA KUHN PT Oct 29, 2018 14:04
--- NOTE | 2018-10-29 14:21 | NUR ---
Patient provided FUR TRAPPER with $40 suarez to purchase patient's clothing. Suarez exchange was witnessed by Clemencia CANALES and provided change was witnessed by RN, Neyda.
[2018-10-29 15:42] VITALS: BP 132/78
[2018-10-30] MEDS: HYDROcodone/APAP 5 MG/325 MG (LORTAB) TAB PO PRN ×6 (01:58→23:14)
[2018-10-30 05:25] VITALS: BP 143/90
[2018-10-30] MEDS: PANTOPRAZOLE 40 MG (PROTONIX) TAB PO SCH (06:33)
[2018-10-30] MEDS: KCL 10 MEQ TAB (MICRO K) PO SCH (06:33)
[2018-10-30] MEDS: SUCRALFATE 1 GM (CARAFATE) TAB PO SCH ×4 (06:33→20:11)
[2018-10-30] MEDS: POLYETHYLENE GLYCOL 17 GM (MIRALAX) PACK PO SCH ×2 (08:18→20:11)
[2018-10-30] MEDS: ENOXAPARIN 30 MG/0.3 ML (LOVENOX) SYR SC SCH ×2 (08:18→20:11)
[2018-10-30] MEDS: GABAPENTIN 300 MG (NEURONTIN) CAP PO SCH ×3 (08:18→20:11)
[2018-10-30] MEDS: TRIAMCINOLONE 0.1% OINT (KENALOG) 15 GM TUBE TOP SCH ×2 (08:20→20:11)
[2018-10-30 08:26] VITALS: BP 118/89
--- NOTE | 2018-10-30 10:09 | Physical Therapy Daily Note ---
PT Daily Note-Current Subjective Pt. up in chair, very sleepy, difficult to awaken. When finally awakened pt. states she declines therapies , hasnt slept and needs to rest Transfers Therapy Code Descriptions/Definitions Functional [place] Measure: 0=Not Assessed/NA 4=Minimal Assistance 1=Total Assistance 5=Supervision or Setup 2=Maximal Assistance 6=Modified [place] 3=Moderate Assistance 7=Complete [place] Therapy Quality Codes: 6 Independent with activity with or without an assistive device 5 Patient requires set up or clean up by helper. Patient completes activity by themselves 4 Supervision or touching assist (CGA). [place] provide cues , steadying assist 3 The helper provides less than half the effort to complete the activity 2 The helper provides more than half the effort to complete the activity 1 Dependent. The helper does all the effort to complete an activity 7 Patient refused to complete or attempt activity 9 The patient did not perform the activity before the current illness or injury 88 Not attempted due to Medical conditions or safety concerns Weight Bearing Right Lower Extremity: Right Full Weight Bearing Left Lower Extremity: Left Full Weight Bearing Assessment Current Status: Refused Treatment PT Short Term Goals Short Term Goals Time Frame: Nov 01, 2018 Transfers (B,C,W/C) (FIM): 4 Gait (FIM): 4 Distance (FIM): 3=150 ft PT Can Marker Goals Fpc Goals PT Can Marker Goals Time Frame: Nov 15, 2018 Transfers (B,C,W/C) (FIM): 7 Sit to Lying (QC): 6 Lying-Sitting on Side/Bed(QC): 6 Sit to Stand (QC): 6 Rollin Roll Left to Right (QC): 6 Chair/Hnq-co-Bfpat Xfer(QC): 6 Car Transfer (QC): 6 Does the Patient Walk: Yes Gait (FIM): 6 Gait distance (FIM): 3=150 ft Distance: 200 ft Walk 10 feet (QC): 6 Walk 10ft-Uneven Surface(QC): 6 Walk 50ft with 2 Turns (QC): 6 Walk 150 ft (QC): 6 Gait Assistive Device: FWW Does the Pt use WC or Scooter?: No Stairs (FIM): 5 (household) # of Steps: 4 1 Step (curb) (QC): 6 4 Steps (QC): 6 12 Steps (QC): 88 Picking up an Object (QC): 4 (signal manager) PT Plan Treatment/Plan Treatment Plan: Continue Plan of Care Treatment Plan: Bed Mobility, Education, Functional Activity Abdiel, Functional Strength, Group Therapy, Gait, Safety, Therapeutic Exercise, Transfers Treatment Duration: Nov 08, 2018 Frequency: At least 5 of 7 days/Wk (IRF) Estimated Hrs Per Day: 1.5 hours per day Patient and/or Family Agrees t: Yes Time/GCodes Time In: 1000 Time Out: 1000 Total Billed Treatment Time: 0 Total Billed Treatment 1,no chg no Rx G Codes Necessary: No JULIA HERNANDEZ COMPUTER PERIPHERAL EQUIPMENT OPERATOR Oct 30, 2018 10:09
[2018-10-30] MEDS: FUROSEMIDE 20 MG (LASIX) TAB PO SCH (11:39)
--- NOTE | 2018-10-30 12:37 | PM&R Progress Note ---
Subjective HPI/CC On Admission Date Seen by Provider: Oct 30, 2018 Time Seen by Provider: 10:30 CC: Debility following an uncomplicated left hip fracture repair sustained in a fall HPI: This is a 67yoWF clinic patient of [facility] who presented to the ER after sustaining left hip fracture following a fall and was repaired in an uncomplicated manner and now in need of rehab in order to return to independent living at home. She continues to smoke and cessation was discussed. Osteoporosis was discussed with the patient and she was started on Vit D 50,000 units weekly. She has a long history of Rx drug abuse and she is maintained on a pain regiment for the left hip pain. Bowels are moving. Today she thinks she has shingles again on her back and I did not identify anything that resembles shingles and I reassured her. Subjective/Events-last exam Talks about pain medication a lot. Having bowel movements. Using IS. Participating in therapies. Started CAROLIN hose due to edema and she has had that in the past so I recommended wide rachelle wraps over the compression stockings to facilitate removal of the fluid from the soft tissue Lasix 20mg will be given every other day prn edema Maintained on Lovenox BID the entire hospital course following hip repair Review of Systems General: Fatigue Cardiovascular: Other (edema) Objective Exam Vital Signs Vital Signs Date Time Temp Pulse Resp B/P (MAP) Pulse Ox O2 Delivery O2 Flow Rate FiO2 10/30/18 16:37 98.6 91 18 121/75 (90) 97 Room Air Capillary Refill : Less Than 3 Seconds General Appearance: No Apparent Distress, WD/WN, Chronically ill, Thin HEENT: PERRL/EOMI, Normal ENT Inspection, Pharynx Normal, Moist Mucous Membranes Neck: Full Range of Motion, Normal Inspection, Non Tender, Supple Respiratory: Chest Non Tender, Lungs Clear, Normal Breath Sounds, No Accessory Muscle Use, No Respiratory Distress, Decreased Breath Sounds Cardiovascular: Regular Rate, Rhythm, No Edema, No Gallop, No JVD, No Murmur Gastrointestinal: Normal Bowel Sounds, No Organomegaly, No Pulsatile Mass, Non Tender, Soft Back: Normal Inspection, No CVA Tenderness, No Vertebral Tenderness Extremity: Normal Capillary Refill, Normal Inspection, Normal Range of Motion ( except left leg from hip fracture repair), Non Tender, No Calf Tenderness, Pedal Edema Neurologic/Psychiatric: Alert, Oriented x3, No Motor/Sensory Deficits, Normal Mood/Affect Skin: Normal Color, Warm/Dry Lymphatic: No Adenopathy Results/Procedures Lab Patient resulted labs reviewed. Assessment/Plan Assessment and Plan Assess & Plan/Chief Complaint Assessment: Left hip fracture Debility Smoker OP Vit D deficiency Frail status Falls Chronic pain history Edema DVT PPx with Lovenox 30mg BID Plan: Intensive therapies to prepare for DC home Pain management Bowel regimen Smoking cessation Vit D supplement CAROLIN's with wide rachelle wraps Lasix 20mg every other day prn edema (1) Hip fracture, left (2) Fall on same level from slipping, tripping or stumbling (3) Vitamin D deficiency (4) Anxiety (5) Osteoporosis (6) Fracture of hip, right, closed (7) Smoker (8) DVT prophylaxis (9) Lower extremity edema Clinical Quality Measures DVT/VTE Risk/Contraindication: Risk Factor Score Per Nursin RFS Level Per Nursing on Admit: 4+=Very High MARSHA COSME DO Oct 30, 2018 12:37
--- NOTE | 2018-10-30 14:29 | NUR ---
Patient is alert and oriented with rambling speech and rapid thought processes, leaping from topic to topic. Patient is cooperative and responds well to direction. Regular diet, independent with meals. Patient ambulates to the BR with SBA using a gait belt and FWW for safety. Lovenox and CAROLIN hose for DVT prophylaxis. Intermittent cough. I/S at bedside and encouraged. C/O lower extremity swelling. 2+ edema noted. Dr. Shah in to assess. New orders for Lasix- 20 MG PO Q48H and wide ANGE wraps over CAROLIN hose daily. Potassium was 3.4 on 10/26/18. Patient was started on 10 MEQ of Potassium Chloride PO daily. Left hip incision is well approximated with no drainage noted. [place] intact. See OT notes for grooming, bathing, and dressing. Patient wears pad in underwear D/T dribbling. Addendum: 10/30/18 at 1637 by ALVARO GOMEZ RN BSC over toilet as riser.
[2018-10-30 16:37] VITALS: BP 121/75
[2018-10-30] MEDS: ALPRAZolam 0.25 MG (XANAX) TAB PO PRN (21:36)
[2018-10-31 05:22] VITALS: BP 154/81
[2018-10-31] MEDS: SUCRALFATE 1 GM (CARAFATE) TAB PO SCH ×4 (06:40→20:12)
[2018-10-31] MEDS: HYDROcodone/APAP 5 MG/325 MG (LORTAB) TAB PO PRN ×5 (06:40→23:11)
[2018-10-31] MEDS: PANTOPRAZOLE 40 MG (PROTONIX) TAB PO SCH (06:40)
[2018-10-31] MEDS: KCL 10 MEQ TAB (MICRO K) PO SCH (06:40)
[2018-10-31] MEDS: GABAPENTIN 300 MG (NEURONTIN) CAP PO SCH ×3 (08:05→20:12)
[2018-10-31] MEDS: TRIAMCINOLONE 0.1% OINT (KENALOG) 15 GM TUBE TOP SCH ×2 (08:05→20:12)
[2018-10-31] MEDS: ENOXAPARIN 30 MG/0.3 ML (LOVENOX) SYR SC SCH ×2 (08:05→20:13)
[2018-10-31] MEDS: POLYETHYLENE GLYCOL 17 GM (MIRALAX) PACK PO SCH ×2 (08:42→21:00)
--- NOTE | 2018-10-31 10:40 | PM&R Progress Note ---
Subjective HPI/CC On Admission Date Seen by Provider: Oct 31, 2018 Time Seen by Provider: 10:45 CC: Debility following an uncomplicated left hip fracture repair sustained in a fall HPI: This is a 67yoWF clinic patient of [facility] who presented to the ER after sustaining left hip fracture following a fall and was repaired in an uncomplicated manner and now in need of rehab in order to return to independent living at home. She continues to smoke and cessation was discussed. Osteoporosis was discussed with the patient and she was started on Vit D 50,000 units weekly. She has a long history of Rx drug abuse and she is maintained on a pain regiment for the left hip pain. Bowels are moving. Today she thinks she has shingles again on her back and I did not identify anything that resembles shingles and I reassured her. Subjective/Events-last exam Talks about pain medication a lot still Having bowel movements. Using IS. Participating in therapies. Started CAROLIN hose yesterday due to edema and she has had that in the past so I recommended wide rachelle wraps over the compression stockings to facilitate removal of the fluid from the soft tissue which seems to be really helping her Lasix 20mg will be given every other day prn edema and she has noted improvement with that dosing Maintained on Lovenox BID the entire hospital course following hip repair Objective Exam Vital Signs Vital Signs Date Time Temp Pulse Resp B/P (MAP) Pulse Ox O2 Delivery O2 Flow Rate FiO2 10/31/18 17:42 97.2 97 20 162/82 (108) 98 Room Air Capillary Refill : Less Than 3 Seconds General Appearance: No Apparent Distress, WD/WN, Chronically ill, Thin HEENT: PERRL/EOMI, Normal ENT Inspection, Pharynx Normal, Moist Mucous Membranes Neck: Full Range of Motion, Normal Inspection, Non Tender, Supple Respiratory: Chest Non Tender, Lungs Clear, Normal Breath Sounds, No Accessory Muscle Use, No Respiratory Distress, Decreased Breath Sounds Cardiovascular: Regular Rate, Rhythm, No Edema, No Gallop, No JVD, No Murmur Gastrointestinal: Normal Bowel Sounds, No Organomegaly, No Pulsatile Mass, Non Tender, Soft Back: Normal Inspection, No CVA Tenderness, No Vertebral Tenderness Extremity: Normal Capillary Refill, Normal Inspection, Normal Range of Motion ( except left leg from hip fracture repair), Non Tender, No Calf Tenderness, Pedal Edema Neurologic/Psychiatric: Alert, Oriented x3, No Motor/Sensory Deficits, Normal Mood/Affect Skin: Normal Color, Warm/Dry Lymphatic: No Adenopathy Results/Procedures Lab Patient resulted labs reviewed. Assessment/Plan Assessment and Plan Assess & Plan/Chief Complaint Assessment: Left hip fracture Debility Smoker OP Vit D deficiency Frail status Falls Chronic pain history Edema DVT PPx with Lovenox 30mg BID Plan: Intensive therapies to prepare for DC home Pain management Bowel regimen Smoking cessation Vit D supplement CAROLIN's with wide rachelle wraps Lasix 20mg every other day prn edema (1) Hip fracture, left (2) Fall on same level from slipping, tripping or stumbling (3) Vitamin D deficiency (4) Anxiety (5) Osteoporosis (6) Fracture of hip, right, closed (7) Smoker (8) DVT prophylaxis (9) Lower extremity edema Clinical Quality Measures DVT/VTE Risk/Contraindication: Risk Factor Score Per Nursin RFS Level Per Nursing on Admit: 4+=Very High MARSHA COSME DO Oct 31, 2018 10:40
[2018-10-31 17:42] VITALS: BP 162/82
[2018-11-01] MEDS: ALPRAZolam 0.25 MG (XANAX) TAB PO PRN (02:34)
[2018-11-01] MEDS: HYDROcodone/APAP 5 MG/325 MG (LORTAB) TAB PO PRN ×5 (03:22→22:08)
[2018-11-01 05:23] VITALS: BP 174/68
[2018-11-01] MEDS: SUCRALFATE 1 GM (CARAFATE) TAB PO SCH ×4 (06:06→20:32)
[2018-11-01] MEDS: PANTOPRAZOLE 40 MG (PROTONIX) TAB PO SCH (06:06)
[2018-11-01] MEDS: KCL 10 MEQ TAB (MICRO K) PO SCH (06:06)
--- NOTE | 2018-11-01 08:31 | PM&R Progress Note ---
Subjective HPI/CC On Admission Date Seen by Provider: Nov 01, 2018 Time Seen by Provider: 08:40 CC: Debility following an uncomplicated left hip fracture repair sustained in a fall HPI: This is a 67yoWF clinic patient of [facility] who presented to the ER after sustaining left hip fracture following a fall and was repaired in an uncomplicated manner and now in need of rehab in order to return to independent living at home. She continues to smoke and cessation was discussed. Osteoporosis was discussed with the patient and she was started on Vit D 50,000 units weekly. She has a long history of Rx drug abuse and she is maintained on a pain regiment for the left hip pain. Bowels are moving. Today she thinks she has shingles again on her back and I did not identify anything that resembles shingles and I reassured her. Subjective/Events-last exam Pt is experiencing more edema while carolin hose and wide rachelle wraps are wrapped around the carolin hose. Will check labs to evaluate for the source of that and I reviewed everything and nothing is a possible source. BP is elevated so initiated Hydralazine Q6 PRN SBP greater than 160. She threw a few things at the FLIGHT SURVEYOR thinking the nurse was with holding some pain medication, and this type of behavior is not unusual for the Pt since she has been in inpatient rehab again and definitely has some emotional and mental issues. If this behavior continues will need to discharge. Review of Systems Musculoskeletal: leg pain Objective Exam Vital Signs Vital Signs Date Time Temp Pulse Resp B/P (MAP) Pulse Ox O2 Delivery O2 Flow Rate FiO2 11/02/18 18:08 98.3 97 20 137/62 (87) 97 Room Air Capillary Refill : Less Than 3 Seconds General Appearance: No Apparent Distress, WD/WN, Chronically ill, Thin HEENT: PERRL/EOMI, Normal ENT Inspection, Pharynx Normal, Moist Mucous Membranes Neck: Full Range of Motion, Normal Inspection, Non Tender, Supple Respiratory: Chest Non Tender, Lungs Clear, Normal Breath Sounds, No Accessory Muscle Use, No Respiratory Distress, Decreased Breath Sounds Cardiovascular: Regular Rate, Rhythm, No Edema, No Gallop, No JVD, No Murmur Gastrointestinal: Normal Bowel Sounds, No Organomegaly, No Pulsatile Mass, Non Tender, Soft Back: Normal Inspection, No CVA Tenderness, No Vertebral Tenderness Extremity: Normal Capillary Refill, Normal Inspection, Normal Range of Motion ( except left leg from hip fracture repair), Non Tender, No Calf Tenderness, Pedal Edema Neurologic/Psychiatric: Alert, Oriented x3, No Motor/Sensory Deficits, Normal Mood/Affect Skin: Normal Color, Warm/Dry Lymphatic: No Adenopathy Results/Procedures Lab Patient resulted labs reviewed. Assessment/Plan Assessment and Plan Assess & Plan/Chief Complaint Assessment: Left hip fracture Debility Smoker OP Vit D deficiency Frail status Falls Chronic pain history Edema DVT PPx with Lovenox 30mg BID Plan: Intensive therapies to prepare for DC home Pain management Bowel regimen Smoking cessation Vit D supplement CAROLIN's with wide rachelle wraps Lasix 20mg every other day prn edema (1) Hip fracture, left (2) Fall on same level from slipping, tripping or stumbling (3) Vitamin D deficiency (4) Anxiety (5) Osteoporosis (6) Fracture of hip, right, closed (7) Smoker (8) DVT prophylaxis (9) Lower extremity edema Clinical Quality Measures DVT/VTE Risk/Contraindication: Risk Factor Score Per Nursin RFS Level Per Nursing on Admit: 4+=Very High MARSHA COSME DO Nov 01, 2018 08:30
[2018-11-01] MEDS ORDERED: hydrALAZINE (APRESOLINE) 25 MG TAB PO PRN (08:45)
[2018-11-01] MEDS ORDERED: hydrALAZINE (APRESOLINE) 25 MG TAB PO NR (08:45)
[2018-11-01] MEDS: GABAPENTIN 300 MG (NEURONTIN) CAP PO SCH ×3 (08:50→20:32)
[2018-11-01] MEDS: ENOXAPARIN 30 MG/0.3 ML (LOVENOX) SYR SC SCH ×2 (08:51→20:31)
[2018-11-01] MEDS: TRIAMCINOLONE 0.1% OINT (KENALOG) 15 GM TUBE TOP SCH ×2 (08:54→20:34)
[2018-11-01] MEDS: POLYETHYLENE GLYCOL 17 GM (MIRALAX) PACK PO SCH ×2 (08:55→20:37)
[2018-11-01] MEDS ORDERED: VITAMIN D2 50,000 UNITS (1.25 MG) CAP PO SCH (09:00)
[2018-11-01 09:11] LABS: BASOPHILS % (AUTO) 1 % (0-10); EOSINOPHILS # (AUTO) 0.4 10^3/uL (0.0-0.3); EOSINOPHILS % (AUTO) 6 % (0-10); HEMATOCRIT 34 % (35-52); HEMOGLOBIN 10.9 G/DL (11.5-16.0); LYMPHOCYTES % (AUTO) 42 % (12-44); MEAN CORPUSCULAR HEMOGLOBIN 29 PG (25-34); MEAN CORPUSCULAR HGB CONC 32 G/DL (32-36); MEAN CORPUSCULAR VOLUME 92 FL (80-99); MEAN PLATELET VOLUME 8.9 FL (7.4-10.4); MONOCYTES # (AUTO) 0.7 X 10^3 (0.0-1.0); MONOCYTES % (AUTO) 10 % (0-12); NEUTROPHILS % (AUTO) 41 % (42-75); PLATELET COUNT 369 10^3/uL (130-400); RED CELL DISTRIBUTION WIDTH 16.2 % (10.0-14.5); WHITE BLOOD COUNT 7.2 10^3/uL (4.3-11.0)
[2018-11-01 09:30] LABS: ALANINE AMINOTRANSFERASE 15 U/L (0-55); ALBUMIN 3.9 GM/DL (3.2-4.5); ALKALINE PHOSPHATASE 129 U/L (40-136); BILIRUBIN,TOTAL 0.4 MG/DL (0.1-1.0); BUN/CREATININE RATIO 21; CALCIUM 9.8 MG/DL (8.5-10.1); CARBON DIOXIDE 23 MMOL/L (21-32); CHLORIDE 101 MMOL/L (98-107); CREATININE SERUM 0.76 MG/DL (0.60-1.30); GFR ESTIMATED > 60; GLUCOSE 112 MG/DL (70-105); POTASSIUM 3.8 MMOL/L (3.6-5.0); SODIUM 135 MMOL/L (135-145); TOTAL PROTEIN 7.5 GM/DL (6.4-8.2)
--- NOTE | 2018-11-01 09:50 | Occupational Ther Daily Note ---
OT Current Status-Daily Note Subjective Pt in recliner, alert, oriented , cooperative & agree for therapy. Pt states that, " I am having severe pain in Left hip & swelling in left LE ." Pain Numeric Pain Scale: 9 Location: Left Location Body Site: Hip Pain Description: Throbbing, Sharp Mental Status/Objective Patient Orientation: Person, Place, Time, Situation Therapy Code Descriptions/Definitions Functional [place] Measure: 0=Not Assessed/NA 4=Minimal Assistance 1=Total Assistance 5=Supervision or Setup 2=Maximal Assistance 6=Modified [place] 3=Moderate Assistance 7=Complete [place] Attachments: Saline Lock ADL-Treatment Pt participated in sponge bath , toileting , grooming, theraex BUE & Functional mobility with FWW. Pt needs min A in sponge bath using warm " READY BATH " wipes , Noticed swelling on both feet & below knee , Pt brush teeth & brush hairs at sink Independently, Pt Independently perform toilet & toilet hygiene.. Pt very frustrated because of severe pain in Left hip . Pt walk with FWW 200 feet under supervision & using gait belt. Pt cmpleted 15 on arm-bikes restorator to increase strength in BUE. Therapy Code Descriptions/Definitions Functional [place] Measure: 0=Not Assessed/NA 4=Minimal Assistance 1=Total Assistance 5=Supervision or Setup 2=Maximal Assistance 6=Modified [place] 3=Moderate Assistance 7=Complete [place] Therapy Quality Codes: 6 Independent with activity with or without an assistive device 5 Patient requires set up or clean up by helper. Patient completes activity by themselves 4 Supervision or touching assist (CGA). [place] provide cues , steadying assist 3 The helper provides less than half the effort to complete the activity 2 The helper provides more than half the effort to complete the activity 1 Dependent. The helper does all the effort to complete an activity 7 Patient refused to complete or attempt activity 9 The patient did not perform the activity before the current illness or injury 88 Not attempted due to Medical conditions or safety concerns Eating (FIM): 7 Eating (QC): 6 Grooming (FIM): 5 Oral Hygiene (QC): 5 Bathing (FIM): 4 (sponge -bath using warm " READY BATH" wipes. Pt cannot reach both feet & below knees due to Hip precautions.) Bathing Location: L Arm, R Arm, L Upper Leg, R Upper Leg, Chest, Abdomen Upper Body (FIM): 5 Upper Body Dressing (QC): 5 Lower Body Dressing (FIM): 4 Lower Body Dressing (QC): 4 On/Off Footwear (QC): 5 Toileting (FIM): 7 Toileting Hygiene (QC): 7 Transfers (B, C, W/C) (FIM): 7 Toilet/Commode Transfer (FIM): 7 Toilet Transfer (QC): 6 Tub Transfer(FIM): 0 Shower Transfer(FIM): 7 Education OT Patient Education: Correct positioning, Safety issues Teaching Recipient: Patient Teaching Methods: Demonstration Response to Teaching: Verbalize Understanding OT Short Term Goals Short Term Goals Time Frame: Nov 08, 2018 Transfers (B,C,W/C) (FIM): 4 Additional Short Term Goals: 1-Demonstrate ADL Tasks, 2-Verbalize Understanding , 3-ImproveStrength/Abdiel 1=Demonstrate adherence to instructed precautions during ADL tasks. 2=Patient will verbalize/demonstrate understanding of assistive devices/ modifications for ADL. 3=Patient will improve strength/tolerance for activity to enable patient to perform ADL's. OT Long-Term Goals Long-Term Goals Time Frame: Nov 22, 2018 Eating (FIM): 7 Eating (QC): 6 Groomin Oral Hygiene (QC): 6 Bathing(FIM): 7 Bathing Location: L Arm, R Arm, L Upper Leg, R Upper Leg, L Lower Leg ( including foot), R Lower Leg (including foot), Chest, Abdomen, Buttocks, Perineal Area Toileting(FIM): 6 Additional Goals: 1-Demonstrate ADL Tasks, 2-Verbalize Understanding, 3- ImproveStrength/Abdiel 1=Demonstrate adherence to instructed precautions during ADL tasks. 2=Patient will verbalize/demonstrate understanding of assistive devices/ modifications for ADL. 3=Patient will improve strength/tolerance for activity to enable patient to perform ADL's. OT Education/Plan Problem List/Assessment Assessment: Decreased Activ Tolerance, Decreased Safety Aware, Decreased UE Strength, Impaired Bed Mobility, Impaired Funct Balance, Impaired Self-Care Skills Discharge Recommendations Plan/Recommendations: Continue POC Therapy D/C Recommendations: Home w/ Family Support Equpiment Recommendations-D/C: Extended Bath Bench, Extended Shower Sprayer, E Commerce Marketing Analyst, Hip Kit Patient/Family Goals To return home Independently with AD.. Treatment Plan/Plan of Care Treatment,Training & Education: Yes Patient would benefit from OT for education, treatment and training to promote independence in ADL's, mobility, safety and/or upper extremity function for ADL' s. Plan of Care: ADL Retraining, Concurrent Therapy, Functional Mobility, Group Exercise/Act as Ind Treatment Duration: Nov 22, 2018 Frequency: At least 5 of 7 days/Wk (IRF) Estimated Hrs Per Day: 1.5 hours per day Agreement: Yes Rehab Potential: Good Time/GCodes Start Time: 08:30 (0830--0930 am =60 min) Stop Time: 13:30 ([id number] =30 minute) Total Time Billed (hr/min): 90 Billed Treatment Time 1, ADL 60 min, FA 15, Ex 15 min Total 90 minutes SOL ROE OT Nov 01, 2018 09:50
[2018-11-01 09:55] VITALS: BP 147/84
--- NOTE | 2018-11-01 10:53 | Physical Therapy Daily Note ---
PT Daily Note-Current Subjective Pt. 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 Pt. c/o intermittent pain in her left hip and radiating down left leg patricia in sitting or during sup to sit etc Pain Numeric Pain Scale: 5-Moderate Pain Location: Left Location Body Site: Hip (pelvis down leg etc) Pain Description: Stabbing Mental Status Patient Orientation: Person, Place, Time, Situation pt. talks near non stop, old stories of her life, some not finished before she starts another. Transfers Therapy Code Descriptions/Definitions Functional [place] Measure: 0=Not Assessed/NA 4=Minimal Assistance 1=Total Assistance 5=Supervision or Setup 2=Maximal Assistance 6=Modified [place] 3=Moderate Assistance 7=Complete [place] Therapy Quality Codes: 6 Independent with activity with or without an assistive device 5 Patient requires set up or clean up by helper. Patient completes activity by themselves 4 Supervision or touching assist (CGA). [place] provide cues , steadying assist 3 The helper provides less than half the effort to complete the activity 2 The helper provides more than half the effort to complete the activity 1 Dependent. The helper does all the effort to complete an activity 7 Patient refused to complete or attempt activity 9 The patient did not perform the activity before the current illness or injury 88 Not attempted due to Medical conditions or safety concerns Transfers (B, C, W/C) (FIM): 4 Scootin Rollin Supine to/from Sit: 4 (needs assist to get LEs in to bed, pain insues) Sit to/from Stand: 5 Bed to/from Chair: 5 Weight Bearing Right Lower Extremity: Right Full Weight Bearing Left Lower Extremity: Left Full Weight Bearing Gait Training Does the Patient Walk?: Yes Gait (FIM): 4 Distance (FIM): 3=150 ft (175x2, 50) Gait Level of Assist: 5 Gait Persons Needed: 1 Gait Assistive Device: FWW occas CGA, no LOB, flexed at runk, LEs swollen, slow gait Exercises Supine Ex: Ankle pumps, Quad Set, Rolling, Glut sets, Heel Slides, Short Arc Quads, Scooting, Straight leg raise (assist left), Hip abd/add Supine Reps: 20 Seated Therapy Exercises: Ankle pumps, Sit to stand, Long arc quads, Hip flexion Seated Reps: 12 NuStep Minutes: 12 NuStep Workload: 3 Assessment Current Status: Good Progress still requires assist in out bed but states she sleeps in a recliner at home PT Short Term Goals Short Term Goals Time Frame: Nov 01, 2018 Transfers (B,C,W/C) (FIM): 4 Gait (FIM): 4 Distance (FIM): 3=150 ft PT Maintenance Supervisor Electrical Goals Prison Goals PT Maintenance Supervisor Electrical Goals Time Frame: Nov 15, 2018 Transfers (B,C,W/C) (FIM): 7 Sit to Lying (QC): 6 Lying-Sitting on Side/Bed(QC): 6 Sit to Stand (QC): 6 Rollin Roll Left to Right (QC): 6 Chair/Mwn-fu-Pitvt Xfer(QC): 6 Car Transfer (QC): 6 Does the Patient Walk: Yes Gait (FIM): 6 Gait distance (FIM): 3=150 ft Distance: 200 ft Walk 10 feet (QC): 6 Walk 10ft-Uneven Surface(QC): 6 Walk 50ft with 2 Turns (QC): 6 Walk 150 ft (QC): 6 Gait Assistive Device: FWW Does the Pt use WC or Scooter?: No Stairs (FIM): 5 (household) # of Steps: 4 1 Step (curb) (QC): 6 4 Steps (QC): 6 12 Steps (QC): 88 Picking up an Object (QC): 4 (cake maker) PT Plan Treatment/Plan Treatment Plan: Continue Plan of Care Treatment Plan: Bed Mobility, Education, Functional Activity Abdiel, Functional Strength, Group Therapy, Gait, Safety, Therapeutic Exercise, Transfers Treatment Duration: Nov 08, 2018 Frequency: At least 5 of 7 days/Wk (IRF) Estimated Hrs Per Day: 1.5 hours per day Patient and/or Family Agrees t: Yes Safety Risks/Education Patient Education: Gait Training, Transfer Techniques, Correct Positioning, Disease Process, Safety Issues Teaching Recipient: Patient Teaching Methods: Demonstration, Discussion Response to Teaching: Verbalize Understanding, Return Demonstration, Reinforcement Needed Time/GCodes Time In: 930 Time Out: 1100 Total Billed Treatment Time: 90 Total Billed Treatment 1,EX35m,GT25m,FA30m G Codes Necessary: No JULIA HERNANDEZ PTA Nov 01, 2018 10:53
[2018-11-01 11:17] VITALS: BP 142/83
[2018-11-01] MEDS: FUROSEMIDE 20 MG (LASIX) TAB PO SCH (12:17)
[2018-11-01 17:22] VITALS: BP 139/87
--- NOTE | 2018-11-01 19:12 | NUR ---
bedside report received from SVETLANA CONTRERAS, assume care of pt
--- NOTE | 2018-11-01 20:32 | NUR ---
pt refused miralax 34 grams
--- NOTE | 2018-11-01 20:50 | NUR ---
assessments & interventions completed, see assessments & interventions, up to bathroom with 1 person assist & walker
[2018-11-01 22:02] VITALS: BP 131/68
--- NOTE | 2018-11-01 22:08 | NUR ---
c/o pain lt hip level 10/10 on numeric scale, Lortab 5 2 tabs po given
--- NOTE | 2018-11-01 22:50 | NUR ---
resting quietly, pain level 0/10 on flacc scale
[2018-11-02] MEDS: HYDROcodone/APAP 5 MG/325 MG (LORTAB) TAB PO PRN ×5 (02:19→22:44)
--- NOTE | 2018-11-02 02:19 | NUR ---
c/o lt hip pain level 10/10 on numeric scale, lortab 5 2 tabs po given
--- NOTE | 2018-11-02 03:01 | NUR ---
pain level 2/10 on numeric scale
[2018-11-02 05:11] VITALS: BP 133/89
[2018-11-02] MEDS: SUCRALFATE 1 GM (CARAFATE) TAB PO SCH ×4 (06:10→21:15)
--- NOTE | 2018-11-02 06:22 | NUR ---
c/o lt hip pain level 9/10 on numeric scale, Lortab 5 2 tabs given
[2018-11-02] MEDS: PANTOPRAZOLE 40 MG (PROTONIX) TAB PO SCH (06:41)
[2018-11-02] MEDS: KCL 10 MEQ TAB (MICRO K) PO SCH (06:42)
--- NOTE | 2018-11-02 07:05 | NUR ---
pain level 2/10 on numeric scale
--- NOTE | 2018-11-02 07:07 | NUR ---
bedside report given to ALVARO CONTRERAS
[2018-11-02] MEDS: ENOXAPARIN 30 MG/0.3 ML (LOVENOX) SYR SC SCH ×2 (08:06→21:15)
[2018-11-02] MEDS: GABAPENTIN 300 MG (NEURONTIN) CAP PO SCH ×3 (08:06→21:15)
[2018-11-02] MEDS: POLYETHYLENE GLYCOL 17 GM (MIRALAX) PACK PO SCH ×2 (08:06→21:15)
[2018-11-02] MEDS: TRIAMCINOLONE 0.1% OINT (KENALOG) 15 GM TUBE TOP SCH ×2 (08:08→21:15)
--- NOTE | 2018-11-02 08:28 | PM&R Progress Note ---
Subjective HPI/CC On Admission Date Seen by Provider: Nov 02, 2018 Time Seen by Provider: 08:15 CC: Debility following an uncomplicated left hip fracture repair sustained in a fall HPI: This is a 67yoWF clinic patient of [facility] who presented to the ER after sustaining left hip fracture following a fall and was repaired in an uncomplicated manner and now in need of rehab in order to return to independent living at home. She continues to smoke and cessation was discussed. Osteoporosis was discussed with the patient and she was started on Vit D 50,000 units weekly. She has a long history of Rx drug abuse and she is maintained on a pain regiment for the left hip pain. Bowels are moving. Today she thinks she has shingles again on her back and I did not identify anything that resembles shingles and I reassured her. Subjective/Events-last exam She had a BM at 2 o'clock in the morning this morning Denies any significant issues Maintain on pain medication Gets upset when her pain medication is late Hopefully DC very soon Review of Systems General: Fatigue Musculoskeletal: leg pain Objective Exam Vital Signs Vital Signs Date Time Temp Pulse Resp B/P (MAP) Pulse Ox O2 Delivery O2 Flow Rate FiO2 11/02/18 18:08 98.3 97 20 137/62 (87) 97 Room Air Capillary Refill : Less Than 3 Seconds General Appearance: No Apparent Distress, WD/WN, Chronically ill, Thin HEENT: PERRL/EOMI, Normal ENT Inspection, Pharynx Normal, Moist Mucous Membranes Neck: Full Range of Motion, Normal Inspection, Non Tender, Supple Respiratory: Chest Non Tender, Lungs Clear, Normal Breath Sounds, No Accessory Muscle Use, No Respiratory Distress, Decreased Breath Sounds Cardiovascular: Regular Rate, Rhythm, No Edema, No Gallop, No JVD, No Murmur Gastrointestinal: Normal Bowel Sounds, No Organomegaly, No Pulsatile Mass, Non Tender, Soft Back: Normal Inspection, No CVA Tenderness, No Vertebral Tenderness Extremity: Normal Capillary Refill, Normal Inspection, Normal Range of Motion ( except left leg from hip fracture repair), Non Tender, No Calf Tenderness, Pedal Edema Neurologic/Psychiatric: Alert, Oriented x3, No Motor/Sensory Deficits, Normal Mood/Affect Skin: Normal Color, Warm/Dry Lymphatic: No Adenopathy Results/Procedures Lab Patient resulted labs reviewed. Assessment/Plan Assessment and Plan Assess & Plan/Chief Complaint Assessment: Left hip fracture Debility Smoker OP Vit D deficiency Frail status Falls Chronic pain history Edema DVT PPx with Lovenox 30mg BID Plan: Intensive therapies to prepare for DC home Pain management Bowel regimen Smoking cessation Vit D supplement CAROLIN's with wide rachelle wraps Lasix 20mg every other day prn edema (1) Hip fracture, left (2) Fall on same level from slipping, tripping or stumbling (3) Vitamin D deficiency (4) Anxiety (5) Osteoporosis (6) Fracture of hip, right, closed (7) Smoker (8) DVT prophylaxis (9) Lower extremity edema Clinical Quality Measures DVT/VTE Risk/Contraindication: Risk Factor Score Per Nursin RFS Level Per Nursing on Admit: 4+=Very High MARSHA COSME DO Nov 02, 2018 08:28
--- NOTE | 2018-11-02 09:57 | Occupational Ther Daily Note ---
OT Current Status-Daily Note Subjective Pt in her recliner, alert, oriented, cooperative & agree for therapy..Pt states that, " My back is so painful, & sensative ,feels like there are blisters or Shingles." Notified to charge Nurse. Pain Numeric Pain Scale: 8 Location: Lower Location Body Site: Back Pain Description: Stabbing, Sharp Mental Status/Objective Patient Orientation: Person, Place, Time, Situation Therapy Code Descriptions/Definitions Functional [place] Measure: 0=Not Assessed/NA 4=Minimal Assistance 1=Total Assistance 5=Supervision or Setup 2=Maximal Assistance 6=Modified [place] 3=Moderate Assistance 7=Complete [place] Attachments: Saline Lock ADL-Treatment Pt refused for shower today because of skin sensitivity . Pt was agree for sponge bath with warm wipes. Pt wipes her both arms, chest, abdomen, above knee both legs , needs min A to wipes back & below knee legs due to hip precautions. Participated in grooming & toilet activity Independently. Pt Independent in func. transfers & bed mobility. Completed 30 reps x 2 lb wts with BUE, 30 reps with red theraband BUE in all planes of motion & 30 reps using hand gripper to strengthen BUE to participate in all ADLs & to push up from recliner with FWW. 15 min on ARM-BIKE Restorator . Therapy Code Descriptions/Definitions Functional [place] Measure: 0=Not Assessed/NA 4=Minimal Assistance 1=Total Assistance 5=Supervision or Setup 2=Maximal Assistance 6=Modified [place] 3=Moderate Assistance 7=Complete [place] Therapy Quality Codes: 6 Independent with activity with or without an assistive device 5 Patient requires set up or clean up by helper. Patient completes activity by themselves 4 Supervision or touching assist (CGA). [place] provide cues , steadying assist 3 The helper provides less than half the effort to complete the activity 2 The helper provides more than half the effort to complete the activity 1 Dependent. The helper does all the effort to complete an activity 7 Patient refused to complete or attempt activity 9 The patient did not perform the activity before the current illness or injury 88 Not attempted due to Medical conditions or safety concerns Eating (FIM): 7 Eating (QC): 6 Grooming (FIM): 7 Oral Hygiene (QC): 6 Bathing (FIM): 5 (sponge bath ) Bathing Location: L Arm, R Arm, L Upper Leg, R Upper Leg, Chest, Abdomen Shower/Bathe Self (QC): 0 Upper Body (FIM): 6 Upper Body Dressing (QC): 5 Lower Body Dressing (FIM): 4 Lower Body Dressing (QC): 5 On/Off Footwear (QC): 5 Toileting (FIM): 7 Toileting Hygiene (QC): 6 Transfers (B, C, W/C) (FIM): 7 Toilet/Commode Transfer (FIM): 7 Toilet Transfer (QC): 6 Tub Transfer(FIM): 0 Shower Transfer(FIM): 7 Education OT Patient Education: Correct positioning, Safety issues Teaching Recipient: Patient Teaching Methods: Demonstration Response to Teaching: Verbalize Understanding OT Short Term Goals Short Term Goals Time Frame: Nov 08, 2018 Transfers (B,C,W/C) (FIM): 4 Additional Short Term Goals: 1-Demonstrate ADL Tasks, 2-Verbalize Understanding , 3-ImproveStrength/Abdiel 1=Demonstrate adherence to instructed precautions during ADL tasks. 2=Patient will verbalize/demonstrate understanding of assistive devices/ modifications for ADL. 3=Patient will improve strength/tolerance for activity to enable patient to perform ADL's. OT Ornament Setter Goals Shelter Goals Time Frame: Nov 22, 2018 Eating (FIM): 7 Eating (QC): 6 Groomin Oral Hygiene (QC): 6 Bathing(FIM): 7 Bathing Location: L Arm, R Arm, L Upper Leg, R Upper Leg, L Lower Leg ( including foot), R Lower Leg (including foot), Chest, Abdomen, Buttocks, Perineal Area Toileting(FIM): 6 Additional Goals: 1-Demonstrate ADL Tasks, 2-Verbalize Understanding, 3- ImproveStrength/Abdiel 1=Demonstrate adherence to instructed precautions during ADL tasks. 2=Patient will verbalize/demonstrate understanding of assistive devices/ modifications for ADL. 3=Patient will improve strength/tolerance for activity to enable patient to perform ADL's. OT Education/Plan Problem List/Assessment Assessment: Decreased Activ Tolerance, Decreased Safety Aware, Decreased UE Strength, Impaired Funct Balance, Impaired Self-Care Skills Discharge Recommendations Plan/Recommendations: Continue POC Therapy D/C Recommendations: Home w/ Family Support, Occupational Therapy Home Care Equpiment Recommendations-D/C: Extended Bath Bench, Extended Shower Sprayer, Internal Combustion Engine Assembler, Hip Kit, Long Shoe Horn, Toilet Riser Patient/Family Goals To return home Independently with AD. Treatment Plan/Plan of Care Treatment,Training & Education: Yes Patient would benefit from OT for education, treatment and training to promote independence in ADL's, mobility, safety and/or upper extremity function for ADL' s. Plan of Care: ADL Retraining, Concurrent Therapy, Functional Mobility, Group Exercise/Act as Ind Treatment Duration: Nov 22, 2018 Frequency: At least 5 of 7 days/Wk (IRF) Estimated Hrs Per Day: 1.5 hours per day Agreement: Yes Rehab Potential: Good Time/GCodes Start Time: 08:30 (0830 am - 0930 am = 60 minutes) Stop Time: 14:30 ([id number] =30 min) Total Time Billed (hr/min): 90 Billed Treatment Time 1, ADLs 60 minute, FA 15 min & Ex 15 min. Total 90 minutes. SOL ROE OT Nov 02, 2018 09:57
--- NOTE | 2018-11-02 10:27 | NUR ---
PT EATING WELL, 98% MEALS. WEIGHT HAS INCREASED DUE TO INCREASED EDEMA. INTAKE LIKELY MEETING NEEDS AT THIS TIME. CONT SAME.
--- NOTE | 2018-11-02 12:40 | Physical Therapy Daily Note ---
PT Daily Note-Current Subjective Pt sitting in recliner upon arrival. Pt agrees to PT but won't start until she has received her pain med. Pain Numeric Pain Scale: 10-Worst Possible Pain Location: Left Location Body Site: Hip Pain Description: Ache Mental Status Patient Orientation: Person, Place Transfers Therapy Code Descriptions/Definitions Functional [place] Measure: 0=Not Assessed/NA 4=Minimal Assistance 1=Total Assistance 5=Supervision or Setup 2=Maximal Assistance 6=Modified [place] 3=Moderate Assistance 7=Complete [place] Therapy Quality Codes: 6 Independent with activity with or without an assistive device 5 Patient requires set up or clean up by helper. Patient completes activity by themselves 4 Supervision or touching assist (CGA). [place] provide cues , steadying assist 3 The helper provides less than half the effort to complete the activity 2 The helper provides more than half the effort to complete the activity 1 Dependent. The helper does all the effort to complete an activity 7 Patient refused to complete or attempt activity 9 The patient did not perform the activity before the current illness or injury 88 Not attempted due to Medical conditions or safety concerns Scootin Sit to/from Stand: 5 Sit to Stand (QC): 5 Weight Bearing Right Lower Extremity: Right Full Weight Bearing Left Lower Extremity: Left Full Weight Bearing Gait Training Does the Patient Walk?: Yes Distance (FIM): 3=150 ft Distance: 150' x2 Walk 10 feet (QC): 5 Walk 50 ft with 2 Turns(QC): 5 Walk 150 ft (QC): 5 Gait Level of Assist: 5 Gait Persons Needed: 1 Gait Assistive Device: FWW Pt walks with slow nikkie, slight kyphotic posture. Wheelchair Training Does the Pt Use a Wheelchair?: No Exercises Seated Therapy Exercises: Ankle pumps, Long arc quads, Hip flexion, Kicking activity, Hip abd/add Seated Reps: 15 NuStep Minutes: 10 NuStep Workload: 4 Treatments Pt receives pain med so she could start tx. Pt completes Seated Ex in recliner. Pt transfers from recliner and ambulates in hallway using FWW at [facility]. Pt uses NuStep for 10m at [facility] 4. Pt uses restroom at end of tx before returning to rest in recliner. Pt has all needs met. Assessment Current Status: Fair Progress Pt reports 10/10 pain but facial expression and completion/execution of activities does not demonstrate this rating. Pt continues to need VC to stay on task instead of stopping to talk. PT Short Term Goals Short Term Goals Time Frame: Nov 01, 2018 Transfers (B,C,W/C) (FIM): 4 Gait (FIM): 4 Distance (FIM): 3=150 ft PT Correction Goals Correction Goals PT Wire Basket Maker Goals Time Frame: Nov 15, 2018 Transfers (B,C,W/C) (FIM): 7 Sit to Lying (QC): 6 Lying-Sitting on Side/Bed(QC): 6 Sit to Stand (QC): 6 Rollin Roll Left to Right (QC): 6 Chair/Qeh-ss-Prade Xfer(QC): 6 Car Transfer (QC): 6 Does the Patient Walk: Yes Gait (FIM): 6 Gait distance (FIM): 3=150 ft Distance: 200 ft Walk 10 feet (QC): 6 Walk 10ft-Uneven Surface(QC): 6 Walk 50ft with 2 Turns (QC): 6 Walk 150 ft (QC): 6 Gait Assistive Device: FWW Does the Pt use WC or Scooter?: No Stairs (FIM): 5 (household) # of Steps: 4 1 Step (curb) (QC): 6 4 Steps (QC): 6 12 Steps (QC): 88 Picking up an Object (QC): 4 (specifications checker) PT Plan Problem List Problem List: Activity Tolerance, Functional Strength, Safety Treatment/Plan Treatment Plan: Continue Plan of Care Treatment Plan: Bed Mobility, Education, Functional Activity Abdiel, Functional Strength, Group Therapy, Gait, Safety, Therapeutic Exercise, Transfers Treatment Duration: Nov 08, 2018 Frequency: At least 5 of 7 days/Wk (IRF) Estimated Hrs Per Day: 1.5 hours per day Patient and/or Family Agrees t: Yes Safety Risks/Education Patient Education: Gait Training, Transfer Techniques, Correct Positioning, Safety Issues Teaching Recipient: Patient Teaching Methods: Discussion Response to Teaching: Verbalize Understanding Time/GCodes Time In: 1030 Time Out: 1130 Total Billed Treatment Time: 60 Total Billed Treatment 1, GT (20m), EX (15m) & FA x2 (25m) G Codes Necessary: PRASAD Gudino TILE MOLDER Nov 02, 2018 12:40
--- NOTE | 2018-11-02 15:52 | Physical Therapy Daily Note ---
PT Daily Note-Current Subjective Pt sitting in recliner upon arrival. Pt agrees to PT. Pain Numeric Pain Scale: 8 Location: Left Location Body Site: Hip Pain Description: Ache, Tightness Appearance Pt continues to present with swelling of BLE. Pt is wearing CAROLIN hoses on BLE. Mental Status Patient Orientation: Person, Place Transfers Therapy Code Descriptions/Definitions Functional [place] Measure: 0=Not Assessed/NA 4=Minimal Assistance 1=Total Assistance 5=Supervision or Setup 2=Maximal Assistance 6=Modified [place] 3=Moderate Assistance 7=Complete [place] Therapy Quality Codes: 6 Independent with activity with or without an assistive device 5 Patient requires set up or clean up by helper. Patient completes activity by themselves 4 Supervision or touching assist (CGA). [place] provide cues , steadying assist 3 The helper provides less than half the effort to complete the activity 2 The helper provides more than half the effort to complete the activity 1 Dependent. The helper does all the effort to complete an activity 7 Patient refused to complete or attempt activity 9 The patient did not perform the activity before the current illness or injury 88 Not attempted due to Medical conditions or safety concerns Scootin Rollin Sit to/from Stand: 5 Sit to Lying (QC): 4 Sit to Stand (QC): 5 Weight Bearing Right Lower Extremity: Right Full Weight Bearing Left Lower Extremity: Left Full Weight Bearing Gait Training Does the Patient Walk?: Yes Distance (FIM): 3=150 ft Distance: 150' x2 Walk 10 feet (QC): 6 Walk 50 ft with 2 Turns(QC): 5 Walk 150 ft (QC): 5 Gait Level of Assist: 5 Gait Persons Needed: 1 Gait Assistive Device: FWW Wheelchair Training Does the Pt Use a Wheelchair?: No Exercises Supine Ex: Ankle pumps, Glut sets, Heel Slides, Hip abd/add Supine Reps: 15 Pt completes Ex R sidelying due to pain in L hip. Treatments Pt transfers from recliner and ambulates in hallway using FWW at [facility]. Pt completes Ex on mat in Therapy Gym before returning to room at end of tx. Pt resting in recliner with all needs met. Assessment Current Status: Fair Progress Pt limits participation due to pain. PT Short Term Goals Short Term Goals Time Frame: Nov 01, 2018 Transfers (B,C,W/C) (FIM): 4 Gait (FIM): 4 Distance (FIM): 3=150 ft PT Shoes Hand Sewer Goals Alf Goals PT Alf Goals Time Frame: Nov 15, 2018 Transfers (B,C,W/C) (FIM): 7 Sit to Lying (QC): 6 Lying-Sitting on Side/Bed(QC): 6 Sit to Stand (QC): 6 Rollin Roll Left to Right (QC): 6 Chair/Bto-lf-Zeugp Xfer(QC): 6 Car Transfer (QC): 6 Does the Patient Walk: Yes Gait (FIM): 6 Gait distance (FIM): 3=150 ft Distance: 200 ft Walk 10 feet (QC): 6 Walk 10ft-Uneven Surface(QC): 6 Walk 50ft with 2 Turns (QC): 6 Walk 150 ft (QC): 6 Gait Assistive Device: FWW Does the Pt use WC or Scooter?: No Stairs (FIM): 5 (household) # of Steps: 4 1 Step (curb) (QC): 6 4 Steps (QC): 6 12 Steps (QC): 88 Picking up an Object (QC): 4 (motion picture actor) PT Plan Problem List Problem List: Activity Tolerance, Functional Strength, Safety Treatment/Plan Treatment Plan: Continue Plan of Care Treatment Plan: Bed Mobility, Education, Functional Activity Abdiel, Functional Strength, Group Therapy, Gait, Safety, Therapeutic Exercise, Transfers Treatment Duration: Nov 08, 2018 Frequency: At least 5 of 7 days/Wk (IRF) Estimated Hrs Per Day: 1.5 hours per day Patient and/or Family Agrees t: Yes Safety Risks/Education Patient Education: Gait Training, Transfer Techniques, Correct Positioning, Safety Issues Teaching Recipient: Patient Teaching Methods: Discussion Response to Teaching: Verbalize Understanding Time/GCodes Time In: 1330 Time Out: 1400 Total Billed Treatment Time: 30 Total Billed Treatment 1, EX (15m) & GT (15m) G Codes Necessary: No PRASAD CHOE REAL ESTATE PROFESSOR Nov 02, 2018 15:52
[2018-11-02] MEDS: ALPRAZolam 0.25 MG (XANAX) TAB PO PRN (16:12)
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
[2018-11-02 18:08] VITALS: BP 137/62
[2018-11-03] MEDS: ALPRAZolam 0.25 MG (XANAX) TAB PO PRN (00:36)
[2018-11-03] MEDS: HYDROcodone/APAP 5 MG/325 MG (LORTAB) TAB PO PRN ×5 (03:55→22:19)
[2018-11-03 06:02] VITALS: BP 150/84
[2018-11-03] MEDS: KCL 10 MEQ TAB (MICRO K) PO SCH (06:33)
[2018-11-03] MEDS: PANTOPRAZOLE 40 MG (PROTONIX) TAB PO SCH (06:34)
[2018-11-03] MEDS: SUCRALFATE 1 GM (CARAFATE) TAB PO SCH ×4 (06:34→20:07)
[2018-11-03] MEDS: GABAPENTIN 300 MG (NEURONTIN) CAP PO SCH ×3 (08:15→20:07)
[2018-11-03] MEDS: ENOXAPARIN 30 MG/0.3 ML (LOVENOX) SYR SC SCH ×2 (08:17→20:07)
[2018-11-03] MEDS: POLYETHYLENE GLYCOL 17 GM (MIRALAX) PACK PO SCH ×2 (08:18→20:07)
[2018-11-03] MEDS: TRIAMCINOLONE 0.1% OINT (KENALOG) 15 GM TUBE TOP SCH ×2 (08:19→20:08)
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
--- NOTE | 2018-11-03 10:40 | NUR ---
Pastoral care visit, pt shared a myriad of things from past health issues to current and also shared much in regards to her family situation. I provided listening and support.
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
[2018-11-03] MEDS: FUROSEMIDE 20 MG (LASIX) TAB PO SCH (11:20)
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
--- NOTE | 2018-11-03 15:00 | NUR ---
ANI HAVE BEEN IN INCISION X [address] RECEIV[address] INTERIANO TO REMOVE ANI IF INCISION LOOKS GOOD.
[2018-11-03 18:00] VITALS: BP 146/75
--- NOTE | 2018-11-03 18:21 | NUR ---
ANI REMOVED FROM 3 INCISIONS ON LEFT HIP. STERI STRIPS APPLIED. BOTTOM OF THE 3 INCISIONS SLIGHTLY GAPPED.
[2018-11-04] MEDS: HYDROcodone/APAP 5 MG/325 MG (LORTAB) TAB PO PRN ×5 (04:31→21:31)
[2018-11-04 05:11] VITALS: BP 130/85
[2018-11-04] MEDS: SUCRALFATE 1 GM (CARAFATE) TAB PO SCH ×4 (06:09→21:31)
[2018-11-04] MEDS: PANTOPRAZOLE 40 MG (PROTONIX) TAB PO SCH (06:09)
[2018-11-04] MEDS: KCL 10 MEQ TAB (MICRO K) PO SCH (06:09)
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
[2018-11-04] MEDS: GABAPENTIN 300 MG (NEURONTIN) CAP PO SCH ×3 (08:27→21:31)
[2018-11-04] MEDS: ENOXAPARIN 30 MG/0.3 ML (LOVENOX) SYR SC SCH ×2 (08:27→20:24)
[2018-11-04] MEDS: TRIAMCINOLONE 0.1% OINT (KENALOG) 15 GM TUBE TOP SCH ×2 (08:29→21:32)
[2018-11-04] MEDS: POLYETHYLENE GLYCOL 17 GM (MIRALAX) PACK PO SCH ×2 (09:26→21:32)
--- NOTE | 2018-11-04 10:08 | Occupational Ther Daily Note ---
OT Current Status-Daily Note Subjective Pt in recliner , in a good mood, alert, oriented & cooperative. Pt states that, " Today my daughter is in stable condition in ICU in [facility]." Pain Numeric Pain Scale: 5-Moderate Pain Location: Left Location Body Site: Hip Pain Description: Stabbing, Sharp Mental Status/Objective Patient Orientation: Person, Place, Time, Situation Therapy Code Descriptions/Definitions Functional Jewell Measure: 0=Not Assessed/NA 4=Minimal Assistance 1=Total Assistance 5=Supervision or Setup 2=Maximal Assistance 6=Modified Jewell 3=Moderate Assistance 7=Complete Jewell Attachments: Saline Lock ADL-Treatment In AM Patient sit to stand with FWW Independently. Pt Ambulate with fww to the Therapy Gym Independently under supervision. Performed 15 minutes on ARM BIKE Restorator Ex to BUE . In PM Pt performed shower , dressing, toiletting , grooming . Pt Independent in UB & LB dressing/ undressing garments . Pt Independent in shower & washing UB, LB Back, front , buttocks & Perineals holding grab bar. Therapy Code Descriptions/Definitions Functional Jewell Measure: 0=Not Assessed/NA 4=Minimal Assistance 1=Total Assistance 5=Supervision or Setup 2=Maximal Assistance 6=Modified Jewell 3=Moderate Assistance 7=Complete Jewell Therapy Quality Codes: 6 Independent with activity with or without an assistive device 5 Patient requires set up or clean up by helper. Patient completes activity by themselves 4 Supervision or touching assist (CGA). [place] provide cues , steadying assist 3 The helper provides less than half the effort to complete the activity 2 The helper provides more than half the effort to complete the activity 1 Dependent. The helper does all the effort to complete an activity 7 Patient refused to complete or attempt activity 9 The patient did not perform the activity before the current illness or injury 88 Not attempted due to Medical conditions or safety concerns Eating (FIM): 7 Eating (QC): 6 Grooming (FIM): 7 Oral Hygiene (QC): 6 Bathing (FIM): 7 Bathing Location: L Arm, R Arm, L Upper Leg, R Upper Leg, L Lower Leg ( including foot), R Lower Leg (including foot), Chest, Abdomen, Buttocks, Perineal Area Shower/Bathe Self (QC): 6 Upper Body (FIM): 7 Upper Body Dressing (QC): 6 Lower Body Dressing (FIM): 6 Lower Body Dressing (QC): 6 On/Off Footwear (QC): 6 Toileting (FIM): 7 Toileting Hygiene (QC): 6 Transfers (B, C, W/C) (FIM): 7 Toilet/Commode Transfer (FIM): 7 Toilet Transfer (QC): 6 Tub Transfer(FIM): 0 Shower Transfer(FIM): 7 Education OT Patient Education: Correct positioning, Safety issues Teaching Recipient: Patient Teaching Methods: Demonstration Response to Teaching: Verbalize Understanding OT Short Term Goals Short Term Goals Time Frame: Nov 08, 2018 Transfers (B,C,W/C) (FIM): 4 Additional Short Term Goals: 1-Demonstrate ADL Tasks, 2-Verbalize Understanding , 3-ImproveStrength/Abdiel 1=Demonstrate adherence to instructed precautions during ADL tasks. 2=Patient will verbalize/demonstrate understanding of assistive devices/ modifications for ADL. 3=Patient will improve strength/tolerance for activity to enable patient to perform ADL's. OT Intermediate Goals Telecom Coordinator Goals Time Frame: Nov 22, 2018 Eating (FIM): 7 Eating (QC): 6 Groomin Oral Hygiene (QC): 6 Bathing(FIM): 7 Bathing Location: L Arm, R Arm, L Upper Leg, R Upper Leg, L Lower Leg ( including foot), R Lower Leg (including foot), Chest, Abdomen, Buttocks, Perineal Area Shower/Bathe Self (QC): 6 Upper Body Dressing(FIM): 7 Upper Body Dressing (QC): 6 Lower Body Dressing(FIM): 6 Lower Body Dressing (QC): 6 On/Off Footwear (QC): 6 Toileting(FIM): 7 Toileting Hygiene (QC): 6 Transfers (B,C,W/C) (FIM): 7 Toilet/Commode Transfer(FIM): 7 Toilet/Commode Transfer (QC): 6 Tub Transfer(FIM): 0 Shower Transfer(FIM): 7 Additional Goals: 1-Demonstrate ADL Tasks, 2-Verbalize Understanding, 3- ImproveStrength/Abdiel 1=Demonstrate adherence to instructed precautions during ADL tasks. 2=Patient will verbalize/demonstrate understanding of assistive devices/ modifications for ADL. 3=Patient will improve strength/tolerance for activity to enable patient to perform ADL's. OT Education/Plan Problem List/Assessment Assessment: Decreased Activ Tolerance, Decreased Safety Aware, Decreased UE Strength, Impaired Funct Balance, Impaired Self-Care Skills Discharge Recommendations Plan/Recommendations: Discharge/Goals Met Therapy D/C Recommendations: Home w/ Family Support Equpiment Recommendations-D/C: Extended Bath Bench, Extended Shower Sprayer, Public Information Director Treatment Plan/Plan of Care Treatment,Training & Education: Yes Patient would benefit from OT for education, treatment and training to promote independence in ADL's, mobility, safety and/or upper extremity function for ADL' s. Plan of Care: ADL Retraining, Concurrent Therapy, Functional Mobility, Group Exercise/Act as Ind Treatment Duration: Nov 22, 2018 Frequency: At least 5 of 7 days/Wk (IRF) Estimated Hrs Per Day: 1.5 hours per day Agreement: Yes Rehab Potential: Good Time/GCodes Start Time: 08:30 (08:30-9:00 AM = 30 MIN.) Stop Time: 14:00 (4300-8719+ 60 minutes) Total Time Billed (hr/min): 90 Billed Treatment Time 1, FA 15 minute, Ex 15 min, ADL 60 min. Total 90 minutes. SOL ROE OT Nov 04, 2018 10:08
--- NOTE | 2018-11-04 11:08 | Physical Therapy Daily Note ---
PT Daily Note-Current Subjective Pt sitting in recliner upon arrival. Pt agrees to PT for FIM scoring for DC tomorrow. Pain Numeric Pain Scale: 8 Location: Left Location Body Site: Hip Pain Description: Stabbing, Sharp Mental Status Patient Orientation: Person, Place Transfers Therapy Code Descriptions/Definitions Functional Brandon Measure: 0=Not Assessed/NA 4=Minimal Assistance 1=Total Assistance 5=Supervision or Setup 2=Maximal Assistance 6=Modified Brandon 3=Moderate Assistance 7=Complete Brandon Therapy Quality Codes: 6 Independent with activity with or without an assistive device 5 Patient requires set up or clean up by helper. Patient completes activity by themselves 4 Supervision or touching assist (CGA). [place] provide cues , steadying assist 3 The helper provides less than half the effort to complete the activity 2 The helper provides more than half the effort to complete the activity 1 Dependent. The helper does all the effort to complete an activity 7 Patient refused to complete or attempt activity 9 The patient did not perform the activity before the current illness or injury 88 Not attempted due to Medical conditions or safety concerns Transfers (B, C, W/C) (FIM): 6 Scootin Rollin Roll Left to Right (QC): 6 Supine to/from Sit: 6 Sit to/from Stand: 6 Sit to Lying (QC): 6 Sit to Stand (QC): 6 Chair/Ndf-pc-Fhppp Xfer(QC): 6 Bed to/from Chair: 6 Car Transfer (QC): 6 Weight Bearing Right Lower Extremity: Right Full Weight Bearing Left Lower Extremity: Left Full Weight Bearing Gait Training Does the Patient Walk?: Yes Gait (FIM): 6 Distance (FIM): 3=150 ft Distance: 200' Walk 10 feet (QC): 6 Walk 50 ft with 2 Turns(QC): 6 Walk 150 ft (QC): 6 Walking 10ft/uneven surface-QC: 6 Gait Level of Assist: 6 Gait Persons Needed: 1 Gait Assistive Device: FWW Wheelchair Training Does the Pt Use a Wheelchair?: No Stair Training Stair Training: Handrails/: 2 handrails Stairs (FIM): 5 #of Steps: 8 1 Step (curb) (QC): 5 4 Steps (QC): 5 12 Steps (QC): 88 Stairs: Pattern: Step to Level of Assist: 5 Pt fatigues and needs seated rest break after 2 sets of 4 steps. Balance Picking up an Object (QC): 88 Special Test Comments Not safe to test at this time due to hip precautions. Exercises Seated Therapy Exercises: Ankle pumps, Long arc quads, Hip flexion, Kicking activity Seated Reps: 20 Treatments Pt completes bed mobility, transfers including car transfer, ambulation including walking across varying surface, 8 stairs during tx. Pt returns to room at end of tx with all needs met. Assessment Current Status: Good Progress Pt has improves with independence of tasks, sometimes needs VC for safety though. PT Short Term Goals Short Term Goals Time Frame: Nov 01, 2018 Transfers (B,C,W/C) (FIM): 4 Gait (FIM): 4 Distance (FIM): 3=150 ft PT Assistant Professor Of Criminal Justice Goals Assistant Professor Of Criminal Justice Goals PT Assistant Professor Of Criminal Justice Goals Time Frame: Nov 15, 2018 Transfers (B,C,W/C) (FIM): 7 Sit to Lying (QC): 6 Lying-Sitting on Side/Bed(QC): 6 Sit to Stand (QC): 6 Rollin Roll Left to Right (QC): 6 Chair/Urs-bt-Oykgq Xfer(QC): 6 Car Transfer (QC): 6 Does the Patient Walk: Yes Gait (FIM): 6 Gait distance (FIM): 3=150 ft Distance: 200 ft Walk 10 feet (QC): 6 Walk 10ft-Uneven Surface(QC): 6 Walk 50ft with 2 Turns (QC): 6 Walk 150 ft (QC): 6 Gait Assistive Device: FWW Does the Pt use WC or Scooter?: No Stairs (FIM): 5 (household) # of Steps: 4 1 Step (curb) (QC): 6 4 Steps (QC): 6 12 Steps (QC): 88 Picking up an Object (QC): 4 (edge grinder) PT Plan Problem List Problem List: Activity Tolerance, Functional Strength, Safety Treatment/Plan Treatment Plan: Continue Plan of Care Treatment Plan: Bed Mobility, Education, Functional Activity Abdiel, Functional Strength, Group Therapy, Gait, Safety, Therapeutic Exercise, Transfers Treatment Duration: Nov 08, 2018 Frequency: At least 5 of 7 days/Wk (IRF) Estimated Hrs Per Day: 1.5 hours per day Patient and/or Family Agrees t: Yes Safety Risks/Education Patient Education: Gait Training, Transfer Techniques, Steps, Correct Positioning, Safety Issues Teaching Recipient: Patient Teaching Methods: Discussion Response to Teaching: Verbalize Understanding Time/GCodes Time In: 1000 Time Out: 1100 Total Billed Treatment Time: 60 Total Billed Treatment 1, GT (20m), FA (30m) & EX (10m) G Codes Necessary: PRASAD Gudino PTA Nov 04, 2018 11:08
--- NOTE | 2018-11-04 14:47 | Physical Therapy Daily Note ---
PT Daily Note-Current Subjective Pt sitting in recliner upon arrival. Pt agrees to PT. Pain Numeric Pain Scale: 5-Moderate Pain Location: Left Location Body Site: Hip Pain Description: Ache Mental Status Patient Orientation: Person, Place Transfers Therapy Code Descriptions/Definitions Functional Gilliam Measure: 0=Not Assessed/NA 4=Minimal Assistance 1=Total Assistance 5=Supervision or Setup 2=Maximal Assistance 6=Modified Gilliam 3=Moderate Assistance 7=Complete G[place]am Therapy Quality Codes: 6 Independent with activity with or without an assistive device 5 Patient requires set up or clean up by helper. Patient completes activity by themselves 4 Supervision or touching assist (CGA). [place] provide cues , steadying assist 3 The helper provides less than half the effort to complete the activity 2 The helper provides more than half the effort to complete the activity 1 Dependent. The helper does all the effort to complete an activity 7 Patient refused to complete or attempt activity 9 The patient did not perform the activity before the current illness or injury 88 Not attempted due to Medical conditions or safety concerns Scootin Sit to/from Stand: 6 Sit to Stand (QC): 6 Weight Bearing Right Lower Extremity: Right Full Weight Bearing Left Lower Extremity: Left Full Weight Bearing Gait Training Does the Patient Walk?: Yes Distance (FIM): 3=150 ft Distance: 150' Walk 10 feet (QC): 6 Walk 50 ft with 2 Turns(QC): 6 Walk 150 ft (QC): 6 Gait Level of Assist: 6 Gait Persons Needed: 1 Gait Assistive Device: FWW Pt would like to use Crutches for ambulation at this time. CLOTH FINISHING RANGE OPERATOR CHIEF instructed a FWW used be used at this time due to balance. In pt's demonstration of ambulation, pt vogt not appear strong enough to maintain proper balance with crutches. Wheelchair Training Does the Pt Use a Wheelchair?: No Treatments Nurse Plastics, CLOTH FINISHING RANGE OPERATOR CHIEF & pt discuss when pt will DC tomorrow (11/05) as well if pt needs any other AD. Pt reports having FWW at home. Pt also discusses use of crutches instead of FWW, CLOTH FINISHING RANGE OPERATOR CHIEF encouraged pt to use FWW for safety. Pt ambulated in hallway with focus on navigating small spaces like pt will at home. Pt returns to room to rest in recliner at end of tx with all needs met. Assessment Current Status: Good Progress Pt is not always aware of safety limitations and really wants to visit during tx. PT Short Term Goals Short Term Goals Time Frame: Nov 01, 2018 Transfers (B,C,W/C) (FIM): 4 Gait (FIM): 4 Distance (FIM): 3=150 ft PT Lining Caser Goals Intermediate Goals PT Lining Caser Goals Time Frame: Nov 15, 2018 Transfers (B,C,W/C) (FIM): 7 Sit to Lying (QC): 6 Lying-Sitting on Side/Bed(QC): 6 Sit to Stand (QC): 6 Rollin Roll Left to Right (QC): 6 Chair/Nyi-uw-Yzdsj Xfer(QC): 6 Car Transfer (QC): 6 Does the Patient Walk: Yes Gait (FIM): 6 Gait distance (FIM): 3=150 ft Distance: 200 ft Walk 10 feet (QC): 6 Walk 10ft-Uneven Surface(QC): 6 Walk 50ft with 2 Turns (QC): 6 Walk 150 ft (QC): 6 Gait Assistive Device: FWW Does the Pt use WC or Scooter?: No Stairs (FIM): 5 (household) # of Steps: 4 1 Step (curb) (QC): 6 4 Steps (QC): 6 12 Steps (QC): 88 Picking up an Object (QC): 4 (itinerant teacher assistant) PT Plan Problem List Problem List: Activity Tolerance, Functional Strength, Safety Treatment/Plan Treatment Plan: Continue Plan of Care Treatment Plan: Bed Mobility, Education, Functional Activity Abdiel, Functional Strength, Group Therapy, Gait, Safety, Therapeutic Exercise, Transfers Treatment Duration: Nov 08, 2018 Frequency: At least 5 of 7 days/Wk (IRF) Estimated Hrs Per Day: 1.5 hours per day Patient and/or Family Agrees t: Yes Safety Risks/Education Patient Education: Gait Training, Transfer Techniques, Correct Positioning, Safety Issues Teaching Recipient: Patient Teaching Methods: Discussion Response to Teaching: Verbalize Understanding Time/GCodes Time In: 1415 Time Out: 1445 Total Billed Treatment Time: 30 Total Billed Treatment 1, FA (15m) & GT (15m) G Codes Necessary: PRASAD Gudino CLOTH FINISHING RANGE OPERATOR CHIEF Nov 04, 2018 14:47
--- NOTE | 2018-11-04 17:05 | NUR ---
SUPERINTENDENT CAR CONSTRUCTION met with patient to review any at discharge discharge needs prior to discharge tomorrow. Patient identifies no further needs. Following conversation with patient significant other, family does not wish to utilize home health at this time. Patient and significant other are aware that this service was recommended by staff. SUPERINTENDENT CAR CONSTRUCTION reviewed IMM, patient expressed no concerns with discharge plan. Patient intends to have friend available for transportation home tomorrow at 10 a.m. Please see discharge records for further information.
[2018-11-04 18:20] VITALS: BP 157/94
[2018-11-05] MEDS: HYDROcodone/APAP 5 MG/325 MG (LORTAB) TAB PO PRN ×3 (01:43→10:17)
[2018-11-05 05:44] VITALS: BP 135/85
[2018-11-05] MEDS: SUCRALFATE 1 GM (CARAFATE) TAB PO SCH (06:10)
[2018-11-05] MEDS: KCL 10 MEQ TAB (MICRO K) PO SCH (06:10)
[2018-11-05] MEDS: PANTOPRAZOLE 40 MG (PROTONIX) TAB PO SCH (06:10)
[2018-11-05] MEDS: GABAPENTIN 300 MG (NEURONTIN) CAP PO SCH (08:14)
[2018-11-05] MEDS: POLYETHYLENE GLYCOL 17 GM (MIRALAX) PACK PO SCH (08:14)
[2018-11-05] MEDS: ENOXAPARIN 30 MG/0.3 ML (LOVENOX) SYR SC SCH (08:14)
[2018-11-05] MEDS: TRIAMCINOLONE 0.1% OINT (KENALOG) 15 GM TUBE TOP SCH (08:16)
[2018-11-05] MEDS ORDERED: ERGO50006 PO (09:00)
[2018-11-05] MEDS ORDERED: FURO20TA4 PO (09:00)
[2018-11-05] MEDS ORDERED: OXYC-464 PO (09:00)
[2018-11-05] MEDS ORDERED: POTA10TA6 PO (09:00)
[2018-11-05] MEDS ORDERED: PANT40TA3 PO (09:00)
--- NOTE | 2018-11-05 09:02 | D/C HH Face to Face Order ---
D/C Face to Face Orders Instructions for Patient Via [facility], Patient Instructions/FollowUp: [facility] appt Physician to follow Patient: [facility] Discharge Diet for Home: No Restrictions Patient Problems: Left hip fracture repair Weakness Patient Data-Allergies,Ht & Wt Patient Allergies: Coded Allergies: No Known Drug Allergies (Unverified , 05/15/09) Height (Feet): 4 Height (Inches): 8.00 Weight (Pounds): 130 Weight (Ounces): 3.0 Home Health Need/Face to Face Date of Face to Face: Nov 05, 2018 Clinical Findings: Generalized weakness and fatigue, Instability, Muscle weakness, Pain with ambulation, Unsteady gait I have seen Pt [id number]: Yes Discharged To: Home Diagnosis/Conditions: Left hip fracture repair Weakness Patient is Homebound due to: Radha fall risk due to instabilty, Muscle weakness , Pain w/ambulation Homebound Status Due to the above stated illness, injury or surgical procedure (medical condition or diagnosis) and associated clinical findings, the patient is homebound because of his/her inability to leave home except with aid of a supportive device and/or person AND leaving the home requires a considerable and taxing effort or is medically contraindicated. Pt req the following assistanc: Walker Home Health Nursing Orders Home Health Services Order: Nursing Services, Cooker Cleaner-Evaluate & Treat, Physical Therapy-Evaluate & Treat Home Health Infusion Therapy Line Type: Saline Lock Site Location: Wrist Certify Stmt I certify that this patient is under my care and that I, a nurse practitioner or a physician; a nutrition assistant working with me, had a face to face encounter that - meets the physician face to face encounter requirements with this patient as dated. MARSHA COSME DO Nov 05, 2018 09:02
--- NOTE | 2018-11-05 09:03 | Discharge Summary ---
Diagnosis/Chief Complaint Date of Admission Oct 25, 2018 at 11:09 Date of Discharge Discharge Date: Nov 05, 2018 Discharge Diagnosis Assessment: Left hip fracture Debility Smoker OP Vit D deficiency Frail status Falls Chronic pain history Edema DVT PPx with Lovenox 30mg BID Grief reaction over daughter's critical illness Plan: Intensive therapies to prepare for DC home Pain management Bowel regimen Smoking cessation Vit D supplement CAROLIN's with wide rachelle wraps Lasix 20mg every other day prn edema Refuse behavioral therapy DC tomorrow Discharge Summary Discharge Physical Examination Allergies: Coded Allergies: No Known Drug Allergies (Unverified , 05/15/09) Vitals & I&Os Vital Signs Date Time Temp Pulse Resp B/P (MAP) Pulse Ox O2 Delivery O2 Flow Rate FiO2 11/05/18 10:18 Room Air 11/05/18 10:00 90 20 135/85 96 11/05/18 05:44 97.7 Hospital Course Was the Problem List Reviewed?: Yes Hospital course: Patient had a lengthy hospital course per standard rehabilitation protocol for left hip fracture. She per dissipated in all therapies most of the time but did require a great deal of pain medication was scheduled basis due to chronic pain syndrome on an ongoing basis in addition to the left hip fracture. No decompensation occur during the hospital stay and no lab abnormality required any type of aggressive intervention. Lower extremity edema did occur but that had improved a tremendous amount by time of discharge with the application of CAROLIN hose. Overall she benefited from inpatient rehabilitation she was able to be discharged home sure he had a walker and we will maintain recovery with home health with nurse and physical therapy and occupational therapy along with close follow-[facility]. Smoking cessation was counseled. Labs (last 24 hrs) Laboratory Tests 10/26/18 05:56: White Blood Count 6.1, Red Blood Count 3.49L, Hemoglobin 10.3L, Hematocrit 31L, Mean Corpuscular Volume 90, Mean Corpuscular Hemoglobin 30, Mean Corpuscular Hemoglobin Concent 33, Red Cell Distribution Width 14.9H, Platelet Count 279, Mean Platelet Volume 9.7, Neutrophils (%) (Auto) 41L, Lymphocytes (%) (Auto) 42 , Monocytes (%) (Auto) 11, Eosinophils (%) (Auto) 6, Basophils (%) (Auto) 1, Neutrophils # (Auto) 2.5, Lymphocytes # (Auto) 2.5, Monocytes # (Auto) 0.6, Eosinophils # (Auto) 0.4H, Basophils # (Auto) 0.0, Sodium Level 138, Potassium Level 3.4L, Chloride Level 101, Carbon Dioxide Level 28, Anion Gap 9, Blood Urea Nitrogen 10, Creatinine 0.65, Estimat Glomerular Filtration Rate > 60, BUN/ Creatinine Ratio 15, Glucose Level 99, Calcium Level 9.3, Corrected Calcium 9.7 , Total Bilirubin 0.7, Aspartate Amino Transf (AST/SGOT) 19, Alanine Aminotransferase (ALT/SGPT) 12, Alkaline Phosphatase 89, Total Protein 6.9, Albumin 3.5 11/01/18 09:00: White Blood Count 7.2, Red Blood Count 3.75L, Hemoglobin 10.9L, Hematocrit 34L, Mean Corpuscular Volume 92, Mean Corpuscular Hemoglobin 29, Mean Corpuscular Hemoglobin Concent 32, Red Cell Distribution Width 16.2H, Platelet Count 369, Mean Platelet Volume 8.9, Neutrophils (%) (Auto) 41L, Lymphocytes (%) (Auto) 42 , Monocytes (%) (Auto) 10, Eosinophils (%) (Auto) 6, Basophils (%) (Auto) 1, Neutrophils # (Auto) 3.0, Lymphocytes # (Auto) 3.0, Monocytes # (Auto) 0.7, Eosinophils # (Auto) 0.4H, Basophils # (Auto) 0.0, Sodium Level 135, Potassium Level 3.8, Chloride Level 101, Carbon Dioxide Level 23, Anion Gap 11, Blood Urea Nitrogen 16, Creatinine 0.76, Estimat Glomerular Filtration Rate > 60, BUN/ Creatinine Ratio 21, Glucose Level 112H, Calcium Level 9.8, Corrected Calcium 9.9, Total Bilirubin 0.4, Aspartate Amino Transf (AST/SGOT) 23, Alanine Aminotransferase (ALT/SGPT) 15, Alkaline Phosphatase 129, Total Protein 7.5, Albumin 3.9 Pending Labs Laboratory Tests 10/26/18 05:56: White Blood Count 6.1, Red Blood Count 3.49, Hemoglobin 10.3, Hematocrit 31, Mean Corpuscular Volume 90, Mean Corpuscular Hemoglobin 30, Mean Corpuscular Hemoglobin Concent 33, Red Cell Distribution Width 14.9, Platelet Count 279, Mean Platelet Volume 9.7, Neutrophils (%) (Auto) 41, Lymphocytes (%) (Auto) 42, Monocytes (%) (Auto) 11, Eosinophils (%) (Auto) 6, Basophils (%) (Auto) 1, Neutrophils # (Auto) 2.5, Lymphocytes # (Auto) 2.5, Monocytes # (Auto) 0.6, Eosinophils # (Auto) 0.4, Basophils # (Auto) 0.0, Sodium Level 138, Potassium Level 3.4, Chloride Level 101, Carbon Dioxide Level 28, Anion Gap 9, Blood Urea Nitrogen 10, Creatinine 0.65, Estimat Glomerular Filtration Rate > 60, BUN/ Creatinine Ratio 15, Glucose Level 99, Calcium Level 9.3, Corrected Calcium 9.7 , Total Bilirubin 0.7, Aspartate Amino Transf (AST/SGOT) 19, Alanine Aminotransferase (ALT/SGPT) 12, Alkaline Phosphatase 89, Total Protein 6.9, Albumin 3.5 11/01/18 09:00: White Blood Count 7.2, Red Blood Count 3.75, Hemoglobin 10.9, Hematocrit 34, Mean Corpuscular Volume 92, Mean Corpuscular Hemoglobin 29, Mean Corpuscular Hemoglobin Concent 32, Red Cell Distribution Width 16.2, Platelet Count 369, Mean Platelet Volume 8.9, Neutrophils (%) (Auto) 41, Lymphocytes (%) (Auto) 42, Monocytes (%) (Auto) 10, Eosinophils (%) (Auto) 6, Basophils (%) (Auto) 1, Neutrophils # (Auto) 3.0, Lymphocytes # (Auto) 3.0, Monocytes # (Auto) 0.7, Eosinophils # (Auto) 0.4, Basophils # (Auto) 0.0, Sodium Level 135, Potassium Level 3.8, Chloride Level 101, Carbon Dioxide Level 23, Anion Gap 11, Blood Urea Nitrogen 16, Creatinine 0.76, Estimat Glomerular Filtration Rate > 60, BUN/ Creatinine Ratio 21, Glucose Level 112, Calcium Level 9.8, Corrected Calcium 9.9 , Total Bilirubin 0.4, Aspartate Amino Transf (AST/SGOT) 23, Alanine Aminotransferase (ALT/SGPT) 15, Alkaline Phosphatase 129, Total Protein 7.5, Albumin 3.9 Discharge Home Medications: Active Scripts Active Vitamin D2 (Ergocalciferol (Vitamin D2)) 50,000 Unit Capsule 50,000 Units PO MO@ 09 Pantoprazole Sodium 40 Mg Tablet.dr 40 Mg PO DAILY@0700 Furosemide 20 Mg Tablet 20 Mg PO Q48H Klor-Con 10 (Potassium Chloride) 10 Meq Tablet.er 10 Meq PO DAILY@0700 Oxycodon-Acetaminophen 7.5-325 (Oxycodone HCl/Acetaminophen) 1 Each Tablet 1 Tab PO TID PRN Reported Clonazepam 1 Mg Tablet 1 Mg PO DAILY Sinus & Allergy PE Tablet (Phenylephrine/Chlorpheniramine) 1 Each Tablet 2 Tab PO DAILY PRN Excedrin Migraine Caplet (Aspirin/Acetaminophen/Caffeine) 1 Each Tablet 1 Tab PO BID PRN Gabapentin 300 Mg Capsule 300 Mg PO TID Sucralfate 1 Gm Tablet 1 Gm PO ACHS Amphetamine Salts 15 mg Tablet (Dextroamphetamine/Amphetamine) 15 Mg Tablet 15 Mg PO DAILY Instructions to patient/family Please see electronic discharge instructions given to patient. Diagnosis/Problems Diagnosis/Problems (1) Hip fracture, left Status: Acute (2) Fall on same level from slipping, tripping or stumbling Status: Acute (3) Vitamin D deficiency (4) Anxiety Status: Acute (5) Osteoporosis Status: Chronic (6) Fracture of hip, right, closed (7) Smoker (8) DVT prophylaxis (9) Lower extremity edema Status: Acute Clinical Quality Measures DVT/VTE Risk/Contraindication: Risk Factor Score Per Nursin RFS Level Per Nursing on Admit: 4+=Very High MARSHA COSME DO Nov 05, 2018 09:03
[2018-11-05 10:00] VITALS: BP 135/85
--- NOTE | 2018-11-05 10:00 | NUR ---
Patient A&O X4 and reports of a 8. Patient is scheduled to discharge home with home health today. Discharge instructions and education completed with patient and all questions answered. Reviewed follow up appointments with patient and she stated understanding. Patient wheeled out to car via w/c and assisted into ride at 1030. No further issues noted at this time.
--- NOTE | 2018-11-05 11:09 | Therapy Team Discharge Summary ---
Therapy Discharge Summary Discharge Recommendations Date of Discharge Therapy D/C Recommendations: Home w/ Family Support Occupational Therapy Decreased Activ Tolerance, Decreased Safety Aware, Decreased UE Strength, Impaired Funct Balance, Impaired Self-Care Skills PT Fagoter Goals Fagoter Goals PT Jail Goals Time Frame: Nov 15, 2018 Transfers (B,C,W/C) (FIM): 7 Roll Left to Right (QC): 6 Sit to Lying (QC): 6 Lying-Sitting on Side/Bed(QC): 6 Sit to Stand (QC): 6 Chair/Shl-eq-Vmhoa Xfer(QC): 6 Car Transfer (QC): 6 Does the Patient Walk: Yes Gait (FIM): 6 Gait distance (FIM): 3=150 ft Distance: 200 ft Walk 10 feet (QC): 6 Walk 10ft-Uneven Surface(QC): 6 Walk 50ft with 2 Turns (QC): 6 Walk 150 ft (QC): 6 Gait Assistive Device: FWW Does the Pt use WC or Scooter?: No Stairs (FIM): 5 (household) # of Steps: 4 1 Step (curb) (QC): 6 4 Steps (QC): 6 12 Steps (QC): 88 Picking up an Object (QC): 4 (district leader) OT Jail Goals Fagoter Goals Time Frame: Nov 22, 2018 Eating (FIM): 7 (7) Eating (QC): 6 (6) Oral Hygiene (QC): 6 (6) Grooming(FIM): 7 (7) Bathing(FIM): 7 (7) Bathing Location: L Arm, R Arm, L Upper Leg, R Upper Leg, L Lower Leg ( including foot), R Lower Leg (including foot), Chest, Abdomen, Buttocks, Perineal Area Shower/Bathe Self (QC): 6 (6) Upper Body Dressing(FIM): 7 (7) Upper Body Dressing (QC): 6 (6) Lower Body Dressing(FIM): 6 (7) Lower Body Dressing (QC): 6 (6) On/Off Footwear (QC): 6 (7) Toileting(FIM): 7 (7) Toileting Hygiene (QC): 6 (6) Transfers (B,C,W/C) (FIM): 7 (7) Toilet/Commode Transfer(FIM): 7 (7) Toilet/Commode Transfer (QC): 6 (6) Tub Transfer(FIM): 0 (0 Not attemped.) Shower Transfer(FIM): 7 (7) Additional Goals: 1-Demonstrate ADL Tasks, 2-Verbalize Understanding, 3- ImproveStrength/Abdiel 1=Demonstrate adherence to instructed precautions during ADL tasks. 2=Patient will verbalize/demonstrate understanding of assistive devices/ modifications for ADL. 3=Patient will improve strength/tolerance for activity to enable patient to perform ADL's. SOL ROE OT Nov 05, 2018 11:09
--- NOTE | 2018-11-05 11:09 | Therapy Team Discharge Summary ---
Therapy Discharge Summary Discharge Recommendations Date of Discharge Therapy D/C Recommendations: Home w/ Family Support Physical Therapy this patient was seen on ARU post repair of a left hip fracture (ORIF). Prior to fracture, she was indep to mod indep with mobility. Upon Initial evaluation , pt was mod assist with transfers, ambulated 50 ft with CGA and went up/down 1 step. Treatment focused on functional strength and balance to progress her transfers, gait and functional safety. At last visit, she was mod indep with gait and transfers and able to go up/down steps without assist. She has made excellent progress and has achieved all goals to a satisfactory level. Pt to discharge home with follow up [facility] PT recommended. Occupational Therapy Decreased Activ Tolerance, Decreased Safety Aware, Decreased UE Strength, Impaired Funct Balance, Impaired Self-Care Skills PT Penit[facility]iary Goals Operations Dispatcher Goals PT Operations Dispatcher Goals Time Frame: Nov 15, 2018 Transfers (B,C,W/C) (FIM): 7 (scored a 6) Roll Left to Right (QC): 6 Sit to Lying (QC): 6 Lying-Sitting on Side/Bed(QC): 6 Sit to Stand (QC): 6 Chair/Dha-ps-Yobgf Xfer(QC): 6 Car Transfer (QC): 6 Does the Patient Walk: Yes Gait (FIM): 6 (met) Gait distance (FIM): 3=150 ft Distance: 200 ft Walk 10 feet (QC): 6 Walk 10ft-Uneven Surface(QC): 6 Walk 50ft with 2 Turns (QC): 6 Walk 150 ft (QC): 6 Gait Assistive Device: FWW Does the Pt use WC or Scooter?: No Stairs (FIM): 5 (household) # of Steps: 4 1 Step (curb) (QC): 6 4 Steps (QC): 6 12 Steps (QC): 88 Picking up an Object (QC): 4 (health safety engineer) All goals met to a satisfactory level. OT Operations Dispatcher Goals Penitentiary Goals Time Frame: Nov 22, 2018 Eating (FIM): 7 Eating (QC): 6 Oral Hygiene (QC): 6 Grooming(FIM): 7 Bathing(FIM): 7 Bathing Location: L Arm, R Arm, L Upper Leg, R Upper Leg, L Lower Leg ( including foot), R Lower Leg (including foot), Chest, Abdomen, Buttocks, Perineal Area Shower/Bathe Self (QC): 6 Upper Body Dressing(FIM): 7 Upper Body Dressing (QC): 6 Lower Body Dressing(FIM): 6 Lower Body Dressing (QC): 6 On/Off Footwear (QC): 6 Toileting(FIM): 7 Toileting Hygiene (QC): 6 Transfers (B,C,W/C) (FIM): 7 Toilet/Commode Transfer(FIM): 7 Toilet/Commode Transfer (QC): 6 Tub Transfer(FIM): 0 Shower Transfer(FIM): 7 Additional Goals: 1-Demonstrate ADL Tasks, 2-Verbalize Understanding, 3- ImproveStrength/Abdiel 1=Demonstrate adherence to instructed precautions during ADL tasks. 2=Patient will verbalize/demonstrate understanding of assistive devices/ modifications for ADL. 3=Patient will improve strength/tolerance for activity to enable patient to perform ADL's. ALY TAN PT Nov 05, 2018 11:09
== END 2018-11-05 10:30 | disposition home health service (06) | DRG 561 ==
PROVIDERS: ADMIT Internal Medicine; ATTEND Internal Medicine
DX: S72.142D Displaced intertrochanteric fracture of left femur, subsequent encounter for closed fracture with routine healing (principal); M81.0 Age-related osteoporosis without current pathological fracture; I10 Essential (primary) hypertension; F17.210 Nicotine dependence, cigarettes, uncomplicated; M06.9 Rheumatoid arthritis, unspecified; E55.9 Vitamin D deficiency, unspecified; M79.7 Fibromyalgia; F90.9 Attention-deficit hyperactivity disorder, unspecified type; F41.9 Anxiety disorder, unspecified; G62.9 Polyneuropathy, unspecified; K21.9 Gastro-esophageal reflux disease without esophagitis; K44.9 Diaphragmatic hernia without obstruction or gangrene; M19.90 Unspecified osteoarthritis, unspecified site; F32.9 Major depressive disorder, single episode, unspecified; F43.20 Adjustment disorder, unspecified; R60.0 Localized edema; Y04.0XXD Assault by unarmed brawl or fight, subsequent encounter; W01.0XXD Fall on same level from slipping, tripping and stumbling without subsequent striking against object, subsequent encounter
CPT/HCPCS: 36415; 80053; 85025

== ENCOUNTER → 2020-03-29 | Outpatient (CLI) | payer MEDICARE ==
[~2020-03-29] MED LIST changes: +ERGO50006 PO; +MULT-567 PO; -MULT1TAB69 PO; +PANT40TA3 PO; +POTA10TA6 PO
== END ==
LOC: WOUNDCARE 10:09
PROVIDERS: ATTEND Surgery
DX: I87.333 Chronic venous hypertension (idiopathic) with ulcer and inflammation of bilateral lower extremity (principal); I70.242 Atherosclerosis of native arteries of left leg with ulceration of calf; L97.212 Non-pressure chronic ulcer of right calf with fat layer exposed; L97.221 Non-pressure chronic ulcer of left calf limited to breakdown of skin; J44.9 Chronic obstructive pulmonary disease, unspecified; T65.222A Toxic effect of tobacco cigarettes, intentional self-harm, initial encounter; F17.218 Nicotine dependence, cigarettes, with other nicotine-induced disorders; I50.9 Heart failure, unspecified; E11.51 Type 2 diabetes mellitus with diabetic peripheral angiopathy without gangrene; M06.9 Rheumatoid arthritis, unspecified; M19.90 Unspecified osteoarthritis, unspecified site; E11.40 Type 2 diabetes mellitus with diabetic neuropathy, unspecified
CPT/HCPCS: 11042; G0463

== ENCOUNTER 2020-10-28 18:15 | Inpatient (IN) | payer MEDICARE ==
[~2020-10-28] VITALS: Ht 150 cm; Wt 62.1 kg
[~2020-10-28 18:15] MED LIST changes: +AMLO-250 PO; -AMLO5TAB9 PO; -OXYC-471 PO; +OXYC-556 PO; +OXYC1TAB11 PO; -PANT40TA3 PO; +PANT40TA52 PO
[2020-10-28] MEDS ORDERED: ACETAMINOPHEN 500 MG TAB (TYLENOL) ONE (18:19)
[2020-10-28] MEDS ORDERED: NS IV 1000 ML 1,000 ML IV SCH (18:30)
[2020-10-28] MEDS ORDERED: ACETAMINOPHEN 500 MG TAB (TYLENOL) PO PRN ×2 (18:30→21:45)
[2020-10-28 18:40] LABS: BILIRUBIN,URINE NEGATIVE (NEGATIVE); CLARITY,URINE SL CLOUDY; COLOR,URINE YELLOW; GLUCOSE, URINE (UA) NEGATIVE (NEGATIVE); KETONES,URINE NEGATIVE (NEGATIVE); LEUKOCYTE ESTERASE ,URINE NEGATIVE (NEGATIVE); NITRITE,URINE NEGATIVE (NEGATIVE); PH,URINE 6.5 (5-9); PROTEIN,URINE NEGATIVE (NEGATIVE)
[2020-10-28 18:47] LABS: BACTERIA,URINE TRACE /HPF; RBC,URINE 0-2 /HPF; WBC,URINE RARE /HPF
[2020-10-28 18:52] LABS: ALBUMIN 4.1 GM/DL (3.2-4.5); CHLORIDE 101 MMOL/L (98-107); POTASSIUM 4.8 MMOL/L (3.6-5.0); SODIUM 135 MMOL/L (135-145)
[2020-10-28 18:53] LABS: CALCIUM 8.7 MG/DL (8.5-10.1); FIBRIN DEGRADATION PRODUCTS 0.48 UG/ML (0.00-0.49); HEMATOCRIT 42 % (35-52); HEMOGLOBIN 13.8 G/DL (11.5-16.0); MEAN CORPUSCULAR HEMOGLOBIN 31 PG (25-34); MEAN CORPUSCULAR HGB CONC 33 G/DL (32-36); MEAN CORPUSCULAR VOLUME 93 FL (80-99); PROTHROMBIN TIME PATIENT 13.8 SEC (12.2-14.7); WHITE BLOOD COUNT 15.4 10^3/uL (4.3-11.0)
[2020-10-28 18:54] LABS: AMMONIA 29 UMOL/L (11-32); BASOPHILS % (AUTO) 0 % (0-10); EOSINOPHILS % (AUTO) 1 % (0-10); LYMPHOCYTES # (AUTO) 0.9 X 10^3 (1.0-4.0); LYMPHOCYTES % (AUTO) 6 % (12-44); MEAN PLATELET VOLUME 9.8 FL (7.4-10.4); MONOCYTES % (AUTO) 6 % (0-12); NEUTROPHILS # (AUTO) 13.2 X 10^3 (1.8-7.8); NEUTROPHILS % (AUTO) 86 % (42-75); PLATELET COUNT 237 10^3/uL (130-400)
[2020-10-28 18:55] LABS: BASOPHILS # (AUTO) 0.1 10^3/uL (0.0-0.1); EOSINOPHILS # (AUTO) 0.2 10^3/uL (0.0-0.3); GLUCOSE 95 MG/DL (70-105); TOTAL PROTEIN 7.8 GM/DL (6.4-8.2)
[2020-10-28 18:56] LABS: BILIRUBIN,TOTAL 0.6 MG/DL (0.1-1.0); CARBON DIOXIDE 22 MMOL/L (21-32)
[2020-10-28 18:57] LABS: BAND NEUTROPHILS 1 %; EOSINOPHILS % (MANUAL) 2 %; LYMPHOCYTES % (MANUAL) 14 %; MONOCYTES % (MANUAL) 7 %; NEUTROPHILS % (MANUAL) 76 %; RBC MORPH NORMAL
[2020-10-28 18:58] LABS: ALKALINE PHOSPHATASE 100 U/L (40-136); GFR ESTIMATED > 60
[2020-10-28 18:59] LABS: BUN/CREATININE RATIO 17
[2020-10-28 19:01] LABS: ALANINE AMINOTRANSFERASE 17 U/L (0-55); MAGNESIUM 1.7 MG/DL (1.6-2.4)
[2020-10-28 19:02] LABS: CREATINE KINASE 62 U/L (29-168)
[2020-10-28 19:08] LABS: CREATINE KINASE MB 1.7 NG/ML (<6.6)
--- NOTE | 2020-10-28 19:09 | Diagnostic Imaging Report ---
HISTORY: Altered mental status, cough and fever. COMPARISON: 10/21/2018. TECHNIQUE: Frontal view of the chest. FINDINGS: There is new airspace opacity in the medial right lung base. No pleural effusion or pneumothorax is seen. The cardiac silhouette is normal in size. IMPRESSION: New airspace opacity in the medial right lung base, concerning for pneumonia. Dictated by: Dictated on workstation # [id number]
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
[2020-10-28 19:27] LABS: TSH (THYROID ANALYZER) 0.82 UIU/ML (0.35-4.94)
[2020-10-28] MEDS ORDERED: AZITHROMYCIN INJECTION 500 MG in NS (IVPB) 250 ML IV ONE (19:30)
[2020-10-28] MEDS ORDERED: cefTRIAXone FOR IV USE 1,000 MG in WATER (STERILE) FOR INJECTION 10 ML IV ONE (19:30)
[2020-10-28] MEDS ORDERED: IBUPROFEN 800 MG (MOTRIN) TAB PO ONE (19:45)
[2020-10-28 19:52] LABS: AMPHETAMINE SCREEN, URINE NEGATIVE (NEGATIVE); BENZODIAZEPINES SCREEN URINE NEGATIVE (NEGATIVE); COCAINE SCREEN URINE NEGATIVE (NEGATIVE)
[2020-10-28 19:53] LABS: BARBITURATE SCREEN URINE NEGATIVE (NEGATIVE); CANNABINOID SCREEN, URINE NEGATIVE (NEGATIVE); METHADONE STAT NEGATIVE (NEGATIVE); METHAMPHETAMINE SCREEN URINE S NEGATIVE (NEGATIVE); OPIATE SCREEN URINE POSITIVE (NEGATIVE); OXYCODONE STAT NEGATIVE (NEGATIVE); PROPOXYPHENE STAT NEGATIVE (NEGATIVE); TRICYCLIC ANTIDEPRESSANTS SCRE NEGATIVE (NEGATIVE)
--- NOTE | 2020-10-28 20:56 | Diagnostic Imaging Report ---
PROCEDURE: CT head w/o r/o stroke. TECHNIQUE: Multiple contiguous axial images were obtained through the brain without the use of intravenous contrast. Auto Exposure Controls were utilized during the CT exam to meet ALARA standards for radiation dose reduction. INDICATION: Altered mental status, fall, neurological deficit. COMPARISON: 03/11/2017. FINDINGS: The ventricles and cortical sulci are prominent. There is no midline shift or mass effect identified. No acute intracranial hemorrhage is seen. Areas of decreased attenuation are seen in the subcortical and periventricular white matter. These likely represent chronic microvascular disease. No CT evidence of acute territorial ischemia is seen. The calvarium is intact. There is mild mucosal thickening in the left maxillary sinus, otherwise the paranasal sinuses appear clear. IMPRESSION: 1. No acute intracranial hemorrhage. No CT evidence of acute territorial ischemia. 2. Generalized parenchymal volume loss and findings of chronic microvascular disease. Discussed with SABINE GARCIA DO by Dr. Olson, on 10/28/2020 8:56 PM. Dictated by: Dictated on workstation # [id number]
--- NOTE | 2020-10-28 21:10 | Diagnostic Imaging Report ---
HISTORY: Fall, pelvic pain. COMPARISON: 10/21/2018. TECHNIQUE: Frontal view of the pelvis. FINDINGS: Overlying soft tissues partially obscure the upper pelvis. There is internal fixation of the proximal femurs, bilaterally, with short femoral nails and cephalo-cervical helical blade screws. No acute fracture is seen in the pelvis. There are mild degenerative changes in the hips, bilaterally. IMPRESSION: No acute osseous abnormality is seen on this single view of the pelvis. Dictated by: Dictated on workstation # [id number]
[2020-10-28] MEDS ORDERED: D5 1/2 NS W/KCL 20 MEQ/L 1,000 ML IV ONE (21:22)
[2020-10-28] MEDS ORDERED: IBUPROFEN 800 MG (MOTRIN) TAB PO PRN (21:45)
[2020-10-28] MEDS ORDERED: ONDANSETRON 4 MG/2 ML (SDV) Z0FRAN IVP PRN (22:00)
[2020-10-28] MEDS ORDERED: LACTATED RINGERS 1,000 ML IV ONE (22:21)
[2020-10-28] MEDS ORDERED: LACTATED RINGERS 1,000 ML IV SCH (22:30)
[2020-10-28] MEDS: D5 1/2 NS W/KCL 20 MEQ/L 1,000 ML IV SCH (22:32)
[2020-10-28 23:01] VITALS: BP 171/107
[2020-10-28] MEDS ORDERED: RT-ALBUTEROL/IPRATROPIUM 3 ML (DUONEB) VIAL INH PRN (23:15)
[2020-10-29 02:57] LABS: BASOPHILS % (AUTO) 0 % (0-10); EOSINOPHILS % (AUTO) 0 % (0-10); HEMATOCRIT 37 % (35-52); HEMOGLOBIN 12.1 g/dL (11.5-16.0); LYMPHOCYTES # (AUTO) 1.7 10^3/uL (1.0-4.0); LYMPHOCYTES % (AUTO) 12 % (12-44); MEAN CORPUSCULAR HEMOGLOBIN 31 pg (25-34); MEAN CORPUSCULAR HGB CONC 33 g/dL (32-36); MEAN CORPUSCULAR VOLUME 94 fL (80-99); MEAN PLATELET VOLUME 9.8 fL (9.0-12.2); MONOCYTES # (AUTO) 1.2 10^3/uL (0.0-1.0); MONOCYTES % (AUTO) 8 % (0-12); NEUTROPHILS % (AUTO) 80 % (42-75); PLATELET COUNT 203 10^3/uL (130-400)
[2020-10-29 03:11] LABS: ALBUMIN 3.1 GM/DL (3.2-4.5); CHLORIDE 107 MMOL/L (98-107); POTASSIUM 4.1 MMOL/L (3.6-5.0); SODIUM 140 MMOL/L (135-145)
[2020-10-29 03:12] LABS: CALCIUM 7.8 MG/DL (8.5-10.1)
[2020-10-29 03:13] LABS: GLUCOSE 115 MG/DL (70-105)
[2020-10-29 03:14] LABS: TOTAL PROTEIN 5.6 GM/DL (6.4-8.2)
[2020-10-29 03:15] LABS: BILIRUBIN,TOTAL 0.6 MG/DL (0.1-1.0); CARBON DIOXIDE 25 MMOL/L (21-32)
[2020-10-29 03:17] LABS: ALKALINE PHOSPHATASE 72 U/L (40-136); CREATININE SERUM 0.66 MG/DL (0.60-1.30); GFR ESTIMATED > 60
[2020-10-29 03:18] LABS: BUN/CREATININE RATIO 17
[2020-10-29 03:20] LABS: ALANINE AMINOTRANSFERASE 12 U/L (0-55)
[2020-10-29] MEDS: D5 1/2 NS W/KCL 20 MEQ/L 1,000 ML IV SCH ×4 (06:14→22:36)
[2020-10-29] MEDS ORDERED: OXYC10TA7 PO (14:44)
[2020-10-29] MEDS ORDERED: HYDR-3820 PO (14:44)
[2020-10-29] MEDS ORDERED: GBPN600T PO (14:44)
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
[2020-10-29] MEDS ORDERED: LORATADINE (CLARITIN) 10 MG TAB PO NR (18:30)
[2020-10-29] MEDS ORDERED: NON-FORMULARY MEDICATION 1 EA EA (Oxycodone HCl 10 MG) PO SCH (19:45)
[2020-10-29] MEDS ORDERED: GABAPENTIN 600 MG (NEURONTIN) TAB PO PRN (19:45)
[2020-10-29] MEDS ORDERED: cefTRIAXone 1,000 MG IV (ROCEPHIN) VIAL ONE (19:46)
[2020-10-29] MEDS ORDERED: WATER (STERILE) FOR INJECTION 10 ML ONE (19:46)
[2020-10-29] MEDS ORDERED: AZITHROMYCIN 500 MG/NS 250 ML IVPB IV SCH ×2 (20:00)
[2020-10-29] MEDS ORDERED: cefTRIAXone 1,000 MG/SWFI 10 ML IV PUSH IV SCH ×2 (20:00)
[2020-10-29] MEDS: clonazePAM 1 MG (KlonoPIN) TAB PO SCH (20:50)
[2020-10-30] MEDS: D5 1/2 NS W/KCL 20 MEQ/L 1,000 ML IV SCH ×2 (06:02→13:23)
[2020-10-30] MEDS: clonazePAM 1 MG (KlonoPIN) TAB PO SCH (07:56)
[2020-10-30] MEDS ORDERED: AZITHROMYCIN 250 MG TAB (ZITHROMAX) PO SCH (09:00)
[2020-10-30] MEDS ORDERED: LORATADINE (CLARITIN) 10 MG TAB PO SCH (09:00)
[2020-10-30] MEDS ORDERED: CEFDINIR 300 MG (OMNICEF) CAP PO SCH (09:00)
[2020-10-30] MEDS ORDERED: AZIT250T12 PO (11:02)
[2020-10-30] MEDS ORDERED: CEFD300C3 PO (11:02)
--- NOTE | 2020-10-30 11:10 | Discharge Summary ---
Discharge Summary Hospital Course Was the Problem List Reviewed?: Yes Problems/Dx: (1) Severe sepsis Status: Acute (2) PNA (pneumonia) Status: Acute Qualifiers: Qualified Codes: J18.9 - Pneumonia, unspecified organism (3) Lactic acidosis Status: Acute (4) Person under investigation for COVID-19 Status: Acute Hospital Course Date of Admission: Oct 28, 2020 at 20:38 Admission Diagnosis: severe sepsis due to pneumonia Family Physician/Provider: Date of Discharge: 10/30/20 Discharge Diagnosis: severe sepsis due to pneumonia Hospital Course: Sofía Thibodeaux is a 69-year-old female who was admitted with severe sepsis due to pneumonia. She was tested for COVID and was negative. She was started on IV antibiotics and improved rapidly. She was not requiring supplemental oxygen. She was transitioned to oral antibiotics. She will complete a course of Omnicef and azithromycin. She should follow-up with her primary care physician within a week. She was discharged home in stable condition. Labs and Pending Lab Test: Microbiology 10/28/20 Blood Culture - Preliminary, Resulted No growth 10/28/20 Urine Culture - Preliminary, Resulted Slight Growth Present 10/28/20 Influenza Types A,B Antigen (NALDO) - Final, Complete Home Meds Active Azithromycin 250 Mg Tablet 250 Mg PO DAILY 3 Days Cefdinir 300 Mg Capsule 300 Mg PO BID 5 Days Reported Oxycodone HCl 10 Mg Tablet 10 Mg PO Q6H Hydrocodone-Acetamin 10-325 mg (Hydrocodone/Acetaminophen) 1 Each Tablet 1 Each PO TID PRN Gabapentin 600 Mg Tablet 600 Mg PO TID PRN Clonazepam 1 Mg Tablet 1 Mg PO BID Sucralfate 1 Gm Tablet 1 Gm PO 1500 Amphetamine Salts 15 mg Tablet (Dextroamphetamine/Amphetamine) 15 Mg Tablet 15 Mg PO 1500 Assessment/Pt Instructions Take medications as prescribed. Complete your course of antibiotics even if you're feeling better. Follow-up with your primary care physician. Return with worsening shortness of breath or if you feel like you're getting worse. Discharge Planning: <30 minutes discharge planning Discharge Instructions Discharge Diet: No Restrictions Activity as Tolerated: Yes Discharge Physical Examination Vital Signs Vital Signs Date Time Temp Pulse Resp B/P (MAP) Pulse Ox O2 Delivery O2 Flow Rate FiO2 10/30/20 09:08 Room Air 10/30/20 08:00 36.5 76 18 185/98 (127) 96 2/28/21 23:01 95 10/28/20 21:20 2.00 General Appearance: No Apparent Distress, WD/WN Respiratory: Lungs Clear, Normal Breath Sounds, No Respiratory Distress Cardiovascular: Regular Rate, Rhythm, No Edema, No Murmur Gastrointestinal: Normal Bowel Sounds, Non Tender, Soft Extremity: Normal Inspection, Non Tender, No Pedal Edema Skin: Normal Color, Warm/Dry Neurologic/Psychiatric: Alert, Oriented x3, No Motor/Sensory Deficits, Normal Mood/Affect Allergies: Coded Allergies: No Known Drug Allergies (Unverified , 05/15/09) Copy Copies To 1: SUAD CROOK MD Discharge Summary Date of Admission Oct 28, 2020 at 20:38 Date of Discharge Discharge Date: Oct 30, 2020 Discharge Time: 11:09 Admission Diagnosis Severe sepsis due to pneumonia Discharge Diagnosis Severe sepsis due to pneumonia (1) Severe sepsis Status: Acute (2) PNA (pneumonia) Status: Acute Qualifiers: Qualified Codes: J18.9 - Pneumonia, unspecified organism (3) Lactic acidosis Status: Acute (4) Person under investigation for COVID-19 Status: Acute SELENE JANSEN MD Oct 30, 2020 11:09
[2020-10-30] MEDS ORDERED: SUCRALFATE 1 GM (CARAFATE) TAB PO SCH (15:00)
[2020-10-30 15:39] VITALS: BP 185/98
== END 2020-10-30 15:41 | disposition home or self-care (01) | DRG 871 ==
LOC: EDUNIT# 18:15 → ER 18:20 → CSD 20:38 → 4TH 10-29 17:53
PROVIDERS: ADMIT Family Medicine
DX: A41.9 Sepsis, unspecified organism (principal); J18.9 Pneumonia, unspecified organism; E87.2 Acidosis; J44.0 Chronic obstructive pulmonary disease with (acute) lower respiratory infection; F17.210 Nicotine dependence, cigarettes, uncomplicated; I10 Essential (primary) hypertension; G62.9 Polyneuropathy, unspecified; K21.9 Gastro-esophageal reflux disease without esophagitis; Z20.822 Contact with and (suspected) exposure to COVID-19; M81.0 Age-related osteoporosis without current pathological fracture; M19.91 Primary osteoarthritis, unspecified site; M06.9 Rheumatoid arthritis, unspecified; M79.7 Fibromyalgia; M54.9 Dorsalgia, unspecified; F90.9 Attention-deficit hyperactivity disorder, unspecified type; F41.9 Anxiety disorder, unspecified; F10.10 Alcohol abuse, uncomplicated; F19.10 Other psychoactive substance abuse, uncomplicated; Z79.82 Long term (current) use of aspirin; Z79.891 Long term (current) use of opiate analgesic; Z87.81 Personal history of (healed) traumatic fracture; Z82.49 Family history of ischemic heart disease and other diseases of the circulatory system
CPT/HCPCS: 36415; 51702; 70450; 71045; 72170; 80053; 80306; 80320; 81000; 82140; 82550; 82553; 83605; 83615; 83735; 83874; 83880; 84145; 84443; 84484; 85007; 85025; 85027; 85379; 85610; 85652; 85730; 86141; 87040; 87077; 87088; 87635; 87804; 93005; 93041; 94760

== ENCOUNTER 2023-06-08 18:46 | Observation (INO) | payer MEDICARE ==
[~2023-06-08] VITALS: Ht 157 cm; Wt 54.9 kg
[~2023-06-08 18:46] MED LIST changes: +ACYC-112 PO; -ACYC800T PO; -ASPI-789 PO; +ASPI1TAB23 PO; +AZIT250T12 PO; +CEFD300C3 PO; +GBPN600T PO; +HYDR-3820 PO; -OXYC-464 PO; +OXYC10TA7 PO; +OXYC1TAB15 PO; +POTA-160 PO; -POTA10TA6 PO; -SULF1TAB35 PO; +SULF1TAB38 PO
[2023-06-08] MEDS ORDERED: CEFEPIME INJECTION 1,000 MG in NS (IVPB) 50 ML 50 ML IV ONE (19:00)
[2023-06-08] MEDS ORDERED: RT-Ipratropium/Albuterol NEB 3 ML VIAL INH ONE (19:00)
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
[2023-06-08 19:08] LABS: BASOPHILS % (AUTO) 1 % (0-10); EOSINOPHILS # (AUTO) 0.4 10^3/uL (0.0-0.3); EOSINOPHILS % (AUTO) 9 % (0-10); HEMATOCRIT 34 % (35-52); HEMOGLOBIN 11.3 g/dL (11.5-16.0); LYMPHOCYTES # (AUTO) 1.9 10^3/uL (1.0-4.0); LYMPHOCYTES % (AUTO) 40 % (12-44); MEAN CORPUSCULAR HEMOGLOBIN 31 pg (25-34); MEAN CORPUSCULAR HGB CONC 33 g/dL (32-36); MEAN CORPUSCULAR VOLUME 94 fL (80-99); MEAN PLATELET VOLUME 9.1 fL (9.0-12.2); MONOCYTES # (AUTO) 0.7 10^3/uL (0.0-1.0); MONOCYTES % (AUTO) 15 % (0-12); NEUTROPHILS # (AUTO) 1.6 10^3/uL (1.8-7.8); NEUTROPHILS % (AUTO) 35 % (42-75); PLATELET COUNT 229 10^3/uL (130-400); WHITE BLOOD COUNT 4.6 10^3/uL (4.3-11.0)
[2023-06-08] MEDS ORDERED: PIPERACILLIN/Tazobactam 4.5 GM in NS (IVPB) 100 ML 100 ML IV ONE (19:15)
[2023-06-08 19:28] LABS: ACETAMINOPHEN < 10 UG/ML (10-30); ALANINE AMINOTRANSFERASE 17 U/L (0-55); ALBUMIN 3.6 GM/DL (3.2-4.5); ALKALINE PHOSPHATASE 72 U/L (40-136); AMPHETAMINE SCREEN, URINE NEGATIVE (NEGATIVE); BARBITURATE SCREEN URINE NEGATIVE (NEGATIVE); BILIRUBIN,TOTAL 0.5 MG/DL (0.1-1.0); BUN/CREATININE RATIO 16; CALCIUM 8.8 MG/DL (8.5-10.1); CANNABINOID SCREEN, URINE NEGATIVE (NEGATIVE); CARBON DIOXIDE 26 MMOL/L (21-32); CHLORIDE 103 MMOL/L (98-107); COCAINE SCREEN URINE NEGATIVE (NEGATIVE); CREATININE SERUM 0.74 MG/DL (0.60-1.30); GFR ESTIMATED 86; GLUCOSE 80 MG/DL (70-105); METHADONE STAT NEGATIVE (NEGATIVE); OPIATE SCREEN URINE POSITIVE (NEGATIVE); OXYCODONE STAT POSITIVE (NEGATIVE); POTASSIUM 3.8 MMOL/L (3.6-5.0); PROPOXYPHENE STAT NEGATIVE (NEGATIVE); SODIUM 139 MMOL/L (135-145); TOTAL PROTEIN 6.8 GM/DL (6.4-8.2); TRICYCLIC ANTIDEPRESSANTS SCRE NEGATIVE (NEGATIVE)
[2023-06-08 19:29] LABS: INR 1.1 (0.8-1.4); PROTHROMBIN TIME PATIENT 14.1 SEC (12.2-14.7)
[2023-06-08 19:47] LABS: BACTERIA,URINE TRACE /HPF; BILIRUBIN,URINE NEGATIVE (NEGATIVE); CLARITY,URINE CLEAR; COLOR,URINE YELLOW; GLUCOSE, URINE (UA) NEGATIVE (NEGATIVE); KETONES,URINE NEGATIVE (NEGATIVE); LEUKOCYTE ESTERASE ,URINE NEGATIVE (NEGATIVE); NITRITE,URINE NEGATIVE (NEGATIVE); PH,URINE 5.5 (5-9); PROTEIN,URINE NEGATIVE (NEGATIVE); RBC,URINE 0-2 /HPF; WBC,URINE RARE /HPF
[2023-06-08] MEDS ORDERED: NS IV 1000 ML 1,000 ML IV STA (19:48)
--- NOTE | 2023-06-08 20:16 | Diagnostic Imaging Report ---
CLINICAL INDICATION : Patient brought in with complaints of altered mental status. The patient was found in vehicle with oxycodone by her. Patient has a cough and a large wound on right leg. EXAM: Axial CT scan of the brain performed without IV contrast with sagittal and coronal reformatted images. Auto Exposure Controls were utilized during the CT exam to meet ALARA standards for radiation dose reduction. COMPARISON: CT scan of the brain without contrast dated 10/28/2020. FINDINGS: There is no evidence of acute cerebral infarct, intracranial hemorrhage, or gross mass effect. Stable diffuse brain parenchymal volume loss. There is no significant change to the patchy and confluent areas of low-attenuation white matter changes involving both cerebral hemispheres, suspected to represent chronic small vessel ischemic disease and leukoaraiosis. There is normal burger-white matter distinction. There is no significant midline shift or herniation. There is no evidence of hydrocephalus. The basal cisterns are unremarkable. Stable chronic fracture deformity involving the nasal bone. Otherwise, the skull, extracranial soft tissue, and orbits are unremarkable. There is mild mucosal thickening and fluid within the left maxillary sinus. Temporal bones show no significant abnormality. IMPRESSION: 1: Stable CT scan of the brain with no interval evidence of acute intracranial process. If there is concern for acute infarct, MRI of the brain would better evaluate. 2: There is no acute skull fracture. Stable chronic nasal bone deformity. 3: There is mild left maxillary sinus disease. Dictated by: Dictated on workstation # [id number]
[2023-06-08] MEDS ORDERED: CEFEPIME 1 GM/10 ML VIAL ONE (20:18)
--- NOTE | 2023-06-08 20:20 | Diagnostic Imaging Report ---
EXAM: CHEST 1 VIEW, AP/PA ONLY INDICATION: Shortness of breath. COMPARISON: 10/28/2020. FINDINGS: Cardiomegaly with increasing interstitial opacities with a perihilar predominance. Probable small left pleural effusion. No pneumothorax. No acute osseous findings. IMPRESSION: Cardiomegaly with increasing interstitial edema and probable left pleural effusion. Dictated by: Dictated on workstation # [id number]
[2023-06-08] MEDS ORDERED: NS (IVPB) 50 ML 50 ML ONE (20:21)
[2023-06-08] MEDS ORDERED: FUROSEMIDE INJECTION 40 MG/4 ML VIAL IVP ONE (20:45)
[2023-06-08] MEDS ORDERED: VANCOMYCIN INJECTION 1,000 MG in NS (IVPB) 250 ML 250 ML IV ONE (20:45)
[2023-06-08 21:00] VITALS: BP 129/73
[2023-06-08] MEDS ORDERED: ONDANSETRON 4 MG ORAL DISSOLVE TABLET PO PRN (21:15)
[2023-06-08] MEDS ORDERED: ACETAMINOPHEN 325 MG TABLET PO PRN (21:15)
[2023-06-08] MEDS ORDERED: CALCIUM CARBONATE 500 MG CHEW TABLET PO PRN (21:15)
[2023-06-08] MEDS ORDERED: RT-Ipratropium/Albuterol NEB 3 ML VIAL INH PRN (21:45)
[2023-06-08] MEDS: ENOXAPARIN 40 MG/0.4 ML SYRINGE SC SCH (21:47)
[2023-06-08 23:37] VITALS: BP 110/77
[2023-06-09 03:31] VITALS: BP 106/73
[2023-06-09 05:52] LABS: HEMATOCRIT 40 % (35-52); MEAN CORPUSCULAR HEMOGLOBIN 30 pg (25-34); MEAN CORPUSCULAR HGB CONC 33 g/dL (32-36); MEAN CORPUSCULAR VOLUME 93 fL (80-99); MEAN PLATELET VOLUME 9.3 fL (9.0-12.2); PLATELET COUNT 236 10^3/uL (130-400); WHITE BLOOD COUNT 6.4 10^3/uL (4.3-11.0)
[2023-06-09 06:15] LABS: POTASSIUM 3.2 MMOL/L (3.6-5.0)
[2023-06-09 06:20] LABS: CREATININE SERUM 0.74 MG/DL (0.60-1.30)
[2023-06-09] MEDS: RT-Ipratropium/Albuterol NEB 3 ML VIAL INH SCH ×4 (07:03→18:25)
[2023-06-09 08:00] VITALS: BP 126/71
[2023-06-09] MEDS ORDERED: POTASSIUM CHLORIDE 20 MEQ TABLET PO ONE (08:30)
[2023-06-09 11:34] VITALS: BP 120/82
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
[2023-06-09] MEDS ORDERED: PHARMACY TO DOSE IV SCH (11:45)
[2023-06-09] MEDS ORDERED: VANCOMYCIN 1 GM/NS 250 ML IVPB IV NR ×2 (13:00)
[2023-06-09] MEDS: CEFEPIME INJECTION 1,000 MG in NS (IVPB) 50 ML 50 ML IV SCH ×2 (13:20→20:50)
[2023-06-09] MEDS ORDERED: HYDR-3584 PO (15:37)
[2023-06-09 16:01] VITALS: BP 107/64
[2023-06-09 19:44] VITALS: BP 113/63
[2023-06-09] MEDS: ENOXAPARIN 40 MG/0.4 ML SYRINGE SC SCH (20:51)
[2023-06-09] MEDS: VANCOMYCIN 750 MG/NS 250 ML IVPB IV SCH ×2 (21:18)
[2023-06-09] MEDS: KETOROLAC INJ 30 MG/ML VIAL IVP PRN (23:01)
[2023-06-09] MEDS: hydrOXYzine 10 MG TABLET PO PRN (23:01)
[2023-06-09] MEDS: GABAPENTIN 600 MG TABLET PO PRN (23:01)
[2023-06-09 23:16] VITALS: BP 148/76
[2023-06-10 04:17] VITALS: BP 139/74
[2023-06-10] MEDS: CEFEPIME INJECTION 1,000 MG in NS (IVPB) 50 ML 50 ML IV SCH ×3 (04:29→20:07)
[2023-06-10 05:44] LABS: HEMATOCRIT 34 % (35-52); MEAN CORPUSCULAR HEMOGLOBIN 31 pg (25-34); MEAN CORPUSCULAR HGB CONC 33 g/dL (32-36); MEAN CORPUSCULAR VOLUME 94 fL (80-99); MEAN PLATELET VOLUME 9.2 fL (9.0-12.2); PLATELET COUNT 216 10^3/uL (130-400); WHITE BLOOD COUNT 4.9 10^3/uL (4.3-11.0)
[2023-06-10 05:59] LABS: POTASSIUM 3.9 MMOL/L (3.6-5.0)
[2023-06-10 06:00] LABS: CALCIUM 7.9 MG/DL (8.5-10.1)
[2023-06-10 06:04] LABS: CREATININE SERUM 0.81 MG/DL (0.60-1.30)
--- NOTE | 2023-06-10 06:45 | Progress Note ---
AKASH NORMAN MD,RESIDENT 06/10/23 0644: Subjective Subjective/Events-last exam No acute events overnight. Pt MS similar to that of previous day. She is aware that she is in the hospital in [place]. She cannot give the full date, will give the year. She has no complaints or concerns this morning. Focused Exam Lactate Level 06/08/23 19:04: Lactic Acid Level 0.84 Objective Exam Last Set of Vital Signs Vital Signs Date Time Temp Pulse Resp B/P (MAP) Pulse Ox O2 Delivery O2 Flow Rate FiO2 06/10/23 04:17 36.4 91 18 139/74 (95) 95 Nasal Cannula 0.50 0.50 Capillary Refill : I&O Intake and Output 06/10/23 00:00 Intake Total 1820 ml Output Total 3600 ml Balance -1780 ml Intake Oral 1820 ml Output Urine Total 3600 ml General: Alert, Cooperative, No Acute Distress HEENT: Atraumatic Lungs: Clear to Auscultation Heart: Regular Rate Abdomen: Soft, No Tenderness Neuro: Normal Speech Psych/Mental Status: Mood NL Results/Procedures Lab Laboratory Tests 06/10/23 05:25: White Blood Count 4.9, Red Blood Count 3.58L, Hemoglobin 11.0L, Hematocrit 34L, Mean Corpuscular Volume 94, Mean Corpuscular Hemoglobin 31, Mean Corpuscular Hemoglobin Concent 33, Red Cell Distribution Width 13.4, Platelet Count 216, Mean Platelet Volume 9.2, Sodium Level 138, Potassium Level 3.9, Chloride Level 104, Carbon Dioxide Level 25, Anion Gap 9, Blood Urea Nitrogen 21H, Creatinine 0.81, Estimat Glomerular Filtration Rate 78, BUN/Creatinine Ratio 26, Glucose Level 88, Calcium Level 7.9L Microbiology 06/08/23 Blood Culture - Preliminary, Resulted Gram Positive Cocci 06/08/23 Urine Culture - Preliminary, Resulted Culture In Progress Radiology CXR 06/08/23: IMPRESSION: Cardiomegaly with increasing interstitial edema and probable left pleural effusion. Head CT 06/08/23: IMPRESSION: 1: Stable CT scan of the brain with no interval evidence of acute intracranial process. If there is concern for acute infarct, MRI of the brain would better evaluate. 2: There is no acute skull fracture. Stable chronic nasal bone deformity. 3: There is mild left maxillary sinus disease. Assessment/Plan Assessment/Plan Admission Dx AMS Admission Status: Observation Reason for Inpatient Admission: AMS (1) Altered mental status Status: Acute Assessment & Plan: Urine positive for oxycodone/opiates and benzodiazepines. EtOH and apap neg. Uncertain etiology, possible substance misuse. CT head okay. Pt alert, speech slightly less tangential compared to previous day. Qualifiers: Qualified Codes: R41.0 - Disorientation, unspecified (2) Cellulitis Status: Acute Assessment & Plan: Vancomycin and cefepime. Wound consult for ulceration. Qualifiers: Qualified Codes: L03.115 - Cellulitis of right lower limb (3) Hypoxia Status: Acute Assessment & Plan: CXR with concern for edema, BNP and troponin normal, check echo. (4) DVT prophylaxis Status: Acute Assessment & Plan: Enoxaparin HOSSEIN MCKEON MD 06/10/23 1546: Supervisory-Addendum Brief Supervisory Addendum I personally performed the dorsey portions of the visit, discussed case with resident and concur with resident documentation of history, physical exam, as sessment and treatment plan unless otherwise noted. Echo yesterday with EF 60- 65%, grade I diastolic dysfunction. One blood culture with strep viridans, continue antibiotics while awaiting further typing. Right lower leg with less erythema today, no edema, 2+ pedal pulses bilaterally. Ulceration covered with dressing at time of my exam. AKASH NORMAN MD,RESIDENT Jun 10, 2023 06:44 HOSSEIN MCKEON MD Jun 10, 2023 15:46
[2023-06-10] MEDS: RT-Ipratropium/Albuterol NEB 3 ML VIAL INH SCH ×3 (08:26→20:03)
[2023-06-10 08:44] VITALS: BP 165/88
[2023-06-10 12:04] VITALS: BP 147/76
[2023-06-10] MEDS: KETOROLAC INJ 30 MG/ML VIAL IVP PRN (15:06)
[2023-06-10 16:00] VITALS: BP 165/88
[2023-06-10 19:34] VITALS: BP 147/80
[2023-06-10] MEDS ORDERED: TROUGH ORDER-PHARMACY XX NR (20:00)
[2023-06-10] MEDS: ENOXAPARIN 40 MG/0.4 ML SYRINGE SC SCH ×2 (20:07→20:11)
[2023-06-10] MEDS: GABAPENTIN 600 MG TABLET PO PRN (20:09)
[2023-06-10] MEDS: VANCOMYCIN 750 MG/NS 250 ML IVPB IV SCH ×2 (21:09)
[2023-06-10 23:35] VITALS: BP 133/74
[2023-06-11] MEDS: hydrOXYzine 10 MG TABLET PO PRN (00:28)
[2023-06-11] MEDS: KETOROLAC INJ 30 MG/ML VIAL IVP PRN (00:28)
[2023-06-11 03:13] VITALS: BP 132/74
[2023-06-11] MEDS: CEFEPIME INJECTION 1,000 MG in NS (IVPB) 50 ML 50 ML IV SCH ×2 (04:22→12:53)
--- NOTE | 2023-06-11 06:30 | Progress Note ---
Focused Exam Lactate Level 06/08/23 19:04: Lactic Acid Level 0.84 Objective Exam Last Set of Vital Signs Vital Signs Date Time Temp Pulse Resp B/P (MAP) Pulse Ox O2 Delivery O2 Flow Rate FiO2 06/11/23 03:13 36.0 79 18 132/74 (93) 95 Room Air 06/10/23 08:44 2.00 Capillary Refill : I&O Intake and Output 06/11/23 00:00 Intake Total 1850 ml Output Total 1000 ml Balance 850 ml Intake Oral 1850 ml Output Urine Total 1000 ml # Voids 2 Results/Procedures Lab Laboratory Tests 06/10/23 20:29: Vancomycin Level Trough 7.4L Microbiology 06/08/23 Blood Culture - Preliminary, Resulted Viridans streptococcus 06/08/23 Urine Culture - Final, Complete >=3 Gram Positive Isolates Radiology CXR 06/08/23: IMPRESSION: Cardiomegaly with increasing interstitial edema and probable left pleural effusion. Head CT 06/08/23: IMPRESSION: 1: Stable CT scan of the brain with no interval evidence of acute intracranial process. If there is concern for acute infarct, MRI of the brain would better evaluate. 2: There is no acute skull fracture. Stable chronic nasal bone deformity. 3: There is mild left maxillary sinus disease. Assessment/Plan Assessment/Plan (1) Altered mental status Status: Acute Assessment & Plan: Urine positive for oxycodone/opiates and benzodiazepines. EtOH and apap neg. Uncertain etiology, possible substance misuse. CT head okay. Pt alert, speech slightly less tangential compared to previous day. Qualifiers: Qualified Codes: R41.0 - Disorientation, unspecified (2) Cellulitis Status: Acute Assessment & Plan: Vancomycin and cefepime. Wound consult for ulceration. Qualifiers: Qualified Codes: L03.115 - Cellulitis of right lower limb (3) Hypoxia Status: Acute Assessment & Plan: CXR with concern for edema, BNP and troponin normal, check echo. (4) DVT prophylaxis Status: Acute Assessment & Plan: Enoxaparin AKASH NORMAN MD,RESIDENT Jun 11, 2023 06:30
[2023-06-11 06:44] LABS: BASOPHILS % (AUTO) 0 % (0-10); EOSINOPHILS # (AUTO) 0.5 10^3/uL (0.0-0.3); EOSINOPHILS % (AUTO) 11 % (0-10); HEMATOCRIT 35 % (35-52); HEMOGLOBIN 11.6 g/dL (11.5-16.0); LYMPHOCYTES # (AUTO) 1.7 10^3/uL (1.0-4.0); LYMPHOCYTES % (AUTO) 34 % (12-44); MEAN CORPUSCULAR HEMOGLOBIN 31 pg (25-34); MEAN CORPUSCULAR HGB CONC 33 g/dL (32-36); MEAN CORPUSCULAR VOLUME 94 fL (80-99); MEAN PLATELET VOLUME 9.2 fL (9.0-12.2); MONOCYTES # (AUTO) 0.6 10^3/uL (0.0-1.0); MONOCYTES % (AUTO) 12 % (0-12); NEUTROPHILS # (AUTO) 2.1 10^3/uL (1.8-7.8); NEUTROPHILS % (AUTO) 43 % (42-75); PLATELET COUNT 229 10^3/uL (130-400); WHITE BLOOD COUNT 4.9 10^3/uL (4.3-11.0)
[2023-06-11 07:05] LABS: CALCIUM 8.5 MG/DL (8.5-10.1); CREATININE SERUM 0.77 MG/DL (0.60-1.30); POTASSIUM 4.4 MMOL/L (3.6-5.0)
[2023-06-11] MEDS: RT-Ipratropium/Albuterol NEB 3 ML VIAL INH SCH ×2 (07:05→11:13)
[2023-06-11 07:46] VITALS: BP 151/82
[2023-06-11] MEDS ORDERED: VANCOMYCIN 750 MG/NS 250 ML IVPB IV SCH ×2 (09:00)
[2023-06-11] MEDS ORDERED: GABAPENTIN 600 MG TABLET PO PRN (11:30)
[2023-06-11] MEDS ORDERED: AMOX875T2 PO (11:45)
--- NOTE | 2023-06-11 11:45 | Discharge Summary ---
AKASH NORMAN MD,RESIDENT 06/11/23 1145: Discharge Summary Hospital Course Problems/Diagnosis: (1) Altered mental status Status: Acute Assessment & Plan: Urine positive for oxycodone/opiates and benzodiazepines. EtOH and apap neg. Uncertain etiology, possible substance misuse. CT head okay. Pt alert and oriented 06/11 Qualifiers: Qualified Codes: R41.0 - Disorientation, unspecified (2) Cellulitis Status: Acute Assessment & Plan: Vancomycin and cefepime while inpatient. Amoxicillin 875 mg BID for 6 days at discharge. Qualifiers: Qualified Codes: L03.115 - Cellulitis of right lower limb (3) Hypoxia Status: Acute Assessment & Plan: CXR with concern for edema, BNP and troponin normal. Echo demonstrated LVEF 60-65%, unremarkable Pt stable on RA (4) DVT prophylaxis Status: Acute Assessment & Plan: Enoxaparin Hospital Course Date of Admission: Jun 08, 2023 at 21:01 Admission Diagnosis : Family Physician/Provider: Date of Discharge: 06/11/23 Discharge Diagnosis: Cellulitis, AMS Hospital Course: Pt admitted for AMS. Found to have cellulitis with ~2cm circular, shallow ulcer over anterior right lower extremity. Pt originally on supplemental O2, this was weaned off prior to discharge. Antibiotics were started for cellulitis, vancomycin and cefepime. Her mental status returned to baseline prior to day of discharge. She was discharged home on 6 days of amoxicillin for cellulitis treatment. Labs and Pending Lab Test: Laboratory Tests 06/10/23 20:29: Vancomycin Level Trough 7.4L 06/11/23 06:35: White Blood Count 4.9, Red Blood Count 3.73L, Hemoglobin 11.6, Hematocrit 35, Mean Corpuscular Volume 94, Mean Corpuscular Hemoglobin 31, Mean Corpuscular Hemoglobin Concent 33, Red Cell Distribution Width 13.9, Platelet Count 229, Mean Platelet Volume 9.2, Immature Granulocyte % (Auto) 0, Neutrophils (%) (Auto) 43, Lymphocytes (%) (Auto) 34, Monocytes (%) (Auto) 12, Eosinophils (%) (Auto) 11H, Basophils (%) (Auto) 0, Neutrophils # (Auto) 2.1, Lymphocytes # (Auto) 1.7, Monocytes # (Auto) 0.6, Eosinophils # (Auto) 0.5H, Basophils # (Auto) 0.0, Immature Granulocyte # (Auto) 0.0, Sodium Level 139, Potassium Level 4.4, Chloride Level 107, Carbon Dioxide Level 23, Anion Gap 9, Blood Urea Nitrogen 22H, Creatinine 0.77, Estimat Glomerular Filtration Rate 82, BUN/Creatinine Ratio 29, Glucose Level 86, Calcium Level 8.5 Microbiology 06/08/23 Blood Culture - Preliminary, Resulted Streptococcus mitis group No Susceptibility Performed See Comments 06/08/23 Urine Culture - Final, Complete >=3 Gram Positive Isolates Home Meds Active Amoxicillin 875 Mg Tablet 875 Mg PO BID 6 Days Reported Hydroxyzine HCl 10 Mg Tablet 10 Mg PO DAILY PRN Gabapentin 600 Mg Tablet 600 Mg PO TID PRN Assessment/Pt DC Instructions AMS Pt to follow-up with her PCP within 7-14 days after discharge. Discharge Diet: No Restrictions Activity as Tolerated: Yes Discharge Physical Examination Allergies: Coded Allergies: No Known Drug Allergies (Unverified , 05/15/09) General Appearance: No Apparent Distress Respiratory: Normal Breath Sounds, No Accessory Muscle Use, No Respiratory Distress Cardiovascular: Regular Rate, Rhythm Gastrointestinal: Non Tender, Soft Skin: Other (cellulitis with 2cm circular shallow ulcer over anterior LE) Neurologic/Psychiatric: Alert, Oriented x3, Normal Mood/Affect HOSSEIN MCKEON MD 06/11/23 1717: Discharge Summary Discharge Physical Examination Allergies: Coded Allergies: No Known Drug Allergies (Unverified , 05/15/09) Skin: Other (cellulitis with 2cm circular shallow ulcer over anterior LE) Supervisory-Addendum Brief Supervisory Addendum I personally performed the dorsey portions of the visit, discussed case with resident and concur with resident documentation of history, physical exam, assessment and treatment plan unless otherwise noted. AKASH NORMAN MD,RESIDENT Jun 11, 2023 11:45 HOSSEIN MCKEON MD Jun 11, 2023 17:17
[2023-06-11 12:13] VITALS: BP 158/81
== END 2023-06-11 13:49 | disposition home or self-care (01) ==
LOC: EDUNIT# 18:52 → ER 18:53 → 4TH 21:01
PROVIDERS: ADMIT Family Medicine; ATTEND Family Medicine
DX: L03.115 Cellulitis of right lower limb (principal); R41.82 Altered mental status, unspecified; R09.02 Hypoxemia; I11.0 Hypertensive heart disease with heart failure; I50.9 Heart failure, unspecified; F19.10 Other psychoactive substance abuse, uncomplicated; F17.210 Nicotine dependence, cigarettes, uncomplicated; Z79.891 Long term (current) use of opiate analgesic; Z79.899 Other long term (current) drug therapy
CPT/HCPCS: 51702; 70450; 71045; 80048 ×3; 80053; 80202; 80306; 81000; 83605; 83880; 84484; 85025 ×2; 85027 ×2; 85610; 85730; 87040; 87070; 87077 ×2; 87088; 87186; 87205; 87636; 93005; 94640 ×4; 94760; 96366 ×2; 96372 ×2; 96375; 96376 ×3; 99284; C8929; G0378; G0480 ×2; 36415; 80320; 80329; 93306

== ENCOUNTER 2023-06-17 16:07 | Emergency (ER) | payer MEDICARE, OTHER ==
[~2023-06-17 16:07] MED LIST changes: +AMOX875T2 PO; +HYDR-3584 PO
[2023-06-17] MEDS ORDERED: methylPREDNISolone INJ 40 MG/ML VIAL IV ONE (16:15)
[2023-06-17] MEDS ORDERED: RT-Ipratropium/Albuterol NEB 3 ML VIAL INH ONE (16:15)
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
[2023-06-17 16:21] LABS: BASOPHILS # (AUTO) 0.1 10^3/uL (0.0-0.1); BASOPHILS % (AUTO) 1 % (0-10); EOSINOPHILS # (AUTO) 0.6 10^3/uL (0.0-0.3); EOSINOPHILS % (AUTO) 10 % (0-10); HEMATOCRIT 40 % (35-52); HEMOGLOBIN 13.1 g/dL (11.5-16.0); LYMPHOCYTES # (AUTO) 1.4 10^3/uL (1.0-4.0); LYMPHOCYTES % (AUTO) 21 % (12-44); MEAN CORPUSCULAR HEMOGLOBIN 31 pg (25-34); MEAN CORPUSCULAR HGB CONC 32 g/dL (32-36); MEAN CORPUSCULAR VOLUME 94 fL (80-99); MEAN PLATELET VOLUME 8.8 fL (9.0-12.2); MONOCYTES # (AUTO) 0.6 10^3/uL (0.0-1.0); MONOCYTES % (AUTO) 10 % (0-12); NEUTROPHILS # (AUTO) 3.8 10^3/uL (1.8-7.8); NEUTROPHILS % (AUTO) 59 % (42-75); PLATELET COUNT 265 10^3/uL (130-400); WHITE BLOOD COUNT 6.4 10^3/uL (4.3-11.0)
[2023-06-17 16:40] LABS: ALBUMIN 3.9 GM/DL (3.2-4.5); BILIRUBIN,TOTAL 0.3 MG/DL (0.1-1.0); CALCIUM 9.2 MG/DL (8.5-10.1); CREATININE SERUM 0.67 MG/DL (0.60-1.30); POTASSIUM 4.1 MMOL/L (3.6-5.0); TOTAL PROTEIN 7.4 GM/DL (6.4-8.2)
--- NOTE | 2023-06-17 16:57 | Diagnostic Imaging Report ---
EXAMINATION: Chest 1 view HISTORY: Short of breath. COMPARISON: 06/08/2023 FINDINGS: There is mild edema. No pneumonia. No pleural effusion or pneumothorax. Heart size is normal. IMPRESSION: 1. Mild edema. Dictated by: Dictated on workstation # [id number]
[2023-06-17 17:23] VITALS: BP 156/86
== END 2023-06-17 17:23 | disposition home or self-care (01) ==
LOC: EDUNIT# 16:07 → ER 16:08
DX: R09.81 Nasal congestion (principal); R42 Dizziness and giddiness; J81.1 Chronic pulmonary edema
CPT/HCPCS: 36415; 71045; 80053; 85025; 93005; 94640; 96374